=== PATIENT | female | born 1955 | race American Indian/Alaskan Native ===

== ENCOUNTER 2018-03-07 15:54 | Inpatient (IN) | payer MEDICAID ==
[2018-03-07] MEDS ORDERED: ATIVAN ONE ×4 (16:01→17:29)
[2018-03-07] MEDS ORDERED: KEPPRA 1,000 MG/NS 0.75% 100ML 1,000 MG/100 ML BAG IV ONE ×2 (16:19→19:31)
--- NOTE | 2018-03-07 16:23 | Cat Scan Report ---
FINAL REPORT PROCEDURE: CT head without contrast. TECHNIQUE: Computerized tomography of the head was performed without contrast material. HISTORY: neuro deficits <6hrs or sx present upon awakening COMPARISON: No prior studies are available for comparison. FINDINGS: The ventricles are normal in size. There is mild evidence of chronic ischemic white matter disease. T here are no mass lesions. There is no intracranial hemorrhage. The calvarium appears intact. The mast oid air cells are clear. There is mucosal thickening in the right sphenoid sinus.. An MRI scan with d iffusion-weighted imaging is the most sensitive means of detecting an early stroke. IMPRESSION: Normal study of the brain for age.
[2018-03-07 16:25] LABS: Mean Corpuscular HGB Conc 30 % (30-34); Mean Corpuscular Volume 88 fl (79-97); Platelet Count 288 K/mm3 (140-440); Red Blood Count 4.87 M/mm3 (3.65-5.03); Red Cell Distribution Width 16.5 % (13.2-15.2)
--- NOTE | 2018-03-07 16:27 | Emergency Department Report ---
HPI - General Time Seen by Provider: 03/07/18 16:19 - HPI HPI: Room 17 The patient is a 62-year-old female presented with a chief complaint of altered mental status. Per EMS family called at approximately 15:00 for altered mental status. EMS states upon their arrival the patient would not move her left side. The patient never spoke to EMS. EMS states while en route the patient had a generalized tonic-clonic seizure. In the ED the patient appears postictal. While in CT the patient had 2 more generalized tonic-clonic seizures. The patient was brought back to the room and immediately intubated using RSI Location: Mental status Duration: [See above] Quality: Altered Severity: Severe Modifying factors: [see above] Context: [see above] Mode of transportation: [not driving] ED Past Medical Hx - Past Medical History Hx Hypertension: Yes (2006) Hx Diabetes: Yes (2006) - Surgical History Additional Surgical History: cataract surgery, tubes removed, foot surgery - Family History Family history: no significant - Social History Smoking Status: Unknown if ever smoked Substance Use Type: None - Medications Home Medications: Home Medications Medication Instructions Recorded Confirmed Last Taken Type Cetirizine HCl [All Day Allergy] 1 tab PO DAILY PRN 05/09/13 05/10/13 05/08/13 20:00 History Fluticasone Propionate [Flovent 2 mcg INNOSTRIL DAILY 05/09/13 05/10/13 05/08/13 History Diskus] Glimepiride [Amaryl] 4 mg PO QAM 05/09/13 05/10/13 05/08/13 History 0800 Metformin HCl [Fortamet ER] 1,000 mg PO BID 05/09/13 05/10/13 05/08/13 08:00 History 1000 MG Sertraline [Zoloft] 100 mg PO QAM 05/09/13 05/10/13 05/08/13 08:00 History 100 MG Simvastatin [Zocor TAB] 20 mg PO DAILY 05/09/13 05/10/13 05/08/13 08:00 History 20 MG Valsartan [Diovan] 160 mg PO DAILY 05/09/13 05/10/13 05/08/13 08:00 History 160 MG amLODIPine [Norvasc] 10 mg PO DAILY 05/09/13 05/10/13 05/08/13 08:00 History 10 MG clonazePAM [KlonoPIN] 1 mg PO Q8HR 05/09/13 05/10/13 05/08/13 08:00 History 1 MG hydroCHLOROthiazide [HCTZ] 25 mg PO DAILY 05/09/13 05/10/13 05/08/13 08:00 History risperiDONE [Risperidone Odt] 0.25 mg PO QAM 05/09/13 05/10/13 05/08/13 08:00 History 0.25 MG Ciprofloxacin HCl [Cipro] 500 mg PO BID #28 tablet 05/13/13 Unknown Rx Insulin NPH/Regular [Novolin 70/30] 16 unit SQ BIDDIAB 30 Days ml 05/13/13 Unknown Rx Lactobacillus Acidophil [Lactinex] 1 each PO TID #60 tablet 05/13/13 Unknown Rx Sulfamethoxazole/Trimethoprim 1 each PO BID #28 tablet 05/13/13 Unknown Rx [Bactrim Ds] metroNIDAZOLE [Flagyl] 500 mg PO Q8HR #42 tablet 05/13/13 Unknown Rx HYDROcodone/APAP 5-325 [[place] 1 each PO Q6HR PRN #16 tablet 09/03/13 Unknown Rx 5-325 mg TAB] Sulfamethoxazole/Trimethoprim 1 each PO Q12H #20 tablet 09/03/13 Unknown Rx [Bactrim Ds] ED Review of Systems ROS: Stated complaint: STROKE Other details as noted in HPI Comment: Unobtainable due to pts medical conditions Physical Exam - Physical Exam Physical Exam: GENERAL: The patient is well-developed well-nourished female in apparent postictal hoping nonrebreather to her face with her left arm with a left gaze. [] HEENT: Normocephalic. Atraumatic. Leftward gaze NECK: Supple. Trachea midline CHEST/LUNGS: Clear to auscultation. There is no respiratory distress noted. HEART/CARDIOVASCULAR: Regular. There is tachycardia. There is no gallop rub or murmur. ABDOMEN: Abdomen is soft, nontender. Patient has normal bowel sounds. There is no abdominal distention. SKIN: There is no rash. There is no edema. There is no diaphoresis. NEURO: The patient is postictal and does not follow commands. MUSCULOSKELETAL: There is no evidence of acute injury. ED Course - Reevaluation(s) Reevaluation #1: 03/07/18 17:30 Patient with focal twitching of the right hand and right foot improving but still refractory to Ativan and Keppra. Phenobarbital load ordered - Consultations Consultation #1: 03/07/18 17:24 Tele-neurology paged 03/07/18 17:[address] Corley- agrees with plan - EJ/Peripheral Line Neck R Time Out Performed: No Indications: nurses unable to establis Skin Cleansed in Sterile Fashion: Yes Size: 20 Dressing Placed: Tegaderm Patient Tolerated Procedure: no complications - Intubation Time Out Performed: No Sedative: Etomidate Mg Given: 20 Paralytic: Succinylcholine Mg Given: 100 (initial 100 mg succinylcholine went through malfunctioning IV. Second 100 mg IV push by myself through EJ) Laryngoscope: Sher Size: 3 ET Tube Size: 7 Tube Secured Depth (cm): 21 Tube Secured Location: lips Tube Placement Confirmation: visualized tube passing t Patient Tolerated Procedure: well Intubation Complications: none ED Medical Decision Making - Lab Data Result diagrams: 03/07/18 16:11 03/07/18 16:11 Laboratory Tests 03/07/18 03/07/18 03/07/18 16:11 16:11 16:11 WBC 13.5 H RBC 4.87 Hgb 12.9 Hct 42.9 MCV 88 MCH 26 L MCHC 30 RDW 16.5 H Plt Count 288 Lymph # Desktop Manager PT 13.5 INR 0.99 APTT 28.8 Thrombin Time POC ABG pH POC ABG pCO2 POC ABG pO2 POC ABG HCO3 POC ABG Total CO2 POC ABG O2 Sat POC ABG Base Excess FiO2 Sodium 134 L Potassium 4.0 Chloride 93.2 L Carbon Dioxide 15 L Anion Gap 30 BUN 32 H Creatinine 1.7 H Estimated GFR 37 BUN/Creatinine Ratio 19 Glucose 793 H* Calcium 9.8 Magnesium Total Creatine Kinase CK-MB (CK-2) CK-MB (CK-2) Rel Index Troponin T < 0.010 03/07/18 03/07/18 03/07/18 16:11 16:11 16:11 WBC RBC Hgb Hct MCV MCH MCHC RDW Plt Count Lymph # PT INR APTT Thrombin Time 18.7 POC ABG pH POC ABG pCO2 POC ABG pO2 POC ABG HCO3 POC ABG Total CO2 POC ABG O2 Sat POC ABG Base Excess FiO2 Sodium Potassium Chloride Carbon Dioxide Anion Gap BUN Creatinine Estimated GFR BUN/Creatinine Ratio Glucose Calcium Magnesium 2.00 Total Creatine Kinase 91 CK-MB (CK-2) 2.6 CK-MB (CK-2) Rel Index 2.8 Troponin T 03/07/18 17:29 WBC RBC Hgb Hct MCV MCH MCHC RDW Plt Count Lymph # PT INR APTT Thrombin Time POC ABG pH 7.190 L POC ABG pCO2 57.6 H POC ABG pO2 250 H POC ABG HCO3 22.0 POC ABG Total CO2 24 POC ABG O2 Sat 100 POC ABG Base Excess -6 FiO2 100 Sodium Potassium Chloride Carbon Dioxide Anion Gap BUN Creatinine Estimated GFR BUN/Creatinine Ratio Glucose Calcium Magnesium Total Creatine Kinase CK-MB (CK-2) CK-MB (CK-2) Rel Index Troponin T - EKG Data -: EKG Interpreted by Me EKG shows normal: sinus rhythm Rate: tachycardia (106 bpm) - EKG Data When compared to previous EKG there are: previous EKG unavailable - Radiology Data Radiology results: report reviewed (CT head, chest x-ray), image reviewed (chest x-ray, CT head) interpreted by me: Chest x-ray-ET tube in appropriate position. No focal infiltrate, no pneumothorax [facility] [address] [place] [address] XRay Report Signed Patient: MARCOS KERR MR#: [id number] : 955 Acct:[id number] Age/Sex: 62 / F ADM Date: 03/07/18 Loc: ED Attending Dr: Ordering Physician: MAGDA CORONA MD Date of Service: 03/07/18 Procedure(s): XR chest 1V ap Accession Number(s): [id number] cc: MAGDA CORONA MD Fluoro Time In Minutes: FINAL REPORT PROCEDURE: Chest. TECHNIQUE: Chest radiograph anteroposterior view. CPT 63455 HISTORY: Intubation. COMPARISON: No prior studies are available for comparison. FINDINGS: The heart and mediastinum appear normal. The lungs are clear and well expanded. There is an endotracheal tube that terminates approximately 5.8 centimeters above the anatoly. There are no pleural effusions. The soft tissues and regional skeleton are unremarkable. IMPRESSION: Satisfactory intubation. Transcribed By: [facility] Dictated By: GRZEGORZ DOBSON MD Electronically Authenticated By: GRZEGORZ DOBSON MD Signed Date/Time: 03/07/181740 DD/ 42 TD/TT: 03/07/181742 [facility] [address] [place] [address] Cat Scan Report Signed Patient: MARCOS KERR MR#: [id number] : 1955 Acct:[id number] Age/Sex: 62 / F ADM Date: 03/07/18 Loc: ED Attending Dr: Ordering Physician: MAGDA CORONA MD Date of Service: 03/07/18 Procedure(s): CT head/brain wo con Accession Number(s): [id number] cc: MAGDA CORONA MD FINAL REPORT PROCEDURE: CT head without contrast. TECHNIQUE: Computerized tomography of the head was performed without contrast material. HISTORY: neuro deficits lt; 6hrs or sx present upon awakening COMPARISON: No prior studies are available for comparison. FINDINGS: The ventricles are normal in size. There is mild evidence of chronic ischemic white matter disease. There are no mass lesions. There is no intracranial hemorrhage. The calvarium appears intact. The mastoid air cells are clear. There is mucosal thickening in the right sphenoid sinus.. An MRI scan with diffusion-weighted imaging is the most sensitive means of detecting an early stroke. IMPRESSION: Normal study of the brain for age. Transcribed By: [facility] Dictated By: GRZEGORZ DOBSON MD Electronically Authenticated By: GRZEGORZ DOBSON MD Signed Date/Time: 03/07/181622 DD/ 24 TD/TT: 03/07/181624 - Differential Diagnosis altered mental status, ICH, hypertensive urgency Critical care attestation.: If time is entered above; I have spent that time in minutes in the direct care of this critically ill patient, excluding procedure time. ED Disposition Clinical Impression: Altered mental status, Status epilepticus, DKA (diabetic ketoacidoses) Disposition: OP ADMIT IP TO THIS HOSP Is pt being admited?: Yes Does the pt Need Aspirin: No Condition: Serious Instructions: Diabetic Ketoacidosis (ED) Time of Disposition: 17:39 (hospitalist paged (Dr Corbin))
[2018-03-07 16:35] LABS: Hematocrit 42.9 % (30.3-42.9); Hemoglobin 12.9 gm/dl (10.1-14.3); INR 0.99 (0.87-1.13); Partial Thromboplastin Time 28.8 Sec. (24.2-36.6)
[2018-03-07 16:40] LABS: BUN/Creatinine Ratio 19; Blood Urea Nitrogen 32 mg/dL (7-17); Calcium 9.8 mg/dL (8.4-10.2); Hemolysis Index 6
[2018-03-07 16:58] LABS: Creatine Kinase MB 2.6 ng/mL (0.0-4.0)
[2018-03-07] MEDS ORDERED: CARDENE 50 MG in NACL 0.9% 250ML 230 ML IV SCH (17:00)
[2018-03-07] MEDS ORDERED: NACL 0.9% 1000 ML 1,000 ML IV ONE ×3 (17:24→17:29)
[2018-03-07] MEDS ORDERED: ATIVAN IV ONE ×4 (17:25→17:37)
[2018-03-07] MEDS ORDERED: HumuLIN R IV ONE (17:31)
[2018-03-07] MEDS ORDERED: D50W (25GM) Syringe IV PRN ×4 (17:34→20:09)
--- NOTE | 2018-03-07 17:41 | XRay Report ---
FINAL REPORT PROCEDURE: Chest. TECHNIQUE: Chest radiograph anteroposterior view. CPT 49008 HISTORY: Intubation. COMPARISON: No prior studies are available for comparison. FINDINGS: The heart and mediastinum appear normal. The lungs are clear and well expanded. There is an endotrach eal tube that terminates approximately 5.8 centimeters above the anatoly. There are no pleural effusio ns. The soft tissues and regional skeleton are unremarkable. IMPRESSION: Satisfactory intubation.
[2018-03-07 18:00] LABS: Basophils % (Manual) 0 % (0.0-1.8); Eosinophils % (Manual) 0 % (0.0-4.3); Total Cells Counted 100
--- NOTE | 2018-03-07 18:01 | History and Physical Report ---
History of Present Illness Chief complaint: Unresponsive History of present illness: 62 YO Female with HTN, DM presents to ED for evaluation. Pt is unresponsive and unable to provide history. Pt family is at bedside and provides history. As per family, the patient was found to be confused and unable to move the left side of her body. EMS was called and the patient was found to be in distress. Pt transported to [facility] for further care and evaluation. As per EMs, the patient experienced a generalized tonic clonic seizure. Pt seen and evaluated in ED and found to have DKA, Acidosis, Acute Renal Failure, as well as Respiratory Failure. Pt was unable to protect her airway. The patient was intubated and placed on vent support. Neurology notified, and the patient was deemed not to be a candidate for TPA. Pt admitted to ICU and initiated on DKA protocol. Past History Past Medical History: diabetes, hypertension, other (Obesity) Past Surgical History: cataract removal, Other (Foot surgery) Social history: single. denies: smoking, alcohol abuse, prescription drug abuse Family history: diabetes, hypertension Medications and Allergies Allergies Allergy/AdvReac Type Severity Reaction Status Date / Time No Known Allergies Allergy Unverified 05/09/13 12:39 Home Medications Medication Instructions Recorded Confirmed Last Taken Type Cetirizine HCl [All Day Allergy] 1 tab PO DAILY PRN 05/09/13 05/10/13 05/08/13 20:00 History Fluticasone Propionate [Flovent 2 mcg INNOSTRIL DAILY 05/09/13 05/10/13 05/08/13 History Diskus] Glimepiride [Amaryl] 4 mg PO QAM 05/09/13 05/10/13 05/08/13 History 0800 Metformin HCl [Fortamet ER] 1,000 mg PO BID 05/09/13 05/10/13 05/08/13 08:00 History 1000 MG Sertraline [Zoloft] 100 mg PO QAM 05/09/13 05/10/13 05/08/13 08:00 History 100 MG Simvastatin [Zocor TAB] 20 mg PO DAILY 05/09/13 05/10/13 05/08/13 08:00 History 20 MG Valsartan [Diovan] 160 mg PO DAILY 05/09/13 05/10/13 05/08/13 08:00 History 160 MG amLODIPine [Norvasc] 10 mg PO DAILY 05/09/13 05/10/13 05/08/13 08:00 History 10 MG clonazePAM [KlonoPIN] 1 mg PO Q8HR 05/09/13 05/10/13 05/08/13 08:00 History 1 MG hydroCHLOROthiazide [HCTZ] 25 mg PO DAILY 05/09/13 05/10/13 05/08/13 08:00 History risperiDONE [Risperidone Odt] 0.25 mg PO QAM 05/09/13 05/10/13 05/08/13 08:00 History 0.25 MG Ciprofloxacin HCl [Cipro] 500 mg PO BID #28 tablet 05/13/13 Unknown Rx Insulin NPH/Regular [Novolin 70/30] 16 unit SQ BIDDIAB 30 Days ml 05/13/13 Unknown Rx Lactobacillus Acidophil [Lactinex] 1 each PO TID #60 tablet 05/13/13 Unknown Rx Sulfamethoxazole/Trimethoprim 1 each PO BID #28 tablet 05/13/13 Unknown Rx [Bactrim Ds] metroNIDAZOLE [Flagyl] 500 mg PO Q8HR #42 tablet 05/13/13 Unknown Rx HYDROcodone/APAP 5-325 [[place] 1 each PO Q6HR PRN #16 tablet 09/03/13 Unknown Rx 5-325 mg TAB] Sulfamethoxazole/Trimethoprim 1 each PO Q12H #20 tablet 09/03/13 Unknown Rx [Bactrim Ds] Active Meds: Active Medications Dextrose (D50w (25gm) Syringe) 0 ml IV PRN PRN PRN Reason: Hypoglycemia Nicardipine HCl 50 mg/ Sodium (Chloride) 250 mls @ 25 mls/hr IV TITR OZIEL; Protocol Sodium Chloride (Nacl 0.9% 1000 Ml) 1,000 mls @ 999 mls/hr IV ONCE ONE Stop: 03/07/18 18:24 Sodium Chloride (Nacl 0.9% 1000 Ml) 1,000 mls @ 999 mls/hr IV ONCE ONE Stop: 03/07/18 18:29 Last Admin: 03/07/18 17:46 Dose: 999 mls/hr Documented by: Sodium Chloride (Nacl 0.9% 1000 Ml) 1,000 mls @ 999 mls/hr IV ONCE ONE Stop: 03/07/18 18:29 Last Admin: 03/07/18 17:38 Dose: 999 mls/hr Documented by: Insulin Human Regular 100 (units/ Sodium Chloride) 100 mls @ 10 mls/hr IV TITR OZIEL; Protocol Phenobarbital 1,573 mg/ Sodium (Chloride) 112.1 mls @ 223.077 mls/hr IV ONCE ONE Stop: 03/07/18 19:30 Review of Systems ROS unobtainable: due to endotracheal tube Exam - Constitutional Vitals: Temp Pulse Resp BP Pulse Ox 103 H 14 116/70 99 03/07/18 17:34 03/07/18 16:21 03/07/18 17:34 03/07/18 17:34 General appearance: Present: severe distress, obese - EENT Eyes: Present: PERRL, miosis ENT: hearing intact, clear oral mucosa - Neck Neck: Present: supple, normal ROM - Respiratory Respiratory: bilateral: diminished, rhonchi - Cardiovascular Heart Sounds: Present: S1 & S2. Absent: rub, click - Extremities Extremities: pulses symmetrical, No edema Peripheral Pulses: within normal limits - Abdominal General gastrointestinal: Present: soft, non-tender, non-distended, normal bowel sounds Female genitourinary: Present: normal - Integumentary Integumentary: Present: clear, dry - Musculoskeletal Musculoskeletal: generalized weakness - Psychiatric Psychiatric: no appropriate mood/affect, no intact judgment & insight, no memory intact - Neurologic Neurologic: focal deficits, no gait normal Results - Labs CBC & Chem 7: 03/07/18 16:11 03/07/18 18:00 Labs: Abnormal lab results 03/07/18 03/07/18 03/07/18 Range/Units 16:11 16:11 17:29 WBC 13.5 H (4.5-11.0) K/mm3 MCH 26 L (28-32) pg RDW 16.5 H (13.2-15.2) % POC ABG pH 7.190 L (7.35-7.45) POC ABG pCO2 57.6 H (35-45) POC ABG pO2 250 H (80-105) Sodium 134 L (137-145) mmol/L Chloride 93.2 L (98-107) mmol/L Carbon Dioxide 15 L (22-30) mmol/L BUN 32 H (7-17) mg/dL Creatinine 1.7 H (0.7-1.2) mg/dL Glucose 793 H* (65-100) mg/dL Assessment and Plan - Patient Problems (1) Respiratory failure Current Visit: Yes Status: Acute Qualifiers: Chronicity: acute Respiratory failure complication: hypoxia Qualified Code(s): J96.01 - Acute respiratory failure with hypoxia Plan to address problem: Pt intubated, sedated, on vent support. Admit to ICU, daily SBT, Sedation holiday, chest x ray, ABG The high probability of a clinically significant, sudden or life threatening deterioration of the [pulmonary, neuro, endocrine] system(s) required my full and direct attention, intervention and personal management. The aggregate cri tical care time was [65] minutes. This time is in addition to time spent performing reported procedures but includes the following: [x] Data Review and interpretation [x] Patient assessment and monitoring of vital signs [x] Documentation [x] Medication orders and management (2) Encephalopathy Current Visit: Yes Status: Acute Plan to address problem: CT Head, neuro checks, (3) Sepsis Current Visit: Yes Status: Acute Qualifiers: Sepsis type: sepsis due to unspecified organism Qualified Code(s): A41.9 - Sepsis, unspecified organism Plan to address problem: Sepsis protocol: IV antibiotic therapy, chest x ray, urinalysis, blood cultures, IVF resuscitation, serial lactic acid level. (4) ARF (acute renal failure) with tubular necrosis Current Visit: Yes Status: Acute Plan to address problem: IVF resuscitation therapy, monitor uop q shift, repeat bmp to monitor serum creatnine (5) Acidosis Current Visit: Yes Status: Acute Plan to address problem: treat sepsis, serial lactic acid levels, IVF resuscitation (6) DKA (diabetic ketoacidoses) Current Visit: Yes Status: Acute Qualifiers: Diabetes mellitus type: type 1 Diabetes mellitus complication detail: with coma Qualified Code(s): E10.11 - Type 1 diabetes mellitus with ketoacidosis with coma Plan to address problem: DKA Protocol: IVF resuscitation therapy, Insulin drip, serial bmp, monitor serial bmp to monitor anion gap (7) CVA (cerebral vascular accident) Current Visit: Yes Status: Acute Qualifiers: Precerebral and cerebral artery: posterior cerebral artery Plan to address problem: Admit to ICU, Neurology consulted, CT Head, MRI brain, MRA Brain, Echo, Carotid doppler, Neuro checks, aspiration precautions, seizure precautions, (8) Seizure disorder Current Visit: Yes Status: Acute Plan to address problem: Kepp, phenobarbital, neurology consulted, EEG (9) DVT prophylaxis Current Visit: No Status: Acute Plan to address problem: SCD to BLE while in bed.
[2018-03-07 18:02] LABS: Hypochromasia Few; Platelet Estimate Consistent w Auto; Schistocytes Rare
[2018-03-07] MEDS ORDERED: SODIUM CHLORIDE FLUSH SYRINGE 10 ML IV PRN (18:02)
[2018-03-07 18:27] LABS: Calcium 9.1 mg/dL (8.4-10.2)
[2018-03-07] MEDS ORDERED: NACL 0.9% IV ONE (19:00)
[2018-03-07] MEDS ORDERED: PHENOBARBITAL IV ONE (19:00)
[2018-03-07] MEDS ORDERED: NACL 0.9% 1000 ML IV ONE (19:00)
[2018-03-07] MEDS ORDERED: HumuLIN R 100 UNITS in NACL 0.9% 99 ML IV SCH ×2 (19:00)
[2018-03-07] MEDS ORDERED: AMIDATE IV ONE (19:13)
[2018-03-07] MEDS ORDERED: XYLOCAINE CARDIAC IV ONE (19:13)
[2018-03-07] MEDS ORDERED: QUELICIN ONE (19:13)
[2018-03-07 19:46] LABS: Bacteria,Urine 1+ /HPF (Negative); Bilirubin,Urine NEG (Negative); Blood,Urine MOD (Negative); Color,Urine Yellow (Yellow); Mucus,Urine 2+ /HPF; Urobilinogen,Urine < 2.0 mg/dL (<2.0)
[2018-03-07] MEDS ORDERED: SODIUM CHLORIDE FLUSH SYRINGE 10 ML INJ PRN (20:05)
[2018-03-07] MEDS ORDERED: PHENERGAN PR PRN (20:05)
[2018-03-07] MEDS ORDERED: REGLAN PO PRN ×2 (20:05→20:24)
[2018-03-07] MEDS ORDERED: ZOFRAN IV PRN (20:05)
[2018-03-07] MEDS ORDERED: MILK OF MAGNESIA PO PRN (20:05)
[2018-03-07] MEDS ORDERED: DULCOLAX PR PRN (20:05)
[2018-03-07] MEDS ORDERED: [UNRECOGNIZED DRUG - REMARK] PO PRN (20:07)
[2018-03-07] MEDS ORDERED: CLARITIN PO PRN (20:32)
[2018-03-07 21:28] LABS: Calcium 8.8 mg/dL (8.4-10.2)
[2018-03-07] MEDS ORDERED: NON-FORMULARY (Clonazepam [Klonopin] 1 MG) PO SCH (22:00)
[2018-03-07 23:25] LABS: Calcium 9.1 mg/dL (8.4-10.2)
[2018-03-08] MEDS: ZITHROMAX 500 MG in NACL 0.9% 250ML 250 ML IV SCH ×2 (00:05→10:09)
[2018-03-08] MEDS: SODIUM CHLORIDE FLUSH SYRINGE 10 ML IV SCH ×3 (00:06→21:58)
[2018-03-08] MEDS: HumaLOG SUB-Q SCH ×3 (00:07→18:14)
[2018-03-08] MEDS: D5W/0.45% NACL/KCL 20 MEQ 20 MEQ/1,000 ML BAG IV SCH ×2 (00:15→08:20)
[2018-03-08] MEDS: ROCEPHIN/NS 2 GM/100 ML 2 GM/100 ML BAG IV SCH ×2 (01:15→10:10)
[2018-03-08 05:57] LABS: Calcium 8.9 mg/dL (8.4-10.2)
[2018-03-08] MEDS ORDERED: TYLENOL PR PRN (09:02)
[2018-03-08] MEDS ORDERED: ZOLOFT PO SCH (10:00)
[2018-03-08] MEDS ORDERED: RisperDAL PO SCH (10:00)
[2018-03-08] MEDS ORDERED: RISPERIDONE 0.25 MG PO SCH (10:00)
[2018-03-08] MEDS ORDERED: FLUTICASONE PROPIONATE 2 MCG InNostril SCH (10:00)
[2018-03-08] MEDS ORDERED: KEPPRA 2,000 MG in NACL 0.9% 100 ML IV ONE (11:15)
--- NOTE | 2018-03-08 11:19 | XRay Report ---
AP ABDOMEN: HISTORY: Dobbhoff tube placement. A Dobbhoff tube has been inserted which terminates in the fundus of the stomach. The abdominal gas pattern is unremarkable. No masses or organomegaly is identified and there is no gross evidence of free air or fluid. No significant soft tissue calcifications are noted. IMPRESSION: Unremarkable abdomen.
--- NOTE | 2018-03-08 12:14 | Consultation ---
History of Present Illness Consult date: 03/08/18 Requesting physician: VIVEK GREEN Reason for consult: other (DKA; Acute Encephalopathy; Status Epilepticus) History of present illness: PULMONARY/CCM CONSULT NOTE (Full dictation # [id number]) Please see dictated notes for full details Past History Past Medical History: diabetes, hypertension, other (Obesity) Past Surgical History: cataract removal, Other (Foot surgery) Social history: single. denies: smoking, alcohol abuse, prescription drug abuse Family history: diabetes, hypertension Medications and Allergies Allergies Allergy/AdvReac Type Severity Reaction Status Date / Time No Known Allergies Allergy Unverified 05/09/13 12:39 Home Medications Medication Instructions Recorded Confirmed Last Taken Type Cetirizine HCl [All Day Allergy] 1 tab PO DAILY PRN 05/09/13 05/10/13 05/08/13 20:00 History Fluticasone Propionate [Flovent 2 mcg INNOSTRIL DAILY 05/09/13 05/10/13 05/08/13 History Diskus] Glimepiride [Amaryl] 4 mg PO QAM 05/09/13 05/10/13 05/08/13 History 0800 Metformin HCl [Fortamet ER] 1,000 mg PO BID 05/09/13 05/10/13 05/08/13 08:00 History 1000 MG Sertraline [Zoloft] 100 mg PO QAM 05/09/13 05/10/13 05/08/13 08:00 History 100 MG Simvastatin [Zocor TAB] 20 mg PO DAILY 05/09/13 05/10/13 05/08/13 08:00 History 20 MG Valsartan [Diovan] 160 mg PO DAILY 05/09/13 05/10/13 05/08/13 08:00 History 160 MG amLODIPine [Norvasc] 10 mg PO DAILY 05/09/13 05/10/13 05/08/13 08:00 History 10 MG clonazePAM [KlonoPIN] 1 mg PO Q8HR 05/09/13 05/10/13 05/08/13 08:00 History 1 MG hydroCHLOROthiazide [HCTZ] 25 mg PO DAILY 05/09/13 05/10/13 05/08/13 08:00 History risperiDONE [Risperidone Odt] 0.25 mg PO QAM 05/09/13 05/10/13 05/08/13 08:00 History 0.25 MG Ciprofloxacin HCl [Cipro] 500 mg PO BID #28 tablet 05/13/13 Unknown Rx Insulin NPH/Regular [Novolin 70/30] 16 unit SQ BIDDIAB 30 Days ml 05/13/13 Unknown Rx Lactobacillus Acidophil [Lactinex] 1 each PO TID #60 tablet 05/13/13 Unknown Rx Sulfamethoxazole/Trimethoprim 1 each PO BID #28 tablet 05/13/13 Unknown Rx [Bactrim Ds] metroNIDAZOLE [Flagyl] 500 mg PO Q8HR #42 tablet 05/13/13 Unknown Rx HYDROcodone/APAP 5-325 [[place] 1 each PO Q6HR PRN #16 tablet 09/03/13 Unknown Rx 5-325 mg TAB] Sulfamethoxazole/Trimethoprim 1 each PO Q12H #20 tablet 09/03/13 Unknown Rx [Bactrim Ds] Active Meds: Active Medications Acetaminophen (Tylenol) 650 mg PO Q4H PRN PRN Reason: Pain, Mild (1-3) Acetaminophen (Tylenol) 650 mg WA Q6H PRN PRN Reason: Non Cardiac Pain or Temp>100.5 Atorvastatin Calcium (Lipitor) 40 mg PO QHS [facility] Last Admin: 03/07/18 23:41 Dose: Not Given Documented by: Bisacodyl (Dulcolax) 10 mg WA QDAY PRN PRN Reason: Constipation Clonazepam (Klonopin) 1 mg PO Q8HR [facility] Last Admin: 03/07/18 23:41 Dose: Not Given Documented by: Dextrose (D50w (25gm) Syringe) 50 ml IV PRN PRN PRN Reason: Hypoglycemia Nicardipine HCl 50 mg/ Sodium (Chloride) 250 mls @ 25 mls/hr IV TITR [facility]; Protocol Insulin Human Regular 100 (units/ Sodium Chloride) 100 mls @ 10 mls/hr IV TITR OZIEL; Protocol Last Titration: 03/08/18 10:30 Dose: 1 units/hr, 1 mls/hr Documented by: Azithromycin 500 mg/ Sodium (Chloride) 250 mls @ 250 mls/hr IV Q24HR [facility]; Protocol Last Admin: 03/08/18 10:09 Dose: 250 mls/hr Documented by: Ceftriaxone Sodium (Rocephin/Ns 2 Gm/100 Ml) 2 gm in 100 mls @ 200 mls/hr IV Q24HR [facility]; Protocol Last Admin: 03/08/18 10:10 Dose: 200 mls/hr Documented by: Potassium Chloride/Dextrose/Sod Cl (D5w/0.45% Nacl/Kcl 20 Meq) 20 meq in 1,000 mls @ 125 mls/hr IV DIRECT [facility] Last Admin: 03/08/18 08:20 Dose: 125 mls/hr Documented by: Levetiracetam 750 mg/ Sodium (Chloride) 107.5 mls @ 400 mls/hr IV Q6H [facility] Insulin Human Lispro (Humalog) 0 unit SUB-Q Q6HR [facility]; Protocol Last Admin: 03/08/18 11:41 Dose: Not Given Documented by: Loratadine (Claritin) 10 mg PO DAILY PRN PRN Reason: Allergy Symptoms Magnesium Hydroxide (Milk Of Magnesia) 30 ml PO Q4H PRN PRN Reason: Constipation Metoclopramide HCl (Reglan) 5 mg PO Q6H PRN PRN Reason: Nausea And Vomiting Miscellaneous Medication (Fluticasone Propionate [Flovent Diskus]) 2 mcg InNostril DAILY [facility] Ondansetron HCl (Zofran) 4 mg IV Q8H PRN PRN Reason: Nausea And Vomiting Promethazine HCl (Phenergan) 25 mg WA Q6H PRN PRN Reason: Nausea And Vomiting Risperidone (Risperdal) 0.25 mg PO QAM [facility] Sertraline HCl (Zoloft) 100 mg PO QAM [facility] Sodium Chloride (Sodium Chloride Flush Syringe 10 Ml) 10 ml IV BID [facility] Last Admin: 03/08/18 00:06 Dose: 10 ml Documented by: Sodium Chloride (Sodium Chloride Flush Syringe 10 Ml) 10 ml IV PRN PRN PRN Reason: LINE FLUSH Physical Examination Vital signs: Vital Signs Pulse Ox 100 03/07/18 16:10 Results - Laboratory Findings CBC and BMP: 03/07/18 16:11 03/08/18 12:35 ABG POC ABG pH 7.343 (7.35-7.45) L 03/08/18 04:10 POC ABG pCO2 39.4 (35-45) 03/08/18 04:10 POC ABG pO2 159 (80-105) H 03/08/18 04:10 POC ABG HCO3 21.4 03/08/18 04:10 POC ABG Total CO2 23 03/08/18 04:10 POC ABG O2 Sat 99 03/08/18 04:10 PT/INR, D-dimer PT 13.5 Sec. (12.2-14.9) 03/07/18 16:11 INR 0.99 (0.87-1.13) 03/07/18 16:11 Abnormal lab findings: Abnormal Labs 03/07/18 03/07/18 03/07/18 16:11 16:11 17:29 WBC 13.5 H MCH 26 L RDW 16.5 H POC ABG pH 7.190 L POC ABG pCO2 57.6 H POC ABG pO2 250 H VBG pH Sodium 134 L Potassium Chloride 93.2 L Carbon Dioxide 15 L BUN 32 H Creatinine 1.7 H Glucose 793 H* POC Glucose Lactic Acid Phosphorus Urine WBC (Auto) 03/07/18 03/07/18 03/07/18 18:00 18:00 18:00 WBC MCH RDW POC ABG pH POC ABG pCO2 POC ABG pO2 VBG pH 7.197 L* Sodium 133 L Potassium 5.8 H D Chloride 95.9 L Carbon Dioxide 20 L BUN 33 H Creatinine 1.8 H Glucose 760 H* POC Glucose Lactic Acid Phosphorus 5.70 H Urine WBC (Auto) 03/07/18 03/07/18 03/07/18 18:12 18:51 19:39 WBC MCH RDW POC ABG pH POC ABG pCO2 POC ABG pO2 VBG pH Sodium Potassium Chloride Carbon Dioxide BUN Creatinine Glucose POC Glucose Lactic Acid 4.20 H* 3.40 H* Phosphorus Urine WBC (Auto) 91.0 H 03/07/18 03/07/18 03/07/18 19:56 21:03 21:03 WBC MCH RDW POC ABG pH POC ABG pCO2 POC ABG pO2 VBG pH Sodium Potassium Chloride Carbon Dioxide 20 L BUN 31 H Creatinine 1.4 H Glucose 381 H POC Glucose 426 H Lactic Acid 2.70 H* Phosphorus Urine WBC (Auto) 03/07/18 03/07/18 03/07/18 21:20 22:01 22:38 WBC MCH RDW POC ABG pH POC ABG pCO2 POC ABG pO2 VBG pH Sodium Potassium Chloride Carbon Dioxide 17 L BUN 29 H Creatinine 1.4 H Glucose 236 H POC Glucose 323 H 252 H Lactic Acid Phosphorus Urine WBC (Auto) 03/07/18 03/07/18 03/08/18 22:38 22:54 00:25 WBC MCH RDW POC ABG pH POC ABG pCO2 POC ABG pO2 VBG pH Sodium Potassium Chloride Carbon Dioxide BUN Creatinine Glucose POC Glucose 186 H 51 L Lactic Acid 2.50 H* Phosphorus Urine WBC (Auto) 03/08/18 03/08/18 03/08/18 01:03 02:30 03:14 WBC MCH RDW POC ABG pH POC ABG pCO2 POC ABG pO2 VBG pH Sodium Potassium Chloride Carbon Dioxide BUN Creatinine Glucose 106 H POC Glucose 157 H 147 H Lactic Acid Phosphorus Urine WBC (Auto) 03/08/18 03/08/18 03/08/18 03:47 04:10 05:06 WBC MCH RDW POC ABG pH 7.343 L POC ABG pCO2 POC ABG pO2 159 H VBG pH Sodium 146 H D Potassium Chloride 108.7 H Carbon Dioxide 20 L BUN 25 H Creatinine 1.5 H Glucose POC Glucose 146 H Lactic Acid Phosphorus Urine WBC (Auto) 03/08/18 03/08/18 03/08/18 06:06 08:07 09:20 WBC MCH RDW POC ABG pH POC ABG pCO2 POC ABG pO2 VBG pH Sodium Potassium Chloride Carbon Dioxide BUN Creatinine Glucose POC Glucose 157 H 141 H 133 H Lactic Acid Phosphorus Urine WBC (Auto) 03/08/18 10:20 WBC MCH RDW POC ABG pH POC ABG pCO2 POC ABG pO2 VBG pH Sodium Potassium Chloride Carbon Dioxide BUN Creatinine Glucose POC Glucose 138 H Lactic Acid Phosphorus Urine WBC (Auto)
--- NOTE | 2018-03-08 12:32 | Progress Note ---
Assessment and Plan Assessment and plan: Patient is a 62 yo woman with a history of hypertension, type 2 DM, dyslipidemia, depression and prior left big toe diabetic osteomyelitis infection who presented to [facility] ED with AMS. EMS states upon their arrival the patient would not move her left side. The patient never spoke to EMS. EMS states while en route the patient had a generalized tonic-clonic seizure. In the ED the patient appears postictal. While in CT scan, the patient had 2 more generalized tonic-clonic seizures. The patient was brought back to the room and immediately intubated using RSI * pCXR FINDINGS: The heart and mediastinum appear normal. The lungs are clear and well expanded. There is an endotracheal tube that terminates approximately 5.8 centimeters above the anatoly. There are no pleural effusions. The soft tissues and regional skeleton are unremarkable. IMPRESSION: Satisfactory intubation. * Abd XR: unremarkable -Acute Respiratory failure due to mental status: d/w CCM, continue MV -Acute encephalopathy, ?anoxic injury due to seizures, not sedated and doesn't need restraints vs CVA: consult Neurology -Status epilepticus: consulted Neurology, mri brain pending, EEG pending, treat with IV keppra -ARF, ATN+vasomotor nephropathy: treat with ivf, daily bmp -Type 2 DM with HONK, not DKA without ketones on Insulin drip for uncontrolled hyperglycemia: d/w [facility], he will address -Acidosis, respiratory and metabolic: treat the underlying cause of above -Suspect Acute CVA causing AMS and seizures which led to respiratory failure and encephalopathy -Fevers from suspect sepsis UTI: consult ID and treat with abx full code CCT 32 minutes History Interval history: Patient was seen and examined. Follow-up on current diagnosis of AMS, still intubated. Overnight uneventful. Imaging, nursing note, chart, labs and old chart reviewed. Discussed with nursing. Hospitalist Physical - Physical exam Narrative exam: Gen: ill appearing, intubated, not sedated, no restraints needed HEENT: NCAT, EOMI, Pupils equal but sluggish, OP ETT, ngt Neck: supple, no adenopathy, no thyromegaly, no JVD, right EJ in place CVS/Heart: RRR, normal S1S2, pulses present bilaterally Chest/Lungs: diminished bs bilateral, Symmetrical chest expansion, good air entry bilaterally GI/Abdomen: soft, NTND, good bowel sounds, no guarding or rebound /Bladder: bryant in place Extermity/Skin: no c/c/e, no obvious rash MSK: FROM x 4 Neuro: doesn't follow commands Psych: comatose - Constitutional Vitals: Temp Pulse Resp BP Pulse Ox 99.4 F 89 20 135/64 99 03/08/18 12:00 03/08/18 11:30 03/08/18 11:30 03/08/18 11:30 03/08/18 11:30 General appearance: Present: severe distress, obese Results - Labs CBC & Chem 7: 03/07/18 16:11 03/08/18 03:47 Labs: Laboratory Last Values WBC 13.5 K/mm3 (4.5-11.0) H 03/07/18 16:11 RBC 4.87 M/mm3 (3.65-5.03) 03/07/18 16:11 Hgb 12.9 gm/dl (10.1-14.3) 03/07/18 16:11 Hct 42.9 % (30.3-42.9) 03/07/18 16:11 MCV 88 fl (79-97) 03/07/18 16:11 MCH 26 pg (28-32) L 03/07/18 16:11 MCHC 30 % (30-34) 03/07/18 16:11 RDW 16.5 % (13.2-15.2) H 03/07/18 16:11 Plt Count 288 K/mm3 (140-440) 03/07/18 16:11 Lymph # [place] [employer] Developer 03/07/18 16:11 Add Manual Diff Complete 03/07/18 16:11 Total Counted 100 03/07/18 16:11 Seg Neuts % (Manual) 55.0 % (40.0-70.0) 03/07/18 16:11 Band Neutrophils % 0 % 03/07/18 16:11 Lymphocytes % (Manual) 28.0 % (13.4-35.0) 03/07/18 16:11 Reactive Lymphs % (Man) 12.0 % 03/07/18 16:11 Monocytes % (Manual) 5.0 % (0.0-7.3) 03/07/18 16:11 Eosinophils % (Manual) 0 % (0.0-4.3) 03/07/18 16:11 Basophils % (Manual) 0 % (0.0-1.8) 03/07/18 16:11 Metamyelocytes % 0 % 03/07/18 16:11 Myelocytes % 0 % 03/07/18 16:11 Promyelocytes % 0 % 03/07/18 16:11 Blast Cells % 0 % 03/07/18 16:11 Nucleated RBC % Not Reportable 03/07/18 16:11 Seg Neutrophils # Man 7.4 K/mm3 (1.8-7.7) 03/07/18 16:11 Band Neutrophils # 0.0 K/mm3 03/07/18 16:11 Lymphocytes # (Manual) 3.8 K/mm3 (1.2-5.4) 03/07/18 16:11 Abs React Lymphs (Man) 1.6 K/mm3 03/07/18 16:11 Monocytes # (Manual) 0.7 K/mm3 (0.0-0.8) 03/07/18 16:11 Eosinophils # (Manual) 0.0 K/mm3 (0.0-0.4) 03/07/18 16:11 Basophils # (Manual) 0.0 K/mm3 (0.0-0.1) 03/07/18 16:11 Metamyelocytes # 0.0 K/mm3 03/07/18 16:11 Myelocytes # 0.0 K/mm3 03/07/18 16:11 Promyelocytes # 0.0 K/mm3 03/07/18 16:11 Blast Cells # 0.0 K/mm3 03/07/18 16:11 WBC Morphology Not Reportable 03/07/18 16:11 Hypersegmented Neuts Not Reportable 03/07/18 16:11 Hyposegmented Neuts Not Reportable 03/07/18 16:11 Hypogranular Neuts Not Reportable 03/07/18 16:11 Smudge Cells Not Reportable 03/07/18 16:11 Toxic Granulation Not Reportable 03/07/18 16:11 Toxic Vacuolation Not Reportable 03/07/18 16:11 Dohle Bodies Not Reportable 03/07/18 16:11 Pelger-Huet Anomaly Not Reportable 03/07/18 16:11 [place] Rods Not Reportable 03/07/18 16:11 Platelet Estimate Consistent w auto 03/07/18 16:11 Clumped Platelets Not Reportable 03/07/18 16:11 Plt Clumps, EDTA Not Reportable 03/07/18 16:11 Large Platelets Not Reportable 03/07/18 16:11 Giant Platelets Not Reportable 03/07/18 16:11 Platelet Satelliting Not Reportable 03/07/18 16:11 Plt Morphology Comment Not Reportable 03/07/18 16:11 RBC Morphology Not Reportable 03/07/18 16:11 Dimorphic RBCs Not Reportable 03/07/18 16:11 Polychromasia Not Reportable 03/07/18 16:11 Hypochromasia Few 03/07/18 16:11 Poikilocytosis Not Reportable 03/07/18 16:11 Anisocytosis Not Reportable 03/07/18 16:11 Microcytosis Not Reportable 03/07/18 16:11 Macrocytosis Not Reportable 03/07/18 16:11 Spherocytes Not Reportable 03/07/18 16:11 Pappenheimer Bodies Not Reportable 03/07/18 16:11 Sickle Cells Not Reportable 03/07/18 16:11 Target Cells Not Reportable 03/07/18 16:11 Tear Drop Cells Not Reportable 03/07/18 16:11 Ovalocytes Not Reportable 03/07/18 16:11 Helmet Cells Not Reportable 03/07/18 16:11 [place] Bodies Not Reportable 03/07/18 16:11 [place] Rings Not Reportable 03/07/18 16:11 Vaishnavi Cells Not Reportable 03/07/18 16:11 Bite Cells Not Reportable 03/07/18 16:11 Crenated Cell Not Reportable 03/07/18 16:11 Elliptocytes Not Reportable 03/07/18 16:11 Acanthocytes (Spur) Not Reportable 03/07/18 16:11 Rouleaux Not Reportable 03/07/18 16:11 Hemoglobin C Crystals Not Reportable 03/07/18 16:11 Schistocytes Rare 03/07/18 16:11 Malaria parasites Not Reportable 03/07/18 16:11 [place] Bodies Not Reportable 03/07/18 16:11 Hem Pathologist Commnt No 03/07/18 16:11 PT 13.5 Sec. (12.2-14.9) 03/07/18 16:11 INR 0.99 (0.87-1.13) 03/07/18 16:11 APTT 28.8 Sec. (24.2-36.6) 03/07/18 16:11 Thrombin Time 18.7 Sec. (15.1-19.6) 03/07/18 16:11 POC ABG pH 7.343 (7.35-7.45) L 03/08/18 04:10 POC ABG pCO2 39.4 (35-45) 03/08/18 04:10 POC ABG pO2 159 (80-105) H 03/08/18 04:10 POC ABG HCO3 21.4 03/08/18 04:10 POC ABG Total CO2 23 03/08/18 04:10 POC ABG O2 Sat 99 03/08/18 04:10 POC ABG Base Excess -4 03/08/18 04:10 VBG pH 7.197 (7.320-7.420) L* 03/07/18 18:00 FiO2 40 % 03/08/18 04:10 Sodium 146 mmol/L (137-145) H D 03/08/18 03:47 Potassium 4.0 mmol/L (3.6-5.0) 03/08/18 03:47 Chloride 108.7 mmol/L (98-107) H 03/08/18 03:47 Carbon Dioxide 20 mmol/L (22-30) L 03/08/18 03:47 Anion Gap 21 mmol/L 03/08/18 03:47 BUN 25 mg/dL (7-17) H 03/08/18 03:47 Creatinine 1.5 mg/dL (0.7-1.2) H 03/08/18 03:47 Estimated GFR 42 ml/min 03/08/18 03:47 BUN/Creatinine Ratio 17 % 03/08/18 03:47 Glucose 73 mg/dL (65-100) 03/08/18 03:47 POC Glucose 138 (70-105) H 03/08/18 10:20 Lactic Acid 1.80 mmol/L (0.7-2.0) 03/08/18 06:56 Calcium 8.9 mg/dL (8.4-10.2) 03/08/18 03:47 Phosphorus 5.70 mg/dL (2.5-4.5) H 03/07/18 18:00 Magnesium 2.00 mg/dL (1.7-2.3) 03/07/18 18:00 Total Creatine Kinase 91 units/L (30-135) 03/07/18 16:11 CK-MB (CK-2) 2.6 ng/mL (0.0-4.0) 03/07/18 16:11 CK-MB (CK-2) Rel Index 2.8 (0-4) 03/07/18 16:11 Troponin T < 0.010 ng/mL (0.00-0.029) 03/07/18 16:11 Urine Color Yellow (Yellow) 03/07/18 18:51 Urine Turbidity Slightly-cloudy (Clear) 03/07/18 18:51 Urine pH 5.0 (5.0-7.0) 03/07/18 18:51 Ur Specific [place] 1.015 (1.003-1.030) 03/07/18 18:51 Urine Protein 100 mg/dl mg/dL (Negative) 03/07/18 18:51 Urine Glucose (UA) >=500 mg/dL (Negative) 03/07/18 18:51 Urine Ketones Neg mg/dL (Negative) 03/07/18 18:51 Urine Blood Mod (Negative) 03/07/18 18:51 Urine Nitrite Neg (Negative) 03/07/18 18:51 Urine Bilirubin Neg (Negative) 03/07/18 18:51 Urine Urobilinogen < 2.0 mg/dL (<2.0) 03/07/18 18:51 Ur Leukocyte Esterase Lg (Negative) 03/07/18 18:51 Urine WBC (Auto) 91.0 /HPF (0.0-6.0) H 03/07/18 18:51 Urine RBC (Auto) 8.0 /HPF (0.0-6.0) 03/07/18 18:51 U Epithel Cells (Auto) 1.0 /HPF (0-13.0) 03/07/18 18:51 Urine Bacteria (Auto) 1+ /HPF (Negative) 03/07/18 18:51 Urine WBC Clumps 2+ /HPF 03/07/18 18:51 Urine Mucus 2+ /HPF 03/07/18 18:51 Influenza A (Rapid) Negative (Negative) 03/08/18 10:45 Influenza B (Rapid) Negative (Negative) 03/08/18 10:45 Nutrition/Malnutrition Assess - Dietary Evaluation Nutrition/Malnutrition Findings: Nutrition Notes Start: 03/08/18 09:43 Freq: Status: Active Protocol: Document 03/08/18 09:43 AMADORROSETTE (Rec: 03/08/18 09:46 CAPO [email or web address] [email or web address]) Nutrition Notes Need for Assessment generated from: idea man Initial or Follow up Assessment Current Diagnoses Diabetes Sepsis Respiratory Failure Stroke Other Pertinent Diagnosis DKA, seizure D/O Current Diet No diet ordered Labs/Tests Na 146 BUN 25 Cr 1.5 Medications Insulin gtt, Cardene gtt, D5 1 /2NS + 20mEq KCl at 125ml/hr Height 5 ft 10 in Weight 88.4 kg [place] Body Weight (lbs) 150.0 BMI 27.9 Subjective/Other Information Pt screened for skin risk ( Juvenal score: 11). Pt on vent support. Burn Absent Trauma Absent #1 Nutrition Diagnoses Inadequate oral intake [facility] As Evidenced by Signs and Symptoms pt NPO Is patient on ventilator? Yes Is Patient Ambulatory and/or Out of Bed No REE-([place]-St. Jeor-confined to bed) 4208.092 Calculation Used for Recommendations [place]-St Jeor Additional Notes Pro needs 1.2-2g/k-177g/ day Fluid needs 1ml/kcal Nutrition Intervention Change Diet Order: Advance diet when medically feasible Goal #1 Diet advancement or EN support to meet nutrient needs Anticipated Discharge Needs: Unable to identify at this time Follow-Up By: 03/09/18 Additional Comments F/U: POC (diet advancement vs EN support)
[2018-03-08 13:05] LABS: Calcium 8.2 mg/dL (8.4-10.2)
--- NOTE | 2018-03-08 13:20 | Consultation ---
History of Present Illness - Reason for Consult Consult date: 03/08/18 Fevers - UTI, ?seizures Requesting physician: VIVEK ORTIZ - History of Present Illness The patient is a 62-year-old female with HTN and diabetes who was brought to the emergency room by EMS after family noted her to be confused and unable to move the left side of her body. Patient was found to be in distress, brought to the ER where she was found to have severe hyperglycemia with associated diabetic ketoacidosis, acute renal failure and needed to be intubated for airway protection. She also had a generalized tonic-clonic seizure while in CT. She was evaluated by neurology, not considered a candidate for TPA. She was empirically started on IV ceftriaxone and azithromycin. UA showed pyuria. Had a fever of 101.2F earlier today. Otherwise has been hemodynamically stable. Infectious diseases was consulted for antibiotic recommendations. History obtained by chart review and speaking to son and daughter at bedside. Review of Systems: Unable to be obtained, patient intubated, sedated Past History Past Medical History: diabetes, hypertension, other (Obesity) Past Surgical History: cataract removal, Other (Foot surgery) Social history: single. denies: smoking, alcohol abuse, prescription drug abuse Family history: diabetes, hypertension Medications and Allergies Allergies Allergy/AdvReac Type Severity Reaction Status Date / Time No Known Allergies Allergy Unverified 05/09/13 12:39 Home Medications Medication Instructions Recorded Confirmed Last Taken Type Cetirizine HCl [All Day Allergy] 1 tab PO DAILY PRN 05/09/13 05/10/13 05/08/13 20:00 History Fluticasone Propionate [Flovent 2 mcg INNOSTRIL DAILY 05/09/13 05/10/13 05/08/13 History Diskus] Glimepiride [Amaryl] 4 mg PO QAM 05/09/13 05/10/13 05/08/13 History 0800 Metformin HCl [Fortamet ER] 1,000 mg PO BID 05/09/13 05/10/13 05/08/13 08:00 History 1000 MG Sertraline [Zoloft] 100 mg PO QAM 05/09/13 05/10/13 05/08/13 08:00 History 100 MG Simvastatin [Zocor TAB] 20 mg PO DAILY 05/09/13 05/10/13 05/08/13 08:00 History 20 MG Valsartan [Diovan] 160 mg PO DAILY 05/09/13 05/10/13 05/08/13 08:00 History 160 MG amLODIPine [Norvasc] 10 mg PO DAILY 05/09/13 05/10/13 05/08/13 08:00 History 10 MG clonazePAM [KlonoPIN] 1 mg PO Q8HR 05/09/13 05/10/13 05/08/13 08:00 History 1 MG hydroCHLOROthiazide [HCTZ] 25 mg PO DAILY 05/09/13 05/10/13 05/08/13 08:00 History risperiDONE [Risperidone Odt] 0.25 mg PO QAM 05/09/13 05/10/13 05/08/13 08:00 History 0.25 MG Ciprofloxacin HCl [Cipro] 500 mg PO BID #28 tablet 05/13/13 Unknown Rx Insulin NPH/Regular [Novolin 70/30] 16 unit SQ BIDDIAB 30 Days ml 05/13/13 Unknown Rx Lactobacillus Acidophil [Lactinex] 1 each PO TID #60 tablet 05/13/13 Unknown Rx Sulfamethoxazole/Trimethoprim 1 each PO BID #28 tablet 05/13/13 Unknown Rx [Bactrim Ds] metroNIDAZOLE [Flagyl] 500 mg PO Q8HR #42 tablet 05/13/13 Unknown Rx HYDROcodone/APAP 5-325 [[place] 1 each PO Q6HR PRN #16 tablet 09/03/13 Unknown Rx 5-325 mg TAB] Sulfamethoxazole/Trimethoprim 1 each PO Q12H #20 tablet 09/03/13 Unknown Rx [Bactrim Ds] Active Meds: Active Medications Acetaminophen (Tylenol) 650 mg PO Q4H PRN PRN Reason: Pain, Mild (1-3) Acetaminophen (Tylenol) 650 mg NC Q6H PRN PRN Reason: Non Cardiac Pain or Temp>100.5 Atorvastatin Calcium (Lipitor) 40 mg PO QHS [facility] Last Admin: 03/07/18 23:41 Dose: Not Given Documented by: Bisacodyl (Dulcolax) 10 mg NC QDAY PRN PRN Reason: Constipation Clonazepam (Klonopin) 1 mg PO Q8HR [facility] Last Admin: 03/07/18 23:41 Dose: Not Given Documented by: Dextrose (D50w (25gm) Syringe) 50 ml IV PRN PRN PRN Reason: Hypoglycemia Nicardipine HCl 50 mg/ Sodium (Chloride) 250 mls @ 25 mls/hr IV TITR [facility]; Pro tocol Insulin Human Regular 100 (units/ Sodium Chloride) 100 mls @ 10 mls/hr IV TITR [facility]; Protocol Last Titration: 03/08/18 10:30 Dose: 1 units/hr, 1 mls/hr Documented by: Azithromycin 500 mg/ Sodium (Chloride) 250 mls @ 250 mls/hr IV Q24HR [facility]; Protocol Last Admin: 03/08/18 10:09 Dose: 250 mls/hr Documented by: Ceftriaxone Sodium (Rocephin/Ns 2 Gm/100 Ml) 2 gm in 100 mls @ 200 mls/hr IV Q24HR [facility]; Protocol Last Admin: 03/08/18 10:10 Dose: 200 mls/hr Documented by: Potassium Chloride/Dextrose/Sod Cl (D5w/0.45% Nacl/Kcl 20 Meq) 20 meq in 1,000 mls @ 125 mls/hr IV DIRECT [facility] Last Admin: 03/08/18 08:20 Dose: 125 mls/hr Documented by: Levetiracetam 750 mg/ Sodium (Chloride) 107.5 mls @ 400 mls/hr IV Q6H [facility] Insulin Human Lispro (Humalog) 0 unit SUB-Q Q6HR [facility]; Protocol Last Admin: 03/08/18 11:41 Dose: Not Given Documented by: Loratadine (Claritin) 10 mg PO DAILY PRN PRN Reason: Allergy Symptoms Magnesium Hydroxide (Milk Of Magnesia) 30 ml PO Q4H PRN PRN Reason: Constipation Metoclopramide HCl (Reglan) 5 mg PO Q6H PRN PRN Reason: Nausea And Vomiting Miscellaneous Medication (Fluticasone Propionate [Flovent Diskus]) 2 mcg InNostril DAILY [facility] Ondansetron HCl (Zofran) 4 mg IV Q8H PRN PRN Reason: Nausea And Vomiting Promethazine HCl (Phenergan) 25 mg NC Q6H PRN PRN Reason: Nausea And Vomiting Risperidone (Risperdal) 0.25 mg PO QAM [facility] Sertraline HCl (Zoloft) 100 mg PO QAM [facility] Sodium Chloride (Sodium Chloride Flush Syringe 10 Ml) 10 ml IV BID [facility] Last Admin: 03/08/18 00:06 Dose: 10 ml Documented by: Sodium Chloride (Sodium Chloride Flush Syringe 10 Ml) 10 ml IV PRN PRN PRN Reason: LINE FLUSH Physical Examination - Physical Exam Narrative exam: Physical Exam: Constitutional: sedated, intubated Head, Ears, Nose: Normocephalic, atraumatic. External ears, nose normal Eyes: Conjunctivae/corneas clear. No icterus. No ptosis. Neck: Supple, no meningeal signs Oral: intubated Cardiovascular: S1, S2 normal. Respiratory: Good air entry, clear to auscultation bilaterally GI: Soft, non-tender; bowel sounds normal. No peritoneal signs Musculoskeletal: No pedal edema, no cyanosis. Skin: No rash or abscess Hem/Lymphatic: No palpable cervical or supraclavicular nodes. No lymphangitis Psych: no agitation Neurological: sedated, intubated, on vent - Constitutional Vitals: Vital Signs Temp Pulse Resp BP Pulse Ox 99.4 F 87 20 142/64 100 03/08/18 12:00 03/08/18 12:39 03/08/18 11:30 03/08/18 12:39 03/08/18 12:39 Temperature -Last 24 Hours Temperature 99.4 F Temperature 101.2 F Temperature 99.2 F Temperature 99.2 F Temperature 97.8 F Results - Labs CBC & Chem 7: 03/07/18 16:11 03/08/18 12:35 Labs: Abnormal lab results 03/07/18 03/07/18 03/07/18 Range/Units 16:11 16:11 17:29 WBC 13.5 H (4.5-11.0) K/mm3 MCH 26 L (28-32) pg RDW 16.5 H (13.2-15.2) % POC ABG pH 7.190 L (7.35-7.45) POC ABG pCO2 57.6 H (35-45) POC ABG pO2 250 H (80-105) VBG pH (7.320-7.420) Sodium 134 L (137-145) mmol/L Potassium (3.6-5.0) mmol/L Chloride 93.2 L (98-107) mmol/L Carbon Dioxide 15 L (22-30) mmol/L BUN 32 H (7-17) mg/dL Creatinine 1.7 H (0.7-1.2) mg/dL Glucose 793 H* (65-100) mg/dL POC Glucose (70-105) Lactic Acid (0.7-2.0) mmol/L Calcium (8.4-10.2) mg/dL Phosphorus (2.5-4.5) mg/dL Urine WBC (Auto) (0.0-6.0) /HPF 03/07/18 03/07/18 03/07/18 Range/Units 18:00 18:00 18:00 WBC (4.5-11.0) K/mm3 MCH (28-32) pg RDW (13.2-15.2) % POC ABG pH (7.35-7.45) POC ABG pCO2 (35-45) POC ABG pO2 (80-105) VBG pH 7.197 L* (7.320-7.420) Sodium 133 L (137-145) mmol/L Potassium 5.8 H D (3.6-5.0) mmol/L Chloride 95.9 L (98-107) mmol/L Carbon Dioxide 20 L (22-30) mmol/L BUN 33 H (7-17) mg/dL Creatinine 1.8 H (0.7-1.2) mg/dL Glucose 760 H* (65-100) mg/dL POC Glucose (70-105) Lactic Acid (0.7-2.0) mmol/L Calcium (8.4-10.2) mg/dL Phosphorus 5.70 H (2.5-4.5) mg/dL Urine WBC (Auto) (0.0-6.0) /HPF 03/07/18 03/07/18 03/07/18 Range/Units 18:12 18:51 19:39 WBC (4.5-11.0) K/mm3 MCH (28-32) pg RDW (13.2-15.2) % POC ABG pH (7.35-7.45) POC ABG pCO2 (35-45) POC ABG pO2 (80-105) VBG pH (7.320-7.420) Sodium (137-145) mmol/L Potassium (3.6-5.0) mmol/L Chloride (98-107) mmol/L Carbon Dioxide (22-30) mmol/L BUN (7-17) mg/dL Creatinine (0.7-1.2) mg/dL Glucose (65-100) mg/dL POC Glucose (70-105) Lactic Acid 4.20 H* 3.40 H* (0.7-2.0) mmol/L Calcium (8.4-10.2) mg/dL Phosphorus (2.5-4.5) mg/dL Urine WBC (Auto) 91.0 H (0.0-6.0) /HPF 03/07/18 03/07/18 03/07/18 Range/Units 19:56 21:03 21:03 WBC (4.5-11.0) K/mm3 MCH (28-32) pg RDW (13.2-15.2) % POC ABG pH (7.35-7.45) POC ABG pCO2 (35-45) POC ABG pO2 (80-105) VBG pH (7.320-7.420) Sodium (137-145) mmol/L Potassium (3.6-5.0) mmol/L Chloride (98-107) mmol/L Carbon Dioxide 20 L (22-30) mmol/L BUN 31 H (7-17) mg/dL Creatinine 1.4 H (0.7-1.2) mg/dL Glucose 381 H (65-100) mg/dL POC Glucose 426 H (70-105) Lactic Acid 2.70 H* (0.7-2.0) mmol/L Calcium (8.4-10.2) mg/dL Phosphorus (2.5-4.5) mg/dL Urine WBC (Auto) (0.0-6.0) /HPF 03/07/18 03/07/18 03/07/18 Range/Units 21:20 22:01 22:38 WBC (4.5-11.0) K/mm3 MCH (28-32) pg RDW (13.2-15.2) % POC ABG pH (7.35-7.45) POC ABG pCO2 (35-45) POC ABG pO2 (80-105) VBG pH (7.320-7.420) Sodium (137-145) mmol/L Potassium (3.6-5.0) mmol/L Chloride (98-107) mmol/L Carbon Dioxide 17 L (22-30) mmol/L BUN 29 H (7-17) mg/dL Creatinine 1.4 H (0.7-1.2) mg/dL Glucose 236 H (65-100) mg/dL POC Glucose 323 H 252 H (70-105) Lactic Acid (0.7-2.0) mmol/L Calcium (8.4-10.2) mg/dL Phosphorus (2.5-4.5) mg/dL Urine WBC (Auto) (0.0-6.0) /HPF 03/07/18 03/07/18 03/08/18 Range/Units 22:38 22:54 00:25 WBC (4.5-11.0) K/mm3 MCH (28-32) pg RDW (13.2-15.2) % POC ABG pH (7.35-7.45) POC ABG pCO2 (35-45) POC ABG pO2 (80-105) VBG pH (7.320-7.420) Sodium (137-145) mmol/L Potassium (3.6-5.0) mmol/L Chloride (98-107) mmol/L Carbon Dioxide (22-30) mmol/L BUN (7-17) mg/dL Creatinine (0.7-1.2) mg/dL Glucose (65-100) mg/dL POC Glucose 186 H 51 L (70-105) Lactic Acid 2.50 H* (0.7-2.0) mmol/L Calcium (8.4-10.2) mg/dL Phosphorus (2.5-4.5) mg/dL Urine WBC (Auto) (0.0-6.0) /HPF 03/08/18 03/08/18 03/08/18 Range/Units 01:03 02:30 03:14 WBC (4.5-11.0) K/mm3 MCH (28-32) pg RDW (13.2-15.2) % POC ABG pH (7.35-7.45) POC ABG pCO2 (35-45) POC ABG pO2 (80-105) VBG pH (7.320-7.420) Sodium (137-145) mmol/L Potassium (3.6-5.0) mmol/L Chloride (98-107) mmol/L Carbon Dioxide (22-30) mmol/L BUN (7-17) mg/dL Creatinine (0.7-1.2) mg/dL Glucose 106 H (65-100) mg/dL POC Glucose 157 H 147 H (70-105) Lactic Acid (0.7-2.0) mmol/L Calcium (8.4-10.2) mg/dL Phosphorus (2.5-4.5) mg/dL Urine WBC (Auto) (0.0-6.0) /HPF 03/08/18 03/08/18 03/08/18 Range/Units 03:47 04:10 05:06 WBC (4.5-11.0) K/mm3 MCH (28-32) pg RDW (13.2-15.2) % POC ABG pH 7.343 L (7.35-7.45) POC ABG pCO2 (35-45) POC ABG pO2 159 H (80-105) VBG pH (7.320-7.420) Sodium 146 H D (137-145) mmol/L Potassium (3.6-5.0) mmol/L Chloride 108.7 H (98-107) mmol/L Carbon Dioxide 20 L (22-30) mmol/L BUN 25 H (7-17) mg/dL Creatinine 1.5 H (0.7-1.2) mg/dL Glucose (65-100) mg/dL POC Glucose 146 H (70-105) Lactic Acid (0.7-2.0) mmol/L Calcium (8.4-10.2) mg/dL Phosphorus (2.5-4.5) mg/dL Urine WBC (Auto) (0.0-6.0) /HPF 03/08/18 03/08/18 03/08/18 Range/Units 06:06 08:07 09:20 WBC (4.5-11.0) K/mm3 MCH (28-32) pg RDW (13.2-15.2) % POC ABG pH (7.35-7.45) POC ABG pCO2 (35-45) POC ABG pO2 (80-105) VBG pH (7.320-7.420) Sodium (137-145) mmol/L Potassium (3.6-5.0) mmol/L Chloride (98-107) mmol/L Carbon Dioxide (22-30) mmol/L BUN (7-17) mg/dL Creatinine (0.7-1.2) mg/dL Glucose (65-100) mg/dL POC Glucose 157 H 141 H 133 H (70-105) Lactic Acid (0.7-2.0) mmol/L Calcium (8.4-10.2) mg/dL Phosphorus (2.5-4.5) mg/dL Urine WBC (Auto) (0.0-6.0) /HPF 03/08/18 03/08/18 03/08/18 Range/Units 10:20 12:33 12:35 WBC (4.5-11.0) K/mm3 MCH (28-32) pg RDW (13.2-15.2) % POC ABG pH (7.35-7.45) POC ABG pCO2 (35-45) POC ABG pO2 (80-105) VBG pH (7.320-7.420) Sodium (137-145) mmol/L Potassium (3.6-5.0) mmol/L Chloride 110.8 H (98-107) mmol/L Carbon Dioxide 21 L (22-30) mmol/L BUN 19 H (7-17) mg/dL Creatinine 1.3 H (0.7-1.2) mg/dL Glucose 142 H (65-100) mg/dL POC Glucose 138 H 137 H (70-105) Lactic Acid (0.7-2.0) mmol/L Calcium 8.2 L (8.4-10.2) mg/dL Phosphorus (2.5-4.5) mg/dL Urine WBC (Auto) (0.0-6.0) /HPF - Imaging and Cardiology Chest x-ray: report reviewed, image reviewed (s/p intubation, no evidence of p neumonia) Abdominal x-ray: report reviewed, image reviewed (normal gas pattern, no concerning finding seen.) CT Scan - head: report reviewed, image reviewed (no bleed, unremarkable.) Assessment and Plan Cultures: 03/07/2018 tracheal aspirate: In process. Gram stain negative for significant PMNs. 03/08/2018 blood culture: In progress A/P: 62-year-old female with HTN and diabetes who was brought to the emergency room by EMS after family noted her to be confused. Also with: 1) SIRS v/s sepsis: One episode of fever, chest x-ray are consistent with pneumonia. UA is positive for pyuria. Fevers could also be seizure related. Would discontinue azithromycin. Continue IV ceftriaxone. Follow-up blood and urine cultures. 2) Metabolic acidosis: Lactate elevated 3) Acute respiratory failure: On the ventilator 4) Acute kidney injury: Creatinine improving 5) Acute encephalopathy: Probably seizure related v/s toxic/metabolic. Neurology consulted. Recs: Discontinued azithromycin Continue IV ceftriaxone Follow-up blood cultures Urine culture ordered Plan discussed with Dr. Ortiz. Antonella Tran MD [facility] C: [phone] O: [phone] F: [phone]
[2018-03-08] MEDS ORDERED: LANTUS SUB-Q STA (14:02)
[2018-03-08] MEDS ORDERED: APRESOLINE IV PRN (14:02)
[2018-03-08] MEDS ORDERED: SIMPLE SYRUP FEEDTUBE PRN ×2 (14:26)
[2018-03-08] MEDS ORDERED: SODIUM BICARBONATE FEEDTUBE PRN (14:26)
[2018-03-08] MEDS ORDERED: PANCREAZE DR 10,500 UNIT FEEDTUBE PRN (14:26)
[2018-03-08] MEDS ORDERED: ATIVAN IV STA (14:47)
[2018-03-08] MEDS ORDERED: LEVOPHED DRIP 4 MG/NS 250 ML 0 MG/0 ML BAG IV ONE (16:00)
--- NOTE | 2018-03-08 16:17 | Electroencephalogram Report ---
Electroencephalogram EEG Date of exam: 03/08/18 Description: EEG preliminary findings: This 19 channel digital EEG is done using the 10/20 international montage. One channel represents EKG in this 21 minute recording. There is tachycardia in the EEG channel. There is no alpha activity. There is considerable noise intermittently. There is sharp and slow-wave low amplitude activity at C3 more than at F3 intermittently throughout the recording. This may be epileptiform, particularly since unilateral. Interpretation: Preliminary EEG reading: Abnormal EEG due to intermittent sharp and slow wave activity in the left frontocentral region for which correlation with imaging is advised and which is consistent with clinical seizure history. Patient had received a Keppra bolus prior to EEG beginning.
[2018-03-08] MEDS: PEPCID IV SCH (16:32)
--- NOTE | 2018-03-08 17:03 | Consultation ---
History of Present Illness Consult date: 03/08/18 Requesting physician: VIVEK GREEN Reason for Consult: altered mental status, seizures Chief complaint: altered mental status, seizures History of present illness: This 62-year-old -[place] female was admitted yesterday complaining of not being able to move her left side followed then by multiple seizures. He was listed as having been on ciprofloxacin and Flagyl at home. Glucose was nearly 800 on admission. She was given levetiracetam 1000 mg IV bolus but no maintenance dose was ordered so I ordered additional bolus of 2000 mg followed by 750 mg every 6 hours. She was given a large bolus of phenobarbital in the emergency room but that was also not continued. CT of brain shows old right sided strokes including some that are cortical and some lacunes. MRI done yesterday shows slightly positive left thalamic stroke on diffusion with slightly dark ADC in a corresponding position. FLAIR is slightly positive bilaterally in the ash and also shows old right occipital cortical infarct and small old right anterior parietal cortical infarct along with periventricular wh ite matter changes adjacent to right lateral ventricle and a discrete right lateral ventricle lacunar infarct. There is some atrophy. Brain MRA to de suggests beading in the distal ICAs bilaterally but this may be artifact. There appears to be some decreased flow in the left EXPLOSIVE ORDNANCE TECHNICIAN P1 segment and perhaps some narrowing at the M1-M2 junction of the right MCA. Past History Past Medical History: diabetes, hypertension, other (Obesity) Past Surgical History: cataract removal, Other (foot surgery, tubal removal) Social history: single. denies: smoking, alcohol abuse, prescription drug abuse, IV drug use Family history: diabetes, hypertension Medications and Allergies Allergies Allergy/AdvReac Type Severity Reaction Status Date / Time No Known Allergies Allergy Unverified 05/09/13 12:39 Home Medications Medication Instructions Recorded Confirmed Last Taken Type Cetirizine HCl [All Day Allergy] 1 tab PO DAILY PRN 05/09/13 05/10/13 05/08/13 20:00 History Fluticasone Propionate [Flovent 2 mcg INNOSTRIL DAILY 05/09/13 05/10/13 05/08/13 History Diskus] Glimepiride [Amaryl] 4 mg PO QAM 05/09/13 05/10/13 05/08/13 History 0800 Metformin HCl [Fortamet ER] 1,000 mg PO BID 05/09/13 05/10/13 05/08/13 08:00 History 1000 MG Sertraline [Zoloft] 100 mg PO QAM 05/09/13 05/10/13 05/08/13 08:00 History 100 MG Simvastatin [Zocor TAB] 20 mg PO DAILY 05/09/13 05/10/13 05/08/13 08:00 History 20 MG Valsartan [Diovan] 160 mg PO DAILY 05/09/13 05/10/13 05/08/13 08:00 History 160 MG amLODIPine [Norvasc] 10 mg PO DAILY 05/09/13 05/10/13 05/08/13 08:00 History 10 MG clonazePAM [KlonoPIN] 1 mg PO Q8HR 05/09/13 05/10/13 05/08/13 08:00 History 1 MG hydroCHLOROthiazide [HCTZ] 25 mg PO DAILY 05/09/13 05/10/13 05/08/13 08:00 History risperiDONE [Risperidone Odt] 0.25 mg PO QAM 05/09/13 05/10/13 05/08/13 08:00 History 0.25 MG Ciprofloxacin HCl [Cipro] 500 mg PO BID #28 tablet 05/13/13 Unknown Rx Insulin NPH/Regular [Novolin 70/30] 16 unit SQ BIDDIAB 30 Days ml 05/13/13 Unknown Rx Lactobacillus Acidophil [Lactinex] 1 each PO TID #60 tablet 05/13/13 Unknown Rx Sulfamethoxazole/Trimethoprim 1 each PO BID #28 tablet 05/13/13 Unknown Rx [Bactrim Ds] metroNIDAZOLE [Flagyl] 500 mg PO Q8HR #42 tablet 05/13/13 Unknown Rx HYDROcodone/APAP 5-325 [[place] 1 each PO Q6HR PRN #16 tablet 09/03/13 Unknown Rx 5-325 mg TAB] Sulfamethoxazole/Trimethoprim 1 each PO Q12H #20 tablet 09/03/13 Unknown Rx [Bactrim Ds] Active Meds: Active Medications Acetaminophen (Tylenol) 650 mg PO Q4H PRN PRN Reason: Pain, Mild (1-3) Acetaminophen (Tylenol) 650 mg HI Q6H PRN PRN Reason: Non Cardiac Pain or Temp>100.5 Albuterol/Ipratropium (Duoneb *Not For Prn Use*) 1 ampul IH TIDRT OZIEL Lipase/Protease/Amylase (Hector Lam 10,500 Unit) 1 each FEEDTUBE PRN PRN PRN Reason: For Clogged Feeding Tube Atorvastatin Calcium (Lipitor) 40 mg PO QHS [facility] Last Admin: 03/07/18 23:41 Dose: Not Given Documented by: Bisacodyl (Dulcolax) 10 mg HI QDAY PRN PRN Reason: Constipation Dextrose (D50w (25gm) Syringe) 50 ml IV PRN PRN PRN Reason: Hypoglycemia Enoxaparin Sodium (Lovenox) 40 mg SUB-Q QDAY@2200 OZIEL Famotidine (Pepcid) 20 mg IV QDAY OZIEL Last Admin: 03/08/18 16:32 Dose: 20 mg Documented by: Hydralazine HCl (Apresoline) 10 mg IV Q4HR PRN PRN Reason: Blood Pressure Stop: 03/11/18 14:01 Nicardipine HCl 50 mg/ Sodium (Chloride) 250 mls @ 25 mls/hr IV TITR OZIEL; Prot ocol Insulin Human Regular 100 (units/ Sodium Chloride) 100 mls @ 10 mls/hr IV TITR OZIEL; Protocol Last Titration: 03/08/18 10:30 Dose: 1 units/hr, 1 mls/hr Documented by: Ceftriaxone Sodium (Rocephin/Ns 2 Gm/100 Ml) 2 gm in 100 mls @ 200 mls/hr IV Q24HR OZIEL; Protocol Last Admin: 03/08/18 10:10 Dose: 200 mls/hr Documented by: Potassium Chloride/Dextrose/Sod Cl (D5w/0.45% Nacl/Kcl 20 Meq) 20 meq in 1,000 mls @ 125 mls/hr IV DIRECT OZIEL Last Admin: 03/08/18 08:20 Dose: 125 mls/hr Documented by: Levetiracetam 750 mg/ Sodium (Chloride) 107.5 mls @ 400 mls/hr IV Q6H OZIEL Insulin Human Lispro (Humalog) 0 unit SUB-Q Q6HR [facility]; Protocol Last Admin: 03/08/18 11:41 Dose: Not Given Documented by: Loratadine (Claritin) 10 mg PO DAILY PRN PRN Reason: Allergy Symptoms Magnesium Hydroxide (Milk Of Magnesia) 30 ml PO Q4H PRN PRN Reason: Constipation Metoclopramide HCl (Reglan) 5 mg PO Q6H PRN PRN Reason: Nausea And Vomiting Miscellaneous Medication (Fluticasone Propionate [Flovent Diskus]) 2 mcg InNostril DAILY [facility] Ondansetron HCl (Zofran) 4 mg IV Q8H PRN PRN Reason: Nausea And Vomiting Promethazine HCl (Phenergan) 25 mg HI Q6H PRN PRN Reason: Nausea And Vomiting Simple Syrup (Simple Syrup) 15 ml FEEDTUBE PRN PRN PRN Reason: Hypoglycemia Simple Syrup (Simple Syrup) 30 ml FEEDTUBE PRN PRN PRN Reason: Hypoglycemia Sodium Bicarbonate (Sodium Bicarbonate) 325 mg FEEDTUBE PRN PRN PRN Reason: For Clogged Feeding Tube Sodium Chloride (Sodium Chloride Flush Syringe 10 Ml) 10 ml IV BID OZIEL Last Admin: 03/08/18 00:06 Dose: 10 ml Documented by: Sodium Chloride (Sodium Chloride Flush Syringe 10 Ml) 10 ml IV PRN PRN PRN Reason: LINE FLUSH Review of Systems ROS unobtainable: due to mental status (also intubated) Physical Examination - Vital Signs Vital Signs: Vital Signs Pulse Ox 100 03/07/18 16:10 - Physical Exam Narrative exam: General appearance: well developed but overweight (per BMI) early 60s - [place] female in [facility], intubated. HEENT: atraumatic, normocephalic, Isadora not enlarged or indurated. No bruits. Oropharynx obscured by endotracheal tube. Neck: supple, no bruits. Heart: no murmur or extra sounds. Extremities: no clubbing or cyanosis, no edema. 2+ dorsalis pedis pulses bilaterally. Neurologic Exam: Mental status: No eye opening to voice or pain. Does not obey commands. No response to orientation questions. Cranial nerves: no blink to threat, no papilledema, (+) SVPs, PERRL, EOMs (+) Doll's eyes, some grimace slightly to V1 pinprick bilaterally, corneals present, slight bilateral grimace to supraorbital pressure, cannot assess Dobson, gags are positive, cough positive to tracheal suction, spontaneous shoulder shrug with tracheal suctioning is better on the left than right, cannot assess tongue protrusion. Tends to turn head to right when I tried to center her head for testing. Cerebellar: cannot assess. Sensory: No response to pinprick in upper extremities but wiggles left toes to pinprick and slightly right toes. Motor Exam Upper Extremities: Moves left hand slightly to gag testing then both arms semi-purposefully to supraorbital pressure or to tracheal suctioning. No residential treatment counselor to command and will not hold up thumb or 2 fingers to command. Motor Exam Lower Extremities: Wiggles toes slightly to pinprick as noted above. Withdraws both legs symmetrically to plantar rub. Reflexes: palmomental, snout, and jaw jerk are negative. Triceps are trace right and 2 left, biceps are 1+ right and 2 left and brachioradialis are 1+ right and 1 left. Slim's is negative bilaterally. Knee jerks and ankle jerks are 0 without clonus. Toes are mute right and downgoing left to Babinski testing. Results - Laboratory Findings CBC and BMP: 03/07/18 16:11 03/08/18 12:35 Abnormal Lab Findings: Abnormal Labs 03/07/18 03/07/18 03/07/18 16:11 16:11 17:29 WBC 13.5 H MCH 26 L RDW 16.5 H POC ABG pH 7.190 L POC ABG pCO2 57.6 H POC ABG pO2 250 H VBG pH Sodium 134 L Potassium Chloride 93.2 L Carbon Dioxide 15 L BUN 32 H Creatinine 1.7 H Glucose 793 H* POC Glucose Lactic Acid Calcium Phosphorus Urine WBC (Auto) 03/07/18 03/07/18 03/07/18 18:00 18:00 18:00 WBC MCH RDW POC ABG pH POC ABG pCO2 POC ABG pO2 VBG pH 7.197 L* Sodium 133 L Potassium 5.8 H D Chloride 95.9 L Carbon Dioxide 20 L BUN 33 H Creatinine 1.8 H Glucose 760 H* POC Glucose Lactic Acid Calcium Phosphorus 5.70 H Urine WBC (Auto) 03/07/18 03/07/18 03/07/18 18:12 18:51 19:39 WBC MCH RDW POC ABG pH POC ABG pCO2 POC ABG pO2 VBG pH Sodium Potassium Chloride Carbon Dioxide BUN Creatinine Glucose POC Glucose Lactic Acid 4.20 H* 3.40 H* Calcium Phosphorus Urine WBC (Auto) 91.0 H 03/07/18 03/07/18 03/07/18 19:56 21:03 21:03 WBC MCH RDW POC ABG pH POC ABG pCO2 POC ABG pO2 VBG pH Sodium Potassium Chloride Carbon Dioxide 20 L BUN 31 H Creatinine 1.4 H Glucose 381 H POC Glucose 426 H Lactic Acid 2.70 H* Calcium Phosphorus Urine WBC (Auto) 03/07/18 03/07/18 03/07/18 21:20 22:01 22:38 WBC MCH RDW POC ABG pH POC ABG pCO2 POC ABG pO2 VBG pH Sodium Potassium Chloride Carbon Dioxide 17 L BUN 29 H Creatinine 1.4 H Glucose 236 H POC Glucose 323 H 252 H Lactic Acid Calcium Phosphorus Urine WBC (Auto) 03/07/18 03/07/18 03/08/18 22:38 22:54 00:25 WBC MCH RDW POC ABG pH POC ABG pCO2 POC ABG pO2 VBG pH Sodium Potassium Chloride Carbon Dioxide BUN Creatinine Glucose POC Glucose 186 H 51 L Lactic Acid 2.50 H* Calcium Phosphorus Urine WBC (Auto) 03/08/18 03/08/18 03/08/18 01:03 02:30 03:14 WBC MCH RDW POC ABG pH POC ABG pCO2 POC ABG pO2 VBG pH Sodium Potassium Chloride Carbon Dioxide BUN Creatinine Glucose 106 H POC Glucose 157 H 147 H Lactic Acid Calcium Phosphorus Urine WBC (Auto) 03/08/18 03/08/18 03/08/18 03:47 04:10 05:06 WBC MCH RDW POC ABG pH 7.343 L POC ABG pCO2 POC ABG pO2 159 H VBG pH Sodium 146 H D Potassium Chloride 108.7 H Carbon Dioxide 20 L BUN 25 H Creatinine 1.5 H Glucose POC Glucose 146 H Lactic Acid Calcium Phosphorus Urine WBC (Auto) 03/08/18 03/08/18 03/08/18 06:06 08:07 09:20 WBC MCH RDW POC ABG pH POC ABG pCO2 POC ABG pO2 VBG pH Sodium Potassium Chloride Carbon Dioxide BUN Creatinine Glucose POC Glucose 157 H 141 H 133 H Lactic Acid Calcium Phosphorus Urine WBC (Auto) 03/08/18 03/08/18 03/08/18 10:20 12:33 12:35 WBC MCH RDW POC ABG pH POC ABG pCO2 POC ABG pO2 VBG pH Sodium Potassium Chloride 110.8 H Carbon Dioxide 21 L BUN 19 H Creatinine 1.3 H Glucose 142 H POC Glucose 138 H 137 H Lactic Acid Calcium 8.2 L Phosphorus Urine WBC (Auto) Assessment and Plan Impression: 1. Multiple seizures, presumably secondarily generalized 2. Embolic strokes Plan: 1. EEG, which showed some left frontocentral sharp and slow wave complexes. On Keppra now. 2. Needs echo with bubbles (added bubbles to prior order) given possibly embolic infarcts. 3. Should have 30 day event monitoring for possible PAF as outpatient. 4. Ordered phenobarbital level since she received a loading dose. If level is significant, could be contributing to obtundation. We will also check a leve tiracetam level tomorrow. 45 min critical care time spent with this patient. Thank you for an interesting consultation in my area of subspecialty on this unfortunate early 60s lady. Will sign off. Would expect her mentation to improve with better control of glucose and ketoacidosis and as phenobarbital wears off.
--- NOTE | 2018-03-08 17:47 | Magnetic Resonance Report ---
FINAL REPORT PROCEDURE: MRI brain without contrast. TECHNIQUE: Magnetic resonance imaging of the brain was performed without contrast material. HISTORY: Stroke. COMPARISON: No prior studies are available for comparison. FINDINGS: The ventricles are normal in size. There is some increased T2 and FLAIR signal within the right cereb ral hemisphere. This is in the periventricular deep white matter. There is a small amount of abnormal signal in the subcortical white matter. This is consistent with chronic microvascular ischemic roberts e. There are no mass lesions. There is no intracranial hemorrhage. There are no signs of restricted d iffusion. The mastoid air cells are clear. There is mucosal thickening and fluid in the sphenoid sinu ses. IMPRESSION: Chronic ischemic white matter disease consistent with age. No evidence of an acute stroke.
[2018-03-08] MEDS: KEPPRA 750 MG in NACL 0.9% 100 ML IV SCH ×2 (18:13→23:40)
--- NOTE | 2018-03-08 18:21 | Magnetic Resonance Report ---
FINAL REPORT PROCEDURE: Magnetic resonance angiogram of the brain without contrast. TECHNIQUE: Axial 3-D [id number] MR angiography of the [place] and brain was performed. The source images were reconstructed in various views using maximum intensity projection. HISTORY: Stroke. COMPARISON: No prior studies are available for comparison. FINDINGS: Both distal internal carotid arteries are patent. Both anterior cerebral arteries are patent. The ant erior communicating artery is not definitely visualized. Both middle cerebral arteries are patent. Mack th posterior communicating arteries are patent. Both distal vertebral arteries are patent. Both poste rior inferior cerebellar arteries are patent. The basilar artery is patent. Both anterior inferior ce rebellar arteries are patent. Both superior cerebellar and both posterior cerebral arteries are paten t. There are no signs of aneurysm disease. There is no evidence of a vasculitis. IMPRESSION: No significant abnormality.
[2018-03-08] MEDS: DUONEB *Not for PRN Use IH SCH (19:35)
[2018-03-08] MEDS ORDERED: LEVOPHED DRIP 4 MG/NS 250 ML 4 MG/250 ML BAG IV ONE (21:30)
[2018-03-08] MEDS: LOVENOX SUB-Q SCH (21:49)
[2018-03-09] MEDS: HumaLOG SUB-Q SCH ×6 (00:17→22:00)
[2018-03-09] MEDS: TYLENOL PO PRN ×2 (00:28→03:36)
[2018-03-09] MEDS: SODIUM CHLORIDE FLUSH SYRINGE 10 ML IV SCH ×2 (02:56→13:10)
[2018-03-09 04:58] LABS: Hematocrit 29.3 % (30.3-42.9); Hemoglobin 9.4 gm/dl (10.1-14.3); Mean Corpuscular HGB Conc 32 % (30-34); Mean Corpuscular Volume 82 fl (79-97); Platelet Count 195 K/mm3 (140-440); Red Blood Count 3.55 M/mm3 (3.65-5.03); Red Cell Distribution Width 15.3 % (13.2-15.2)
[2018-03-09 05:12] LABS: Calcium 8.2 mg/dL (8.4-10.2)
[2018-03-09] MEDS: KEPPRA 750 MG in NACL 0.9% 100 ML IV SCH ×4 (06:22→23:17)
[2018-03-09] MEDS: DUONEB *Not for PRN Use IH SCH ×3 (07:52→19:55)
--- NOTE | 2018-03-09 07:52 | Consultation ---
PULMONARY CRITICAL CARE CONSULT NOTE CONSULTING PHYSICIAN: Dr. Ortiz. REASON FOR CONSULTATION: 1. Acute hypoxemic respiratory failure, on mechanical ventilator support. 2. Acute encephalopathy. 3. Diabetic ketoacidosis. CHIEF COMPLAINT AND HISTORY OF PRESENT ILLNESS: The patient is a 62-year-old -[place]er female with past medical history significant amongst other things for a diagnosis of diabetes, lives in the community. According to her kids, a son and her daughter; the son called that his mom was behaving abnormally. The daughter says when she got there, she was sitting in the chair, she was nonresponsive. She was unable to move one side of her body, does not remember which side in particular. In the Emergency Room, where she was brought after the emergency medical services brought her into the hospital, she was found to have generalized tonic-clonic seizure. In the ER, she was diagnosed with DKA and acute kidney injury. She was unable to protect her airway. She was intubated. She was not in the window for TPA or not a candidate for TPA after the Neurology evaluation. When I stopped by to see her in the Intensive Care Unit, she remained on mechanical ventilator. She was now more responsive and appropriately so to a sternal rub, she was moving all 4 extremities. I do not have any history of vomiting or overt aspiration. She, however, did not follow any of my commands. Family denies any prior fevers or chills or any evidence of possible brewing infection. She is described as a heavy smoker, 20+ pack years. They deny alcohol use or abuse. They deny any trauma as far as they know. The above is as much of the history of presentation as I have. PAST MEDICAL HISTORY: Significant for diabetes, hypertension. She is obese. Tobacco use disorder. PAST SURGICAL HISTORY: She has had cataract removal and some foot surgery. MEDICATIONS: She was on at the time I stopped by to see were reviewed included Tylenol 650 mg p.o. q.4 hours p.r.n. mild pain or fevers, Lipitor 40 mg p.o. at bedtime, Rocephin 2 grams IV daily, she was on an IV insulin drip, I believe 3 units per hour; she has just had Keppra added to the mix 750 mg IV q.6 hours, she is on Claritin 10 mg p.o. daily, all p.o. meds via the feeding tube; ____ 5 mg p.o. q.6 hours p.r.n. nausea and vomiting, nonformulary medications 2 mcg to each nostril daily, nicardipine drip had been going earlier at 5 mg per hour, Zofran 4 mg IV q.8 hours p.r.n. nausea and vomiting. D5 half NS was going at 125 mL per hour. ALLERGIES: No known drug allergies. DIET: Obese lady. Family denies acute weight loss or gain in the preceding few weeks to months. FAMILY AND SOCIAL HISTORY: Lives in the community, has a 20+ pack year tobacco smoking history. They denied alcohol or illicit drug use or abuse. There is a family history positive for diabetes and hypertension per the children. REVIEW OF SYSTEMS: Unobtainable secondary to the patient's medical and mental condition. Since she has been here, no gross hematochezia or melena. She had persistent seizures. No hematemesis, no bloody tracheal secretions. Review of systems is otherwise unobtainable or as in the body of history above. PHYSICAL EXAMINATION: VITAL SIGNS: At presentation in the emergency room, she was afebrile, fresh temperature was 97.8 degrees Fahrenheit, pulse was 116, respiratory rate was 13, blood pressure was 202/99, O2 sats were 100%, and inspired oxygen concentration at that time was not recorded. GENERAL: She is elderly looking -[place] female, normocephalic, atraumatic, on the mechanical ventilator with mildly increased respiratory effort. HEAD, EYES, EARS, NOSE AND THROAT: She is anicteric. No conjunctival erythema. Oropharynx is moist. Endotracheal tube is in place, taped at the lips around 23 to 24 cm. No gross jugular venous distention, no thyromegaly. Grossly, no palpable lymph nodes in the supraclavicular or submandibular lymph node chains. LUNGS: Auscultation of both lung san[place]ria, scant bilateral rhonchi, no active wheezing. HEART: Heart sounds 1 and 2 are heard at the time of my evaluation, regular rate and rhythm without rubs or murmurs. ABDOMEN: Soft, full, bowel sounds are positive, nontender, no palpable hepatosplenomegaly. EXTREMITIES: Without overt digital clubbing or cyanosis, no pedal edema. Dorsalis pedis pulses are palpable bilaterally. NEUROLOGIC: The pupils were equal, about 2-3 mm, sluggishly reactive to light. Extraocular muscle movements could not be assessed. She had spontaneous movements to all 4 extremities and she did locate appropriately to a sternal rub, with her upper extremities. SKIN: Normal turgor without cellulitis or rash. LABORATORY DATA: From my review are as follows: Admission white cell count 13,500, hemoglobin 12.9, hematocrit 42.9, platelet count was 288, no band forms reported. INR was 0.99. Arterial blood gas showed a pH of 7.19, pCO2 was 58, pO2 was 250, and that was 100% FiO2 on the mechanical ventilator settings, I believe assist control mode, 450 tidal volumes, rate of 20, PEEP of 6. FiO2 was down to 40% when I saw her. Serum sodium was 133 at presentation, potassium 5.8, chloride 96, bicarbonate 20, BUN 33, creatinine 1.8, glucose was 760. Lactic acid level was 3.4, phosphorus was 5.7. Cardiac enzymes were within normal limits. Urinalysis, moderate blood, negative nitrites, large leukocyte esterase, 91 white cells per high power field, 1+ bacteria. Influenza rapid screen was negative. Arterial blood gas is 7.34 pH, pCO2 of 39, pO2 of 159 on 40% FiO2 and the above-mentioned vent settings. Serum sodium 144, bicarbonate is 21, BUN is 19, creatinine is 1.3 and lactic acid level is now normal. Two sets of blood cultures, tracheal aspirate, no growth to date. Chest x-ray has been reviewed. Endotracheal tube tip is in normal position, no acute process otherwise on the chest. She also had a CT of the head and neck and a CT scan of the brain and that was reported as an appropriate CT for the patient's age. No acute process. ASSESSMENT AND PLAN: 1. Acute hypoxemic hypercapnic respiratory failure, now on mechanical ventilator support. 2. Acute encephalopathy. 3. Uncontrolled diabetes requiring IV insulin therapy. 4. Sepsis syndrome. 5. Hypertensive emergency with possible encephalopathy as a result of that. 6. Leukocytosis. 7. Urinary tract infection. 8. Hyperkalemia, now corrected. 9. Lactic acidemia. 10. Obesity. 11. History of hypertension. PLAN: We will transition off the IV insulin therapy at this point. I will put her on Lantus insulin, and we will begin enteral nutrition via the OG tube. Oxygen will continue to be weaned to keep sats greater than or equal to about 90%. Ventilator-associated pneumonia bundle has been instituted. I will reduce the set rate to 12 and begin the weaning process as soon as we can. We will continue empiric antibiotic therapies for now. I will get a CRP level and use along with lactic acid for clinical decision making. We will hold her Klonopin for now and hold her Zoloft and other psychotropic medications at this point in time. Enteral nutrition will be the feeding modality of choice. We will continue empiric Rocephin therapy at this point. Blood pressure control will be with oral medications as well as p.r.n. hydralazine. Inputs and outputs will be monitored closely and electrolytes will be corrected as necessary. Nephrology evaluation will be at the behest of the attending physician. She will be placed on GI and DVT prophylaxis. Bronchodilator treatments will be ordered in the short time and then p.r.n. thereafter. Tube Winder Hand consult to be placed. She will be placed on GI and DVT prophylaxis. Flu and pneumonia vaccination will be addressed per protocol. Thank you very much for the consult. We will follow along and make further recommendations as picture progresses/becomes clearer. She is critically ill on life-sustaining interventions including mechanical ventilatory support and at high risk for further deterioration including the risk of . At this time, I spent about 35-40 minutes of critical care time without overlap and excluding any procedural time that may be necessary. JOB# [id number] ERLIN/MARLEEN MEHTA
[2018-03-09] MEDS: PEPCID IV SCH (10:11)
[2018-03-09] MEDS: ROCEPHIN/NS 2 GM/100 ML 2 GM/100 ML BAG IV SCH (10:11)
[2018-03-09] MEDS: MORPHINE IV PRN ×2 (10:23→14:45)
--- NOTE | 2018-03-09 11:27 | Progress Note ---
Assessment and Plan Acute hypoxemic hypercapnic respiratory failure on MVS Acute encephalopathy. Uncontrolled diabetes requiring IV insulin therapy. Sepsis syndrome. Hypertensive emergency with possible encephalopathy as a result of that. Leukocytosis. Urinary tract infection. Hyperkalemia, now corrected. Lactic acidemia. Obesity. History of hypertension - continue to wean FiO2 to keep sats > 90% - titrate sedation for RASS 0 to -1 - VAP bundle addressed - Daily SAT's - begin daily SBT's as tolerated via PSV - hold home psychoactive meds until neuro exam complete - begin enteral nutrition as tolerated - get CRP, lactate to aid clinical decision making - nutrition consult - begin GI & VTE prophylaxis - continue empiric Rocephin for suspected UTI - ID evaluation ongoing - PT/OT as tolerated - mobility protocol for pressure ulcer prophylaxis - continue other care per attending / other consultants The high probability of a clinically significant, sudden or life-threatening deterioration of the [cardiac, neurology] system(s) required my full and direct attention, intervention and personal management. The aggregate critical care time was [34] minutes without overlap. Time includes spent on; [x] Data Review and interpretation [x] Patient assessment and monitoring of vital signs [x] Documentation [x] Medication orders and management Subjective Date of service: 03/09/18 Principal diagnosis: Acute hypoxemic hypercapnic Resp failure; Acute encephalopathy; Sepsis Interval history: Patient is seen today for: Acute hypoxemic hypercapnic respiratory failure on MVS; Acute encephalopathy; Uncontrolled diabetes requiring IV insulin therapy; Sepsis syndrome; Hypertensive emergency with encephalopathy Seen and examined at bedside; 24hour events reviewed; nursing and respiratory care staff consulted; no adverse overnight events reported to me; remains on MVS; agitated but moving all extremities; FiO2 down to 40%; no emesis or overt aspiration and no seizure activity Objective Vital Signs - 12hr 03/08/18 03/08/18 03/09/18 23:30 23:46 00:00 Temperature Pulse Rate 89 87 85 Pulse Rate [ Bilateral Throughout] Pulse Rate [ 96 H From Monitor] Respiratory 20 20 20 Rate Respiratory Rate [Bilateral Throughout] Blood Pressure 130/59 130/59 130/59 O2 Sat by Pulse 100 100 100 Oximetry 03/09/18 03/09/18 03/09/18 00:16 00:25 00:30 Temperature Pulse Rate 91 H 87 106 H Pulse Rate [ Bilateral Throughout] Pulse Rate [ From Monitor] Respiratory 21 20 Rate Respiratory Rate [Bilateral Throughout] Blood Pressure 136/62 136/62 136/62 O2 Sat by Pulse 100 100 100 Oximetry 03/09/18 03/09/18 03/09/18 00:45 01:00 01:16 Temperature Pulse Rate 104 H 103 H 97 H Pulse Rate [ Bilateral Throughout] Pulse Rate [ From Monitor] Respiratory 22 19 21 Rate Respiratory Rate [Bilateral Throughout] Blood Pressure 136/62 139/72 139/72 O2 Sat by Pulse 100 99 100 Oximetry 03/09/18 03/09/18 03/09/18 01:30 01:46 02:00 Temperature Pulse Rate 95 H 94 H 93 H Pulse Rate [ Bilateral Throughout] Pulse Rate [ From Monitor] Respiratory 19 20 21 Rate Respiratory Rate [Bilateral Throughout] Blood Pressure 139/72 139/72 128/59 O2 Sat by Pulse 100 100 100 Oximetry 03/09/18 03/09/18 03/09/18 02:16 02:30 02:46 Temperature Pulse Rate 93 H 102 H 90 Pulse Rate [ Bilateral Throughout] Pulse Rate [ From Monitor] Respiratory 20 19 20 Rate Respiratory Rate [Bilateral Throughout] Blood Pressure 128/59 128/59 128/59 O2 Sat by Pulse 100 100 100 Oximetry 03/09/18 03/09/18 03/09/18 03:00 03:16 03:21 Temperature 100.9 F H Pulse Rate 87 88 Pulse Rate [ Bilateral Throughout] Pulse Rate [ From Monitor] Respiratory 20 20 Rate Respiratory Rate [Bilateral Throughout] Blood Pressure 128/59 133/59 O2 Sat by Pulse 100 100 Oximetry 03/09/18 03/09/18 03/09/18 03:30 03:46 04:00 Temperature Pulse Rate 87 92 H 87 Pulse Rate [ Bilateral Throughout] Pulse Rate [ 85 From Monitor] Respiratory 21 20 20 Rate Respiratory Rate [Bilateral Throughout] Blood Pressure 133/59 133/59 133/59 O2 Sat by Pulse 100 100 100 Oximetry 03/09/18 03/09/18 03/09/18 04:16 04:25 04:30 Temperature Pulse Rate 84 84 88 Pulse Rate [ Bilateral Throughout] Pulse Rate [ From Monitor] Respiratory 20 19 Rate Respiratory Rate [Bilateral Throughout] Blood Pressure 133/59 144/61 133/59 O2 Sat by Pulse 100 100 100 Oximetry 03/09/18 03/09/18 03/09/18 04:46 05:00 05:16 Temperature Pulse Rate 82 82 90 Pulse Rate [ Bilateral Throughout] Pulse Rate [ From Monitor] Respiratory 20 20 20 Rate Respiratory Rate [Bilateral Throughout] Blood Pressure 144/61 144/61 144/61 O2 Sat by Pulse 100 100 100 Oximetry 03/09/18 03/09/18 03/09/18 05:30 05:46 06:00 Temperature Pulse Rate 88 94 H 83 Pulse Rate [ Bilateral Throughout] Pulse Rate [ From Monitor] Respiratory 14 14 20 Rate Respiratory Rate [Bilateral Throughout] Blood Pressure 144/61 143/63 136/59 O2 Sat by Pulse 100 42 L Oximetry 03/09/18 03/09/18 03/09/18 06:16 06:30 06:46 Temperature Pulse Rate 81 82 82 Pulse Rate [ Bilateral Throughout] Pulse Rate [ From Monitor] Respiratory 20 20 20 Rate Respiratory Rate [Bilateral Throughout] Blood Pressure 143/63 143/63 136/59 O2 Sat by Pulse 99 99 99 Oximetry 03/09/18 03/09/18 03/09/18 07:00 07:16 07:30 Temperature Pulse Rate 84 88 86 Pulse Rate [ 86 Bilateral Throughout] Pulse Rate [ From Monitor] Respiratory 20 20 20 Rate Respiratory 20 Rate [Bilateral Throughout] Blood Pressure 122/52 136/59 136/59 O2 Sat by Pulse 99 100 100 Oximetry 03/09/18 03/09/18 03/09/18 07:37 07:42 07:46 Temperature 99.4 F Pulse Rate 120 H Pulse Rate [ 101 H Bilateral Throughout] Pulse Rate [ From Monitor] Respiratory 23 Rate Respiratory 20 Rate [Bilateral Throughout] Blood Pressure 122/52 O2 Sat by Pulse 100 Oximetry 03/09/18 03/09/18 03/09/18 07:54 08:00 08:10 Temperature 99 F Pulse Rate 119 H 111 H Pulse Rate [ Bilateral Throughout] Pulse Rate [ From Monitor] Respiratory 18 Rate Respiratory Rate [Bilateral Throughout] Blood Pressure 122/52 122/52 O2 Sat by Pulse 100 100 100 Oximetry 03/09/18 03/09/18 03/09/18 08:16 08:30 08:46 Temperature Pulse Rate 123 H 104 H 104 H Pulse Rate [ Bilateral Throughout] Pulse Rate [ From Monitor] Respiratory 25 H 20 23 Rate Respiratory Rate [Bilateral Throughout] Blood Pressure 122/52 122/52 173/78 O2 Sat by Pulse 100 100 99 Oximetry 03/09/18 03/09/18 03/09/18 09:00 09:16 09:30 Temperature Pulse Rate 100 H 97 H 95 H Pulse Rate [ Bilateral Throughout] Pulse Rate [ From Monitor] Respiratory 22 22 21 Rate Respiratory Rate [Bilateral Throughout] Blood Pressure 141/66 141/66 141/66 O2 Sat by Pulse 99 100 100 Oximetry 03/09/18 03/09/18 03/09/18 09:42 09:46 10:00 Temperature Pulse Rate 99 H 97 H 99 H Pulse Rate [ Bilateral Throughout] Pulse Rate [ From Monitor] Respiratory 18 13 Rate Respiratory Rate [Bilateral Throughout] Blood Pressure 141/66 141/66 141/66 O2 Sat by Pulse 100 100 100 Oximetry 03/09/18 03/09/18 03/09/18 10:16 10:30 10:46 Temperature Pulse Rate 99 H 97 H 101 H Pulse Rate [ Bilateral Throughout] Pulse Rate [ From Monitor] Respiratory 18 22 13 Rate Respiratory Rate [Bilateral Throughout] Blood Pressure 141/66 141/66 141/66 O2 Sat by Pulse 100 100 100 Oximetry 03/09/18 03/09/18 11:00 11:16 Temperature Pulse Rate 105 H 107 H Pulse Rate [ Bilateral Throughout] Pulse Rate [ From Monitor] Respiratory 17 21 Rate Respiratory Rate [Bilateral Throughout] Blood Pressure 149/69 149/69 O2 Sat by Pulse 100 100 Oximetry Constitutional: appears uncomfortable, other (elderly looking AAF, normocephalic and atraumatic with mildly increased respiratory effort on MVS) Eyes: non-icteric ENT: oropharynx moist, other (ETT 23 cm ULI) Neck: supple, no lymphadenopathy, no JVD, other (No thyromegaly) Effort: mildly labored Ascultation: Bilateral: rhonchi Percussion: Bilateral: not dull Cardiovascular: regular rate and rhythm Gastrointestinal: normoactive bowel sounds, soft, non-tender, non-distended Integumentary: normal Extremities: no cyanosis, no edema, pulses normal, no ischemia or petechiae Neurologic: non-focal exam (grossly), unable to assess Psychiatric: other (unable to assess re: AMS) CBC and BMP: 03/09/18 04:16 03/09/18 04:16 ABG, PT/INR, D-dimer: ABG POC ABG pH 7.357 (7.35-7.45) 03/09/18 09:58 POC ABG pCO2 38.1 (35-45) 03/09/18 09:58 POC ABG pO2 108 (80-105) H 03/09/18 09:58 POC ABG HCO3 21.4 03/09/18 09:58 POC ABG Total CO2 23 03/09/18 09:58 POC ABG O2 Sat 98 03/09/18 09:58 PT/INR, D-dimer PT 13.5 Sec. (12.2-14.9) 03/07/18 16:11 INR 0.99 (0.87-1.13) 03/07/18 16:11 Abnormal lab findings: Abnormal Labs 03/07/18 03/07/18 03/07/18 16:11 16:11 17:29 WBC 13.5 H RBC Hgb Hct MCH 26 L RDW 16.5 H POC ABG pH 7.190 L POC ABG pCO2 57.6 H POC ABG pO2 250 H VBG pH Sodium 134 L Potassium Chloride 93.2 L Carbon Dioxide 15 L BUN 32 H Creatinine 1.7 H Glucose 793 H* POC Glucose Lactic Acid Calcium Phosphorus C-Reactive Protein Urine WBC (Auto) Phenobarbital 03/07/18 03/07/18 03/07/18 18:00 18:00 18:00 WBC RBC Hgb Hct MCH RDW POC ABG pH POC ABG pCO2 POC ABG pO2 VBG pH 7.197 L* Sodium 133 L Potassium 5.8 H D Chloride 95.9 L Carbon Dioxide 20 L BUN 33 H Creatinine 1.8 H Glucose 760 H* POC Glucose Lactic Acid Calcium Phosphorus 5.70 H C-Reactive Protein Urine WBC (Auto) Phenobarbital 03/07/18 03/07/18 03/07/18 18:12 18:51 19:39 WBC RBC Hgb Hct MCH RDW POC ABG pH POC ABG pCO2 POC ABG pO2 VBG pH Sodium Potassium Chloride Carbon Dioxide BUN Creatinine Glucose POC Glucose Lactic Acid 4.20 H* 3.40 H* Calcium Phosphorus C-Reactive Protein Urine WBC (Auto) 91.0 H Phenobarbital 03/07/18 03/07/18 03/07/18 19:56 21:03 21:03 WBC RBC Hgb Hct MCH RDW POC ABG pH POC ABG pCO2 POC ABG pO2 VBG pH Sodium Potassium Chloride Carbon Dioxide 20 L BUN 31 H Creatinine 1.4 H Glucose 381 H POC Glucose 426 H Lactic Acid 2.70 H* Calcium Phosphorus C-Reactive Protein Urine WBC (Auto) Phenobarbital 03/07/18 03/07/18 03/07/18 21:20 22:01 22:38 WBC RBC Hgb Hct MCH RDW POC ABG pH POC ABG pCO2 POC ABG pO2 VBG pH Sodium Potassium Chloride Carbon Dioxide 17 L BUN 29 H Creatinine 1.4 H Glucose 236 H POC Glucose 323 H 252 H Lactic Acid Calcium Phosphorus C-Reactive Protein Urine WBC (Auto) Phenobarbital 03/07/18 03/07/18 03/08/18 22:38 22:54 00:25 WBC RBC Hgb Hct MCH RDW POC ABG pH POC ABG pCO2 POC ABG pO2 VBG pH Sodium Potassium Chloride Carbon Dioxide BUN Creatinine Glucose POC Glucose 186 H 51 L Lactic Acid 2.50 H* Calcium Phosphorus C-Reactive Protein Urine WBC (Auto) Phenobarbital 03/08/18 03/08/18 03/08/18 01:03 02:30 03:14 WBC RBC Hgb Hct MCH RDW POC ABG pH POC ABG pCO2 POC ABG pO2 VBG pH Sodium Potassium Chloride Carbon Dioxide BUN Creatinine Glucose 106 H POC Glucose 157 H 147 H Lactic Acid Calcium Phosphorus C-Reactive Protein Urine WBC (Auto) Phenobarbital 03/08/18 03/08/18 03/08/18 03:47 04:10 05:06 WBC RBC Hgb Hct MCH RDW POC ABG pH 7.343 L POC ABG pCO2 POC ABG pO2 159 H VBG pH Sodium 146 H D Potassium Chloride 108.7 H Carbon Dioxide 20 L BUN 25 H Creatinine 1.5 H Glucose POC Glucose 146 H Lactic Acid Calcium Phosphorus C-Reactive Protein Urine WBC (Auto) Phenobarbital 03/08/18 03/08/18 03/08/18 06:06 08:07 09:20 WBC RBC Hgb Hct MCH RDW POC ABG pH POC ABG pCO2 POC ABG pO2 VBG pH Sodium Potassium Chloride Carbon Dioxide BUN Creatinine Glucose POC Glucose 157 H 141 H 133 H Lactic Acid Calcium Phosphorus C-Reactive Protein Urine WBC (Auto) Phenobarbital 03/08/18 03/08/18 03/08/18 10:20 12:33 12:35 WBC RBC Hgb Hct MCH RDW POC ABG pH POC ABG pCO2 POC ABG pO2 VBG pH Sodium Potassium Chloride 110.8 H Carbon Dioxide 21 L BUN 19 H Creatinine 1.3 H Glucose 142 H POC Glucose 138 H 137 H Lactic Acid Calcium 8.2 L Phosphorus C-Reactive Protein Urine WBC (Auto) Phenobarbital 03/08/18 03/08/18 03/08/18 18:05 18:26 18:26 WBC RBC Hgb Hct MCH RDW POC ABG pH POC ABG pCO2 POC ABG pO2 VBG pH Sodium Potassium Chloride Carbon Dioxide BUN Creatinine Glucose POC Glucose 315 H Lactic Acid Calcium Phosphorus C-Reactive Protein 4.70 H Urine WBC (Auto) Phenobarbital 13.6 L 03/09/18 03/09/18 03/09/18 00:10 04:16 04:16 WBC 13.9 H RBC 3.55 L Hgb 9.4 L D Hct 29.3 L D MCH 27 L RDW 15.3 H POC ABG pH POC ABG pCO2 POC ABG pO2 VBG pH Sodium Potassium Chloride 111.6 H Carbon Dioxide BUN Creatinine 1.4 H Glucose 217 H POC Glucose 248 H Lactic Acid Calcium 8.2 L Phosphorus C-Reactive Protein Urine WBC (Auto) Phenobarbital 03/09/18 03/09/18 03/09/18 05:12 05:26 09:46 WBC RBC Hgb Hct MCH RDW POC ABG pH 7.326 L POC ABG pCO2 POC ABG pO2 156 H 50 L VBG pH Sodium Potassium Chloride Carbon Dioxide BUN Creatinine Glucose POC Glucose 301 H Lactic Acid Calcium Phosphorus C-Reactive Protein Urine WBC (Auto) Phenobarbital 03/09/18 09:58 WBC RBC Hgb Hct MCH RDW POC ABG pH POC ABG pCO2 POC ABG pO2 108 H VBG pH Sodium Potassium Chloride Carbon Dioxide BUN Creatinine Glucose POC Glucose Lactic Acid Calcium Phosphorus C-Reactive Protein Urine WBC (Auto) Phenobarbital Chest x-ray: pending Allied health notes reviewed: nursing
[2018-03-09] MEDS ORDERED: LANTUS SUB-Q ONE (11:53)
--- NOTE | 2018-03-09 11:59 | Progress Note ---
Assessment and Plan Assessment and plan: Patient is a 62 yo woman with a history of hypertension, type 2 DM, dyslipidemia, depression and prior left big toe diabetic osteomyelitis infection who presented to [facility] ED with AMS. EMS states upon their arrival the patient would not move her left side. The patient never spoke to EMS. EMS states while en route the patient had a generalized tonic-clonic seizure. In the ED the patient appears postictal. While in CT scan, the patient had 2 more generalized tonic-clonic seizures. The patient was brought back to the room and immediately intubated using RSI * pCXR FINDINGS: The heart and mediastinum appear normal. The lungs are clear and well expanded. There is an endotracheal tube that terminates approximately 5.8 centimeters above the anatoly. There are no pleural effusions. The soft tissues and regional skeleton are unremarkable. IMPRESSION: Satisfactory intubation. * Abd XR: unremarkable -Acute Respiratory failure due to mental status: d/w CCM, continue MV -Acute encephalopathy, due to seizures, she is waking up, needing restraints now -Status epilepticus: consulted Neurology, mri brain pending, EEG pending, treat with IV keppra -ARF, ATN+vasomotor nephropathy: treat with ivf, daily bmp -Type 2 DM with HONK, not DKA without ketones on Insulin drip for uncontrolled hyperglycemia: d/w [facility], he will address -Acidosis, respiratory and metabolic: treat the underlying cause of above -Suspect Acute CVA causing AMS and seizures which led to respiratory failure and encephalopathy -Fevers from suspect sepsis UTI: consult ID and treat with abx, iv rocephin, follow ctx full code Brain MRI on 03/07/18 Impression: Chronic ischemic white matter disease consistent with age, no evidence of an acute stroke however, the Neurologist, Dr. Segura, did see multiple strokes "Dr. Segura: MRI done yesterday shows slightly positive left thalamic stroke on diffusion with slightly dark ADC in a corresponding position. FLAIR is slightly positive bilaterally in the ash and also shows old right occipital cortical infarct and small old right anterior parietal cortical infarct along with periventricular white matter changes adjacent to right lateral ventricle and a discrete right lateral ventricle lacunar infarct. There is some atrophy. Brain MRA to ct suggests beading in the distal ICAs bilaterally but this may be artifact. There appears to be some decreased flow in the left [employer] P1 segment and perhaps some narrowing at the M1-M2 junction of the right MCA." CCT 34 minutes History Interval history: Patient was seen and examined. Follow-up on current diagnosis of AMS, still intubated. Overnight uneventful. Imaging, nursing note, chart, labs and old chart reviewed. Discussed with nursing. Son Flip and his are at bedside. Hospitalist Physical - Physical exam Narrative exam: Gen: ill appearing, intubated, not sedated, restraints needed now HEENT: NCAT, EOMI, Pupils reactive, OP ETT, ngt Neck: supple, no adenopathy, no thyromegaly, no JVD, right EJ in place CVS/Heart: RRR, normal S1S2, pulses present bilaterally Chest/Lungs: diminished bs bilateral, Symmetrical chest expansion, good air entry bilaterally GI/Abdomen: soft, NTND, good bowel sounds, no guarding or rebound /Bladder: bryant in place Extermity/Skin: no c/c/e, no obvious rash MSK: moving all extremities Neuro: doesn't follow commands Psych: comatose - Constitutional Vitals: Temp Pulse Resp BP Pulse Ox 99 F 107 H 21 149/69 100 03/09/18 08:00 03/09/18 11:16 03/09/18 11:16 03/09/18 11:16 03/09/18 11:16 General appearance: Present: severe distress, obese Results - Labs CBC & Chem 7: 03/09/18 04:16 03/09/18 04:16 Labs: Laboratory Last Values WBC 13.9 K/mm3 (4.5-11.0) H 03/09/18 04:16 RBC 3.55 M/mm3 (3.65-5.03) L 03/09/18 04:16 Hgb 9.4 gm/dl (10.1-14.3) L D 03/09/18 04:16 Hct 29.3 % (30.3-42.9) L D 03/09/18 04:16 MCV 82 fl (79-97) 03/09/18 04:16 MCH 27 pg (28-32) L 03/09/18 04:16 MCHC 32 % (30-34) 03/09/18 04:16 RDW 15.3 % (13.2-15.2) H 03/09/18 04:16 Plt Count 195 K/mm3 (140-440) 03/09/18 04:16 Lymph # Bench Hand Machine 03/07/18 16:11 Add Manual Diff Complete 03/07/18 16:11 Total Counted 100 03/07/18 16:11 Seg Neuts % (Manual) 55.0 % (40.0-70.0) 03/07/18 16:11 Band Neutrophils % 0 % 03/07/18 16:11 Lymphocytes % (Manual) 28.0 % (13.4-35.0) 03/07/18 16:11 Reactive Lymphs % (Man) 12.0 % 03/07/18 16:11 Monocytes % (Manual) 5.0 % (0.0-7.3) 03/07/18 16:11 Eosinophils % (Manual) 0 % (0.0-4.3) 03/07/18 16:11 Basophils % (Manual) 0 % (0.0-1.8) 03/07/18 16:11 Metamyelocytes % 0 % 03/07/18 16:11 Myelocytes % 0 % 03/07/18 16:11 Promyelocytes % 0 % 03/07/18 16:11 Blast Cells % 0 % 03/07/18 16:11 Nucleated RBC % Not Reportable 03/07/18 16:11 Seg Neutrophils # Man 7.4 K/mm3 (1.8-7.7) 03/07/18 16:11 Band Neutrophils # 0.0 K/mm3 03/07/18 16:11 Lymphocytes # (Manual) 3.8 K/mm3 (1.2-5.4) 03/07/18 16:11 Abs React Lymphs (Man) 1.6 K/mm3 03/07/18 16:11 Monocytes # (Manual) 0.7 K/mm3 (0.0-0.8) 03/07/18 16:11 Eosinophils # (Manual) 0.0 K/mm3 (0.0-0.4) 03/07/18 16:11 Basophils # (Manual) 0.0 K/mm3 (0.0-0.1) 03/07/18 16:11 Metamyelocytes # 0.0 K/mm3 03/07/18 16:11 Myelocytes # 0.0 K/mm3 03/07/18 16:11 Promyelocytes # 0.0 K/mm3 03/07/18 16:11 Blast Cells # 0.0 K/mm3 03/07/18 16:11 WBC Morphology Not Reportable 03/07/18 16:11 Hypersegmented Neuts Not Reportable 03/07/18 16:11 Hyposegmented Neuts Not Reportable 03/07/18 16:11 Hypogranular Neuts Not Reportable 03/07/18 16:11 Smudge Cells Not Reportable 03/07/18 16:11 Toxic Granulation Not Reportable 03/07/18 16:11 Toxic Vacuolation Not Reportable 03/07/18 16:11 Dohle Bodies Not Reportable 03/07/18 16:11 Pelger-Huet Anomaly Not Reportable 03/07/18 16:11 [place] Rods Not Reportable 03/07/18 16:11 Platelet Estimate Consistent w auto 03/07/18 16:11 Clumped Platelets Not Reportable 03/07/18 16:11 Plt Clumps, EDTA Not Reportable 03/07/18 16:11 Large Platelets Not Reportable 03/07/18 16:11 Giant Platelets Not Reportable 03/07/18 16:11 Platelet Satelliting Not Reportable 03/07/18 16:11 Plt Morphology Comment Not Reportable 03/07/18 16:11 RBC Morphology Not Reportable 03/07/18 16:11 Dimorphic RBCs Not Reportable 03/07/18 16:11 Polychromasia Not Reportable 03/07/18 16:11 Hypochromasia Few 03/07/18 16:11 Poikilocytosis Not Reportable 03/07/18 16:11 Anisocytosis Not Reportable 03/07/18 16:11 Microcytosis Not Reportable 03/07/18 16:11 Macrocytosis Not Reportable 03/07/18 16:11 Spherocytes Not Reportable 03/07/18 16:11 Pappenheimer Bodies Not Reportable 03/07/18 16:11 Sickle Cells Not Reportable 03/07/18 16:11 Target Cells Not Reportable 03/07/18 16:11 Tear Drop Cells Not Reportable 03/07/18 16:11 Ovalocytes Not Reportable 03/07/18 16:11 Helmet Cells Not Reportable 03/07/18 16:11 [place] Bodies Not Reportable 03/07/18 16:11 Wilson Rings Not Reportable 03/07/18 16:11 [place] Cells Not Reportable 03/07/18 16:11 Bite Cells Not Reportable 03/07/18 16:11 Crenated Cell Not Reportable 03/07/18 16:11 Elliptocytes Not Reportable 03/07/18 16:11 Acanthocytes (Spur) Not Reportable 03/07/18 16:11 Rouleaux Not Reportable 03/07/18 16:11 Hemoglobin C Crystals Not Reportable 03/07/18 16:11 Schistocytes Rare 03/07/18 16:11 Malaria parasites Not Reportable 03/07/18 16:11 [place] Bodies Not Reportable 03/07/18 16:11 Hem Pathologist Commnt No 03/07/18 16:11 PT 13.5 Sec. (12.2-14.9) 03/07/18 16:11 INR 0.99 (0.87-1.13) 03/07/18 16:11 APTT 28.8 Sec. (24.2-36.6) 03/07/18 16:11 Thrombin Time 18.7 Sec. (15.1-19.6) 03/07/18 16:11 POC ABG pH 7.357 (7.35-7.45) 03/09/18 09:58 POC ABG pCO2 38.1 (35-45) 03/09/18 09:58 POC ABG pO2 108 (80-105) H 03/09/18 09:58 POC ABG HCO3 21.4 03/09/18 09:58 POC ABG Total CO2 23 03/09/18 09:58 POC ABG O2 Sat 98 03/09/18 09:58 POC ABG Base Excess -4 03/09/18 09:58 VBG pH 7.197 (7.320-7.420) L* 03/07/18 18:00 FiO2 30 % 03/09/18 09:58 Sodium 144 mmol/L (137-145) 03/09/18 04:16 Potassium 3.9 mmol/L (3.6-5.0) 03/09/18 04:16 Chloride 111.6 mmol/L (98-107) H 03/09/18 04:16 Carbon Dioxide 22 mmol/L (22-30) 03/09/18 04:16 Anion Gap 14 mmol/L 03/09/18 04:16 BUN 13 mg/dL (7-17) 03/09/18 04:16 Creatinine 1.4 mg/dL (0.7-1.2) H 03/09/18 04:16 Estimated GFR 46 ml/min 03/09/18 04:16 BUN/Creatinine Ratio 9 % 03/09/18 04:16 Glucose 217 mg/dL (65-100) H 03/09/18 04:16 POC Glucose 301 (70-105) H 03/09/18 05:26 Lactic Acid 1.80 mmol/L (0.7-2.0) 03/08/18 06:56 Calcium 8.2 mg/dL (8.4-10.2) L 03/09/18 04:16 Phosphorus 5.70 mg/dL (2.5-4.5) H 03/07/18 18:00 Magnesium 2.00 mg/dL (1.7-2.3) 03/07/18 18:00 Total Creatine Kinase 91 units/L (30-135) 03/07/18 16:11 CK-MB (CK-2) 2.6 ng/mL (0.0-4.0) 03/07/18 16:11 CK-MB (CK-2) Rel Index 2.8 (0-4) 03/07/18 16:11 Troponin T < 0.010 ng/mL (0.00-0.029) 03/07/18 16:11 C-Reactive Protein 4.70 mg/dL (0.00-1.30) H 03/08/18 18:26 Urine Color Yellow (Yellow) 03/07/18 18:51 Urine Turbidity Slightly-cloudy (Clear) 03/07/18 18:51 Urine pH 5.0 (5.0-7.0) 03/07/18 18:51 Ur Specific [place] 1.015 (1.003-1.030) 03/07/18 18:51 Urine Protein 100 mg/dl mg/dL (Negative) 03/07/18 18:51 Urine Glucose (UA) >=500 mg/dL (Negative) 03/07/18 18:51 Urine Ketones Neg mg/dL (Negative) 03/07/18 18:51 Urine Blood Mod (Negative) 03/07/18 18:51 Urine Nitrite Neg (Negative) 03/07/18 18:51 Urine Bilirubin Neg (Negative) 03/07/18 18:51 Urine Urobilinogen < 2.0 mg/dL (<2.0) 03/07/18 18:51 Ur Leukocyte Esterase Lg (Negative) 03/07/18 18:51 Urine WBC (Auto) 91.0 /HPF (0.0-6.0) H 03/07/18 18:51 Urine RBC (Auto) 8.0 /HPF (0.0-6.0) 03/07/18 18:51 U Epithel Cells (Auto) 1.0 /HPF (0-13.0) 03/07/18 18:51 Urine Bacteria (Auto) 1+ /HPF (Negative) 03/07/18 18:51 Urine WBC Clumps 2+ /HPF 03/07/18 18:51 Urine Mucus 2+ /HPF 03/07/18 18:51 Phenobarbital 13.6 ug/mL (15.0-40.0) L 03/08/18 18:26 Influenza A (Rapid) Negative (Negative) 03/08/18 10:45 Influenza B (Rapid) Negative (Negative) 03/08/18 10:45 Nutrition/Malnutrition Assess - Dietary Evaluation Nutrition/Malnutrition Findings: Nutrition Notes Start: 03/08/18 09:43 Freq: Status: Active Protocol: Document 03/09/18 11:46 [facility] (Rec: 03/09/18 11:48 [facility] [id number]) Nutrition Notes Initial or Follow up Brief Note Current Diet TF - Vital AF 1.2 at 60ml/hr Labs/Tests Cr 1.4 BG 217 Subjective/Other Information Pt remains on vent support. Observed TF infusing at 40ml/ hr. Per RN, pt tolerating TF so far; will continue to advance to goal rate. Percent of energy/protein needs met: 63% energy 68% pro Nutrition Intervention Follow-Up By: 03/12/18 Additional Comments F/U: TF goal rate/tolerance, vent status
--- NOTE | 2018-03-09 12:17 | Progress Note ---
Assessment and Plan Cultures: 03/07/2018 tracheal aspirate: usual respiratory nash. Gram stain negative for significant PMNs. 03/08/2018 blood culture: no growth A/P: 62-year-old female with HTN and diabetes who was brought to the emergency room by EMS after family noted her to be confused. Also with: 1) SIRS v/s sepsis: One episode of fever, chest x-ray does not show pneumonia. UA is positive for pyuria. Fevers could also be seizure related. Continue IV ceftriaxone x 3 days. Follow-up blood and urine cultures. 2) Metabolic acidosis: Lactate elevated 3) Acute respiratory failure: On the ventilator 4) Acute kidney injury: Creatinine improving 5) Acute encephalopathy: Probably seizure related v/s toxic/metabolic. Neurology consulted. MRI/MRA report without new pathology, showed chronic ischemic c hanges. EEG with seizure activity. Recs: Continue IV ceftriaxone x 3 days MD [facility] C: [phone] O: [phone] F: [phone] Subjective Date of service: 03/09/18 Interval history: low grade temperatures +. Still on vent. No diarrhea. No rash. Objective - Exam Narrative Exam: Physical Exam: Constitutional: intubated, on vent. Head, Ears, Nose: Normocephalic, atraumatic. External ears, nose normal Eyes: Conjunctivae/corneas clear. No icterus. No ptosis. Neck: Supple, no meningeal signs Oral: intubated Cardiovascular: S1, S2 normal. Respiratory: Good air entry, clear to auscultation bilaterally GI: Soft, non-tender; bowel sounds normal. No peritoneal signs Musculoskeletal: No pedal edema, no cyanosis. Skin: No rash or abscess Hem/Lymphatic: No palpable cervical or supraclavicular nodes. No lymphangitis Psych: no agitation Neurological: intubated, on vent - Constitutional Vitals: Vital Signs Temp Pulse Resp BP Pulse Ox 99.6 F 106 H 19 159/70 98 03/09/18 12:00 03/09/18 12:00 03/09/18 12:00 03/09/18 12:00 03/09/18 12:00 Temperature -Last 24 Hours Temperature 99.6 F Temperature 99 F Temperature 99.4 F Temperature 100.9 F Temperature 99.9 F Temperature 100.7 F Temperature 98.9 F Temperature 98.9 F - Labs CBC & Chem 7: 03/09/18 04:16 03/09/18 04:16 Labs: Abnormal lab results 03/08/18 03/08/18 03/08/18 Range/Units 12:33 12:35 18:05 WBC (4.5-11.0) K/mm3 RBC (3.65-5.03) M/mm3 Hgb (10.1-14.3) gm/dl Hct (30.3-42.9) % MCH (28-32) pg RDW (13.2-15.2) % POC ABG pH (7.35-7.45) POC ABG pO2 (80-105) Chloride 110.8 H (98-107) mmol/L Carbon Dioxide 21 L (22-30) mmol/L BUN 19 H (7-17) mg/dL Creatinine 1.3 H (0.7-1.2) mg/dL Glucose 142 H (65-100) mg/dL POC Glucose 137 H 315 H (70-105) Calcium 8.2 L (8.4-10.2) mg/dL C-Reactive Protein (0.00-1.30) mg/dL Phenobarbital (15.0-40.0) ug/mL 03/08/18 03/08/18 03/09/18 Range/Units 18:26 18:26 00:10 WBC (4.5-11.0) K/mm3 RBC (3.65-5.03) M/mm3 Hgb (10.1-14.3) gm/dl Hct (30.3-42.9) % MCH (28-32) pg RDW (13.2-15.2) % POC ABG pH (7.35-7.45) POC ABG pO2 (80-105) Chloride (98-107) mmol/L Carbon Dioxide (22-30) mmol/L BUN (7-17) mg/dL Creatinine (0.7-1.2) mg/dL Glucose (65-100) mg/dL POC Glucose 248 H (70-105) Calcium (8.4-10.2) mg/dL C-Reactive Protein 4.70 H (0.00-1.30) mg/dL Phenobarbital 13.6 L (15.0-40.0) ug/mL 03/09/18 03/09/18 03/09/18 Range/Units 04:16 04:16 05:12 WBC 13.9 H (4.5-11.0) K/mm3 RBC 3.55 L (3.65-5.03) M/mm3 Hgb 9.4 L D (10.1-14.3) gm/dl Hct 29.3 L D (30.3-42.9) % MCH 27 L (28-32) pg RDW 15.3 H (13.2-15.2) % POC ABG pH (7.35-7.45) POC ABG pO2 156 H (80-105) Chloride 111.6 H (98-107) mmol/L Carbon Dioxide (22-30) mmol/L BUN (7-17) mg/dL Creatinine 1.4 H (0.7-1.2) mg/dL Glucose 217 H (65-100) mg/dL POC Glucose (70-105) Calcium 8.2 L (8.4-10.2) mg/dL C-Reactive Protein (0.00-1.30) mg/dL Phenobarbital (15.0-40.0) ug/mL 03/09/18 03/09/18 03/09/18 Range/Units 05:26 09:46 09:58 WBC (4.5-11.0) K/mm3 RBC (3.65-5.03) M/mm3 Hgb (10.1-14.3) gm/dl Hct (30.3-42.9) % MCH (28-32) pg RDW (13.2-15.2) % POC ABG pH 7.326 L (7.35-7.45) POC ABG pO2 50 L 108 H (80-105) Chloride (98-107) mmol/L Carbon Dioxide (22-30) mmol/L BUN (7-17) mg/dL Creatinine (0.7-1.2) mg/dL Glucose (65-100) mg/dL POC Glucose 301 H (70-105) Calcium (8.4-10.2) mg/dL C-Reactive Protein (0.00-1.30) mg/dL Phenobarbital (15.0-40.0) ug/mL
--- NOTE | 2018-03-09 12:40 | Progress Note ---
Assessment and Plan Acute hypoxemic hypercapnic respiratory failure on MVS Acute encephalopathy. Uncontrolled diabetes requiring IV insulin therapy. Sepsis syndrome. Hypertensive emergency with possible encephalopathy as a result of that. Leukocytosis. Urinary tract infection. Hyperkalemia, now corrected. Lactic acidemia. Obesity. History of hypertension - added seroquel for agitation - continue scheduled lantus insulin - continue q6h accuchesks with SSI for target BG 140-180 mg/dL - continue to wean FiO2 to keep sats > 90% - titrate sedation for RASS 0 to -1 - VAP bundle addressed - Daily SAT's - continue daily SBT's as tolerated via PSV - hold home psychoactive meds until neuro exam complete - continue enteral nutrition as tolerated - get CRP, lactate to aid clinical decision making - nutrition team consulted - continue GI & VTE prophylaxis - continue empiric antibiotics abd de-escalate per ID recs - PT/OT as tolerated - mobility protocol for pressure ulcer prophylaxis - continue other care per attending / other consultants The high probability of a clinically significant, sudden or life-threatening deterioration of the [cardiac, neurology] system(s) required my full and direct attention, intervention and personal management. The aggregate critical care time was [35] minutes without overlap. Time includes spent on; [x] Data Review and interpretation [x] Patient assessment and monitoring of vital signs [x] Documentation [x] Medication orders and management Subjective Date of service: 03/09/18 Principal diagnosis: Acute hypoxemic hypercapnic Resp failure; Acute encephalopathy; Sepsis Interval history: Patient is seen today for: Acute hypoxemic hypercapnic respiratory failure on MVS; Acute encephalopathy; Uncontrolled diabetes requiring IV insulin therapy; Sepsis syndrome; Hypertensive emergency with encephalopathy Seen and examined at bedside; 24hour events reviewed; nursing and respiratory care staff consulted; no adverse overnight events reported to me; remains on MVS; unable to tolerate extended wean due to agitation and increased work of breathing; no emesis or overt aspiration; appears confused / delirious Objective Vital Signs - 12hr 03/09/18 03/09/18 03/09/18 00:45 01:00 01:16 Temperature Pulse Rate 104 H 103 H 97 H Pulse Rate [ Bilateral Throughout] Pulse Rate [ From Monitor] Respiratory 22 19 21 Rate Respiratory Rate [Bilateral Throughout] Blood Pressure 136/62 139/72 139/72 O2 Sat by Pulse 100 99 100 Oximetry 03/09/18 03/09/18 03/09/18 01:30 01:46 02:00 Temperature Pulse Rate 95 H 94 H 93 H Pulse Rate [ Bilateral Throughout] Pulse Rate [ From Monitor] Respiratory 19 20 21 Rate Respiratory Rate [Bilateral Throughout] Blood Pressure 139/72 139/72 128/59 O2 Sat by Pulse 100 100 100 Oximetry 03/09/18 03/09/18 03/09/18 02:16 02:30 02:46 Temperature Pulse Rate 93 H 102 H 90 Pulse Rate [ Bilateral Throughout] Pulse Rate [ From Monitor] Respiratory 20 19 20 Rate Respiratory Rate [Bilateral Throughout] Blood Pressure 128/59 128/59 128/59 O2 Sat by Pulse 100 100 100 Oximetry 03/09/18 03/09/18 03/09/18 03:00 03:16 03:21 Temperature 100.9 F H Pulse Rate 87 88 Pulse Rate [ Bilateral Throughout] Pulse Rate [ From Monitor] Respiratory 20 20 Rate Respiratory Rate [Bilateral Throughout] Blood Pressure 128/59 133/59 O2 Sat by Pulse 100 100 Oximetry 03/09/18 03/09/18 03/09/18 03:30 03:46 04:00 Temperature Pulse Rate 87 92 H 87 Pulse Rate [ Bilateral Throughout] Pulse Rate [ 85 From Monitor] Respiratory 21 20 20 Rate Respiratory Rate [Bilateral Throughout] Blood Pressure 133/59 133/59 133/59 O2 Sat by Pulse 100 100 100 Oximetry 03/09/18 03/09/18 03/09/18 04:16 04:25 04:30 Temperature Pulse Rate 84 84 88 Pulse Rate [ Bilateral Throughout] Pulse Rate [ From Monitor] Respiratory 20 19 Rate Respiratory Rate [Bilateral Throughout] Blood Pressure 133/59 144/61 133/59 O2 Sat by Pulse 100 100 100 Oximetry 03/09/18 03/09/18 03/09/18 04:46 05:00 05:16 Temperature Pulse Rate 82 82 90 Pulse Rate [ Bilateral Throughout] Pulse Rate [ From Monitor] Respiratory 20 20 20 Rate Respiratory Rate [Bilateral Throughout] Blood Pressure 144/61 144/61 144/61 O2 Sat by Pulse 100 100 100 Oximetry 03/09/18 03/09/18 03/09/18 05:30 05:46 06:00 Temperature Pulse Rate 88 94 H 83 Pulse Rate [ Bilateral Throughout] Pulse Rate [ From Monitor] Respiratory 14 14 20 Rate Respiratory Rate [Bilateral Throughout] Blood Pressure 144/61 143/63 136/59 O2 Sat by Pulse 100 42 L Oximetry 03/09/18 03/09/18 03/09/18 06:16 06:30 06:46 Temperature Pulse Rate 81 82 82 Pulse Rate [ Bilateral Throughout] Pulse Rate [ From Monitor] Respiratory 20 20 20 Rate Respiratory Rate [Bilateral Throughout] Blood Pressure 143/63 143/63 136/59 O2 Sat by Pulse 99 99 99 Oximetry 03/09/18 03/09/18 03/09/18 07:00 07:16 07:30 Temperature Pulse Rate 84 88 86 Pulse Rate [ 86 Bilateral Throughout] Pulse Rate [ From Monitor] Respiratory 20 20 20 Rate Respiratory 20 Rate [Bilateral Throughout] Blood Pressure 122/52 136/59 136/59 O2 Sat by Pulse 99 100 100 Oximetry 03/09/18 03/09/18 03/09/18 07:37 07:42 07:46 Temperature 99.4 F Pulse Rate 120 H Pulse Rate [ 101 H Bilateral Throughout] Pulse Rate [ From Monitor] Respiratory 23 Rate Respiratory 20 Rate [Bilateral Throughout] Blood Pressure 122/52 O2 Sat by Pulse 100 Oximetry 03/09/18 03/09/18 03/09/18 07:54 08:00 08:10 Temperature 99 F Pulse Rate 119 H 111 H Pulse Rate [ Bilateral Throughout] Pulse Rate [ From Monitor] Respiratory 18 Rate Respiratory Rate [Bilateral Throughout] Blood Pressure 122/52 122/52 O2 Sat by Pulse 100 100 100 Oximetry 03/09/18 03/09/18 03/09/18 08:16 08:30 08:46 Temperature Pulse Rate 123 H 104 H 104 H Pulse Rate [ Bilateral Throughout] Pulse Rate [ From Monitor] Respiratory 25 H 20 23 Rate Respiratory Rate [Bilateral Throughout] Blood Pressure 122/52 122/52 173/78 O2 Sat by Pulse 100 100 99 Oximetry 03/09/18 03/09/18 03/09/18 09:00 09:16 09:30 Temperature Pulse Rate 100 H 97 H 95 H Pulse Rate [ Bilateral Throughout] Pulse Rate [ From Monitor] Respiratory 22 22 21 Rate Respiratory Rate [Bilateral Throughout] Blood Pressure 141/66 141/66 141/66 O2 Sat by Pulse 99 100 100 Oximetry 03/09/18 03/09/18 03/09/18 09:42 09:46 10:00 Temperature Pulse Rate 99 H 97 H 99 H Pulse Rate [ Bilateral Throughout] Pulse Rate [ From Monitor] Respiratory 18 13 Rate Respiratory Rate [Bilateral Throughout] Blood Pressure 141/66 141/66 141/66 O2 Sat by Pulse 100 100 100 Oximetry 03/09/18 03/09/18 03/09/18 10:16 10:30 10:46 Temperature Pulse Rate 99 H 97 H 101 H Pulse Rate [ Bilateral Throughout] Pulse Rate [ From Monitor] Respiratory 18 22 13 Rate Respiratory Rate [Bilateral Throughout] Blood Pressure 141/66 141/66 141/66 O2 Sat by Pulse 100 100 100 Oximetry 03/09/18 03/09/18 03/09/18 11:00 11:16 11:30 Temperature Pulse Rate 105 H 107 H 107 H Pulse Rate [ Bilateral Throughout] Pulse Rate [ From Monitor] Respiratory 17 21 19 Rate Respiratory Rate [Bilateral Throughout] Blood Pressure 149/69 149/69 149/69 O2 Sat by Pulse 100 100 100 Oximetry 03/09/18 03/09/18 03/09/18 11:46 12:00 12:05 Temperature 99.6 F Pulse Rate 104 H 106 H Pulse Rate [ Bilateral Throughout] Pulse Rate [ From Monitor] Respiratory 20 19 Rate Respiratory Rate [Bilateral Throughout] Blood Pressure 149/69 159/70 O2 Sat by Pulse 100 98 100 Oximetry 03/09/18 12:19 Temperature Pulse Rate 107 H Pulse Rate [ Bilateral Throughout] Pulse Rate [ From Monitor] Respiratory Rate Respiratory Rate [Bilateral Throughout] Blood Pressure 159/70 O2 Sat by Pulse 100 Oximetry Constitutional: appears uncomfortable, other (elderly looking AAF, normocephalic and atraumatic with mildly increased respiratory effort on MVS) Eyes: non-icteric ENT: oropharynx moist, other (ETT 23 cm ULI) Neck: supple, no lymphadenopathy, no JVD, other (No thyromegaly) Effort: mildly labored Ascultation: Bilateral: rhonchi Percussion: Bilateral: not dull Cardiovascular: regular rate and rhythm Gastrointestinal: normoactive bowel sounds, soft, non-tender, non-distended Integumentary: normal Extremities: no cyanosis, no edema, pulses normal, no ischemia or petechiae Neurologic: non-focal exam (grossly), unable to assess Psychiatric: other (unable to assess re: AMS) CBC and BMP: 03/11/18 05:18 03/11/18 05:18 ABG, PT/INR, D-dimer: ABG POC ABG pH 7.357 (7.35-7.45) 03/09/18 09:58 POC ABG pCO2 38.1 (35-45) 03/09/18 09:58 POC ABG pO2 108 (80-105) H 03/09/18 09:58 POC ABG HCO3 21.4 03/09/18 09:58 POC ABG Total CO2 23 03/09/18 09:58 POC ABG O2 Sat 98 03/09/18 09:58 PT/INR, D-dimer PT 13.5 Sec. (12.2-14.9) 03/07/18 16:11 INR 0.99 (0.87-1.13) 03/07/18 16:11 Abnormal lab findings: Abnormal Labs 03/07/18 03/07/18 03/07/18 16:11 16:11 17:29 WBC 13.5 H RBC Hgb Hct MCH 26 L RDW 16.5 H POC ABG pH 7.190 L POC ABG pCO2 57.6 H POC ABG pO2 250 H VBG pH Sodium 134 L Potassium Chloride 93.2 L Carbon Dioxide 15 L BUN 32 H Creatinine 1.7 H Glucose 793 H* POC Glucose Lactic Acid Calcium Phosphorus C-Reactive Protein Urine WBC (Auto) Phenobarbital 03/07/18 03/07/18 03/07/18 18:00 18:00 18:00 WBC RBC Hgb Hct MCH RDW POC ABG pH POC ABG pCO2 POC ABG pO2 VBG pH 7.197 L* Sodium 133 L Potassium 5.8 H D Chloride 95.9 L Carbon Dioxide 20 L BUN 33 H Creatinine 1.8 H Glucose 760 H* POC Glucose Lactic Acid Calcium Phosphorus 5.70 H C-Reactive Protein Urine WBC (Auto) Phenobarbital 03/07/18 03/07/18 03/07/18 18:12 18:51 19:39 WBC RBC Hgb Hct MCH RDW POC ABG pH POC ABG pCO2 POC ABG pO2 VBG pH Sodium Potassium Chloride Carbon Dioxide BUN Creatinine Glucose POC Glucose Lactic Acid 4.20 H* 3.40 H* Calcium Phosphorus C-Reactive Protein Urine WBC (Auto) 91.0 H Phenobarbital 03/07/18 03/07/18 03/07/18 19:56 21:03 21:03 WBC RBC Hgb Hct MCH RDW POC ABG pH POC ABG pCO2 POC ABG pO2 VBG pH Sodium Potassium Chloride Carbon Dioxide 20 L BUN 31 H Creatinine 1.4 H Glucose 381 H POC Glucose 426 H Lactic Acid 2.70 H* Calcium Phosphorus C-Reactive Protein Urine WBC (Auto) Phenobarbital 03/07/18 03/07/18 03/07/18 21:20 22:01 22:38 WBC RBC Hgb Hct MCH RDW POC ABG pH POC ABG pCO2 POC ABG pO2 VBG pH Sodium Potassium Chloride Carbon Dioxide 17 L BUN 29 H Creatinine 1.4 H Glucose 236 H POC Glucose 323 H 252 H Lactic Acid Calcium Phosphorus C-Reactive Protein Urine WBC (Auto) Phenobarbital 03/07/18 03/07/18 03/08/18 22:38 22:54 00:25 WBC RBC Hgb Hct MCH RDW POC ABG pH POC ABG pCO2 POC ABG pO2 VBG pH Sodium Potassium Chloride Carbon Dioxide BUN Creatinine Glucose POC Glucose 186 H 51 L Lactic Acid 2.50 H* Calcium Phosphorus C-Reactive Protein Urine WBC (Auto) Phenobarbital 03/08/18 03/08/18 03/08/18 01:03 02:30 03:14 WBC RBC Hgb Hct MCH RDW POC ABG pH POC ABG pCO2 POC ABG pO2 VBG pH Sodium Potassium Chloride Carbon Dioxide BUN Creatinine Glucose 106 H POC Glucose 157 H 147 H Lactic Acid Calcium Phosphorus C-Reactive Protein Urine WBC (Auto) Phenobarbital 03/08/18 03/08/18 03/08/18 03:47 04:10 05:06 WBC RBC Hgb Hct MCH RDW POC ABG pH 7.343 L POC ABG pCO2 POC ABG pO2 159 H VBG pH Sodium 146 H D Potassium Chloride 108.7 H Carbon Dioxide 20 L BUN 25 H Creatinine 1.5 H Glucose POC Glucose 146 H Lactic Acid Calcium Phosphorus C-Reactive Protein Urine WBC (Auto) Phenobarbital 03/08/18 03/08/18 03/08/18 06:06 08:07 09:20 WBC RBC Hgb Hct MCH RDW POC ABG pH POC ABG pCO2 POC ABG pO2 VBG pH Sodium Potassium Chloride Carbon Dioxide BUN Creatinine Glucose POC Glucose 157 H 141 H 133 H Lactic Acid Calcium Phosphorus C-Reactive Protein Urine WBC (Auto) Phenobarbital 03/08/18 03/08/18 03/08/18 10:20 12:33 12:35 WBC RBC Hgb Hct MCH RDW POC ABG pH POC ABG pCO2 POC ABG pO2 VBG pH Sodium Potassium Chloride 110.8 H Carbon Dioxide 21 L BUN 19 H Creatinine 1.3 H Glucose 142 H POC Glucose 138 H 137 H Lactic Acid Calcium 8.2 L Phosphorus C-Reactive Protein Urine WBC (Auto) Phenobarbital 03/08/18 03/08/18 03/08/18 18:05 18:26 18:26 WBC RBC Hgb Hct MCH RDW POC ABG pH POC ABG pCO2 POC ABG pO2 VBG pH Sodium Potassium Chloride Carbon Dioxide BUN Creatinine Glucose POC Glucose 315 H Lactic Acid Calcium Phosphorus C-Reactive Protein 4.70 H Urine WBC (Auto) Phenobarbital 13.6 L 03/09/18 03/09/18 03/09/18 00:10 04:16 04:16 WBC 13.9 H RBC 3.55 L Hgb 9.4 L D Hct 29.3 L D MCH 27 L RDW 15.3 H POC ABG pH POC ABG pCO2 POC ABG pO2 VBG pH Sodium Potassium Chloride 111.6 H Carbon Dioxide BUN Creatinine 1.4 H Glucose 217 H POC Glucose 248 H Lactic Acid Calcium 8.2 L Phosphorus C-Reactive Protein Urine WBC (Auto) Phenobarbital 03/09/18 03/09/18 03/09/18 05:12 05:26 09:46 WBC RBC Hgb Hct MCH RDW POC ABG pH 7.326 L POC ABG pCO2 POC ABG pO2 156 H 50 L VBG pH Sodium Potassium Chloride Carbon Dioxide BUN Creatinine Glucose POC Glucose 301 H Lactic Acid Calcium Phosphorus C-Reactive Protein Urine WBC (Auto) Phenobarbital 03/09/18 03/09/18 09:58 11:53 WBC RBC Hgb Hct MCH RDW POC ABG pH POC ABG pCO2 POC ABG pO2 108 H VBG pH Sodium Potassium Chloride Carbon Dioxide BUN Creatinine Glucose POC Glucose 291 H Lactic Acid Calcium Phosphorus C-Reactive Protein Urine WBC (Auto) Phenobarbital Chest x-ray: image reviewed Allied health notes reviewed: nursing
--- NOTE | 2018-03-09 12:53 | XRay Report ---
AP CHEST: HISTORY: Endotracheal tube position The endotracheal tube terminates 4 cm superior to the anatoly. Dobbhoff tube terminates in the mid stomach. There is minor segmental atelectasis in the left lower lobe, otherwise, the lungs are clear. Normal heart and mediastinal structures. IMPRESSION: Unremarkable AP chest. Adequate placement of lines and tubes.
[2018-03-09 16:05] LABS: Hematocrit 34.1 % (30.3-42.9); Hemoglobin 10.4 gm/dl (10.1-14.3)
--- NOTE | 2018-03-09 19:29 | Progress Note ---
Assessment and Plan Impression: 1. Complex partial epilepsy 2. UTI 3. Hypocalcemia 4. Metabolic encephalopathy 5. Memory loss Plan: 1. Will order ionized calcium and other memory labs. 2. Will order calcium chloride 1 amp and repeat ionized calcium in the morning. 3. I explained EEG showed some irritability and old cortical strokes could lead to seizures and 10% of patients. I explained she may have an new or recent stroke deep in the brain in the left thalamus but that location would not cause seizures. I explained seizures may be triggered by UTI. 4. I explained that if she needs to continue to be seen by neurology, Dr. Sandoval will be available Monday and if any emergency develops over the weekend, Dr. Butts can be called. 40 minutes critical care time spent. Subjective Date of service: 03/09/18 Principal diagnosis: Acute hypoxemic hypercapnic Resp failure; Acute encephalopathy; seizures Interval history: HPI: This 62-year-old -[place] female seen in follow-up for seizures and metabolic encephalopathy and sepsis. Her son and sister say that she has been forgetting things in terms of short-term memory for 4 or 5 years, repeating her questions at times. Her mother developed Alzheimer's in her early 60s. She is agitated at times requiring restraints and had morphine 4 hours prior to my examination. She is somewhat sedated appearing now. Objective - Exam Narrative Exam: General appearance: well developed but borderline obese (per BMI) early 60's -[place] female in NAD, intubated orally, seen with 2 sons, sister and her future [id number]. Neurologic Exam: Mental status: Eyes open initially on examination but tends to close them. Does not obey commands. Nods her head yes that she knows where she is but cannot nod appropriately for multiple-choice locations. Shakes her head no when asked if she has headache. Cannot nod or shake her head appropriately for multiple choice for Pres. Cranial nerves: Slight blink to threat, PERRL but quite small at 1 mm only due to morphine, EOMs show slightly positive Doll's eyes but does not track me, slight grimace to supraorbital pressure, cannot assess Dobson, cannot operate for shoulder shrug and cannot attempt tongue protrusion due to intubation. Cerebellar: cannot assess. Motor Exam Upper Extremities: Flexes arms semi-purposefully to tracheal suction and supraorbital pressure. Will not energy project manager to command or hold up 2 fingers or thumb to command. Motor Exam Lower Extremities: Flexes knees or moves legs side to side to tracheal suction and supraorbital pressure and at times spontaneously. Will not wiggle toes to command. - Vital Sign Vital Signs - 12hr 03/09/18 03/09/18 03/09/18 07:30 07:37 07:42 Temperature 99.4 F Pulse Rate 86 Pulse Rate [ 86 101 H Bilateral Throughout] Respiratory 20 Rate Respiratory 20 20 Rate [Bilateral Throughout] Blood Pressure 136/59 O2 Sat by Pulse 100 Oximetry 03/09/18 03/09/18 03/09/18 07:46 07:54 08:00 Temperature 99 F Pulse Rate 120 H 119 H 111 H Pulse Rate [ Bilateral Throughout] Respiratory 23 18 Rate Respiratory Rate [Bilateral Throughout] Blood Pressure 122/52 122/52 122/52 O2 Sat by Pulse 100 100 100 Oximetry 03/09/18 03/09/18 03/09/18 08:10 08:16 08:30 Temperature Pulse Rate 123 H 104 H Pulse Rate [ Bilateral Throughout] Respiratory 25 H 20 Rate Respiratory Rate [Bilateral Throughout] Blood Pressure 122/52 122/52 O2 Sat by Pulse 100 100 100 Oximetry 03/09/18 03/09/18 03/09/18 08:46 09:00 09:16 Temperature Pulse Rate 104 H 100 H 97 H Pulse Rate [ Bilateral Throughout] Respiratory 23 22 22 Rate Respiratory Rate [Bilateral Throughout] Blood Pressure 173/78 141/66 141/66 O2 Sat by Pulse 99 99 100 Oximetry 03/09/18 03/09/18 03/09/18 09:30 09:42 09:46 Temperature Pulse Rate 95 H 99 H 97 H Pulse Rate [ Bilateral Throughout] Respiratory 21 18 Rate Respiratory Rate [Bilateral Throughout] Blood Pressure 141/66 141/66 141/66 O2 Sat by Pulse 100 100 100 Oximetry 03/09/18 03/09/18 03/09/18 10:00 10:16 10:30 Temperature Pulse Rate 99 H 99 H 97 H Pulse Rate [ Bilateral Throughout] Respiratory 13 18 22 Rate Respiratory Rate [Bilateral Throughout] Blood Pressure 141/66 141/66 141/66 O2 Sat by Pulse 100 100 100 Oximetry 03/09/18 03/09/18 03/09/18 10:46 11:00 11:16 Temperature Pulse Rate 101 H 105 H 107 H Pulse Rate [ Bilateral Throughout] Respiratory 13 17 21 Rate Respiratory Rate [Bilateral Throughout] Blood Pressure 141/66 149/69 149/69 O2 Sat by Pulse 100 100 100 Oximetry 03/09/18 03/09/18 03/09/18 11:30 11:46 12:00 Temperature 99.6 F Pulse Rate 107 H 104 H 106 H Pulse Rate [ Bilateral Throughout] Respiratory 19 20 19 Rate Respiratory Rate [Bilateral Throughout] Blood Pressure 149/69 149/69 159/70 O2 Sat by Pulse 100 100 98 Oximetry 03/09/18 03/09/18 03/09/18 12:05 12:16 12:19 Temperature Pulse Rate 109 H 107 H Pulse Rate [ Bilateral Throughout] Respiratory 21 Rate Respiratory Rate [Bilateral Throughout] Blood Pressure 159/70 159/70 O2 Sat by Pulse 100 100 100 Oximetry 03/09/18 03/09/18 03/09/18 12:30 12:46 13:00 Temperature Pulse Rate 108 H 109 H 133 H Pulse Rate [ Bilateral Throughout] Respiratory 16 18 25 H Rate Respiratory Rate [Bilateral Throughout] Blood Pressure 159/70 159/70 159/70 O2 Sat by Pulse 100 100 100 Oximetry 03/09/18 03/09/18 03/09/18 13:16 13:30 13:46 Temperature Pulse Rate 129 H 111 H 113 H Pulse Rate [ Bilateral Throughout] Respiratory 30 H 22 21 Rate Respiratory Rate [Bilateral Throughout] Blood Pressure 171/74 171/74 171/74 O2 Sat by Pulse 99 100 100 Oximetry 03/09/18 03/09/18 03/09/18 14:00 14:05 14:16 Temperature Pulse Rate 112 H 106 H Pulse Rate [ 110 H Bilateral Throughout] Respiratory 22 18 Rate Respiratory 14 Rate [Bilateral Throughout] Blood Pressure 171/74 O2 Sat by Pulse 100 100 Oximetry 03/09/18 03/09/18 03/09/18 14:20 14:30 14:46 Temperature Pulse Rate 137 H 117 H Pulse Rate [ 110 H Bilateral Throughout] Respiratory 36 H 21 Rate Respiratory 15 Rate [Bilateral Throughout] Blood Pressure 138/72 138/72 O2 Sat by Pulse 100 100 Oximetry 03/09/18 03/09/18 03/09/18 15:00 15:16 15:30 Temperature Pulse Rate 111 H 113 H Pulse Rate [ Bilateral Throughout] Respiratory 18 20 Rate Respiratory Rate [Bilateral Throughout] Blood Pressure 142/67 142/67 142/67 O2 Sat by Pulse 99 100 100 Oximetry 03/09/18 03/09/18 03/09/18 15:46 16:00 16:16 Temperature 99 F Pulse Rate 108 H 106 H 103 H Pulse Rate [ Bilateral Throughout] Respiratory 20 21 20 Rate Respiratory Rate [Bilateral Throughout] Blood Pressure 142/67 128/63 128/63 O2 Sat by Pulse 100 99 100 Oximetry 03/09/18 03/09/18 03/09/18 16:30 16:46 16:51 Temperature Pulse Rate 101 H 100 H 100 H Pulse Rate [ Bilateral Throughout] Respiratory 19 20 Rate Respiratory Rate [Bilateral Throughout] Blood Pressure 142/67 142/67 128/63 O2 Sat by Pulse 100 100 100 Oximetry 03/09/18 03/09/18 03/09/18 17:00 17:16 17:30 Temperature Pulse Rate 108 H 101 H 99 H Pulse Rate [ Bilateral Throughout] Respiratory 20 20 19 Rate Respiratory Rate [Bilateral Throughout] Blood Pressure 165/75 165/75 165/75 O2 Sat by Pulse 99 100 100 Oximetry 03/09/18 03/09/18 03/09/18 17:46 18:00 18:16 Temperature Pulse Rate 98 H 97 H 97 H Pulse Rate [ Bilateral Throughout] Respiratory 18 19 18 Rate Respiratory Rate [Bilateral Throughout] Blood Pressure 165/75 139/65 165/75 O2 Sat by Pulse 100 99 100 Oximetry 03/09/18 03/09/18 03/09/18 18:30 18:46 19:00 Temperature Pulse Rate 98 H 102 H 101 H Pulse Rate [ Bilateral Throughout] Respiratory 16 15 19 Rate Respiratory Rate [Bilateral Throughout] Blood Pressure 165/75 165/75 147/75 O2 Sat by Pulse 100 100 98 Oximetry - Laboratory Findings CBC and BMP: 03/09/18 14:53 03/09/18 04:16 Abnormal Lab Findings: Abnormal Labs 03/07/18 03/07/18 03/07/18 16:11 16:11 17:29 WBC 13.5 H RBC Hgb Hct MCH 26 L RDW 16.5 H Fibrinogen POC ABG pH 7.190 L POC ABG pCO2 57.6 H POC ABG pO2 250 H VBG pH Sodium 134 L Potassium Chloride 93.2 L Carbon Dioxide 15 L BUN 32 H Creatinine 1.7 H Glucose 793 H* POC Glucose Lactic Acid Calcium Phosphorus C-Reactive Protein Urine WBC (Auto) Phenobarbital 03/07/18 03/07/18 03/07/18 18:00 18:00 18:00 WBC RBC Hgb Hct MCH RDW Fibrinogen POC ABG pH POC ABG pCO2 POC ABG pO2 VBG pH 7.197 L* Sodium 133 L Potassium 5.8 H D Chloride 95.9 L Carbon Dioxide 20 L BUN 33 H Creatinine 1.8 H Glucose 760 H* POC Glucose Lactic Acid Calcium Phosphorus 5.70 H C-Reactive Protein Urine WBC (Auto) Phenobarbital 03/07/18 03/07/18 03/07/18 18:12 18:51 19:39 WBC RBC Hgb Hct MCH RDW Fibrinogen POC ABG pH POC ABG pCO2 POC ABG pO2 VBG pH Sodium Potassium Chloride Carbon Dioxide BUN Creatinine Glucose POC Glucose Lactic Acid 4.20 H* 3.40 H* Calcium Phosphorus C-Reactive Protein Urine WBC (Auto) 91.0 H Phenobarbital 03/07/18 03/07/18 03/07/18 19:56 21:03 21:03 WBC RBC Hgb Hct MCH RDW Fibrinogen POC ABG pH POC ABG pCO2 POC ABG pO2 VBG pH Sodium Potassium Chloride Carbon Dioxide 20 L BUN 31 H Creatinine 1.4 H Glucose 381 H POC Glucose 426 H Lactic Acid 2.70 H* Calcium Phosphorus C-Reactive Protein Urine WBC (Auto) Phenobarbital 03/07/18 03/07/18 03/07/18 21:20 22:01 22:38 WBC RBC Hgb Hct MCH RDW Fibrinogen POC ABG pH POC ABG pCO2 POC ABG pO2 VBG pH Sodium Potassium Chloride Carbon Dioxide 17 L BUN 29 H Creatinine 1.4 H Glucose 236 H POC Glucose 323 H 252 H Lactic Acid Calcium Phosphorus C-Reactive Protein Urine WBC (Auto) Phenobarbital 03/07/18 03/07/18 03/08/18 22:38 22:54 00:25 WBC RBC Hgb Hct MCH RDW Fibrinogen POC ABG pH POC ABG pCO2 POC ABG pO2 VBG pH Sodium Potassium Chloride Carbon Dioxide BUN Creatinine Glucose POC Glucose 186 H 51 L Lactic Acid 2.50 H* Calcium Phosphorus C-Reactive Protein Urine WBC (Auto) Phenobarbital 03/08/18 03/08/18 03/08/18 01:03 02:30 03:14 WBC RBC Hgb Hct MCH RDW Fibrinogen POC ABG pH POC ABG pCO2 POC ABG pO2 VBG pH Sodium Potassium Chloride Carbon Dioxide BUN Creatinine Glucose 106 H POC Glucose 157 H 147 H Lactic Acid Calcium Phosphorus C-Reactive Protein Urine WBC (Auto) Phenobarbital 03/08/18 03/08/18 03/08/18 03:47 04:10 05:06 WBC RBC Hgb Hct MCH RDW Fibrinogen POC ABG pH 7.343 L POC ABG pCO2 POC ABG pO2 159 H VBG pH Sodium 146 H D Potassium Chloride 108.7 H Carbon Dioxide 20 L BUN 25 H Creatinine 1.5 H Glucose POC Glucose 146 H Lactic Acid Calcium Phosphorus C-Reactive Protein Urine WBC (Auto) Phenobarbital 03/08/18 03/08/18 03/08/18 06:06 08:07 09:20 WBC RBC Hgb Hct MCH RDW Fibrinogen POC ABG pH POC ABG pCO2 POC ABG pO2 VBG pH Sodium Potassium Chloride Carbon Dioxide BUN Creatinine Glucose POC Glucose 157 H 141 H 133 H Lactic Acid Calcium Phosphorus C-Reactive Protein Urine WBC (Auto) Phenobarbital 03/08/18 03/08/18 03/08/18 10:20 12:33 12:35 WBC RBC Hgb Hct MCH RDW Fibrinogen POC ABG pH POC ABG pCO2 POC ABG pO2 VBG pH Sodium Potassium Chloride 110.8 H Carbon Dioxide 21 L BUN 19 H Creatinine 1.3 H Glucose 142 H POC Glucose 138 H 137 H Lactic Acid Calcium 8.2 L Phosphorus C-Reactive Protein Urine WBC (Auto) Phenobarbital 03/08/18 03/08/18 03/08/18 18:05 18:26 18:26 WBC RBC Hgb Hct MCH RDW Fibrinogen POC ABG pH POC ABG pCO2 POC ABG pO2 VBG pH Sodium Potassium Chloride Carbon Dioxide BUN Creatinine Glucose POC Glucose 315 H Lactic Acid Calcium Phosphorus C-Reactive Protein 4.70 H Urine WBC (Auto) Phenobarbital 13.6 L 03/09/18 03/09/18 03/09/18 00:10 04:16 04:16 WBC 13.9 H RBC 3.55 L Hgb 9.4 L D Hct 29.3 L D MCH 27 L RDW 15.3 H Fibrinogen POC ABG pH POC ABG pCO2 POC ABG pO2 VBG pH Sodium Potassium Chloride 111.6 H Carbon Dioxide BUN Creatinine 1.4 H Glucose 217 H POC Glucose 248 H Lactic Acid Calcium 8.2 L Phosphorus C-Reactive Protein Urine WBC (Auto) Phenobarbital 03/09/18 03/09/1818 05:12 05:26 09:46 WBC RBC Hgb Hct MCH RDW Fibrinogen POC ABG pH 7.326 L POC ABG pCO2 POC ABG pO2 156 H 50 L VBG pH Sodium Potassium Chloride Carbon Dioxide BUN Creatinine Glucose POC Glucose 301 H Lactic Acid Calcium Phosphorus C-Reactive Protein Urine WBC (Auto) Phenobarbital 03/09/18 03/09/18 03/09/18 09:58 11:53 14:53 WBC RBC Hgb Hct MCH RDW Fibrinogen 689 H POC ABG pH POC ABG pCO2 POC ABG pO2 108 H VBG pH Sodium Potassium Chloride Carbon Dioxide BUN Creatinine Glucose POC Glucose 291 H Lactic Acid Calcium Phosphorus C-Reactive Protein Urine WBC (Auto) Phenobarbital 03/09/18 17:44 WBC RBC Hgb Hct MCH RDW Fibrinogen POC ABG pH POC ABG pCO2 POC ABG pO2 VBG pH Sodium Potassium Chloride Carbon Dioxide BUN Creatinine Glucose POC Glucose 296 H Lactic Acid Calcium Phosphorus C-Reactive Protein Urine WBC (Auto) Phenobarbital
[2018-03-09] MEDS ORDERED: CALCIUM CHLORIDE 1,000 MG in NACL 0.9% 100 ML IV SCH (20:00)
[2018-03-09] MEDS: LOVENOX SUB-Q SCH (22:00)
[2018-03-09] MEDS: LANTUS SUB-Q SCH (22:32)
[2018-03-10] MEDS: KEPPRA 750 MG in NACL 0.9% 100 ML IV SCH ×4 (06:05→23:38)
[2018-03-10] MEDS: HumaLOG SUB-Q SCH ×3 (06:05→17:44)
[2018-03-10 06:08] LABS: Hematocrit 30.3 % (30.3-42.9); Hemoglobin 9.8 gm/dl (10.1-14.3); Mean Corpuscular HGB Conc 32 % (30-34); Mean Corpuscular Volume 82 fl (79-97); Platelet Count 177 K/mm3 (140-440); Red Blood Count 3.71 M/mm3 (3.65-5.03); Red Cell Distribution Width 15.3 % (13.2-15.2)
[2018-03-10] MEDS: DUONEB *Not for PRN Use IH SCH ×3 (08:24→19:33)
[2018-03-10] MEDS: PEPCID IV SCH (10:11)
[2018-03-10] MEDS: FLONASE NS SCH (10:11)
[2018-03-10] MEDS: SODIUM CHLORIDE FLUSH SYRINGE 10 ML IV SCH ×2 (10:12→22:00)
[2018-03-10] MEDS: ROCEPHIN/NS 2 GM/100 ML 2 GM/100 ML BAG IV SCH (10:55)
--- NOTE | 2018-03-10 13:03 | Progress Note ---
Assessment and Plan Assessment and plan: Patient is a 62 yo woman with a history of hypertension, type 2 DM, dyslipidemia, depression and prior left big toe diabetic osteomyelitis infection who presented to [facility] ED with AMS. EMS states upon their arrival the patient would not move her left side. The patient never spoke to EMS. EMS states while en route the patient had a generalized tonic-clonic seizure. In the ED the patient appears postictal. While in CT scan, the patient had 2 more generalized tonic-clonic seizures. The patient was brought back to the room and immediately intubated using RSI * The patient was treated with antiepileptic medications. She received neurology consult. MRI of her brain only showed age-related changes * She was intubated and maintained on the ventilator, continue to wean ventilator * The patient has received IV fluids for acute kidney failure, and is improving * The patient had severe hyperglycemia with hyperosmolar states, received insulin * She did have fever, fever workup was negative, she was treated with empiric antibiotics. It is suspected that fever might have been related to seizures, she was seen by infectious disease. Diagnoses Acute respiratory failure on mechanical ventilator greater than 96 hours Acute metabolic encephalopathy/post ictal state Status epilepticus Acute kidney injury due to vasomotor nephropathy Type 2 diabetes with hyperglycemic hyperosmolar nonketotic states Metabolic acidosis CVA ruled out Fever which was likely related to seizures CCT 34 minutes History Interval history: Review of systems Constitutional: No fevers, no malaise, no joint pains CVS: No chest pain, no orthopnea, no dyspnea on exertion, no pedal edema GI: No abdominal pain, no diarrhea, no vomiting, no constipation Respiratory: No shortness of breath, no wheezing, no coughing Hospitalist Physical - Physical exam Narrative exam: General.: Appears well, no distress, nontoxic HEENT: Moist mucous membranes, extraocular muscles intact, no lymphadenopathy Neck: supple Cardiac: S1-S2 heard Lungs: clear to auscultation bilaterally Abdomen: soft , nontender, nondistended, bowel sounds positive Extremities: no edema clubbing or cyanosis Skin: no rash or lesions Neurologic: Moves all extremities, intubated Psych: Calm and cooperative - Constitutional Vitals: Temp Pulse Resp BP Pulse Ox 98.6 F 88 22 136/56 100 03/10/18 12:00 03/10/18 12:46 03/10/18 12:46 03/10/18 12:46 03/10/18 12:46 General appearance: Present: severe distress, obese Results - Labs CBC & Chem 7: 03/11/18 05:18 03/12/18 03:10 Labs: Laboratory Last Values WBC 12.0 K/mm3 (4.5-11.0) H 03/10/18 05:02 RBC 3.71 M/mm3 (3.65-5.03) 03/10/18 05:02 Hgb 9.8 gm/dl (10.1-14.3) L 03/10/18 05:02 Hct 30.3 % (30.3-42.9) 03/10/18 05:02 MCV 82 fl (79-97) 03/10/18 05:02 MCH 26 pg (28-32) L 03/10/18 05:02 MCHC 32 % (30-34) 03/10/18 05:02 RDW 15.3 % (13.2-15.2) H 03/10/18 05:02 Plt Count 177 K/mm3 (140-440) 03/10/18 05:02 Lymph # Endoscopy Support Specialist 03/07/18 16:11 Add Manual Diff Complete 03/07/18 16:11 Total Counted 100 03/07/18 16:11 Seg Neuts % (Manual) 55.0 % (40.0-70.0) 03/07/18 16:11 Band Neutrophils % 0 % 03/07/18 16:11 Lymphocytes % (Manual) 28.0 % (13.4-35.0) 03/07/18 16:11 Reactive Lymphs % (Man) 12.0 % 03/07/18 16:11 Monocytes % (Manual) 5.0 % (0.0-7.3) 03/07/18 16:11 Eosinophils % (Manual) 0 % (0.0-4.3) 03/07/18 16:11 Basophils % (Manual) 0 % (0.0-1.8) 03/07/18 16:11 Metamyelocytes % 0 % 03/07/18 16:11 Myelocytes % 0 % 03/07/18 16:11 Promyelocytes % 0 % 03/07/18 16:11 Blast Cells % 0 % 03/07/18 16:11 Nucleated RBC % Not Reportable 03/07/18 16:11 Seg Neutrophils # Man 7.4 K/mm3 (1.8-7.7) 03/07/18 16:11 Band Neutrophils # 0.0 K/mm3 03/07/18 16:11 Lymphocytes # (Manual) 3.8 K/mm3 (1.2-5.4) 03/07/18 16:11 Abs React Lymphs (Man) 1.6 K/mm3 03/07/18 16:11 Monocytes # (Manual) 0.7 K/mm3 (0.0-0.8) 03/07/18 16:11 Eosinophils # (Manual) 0.0 K/mm3 (0.0-0.4) 03/07/18 16:11 Basophils # (Manual) 0.0 K/mm3 (0.0-0.1) 03/07/18 16:11 Metamyelocytes # 0.0 K/mm3 03/07/18 16:11 Myelocytes # 0.0 K/mm3 03/07/18 16:11 Promyelocytes # 0.0 K/mm3 03/07/18 16:11 Blast Cells # 0.0 K/mm3 03/07/18 16:11 WBC Morphology Not Reportable 03/07/18 16:11 Hypersegmented Neuts Not Reportable 03/07/18 16:11 Hyposegmented Neuts Not Reportable 03/07/18 16:11 Hypogranular Neuts Not Reportable 03/07/18 16:11 Smudge Cells Not Reportable 03/07/18 16:11 Toxic Granulation Not Reportable 03/07/18 16:11 Toxic Vacuolation Not Reportable 03/07/18 16:11 Dohle Bodies Not Reportable 03/07/18 16:11 Pelger-Huet Anomaly Not Reportable 03/07/18 16:11 [place] Rods Not Reportable 03/07/18 16:11 Platelet Estimate Consistent w auto 03/07/18 16:11 Clumped Platelets Not Reportable 03/07/18 16:11 Plt Clumps, EDTA Not Reportable 03/07/18 16:11 Large Platelets Not Reportable 03/07/18 16:11 Giant Platelets Not Reportable 03/07/18 16:11 Platelet Satelliting Not Reportable 03/07/18 16:11 Plt Morphology Comment Not Reportable 03/07/18 16:11 RBC Morphology Not Reportable 03/07/18 16:11 Dimorphic RBCs Not Reportable 03/07/18 16:11 Polychromasia Not Reportable 03/07/18 16:11 Hypochromasia Few 03/07/18 16:11 Poikilocytosis Not Reportable 03/07/18 16:11 Anisocytosis Not Reportable 03/07/18 16:11 Microcytosis Not Reportable 03/07/18 16:11 Macrocytosis Not Reportable 03/07/18 16:11 Spherocytes Not Reportable 03/07/18 16:11 Pappenheimer Bodies Not Reportable 03/07/18 16:11 Sickle Cells Not Reportable 03/07/18 16:11 Target Cells Not Reportable 03/07/18 16:11 Tear Drop Cells Not Reportable 03/07/18 16:11 Ovalocytes Not Reportable 03/07/18 16:11 Helmet Cells Not Reportable 03/07/18 16:11 Holman-Levering Bodies Not Reportable 03/07/18 16:11 [place] Rings Not Reportable 03/07/18 16:11 [place] Cells Not Reportable 03/07/18 16:11 Bite Cells Not Reportable 03/07/18 16:11 Crenated Cell Not Reportable 03/07/18 16:11 Elliptocytes Not Reportable 03/07/18 16:11 Acanthocytes (Spur) Not Reportable 03/07/18 16:11 Rouleaux Not Reportable 03/07/18 16:11 Hemoglobin C Crystals Not Reportable 03/07/18 16:11 Schistocytes Rare 03/07/18 16:11 Malaria parasites Not Reportable 03/07/18 16:11 [place]do Bodies Not Reportable 03/07/18 16:11 Hem Pathologist Commnt No 03/07/18 16:11 PT 13.5 Sec. (12.2-14.9) 03/07/18 16:11 INR 0.99 (0.87-1.13) 03/07/18 16:11 APTT 28.8 Sec. (24.2-36.6) 03/07/18 16:11 Thrombin Time 18.7 Sec. (15.1-19.6) 03/07/18 16:11 Fibrinogen 689 mg/dl (211-480) H 03/09/18 14:53 POC ABG pH 7.407 (7.35-7.45) 03/10/18 09:16 POC ABG pCO2 34.1 (35-45) L 03/10/18 09:16 POC ABG pO2 93 (80-105) 03/10/18 09:16 POC ABG HCO3 21.5 03/10/18 09:16 POC ABG Total CO2 23 03/10/18 09:16 POC ABG O2 Sat 97 03/10/18 09:16 POC ABG Base Excess -3 03/10/18 09:16 VBG pH 7.197 (7.320-7.420) L* 03/07/18 18:00 FiO2 30 % 03/10/18 09:16 Sodium 144 mmol/L (137-145) 03/09/18 04:16 Potassium 3.9 mmol/L (3.6-5.0) 03/09/18 04:16 Chloride 111.6 mmol/L (98-107) H 03/09/18 04:16 Carbon Dioxide 22 mmol/L (22-30) 03/09/18 04:16 Anion Gap 14 mmol/L 03/09/18 04:16 BUN 13 mg/dL (7-17) 03/09/18 04:16 Creatinine 1.4 mg/dL (0.7-1.2) H 03/09/18 04:16 Estimated GFR 46 ml/min 03/09/18 04:16 BUN/Creatinine Ratio 9 % 03/09/18 04:16 Glucose 217 mg/dL (65-100) H 03/09/18 04:16 POC Glucose 288 (70-105) H 03/10/18 12:22 Lactic Acid 1.80 mmol/L (0.7-2.0) 03/08/18 06:56 Calcium 8.2 mg/dL (8.4-10.2) L 03/09/18 04:16 Phosphorus 5.70 mg/dL (2.5-4.5) H 03/07/18 18:00 Magnesium 2.00 mg/dL (1.7-2.3) 03/07/18 18:00 Total Creatine Kinase 91 units/L (30-135) 03/07/18 16:11 CK-MB (CK-2) 2.6 ng/mL (0.0-4.0) 03/07/18 16:11 CK-MB (CK-2) Rel Index 2.8 (0-4) 03/07/18 16:11 Troponin T < 0.010 ng/mL (0.00-0.029) 03/07/18 16:11 C-Reactive Protein 4.70 mg/dL (0.00-1.30) H 03/08/18 18:26 Vitamin B12 276.3 pg/mL (211-911) 03/09/18 20:17 Folate 9.19 ng/mL (7.3-26.0) 03/09/18 20:17 TSH 1.720 mlU/mL (0.270-4.200) 03/09/18 20:17 Free T4 0.97 ng/dL (0.76-1.46) 03/09/18 20:17 Urine Color Yellow (Yellow) 03/07/18 18:51 Urine Turbidity Slightly-cloudy (Clear) 03/07/18 18:51 Urine pH 5.0 (5.0-7.0) 03/07/18 18:51 Ur Specific [place] 1.015 (1.003-1.030) 03/07/18 18:51 Urine Protein 100 mg/dl mg/dL (Negative) 03/07/18 18:51 Urine Glucose (UA) >=500 mg/dL (Negative) 03/07/18 18:51 Urine Ketones Neg mg/dL (Negative) 03/07/18 18:51 Urine Blood Mod (Negative) 03/07/18 18:51 Urine Nitrite Neg (Negative) 03/07/18 18:51 Urine Bilirubin Neg (Negative) 03/07/18 18:51 Urine Urobilinogen < 2.0 mg/dL (<2.0) 03/07/18 18:51 Ur Leukocyte Esterase Lg (Negative) 03/07/18 18:51 Urine WBC (Auto) 91.0 /HPF (0.0-6.0) H 03/07/18 18:51 Urine RBC (Auto) 8.0 /HPF (0.0-6.0) 03/07/18 18:51 U Epithel Cells (Auto) 1.0 /HPF (0-13.0) 03/07/18 18:51 Urine Bacteria (Auto) 1+ /HPF (Negative) 03/07/18 18:51 Urine WBC Clumps 2+ /HPF 03/07/18 18:51 Urine Mucus 2+ /HPF 03/07/18 18:51 Phenobarbital 13.6 ug/mL (15.0-40.0) L 03/08/18 18:26 Influenza A (Rapid) Negative (Negative) 03/08/18 10:45 Influenza B (Rapid) Negative (Negative) 03/08/18 10:45 Nutrition/Malnutrition Assess - Dietary Evaluation Nutrition/Malnutrition Findings: Nutrition Notes Start: 03/08/18 09:43 Freq: Status: Active Protocol: Document 03/09/18 11:46 NHALL (Rec: 03/09/18 11:48 [facility] [id number]) Nutrition Notes Initial or Follow up Brief Note Current Diet TF - Vital AF 1.2 at 60ml/hr Labs/Tests Cr 1.4 BG 217 Subjective/Other Information Pt remains on vent support. Observed TF infusing at 40ml/ hr. Per RN, pt tolerating TF so far; will continue to advance to goal rate. Percent of energy/protein needs met: 63% energy 68% pro Nutrition Intervention Follow-Up By: 03/12/18 Additional Comments F/U: TF goal rate/tolerance, vent status
--- NOTE | 2018-03-10 15:07 | XRay Report ---
FINAL REPORT PROCEDURE: XR ABDOMEN 1V AP TECHNIQUE: Portable supine AP view of the upper abdomen HISTORY: feeding tube placement COMPARISON: No prior studies are available for comparison. FINDINGS: Feeding tube is coiled in the stomach. The metallic end is directed into the left side of the stomach . Tube needs to be reposition to the right. No other abnormalities. IMPRESSION: Feeding tube tip is within the stomach although the tip needs to be directed to the right side of the stomach. Suggest repositioning the patient and follow-up exam to ensure correct passage.
[2018-03-10] MEDS: MORPHINE IV PRN ×2 (17:40→23:01)
--- NOTE | 2018-03-10 17:50 | Progress Note ---
Assessment and Plan Acute hypoxemic hypercapnic respiratory failure on MVS Acute encephalopathy. Uncontrolled diabetes requiring IV insulin therapy. Sepsis syndrome. Hypertensive emergency with possible encephalopathy as a result of that. Leukocytosis. Urinary tract infection. Hyperkalemia, now corrected. Lactic acidemia. Obesity. History of hypertension (Will up-titrate seroquel; if however still not tolerating extended wean will give a trial of extubation as agitation may not be driven by respiratory distress) - continue seroquel for agitation - continue scheduled lantus insulin - continue q6h accuchesks with SSI for target BG 140-180 mg/dL - continue to wean FiO2 to keep sats > 90% - titrate sedation for RASS 0 to -1 - VAP bundle addressed - Daily SAT's - continue daily SBT's as tolerated via PSV - hold home psychoactive meds until neuro exam complete - continue enteral nutrition as tolerated - get CRP, lactate to aid clinical decision making - nutrition team consulted - continue GI & VTE prophylaxis - continue empiric antibiotics and de-escalate per ID recs - PT/OT as tolerated - mobility protocol for pressure ulcer prophylaxis - continue other care per attending / other consultants The high probability of a clinically significant, sudden or life-threatening deterioration of the [cardiac, neurology] system(s) required my full and direct attention, intervention and personal management. The aggregate critical care time was [32] minutes without overlap. Time includes spent on; [x] Data Review and interpretation [x] Patient assessment and monitoring of vital signs [x] Documentation [x] Medication orders and management Subjective Date of service: 03/10/18 Principal diagnosis: Acute hypoxemic hypercapnic Resp failure; Acute encephalopathy; seizures Interval history: Patient is seen today for: Acute hypoxemic hypercapnic respiratory failure on MVS; Acute encephalopathy; Uncontrolled diabetes requiring IV insulin therapy; Sepsis syndrome; Hypertensive emergency with encephalopathy Seen and examined at bedside; 24hour events reviewed; nursing and respiratory care staff consulted; no adverse overnight events reported to me; remains on MVS; still unable to tolerate extended wean due to agitation; no N/V/F/C; more coherent with examination Objective Vital Signs - 12hr 03/10/18 03/10/18 03/10/18 06:00 06:13 06:16 Temperature Pulse Rate 88 94 H 92 H Pulse Rate [ Bilateral Throughout] Pulse Rate [ From Monitor] Respiratory 21 21 22 Rate Respiratory Rate [Bilateral Throughout] Blood Pressure 133/54 133/54 133/54 O2 Sat by Pulse 100 100 100 Oximetry 03/10/18 03/10/18 03/10/18 06:30 06:46 07:00 Temperature Pulse Rate 91 H 90 93 H Pulse Rate [ Bilateral Throughout] Pulse Rate [ From Monitor] Respiratory 21 16 23 Rate Respiratory Rate [Bilateral Throughout] Blood Pressure 133/54 133/54 138/57 O2 Sat by Pulse 100 100 99 Oximetry 03/10/18 03/10/18 03/10/18 07:16 07:30 07:46 Temperature Pulse Rate 91 H Pulse Rate [ Bilateral Throughout] Pulse Rate [ From Monitor] Respiratory 21 Rate Respiratory Rate [Bilateral Throughout] Blood Pressure 138/57 138/57 138/57 O2 Sat by Pulse 100 99 100 Oximetry 03/10/18 03/10/18 03/10/18 08:00 08:06 08:16 Temperature 98.7 F Pulse Rate 90 Pulse Rate [ Bilateral Throughout] Pulse Rate [ From Monitor] Respiratory 25 H Rate Respiratory Rate [Bilateral Throughout] Blood Pressure 138/57 138/57 O2 Sat by Pulse 99 98 100 Oximetry 03/10/18 03/10/18 03/10/18 08:25 08:30 08:31 Temperature Pulse Rate Pulse Rate [ 98 H 100 H Bilateral Throughout] Pulse Rate [ From Monitor] Respiratory Rate Respiratory 20 20 Rate [Bilateral Throughout] Blood Pressure 138/57 O2 Sat by Pulse 100 Oximetry 03/10/18 03/10/18 03/10/18 08:46 09:00 09:16 Temperature Pulse Rate Pulse Rate [ Bilateral Throughout] Pulse Rate [ From Monitor] Respiratory Rate Respiratory Rate [Bilateral Throughout] Blood Pressure 138/57 138/57 138/57 O2 Sat by Pulse 100 100 100 Oximetry 03/10/18 03/10/18 03/10/18 09:30 09:46 10:00 Temperature Pulse Rate 91 H 106 H Pulse Rate [ Bilateral Throughout] Pulse Rate [ From Monitor] Respiratory 22 21 Rate Respiratory Rate [Bilateral Throughout] Blood Pressure 138/57 138/57 138/57 O2 Sat by Pulse 100 100 100 Oximetry 03/10/18 03/10/18 03/10/18 10:16 10:30 10:46 Temperature Pulse Rate 99 H 98 H 94 H Pulse Rate [ Bilateral Throughout] Pulse Rate [ From Monitor] Respiratory 19 18 16 Rate Respiratory Rate [Bilateral Throughout] Blood Pressure 138/57 138/57 138/57 O2 Sat by Pulse 100 100 100 Oximetry 03/10/18 03/10/18 03/10/18 11:00 11:05 11:16 Temperature Pulse Rate 93 H 93 H Pulse Rate [ Bilateral Throughout] Pulse Rate [ From Monitor] Respiratory 22 26 H 22 Rate Respiratory Rate [Bilateral Throughout] Blood Pressure 125/58 125/58 O2 Sat by Pulse 100 96 100 Oximetry 03/10/18 03/10/18 03/10/18 11:30 11:46 12:00 Temperature 98.6 F Pulse Rate 94 H 94 H 92 H Pulse Rate [ Bilateral Throughout] Pulse Rate [ 86 From Monitor] Respiratory 20 20 21 Rate Respiratory Rate [Bilateral Throughout] Blood Pressure 125/58 125/58 136/56 O2 Sat by Pulse 100 100 100 Oximetry 03/10/18 03/10/18 03/10/18 12:16 12:30 12:46 Temperature Pulse Rate 90 88 88 Pulse Rate [ Bilateral Throughout] Pulse Rate [ From Monitor] Respiratory 21 22 22 Rate Respiratory Rate [Bilateral Throughout] Blood Pressure 136/56 136/56 136/56 O2 Sat by Pulse 100 100 100 Oximetry 03/10/18 03/10/18 03/10/18 13:00 13:54 14:07 Temperature Pulse Rate 87 Pulse Rate [ 88 89 Bilateral Throughout] Pulse Rate [ From Monitor] Respiratory 18 Rate Respiratory 22 20 Rate [Bilateral Throughout] Blood Pressure 140/61 O2 Sat by Pulse 100 Oximetry 03/10/18 16:15 Temperature Pulse Rate 88 Pulse Rate [ Bilateral Throughout] Pulse Rate [ From Monitor] Respiratory Rate Respiratory Rate [Bilateral Throughout] Blood Pressure O2 Sat by Pulse 95 Oximetry Constitutional: appears uncomfortable, other (elderly looking AAF, normocephalic and atraumatic with mildly increased respiratory effort on MVS) Eyes: non-icteric ENT: oropharynx moist, other (ETT 23 cm ULI) Neck: supple, no lymphadenopathy, no JVD, other (No thyromegaly) Effort: mildly labored Ascultation: Bilateral: rhonchi Percussion: Bilateral: not dull Cardiovascular: regular rate and rhythm Gastrointestinal: normoactive bowel sounds, soft, non-tender, non-distended Integumentary: normal Extremities: no cyanosis, no edema, pulses normal, no ischemia or petechiae Neurologic: non-focal exam (grossly), unable to assess Psychiatric: other (unable to assess re: AMS) CBC and BMP: 03/11/18 05:18 03/11/18 05:18 ABG, PT/INR, D-dimer: ABG POC ABG pH 7.407 (7.35-7.45) 03/10/18 09:16 POC ABG pCO2 34.1 (35-45) L 03/10/18 09:16 POC ABG pO2 93 (80-105) 03/10/18 09:16 POC ABG HCO3 21.5 03/10/18 09:16 POC ABG Total CO2 23 03/10/18 09:16 POC ABG O2 Sat 97 03/10/18 09:16 PT/INR, D-dimer PT 13.5 Sec. (12.2-14.9) 03/07/18 16:11 INR 0.99 (0.87-1.13) 03/07/18 16:11 Abnormal lab findings: Abnormal Labs 03/07/18 03/07/18 03/07/18 16:11 16:11 17:29 WBC 13.5 H RBC Hgb Hct MCH 26 L RDW 16.5 H Fibrinogen POC ABG pH 7.190 L POC ABG pCO2 57.6 H POC ABG pO2 250 H VBG pH Sodium 134 L Potassium Chloride 93.2 L Carbon Dioxide 15 L BUN 32 H Creatinine 1.7 H Glucose 793 H* POC Glucose Lactic Acid Calcium Phosphorus C-Reactive Protein Urine WBC (Auto) Phenobarbital 03/07/18 03/07/18 03/07/18 18:00 18:00 18:00 WBC RBC Hgb Hct MCH RDW Fibrinogen POC ABG pH POC ABG pCO2 POC ABG pO2 VBG pH 7.197 L* Sodium 133 L Potassium 5.8 H D Chloride 95.9 L Carbon Dioxide 20 L BUN 33 H Creatinine 1.8 H Glucose 760 H* POC Glucose Lactic Acid Calcium Phosphorus 5.70 H C-Reactive Protein Urine WBC (Auto) Phenobarbital 03/07/18 03/07/18 03/07/18 18:12 18:51 19:39 WBC RBC Hgb Hct MCH RDW Fibrinogen POC ABG pH POC ABG pCO2 POC ABG pO2 VBG pH Sodium Potassium Chloride Carbon Dioxide BUN Creatinine Glucose POC Glucose Lactic Acid 4.20 H* 3.40 H* Calcium Phosphorus C-Reactive Protein Urine WBC (Auto) 91.0 H Phenobarbital 03/07/18 03/07/18 03/07/18 19:56 21:03 21:03 WBC RBC Hgb Hct MCH RDW Fibrinogen POC ABG pH POC ABG pCO2 POC ABG pO2 VBG pH Sodium Potassium Chloride Carbon Dioxide 20 L BUN 31 H Creatinine 1.4 H Glucose 381 H POC Glucose 426 H Lactic Acid 2.70 H* Calcium Phosphorus C-Reactive Protein Urine WBC (Auto) Phenobarbital 03/07/18 03/07/18 03/07/18 21:20 22:01 22:38 WBC RBC Hgb Hct MCH RDW Fibrinogen POC ABG pH POC ABG pCO2 POC ABG pO2 VBG pH Sodium Potassium Chloride Carbon Dioxide 17 L BUN 29 H Creatinine 1.4 H Glucose 236 H POC Glucose 323 H 252 H Lactic Acid Calcium Phosphorus C-Reactive Protein Urine WBC (Auto) Phenobarbital 03/07/18 03/07/18 03/08/18 22:38 22:54 00:25 WBC RBC Hgb Hct MCH RDW Fibrinogen POC ABG pH POC ABG pCO2 POC ABG pO2 VBG pH Sodium Potassium Chloride Carbon Dioxide BUN Creatinine Glucose POC Glucose 186 H 51 L Lactic Acid 2.50 H* Calcium Phosphorus C-Reactive Protein Urine WBC (Auto) Phenobarbital 03/08/18 03/08/18 03/08/18 01:03 02:30 03:14 WBC RBC Hgb Hct MCH RDW Fibrinogen POC ABG pH POC ABG pCO2 POC ABG pO2 VBG pH Sodium Potassium Chloride Carbon Dioxide BUN Creatinine Glucose 106 H POC Glucose 157 H 147 H Lactic Acid Calcium Phosphorus C-Reactive Protein Urine WBC (Auto) Phenobarbital 03/08/18 03/08/18 03/08/18 03:47 04:10 05:06 WBC RBC Hgb Hct MCH RDW Fibrinogen POC ABG pH 7.343 L POC ABG pCO2 POC ABG pO2 159 H VBG pH Sodium 146 H D Potassium Chloride 108.7 H Carbon Dioxide 20 L BUN 25 H Creatinine 1.5 H Glucose POC Glucose 146 H Lactic Acid Calcium Phosphorus C-Reactive Protein Urine WBC (Auto) Phenobarbital 03/08/18 03/08/18 03/08/18 06:06 08:07 09:20 WBC RBC Hgb Hct MCH RDW Fibrinogen POC ABG pH POC ABG pCO2 POC ABG pO2 VBG pH Sodium Potassium Chloride Carbon Dioxide BUN Creatinine Glucose POC Glucose 157 H 141 H 133 H Lactic Acid Calcium Phosphorus C-Reactive Protein Urine WBC (Auto) Phenobarbital 03/08/18 03/08/18 03/08/18 10:20 12:33 12:35 WBC RBC Hgb Hct MCH RDW Fibrinogen POC ABG pH POC ABG pCO2 POC ABG pO2 VBG pH Sodium Potassium Chloride 110.8 H Carbon Dioxide 21 L BUN 19 H Creatinine 1.3 H Glucose 142 H POC Glucose 138 H 137 H Lactic Acid Calcium 8.2 L Phosphorus C-Reactive Protein Urine WBC (Auto) Phenobarbital 03/08/18 03/08/18 03/08/18 18:05 18:26 18:26 WBC RBC Hgb Hct MCH RDW Fibrinogen POC ABG pH POC ABG pCO2 POC ABG pO2 VBG pH Sodium Potassium Chloride Carbon Dioxide BUN Creatinine Glucose POC Glucose 315 H Lactic Acid Calcium Phosphorus C-Reactive Protein 4.70 H Urine WBC (Auto) Phenobarbital 13.6 L 03/09/18 03/09/18 03/09/18 00:10 04:16 04:16 WBC 13.9 H RBC 3.55 L Hgb 9.4 L D Hct 29.3 L D MCH 27 L RDW 15.3 H Fibrinogen POC ABG pH POC ABG pCO2 POC ABG pO2 VBG pH Sodium Potassium Chloride 111.6 H Carbon Dioxide BUN Creatinine 1.4 H Glucose 217 H POC Glucose 248 H Lactic Acid Calcium 8.2 L Phosphorus C-Reactive Protein Urine WBC (Auto) Phenobarbital 03/09/18 03/09/18 03/09/18 05:12 05:26 09:46 WBC RBC Hgb Hct MCH RDW Fibrinogen POC ABG pH 7.326 L POC ABG pCO2 POC ABG pO2 156 H 50 L VBG pH Sodium Potassium Chloride Carbon Dioxide BUN Creatinine Glucose POC Glucose 301 H Lactic Acid Calcium Phosphorus C-Reactive Protein Urine WBC (Auto) Phenobarbital 03/09/18 03/09/18 03/09/18 09:58 11:53 14:53 WBC RBC Hgb Hct MCH RDW Fibrinogen 689 H POC ABG pH POC ABG pCO2 POC ABG pO2 108 H VBG pH Sodium Potassium Chloride Carbon Dioxide BUN Creatinine Glucose POC Glucose 291 H Lactic Acid Calcium Phosphorus C-Reactive Protein Urine WBC (Auto) Phenobarbital 12/28/18 12/28/18 12/29/18 17:44 23:26 05:02 WBC 12.0 H RBC Hgb 9.8 L Hct MCH 26 L RDW 15.3 H Fibrinogen POC ABG pH POC ABG pCO2 POC ABG pO2 VBG pH Sodium Potassium Chloride Carbon Dioxide BUN Creatinine Glucose POC Glucose 296 H 250 H Lactic Acid Calcium Phosphorus C-Reactive Protein Urine WBC (Auto) Phenobarbital 03/10/18 03/10/18 03/10/18 05:22 09:16 12:22 WBC RBC Hgb Hct MCH RDW Fibrinogen POC ABG pH POC ABG pCO2 34.1 L POC ABG pO2 VBG pH Sodium Potassium Chloride Carbon Dioxide BUN Creatinine Glucose POC Glucose 261 H 288 H Lactic Acid Calcium Phosphorus C-Reactive Protein Urine WBC (Auto) Phenobarbital Allied health notes reviewed: nursing
[2018-03-10] MEDS: LANTUS SUB-Q SCH (21:56)
[2018-03-10] MEDS: LOVENOX SUB-Q SCH (21:58)
[2018-03-11 05:44] LABS: Hematocrit 33.5 % (30.3-42.9); Hemoglobin 10.5 gm/dl (10.1-14.3); Mean Corpuscular HGB Conc 31 % (30-34); Mean Corpuscular Volume 84 fl (79-97); Platelet Count 210 K/mm3 (140-440); Red Cell Distribution Width 15.3 % (13.2-15.2)
[2018-03-11] MEDS: KEPPRA 750 MG in NACL 0.9% 100 ML IV SCH ×2 (06:00→17:18)
[2018-03-11] MEDS: HumaLOG SUB-Q SCH ×4 (06:22→17:53)
[2018-03-11 07:27] LABS: Calcium 9.3 mg/dL (8.4-10.2)
[2018-03-11] MEDS: DUONEB *Not for PRN Use IH SCH ×3 (08:29→19:45)
[2018-03-11] MEDS: FLONASE NS SCH ×2 (08:47→09:31)
[2018-03-11] MEDS: MORPHINE IV PRN ×2 (08:49→17:18)
[2018-03-11] MEDS ORDERED: HALDOL ONE (09:04)
[2018-03-11] MEDS: PEPCID IV SCH (09:31)
[2018-03-11] MEDS: SODIUM CHLORIDE FLUSH SYRINGE 10 ML IV SCH ×2 (09:32→22:01)
[2018-03-11] MEDS: ANTIBIOTIC OINT TP SCH ×2 (09:34→21:57)
[2018-03-11] MEDS: ROCEPHIN/NS 2 GM/100 ML 2 GM/100 ML BAG IV SCH (09:35)
--- NOTE | 2018-03-11 14:07 | Progress Note ---
Assessment and Plan Assessment and plan: Patient is a 62 yo woman with a history of hypertension, type 2 DM, dyslipidemia, depression and prior left big toe diabetic osteomyelitis infection who presented to [facility] ED with AMS. EMS states upon their arrival the patient would not move her left side. The patient never spoke to EMS. EMS states while en route the patient had a generalized tonic-clonic seizure. In the ED the patient appears postictal. While in CT scan, the patient had 2 more generalized tonic-clonic seizures. The patient was brought back to the room and immediately intubated using RSI * The patient was treated with antiepileptic medications. She received neurology consult. MRI of her brain only showed age-related changes * She was intubated and maintained on the ventilator, continue to wean ventilator * The patient has received IV fluids for acute kidney failure, and is improving * The patient had severe hyperglycemia with hyperosmolar states, received insulin * She did have fever, fever workup was negative, she was treated with empiric antibiotics. It is suspected that fever might have been related to seizures, she was seen by infectious disease. * She received hypotonic fluid for hyponatremia Diagnoses Acute respiratory failure on mechanical ventilator greater than 96 hours Acute metabolic encephalopathy/post ictal state Status epilepticus Acute kidney injury due to vasomotor nephropathy Type 2 diabetes with hyperglycemic hyperosmolar nonketotic states Metabolic acidosis CVA ruled out Fever which was likely related to seizures Hypernatremia CCT 34 minutes History Interval history: Review of systems Constitutional: No fevers, no malaise, no joint pains CVS: No chest pain, no orthopnea, no dyspnea on exertion, no pedal edema GI: No abdominal pain, no diarrhea, no vomiting, no constipation Respiratory: No shortness of breath, no wheezing, no coughing Hospitalist Physical - Physical exam Narrative exam: General.: Appears well, no distress, nontoxic HEENT: Moist mucous membranes, extraocular muscles intact, no lymphadenopathy Neck: supple Cardiac: S1-S2 heard Lungs: clear to auscultation bilaterally Abdomen: soft , nontender, nondistended, bowel sounds positive Extremities: no edema clubbing or cyanosis Skin: no rash or lesions Neurologic: Moves all extremities, intubated Psych: Calm and cooperative - Constitutional Vitals: Temp Pulse Resp BP Pulse Ox 96.7 F L 89 20 128/71 100 03/11/18 12:00 03/11/18 13:59 03/11/18 13:59 03/11/18 11:21 03/11/18 11:21 General appearance: Present: severe distress, obese Results - Labs CBC & Chem 7: 03/11/18 05:18 03/12/18 03:10 Labs: Laboratory Last Values WBC 11.4 K/mm3 (4.5-11.0) H 03/11/18 05:18 RBC 4.00 M/mm3 (3.65-5.03) 03/11/18 05:18 Hgb 10.5 gm/dl (10.1-14.3) 03/11/18 05:18 Hct 33.5 % (30.3-42.9) 03/11/18 05:18 MCV 84 fl (79-97) 03/11/18 05:18 MCH 26 pg (28-32) L 03/11/18 05:18 MCHC 31 % (30-34) 03/11/18 05:18 RDW 15.3 % (13.2-15.2) H 03/11/18 05:18 Plt Count 210 K/mm3 (140-440) 03/11/18 05:18 Lymph # Machine Cloth Measurer 03/07/18 16:11 Add Manual Diff Complete 03/07/18 16:11 Total Counted 100 03/07/18 16:11 Seg Neuts % (Manual) 55.0 % (40.0-70.0) 03/07/18 16:11 Band Neutrophils % 0 % 03/07/18 16:11 Lymphocytes % (Manual) 28.0 % (13.4-35.0) 03/07/18 16:11 Reactive Lymphs % (Man) 12.0 % 03/07/18 16:11 Monocytes % (Manual) 5.0 % (0.0-7.3) 03/07/18 16:11 Eosinophils % (Manual) 0 % (0.0-4.3) 03/07/18 16:11 Basophils % (Manual) 0 % (0.0-1.8) 03/07/18 16:11 Metamyelocytes % 0 % 03/07/18 16:11 Myelocytes % 0 % 03/07/18 16:11 Promyelocytes % 0 % 03/07/18 16:11 Blast Cells % 0 % 03/07/18 16:11 Nucleated RBC % Not Reportable 03/07/18 16:11 Seg Neutrophils # Man 7.4 K/mm3 (1.8-7.7) 03/07/18 16:11 Band Neutrophils # 0.0 K/mm3 03/07/18 16:11 Lymphocytes # (Manual) 3.8 K/mm3 (1.2-5.4) 03/07/18 16:11 Abs React Lymphs (Man) 1.6 K/mm3 03/07/18 16:11 Monocytes # (Manual) 0.7 K/mm3 (0.0-0.8) 03/07/18 16:11 Eosinophils # (Manual) 0.0 K/mm3 (0.0-0.4) 03/07/18 16:11 Basophils # (Manual) 0.0 K/mm3 (0.0-0.1) 03/07/18 16:11 Metamyelocytes # 0.0 K/mm3 03/07/18 16:11 Myelocytes # 0.0 K/mm3 03/07/18 16:11 Promyelocytes # 0.0 K/mm3 03/07/18 16:11 Blast Cells # 0.0 K/mm3 03/07/18 16:11 WBC Morphology Not Reportable 03/07/18 16:11 Hypersegmented Neuts Not Reportable 03/07/18 16:11 Hyposegmented Neuts Not Reportable 03/07/18 16:11 Hypogranular Neuts Not Reportable 03/07/18 16:11 Smudge Cells Not Reportable 03/07/18 16:11 Toxic Granulation Not Reportable 03/07/18 16:11 Toxic Vacuolation Not Reportable 03/07/18 16:11 Dohle Bodies Not Reportable 03/07/18 16:11 Pelger-Huet Anomaly Not Reportable 03/07/18 16:11 [place] Rods Not Reportable 03/07/18 16:11 Platelet Estimate Consistent w auto 03/07/18 16:11 Clumped Platelets Not Reportable 03/07/18 16:11 Plt Clumps, EDTA Not Reportable 03/07/18 16:11 Large Platelets Not Reportable 03/07/18 16:11 Giant Platelets Not Reportable 03/07/18 16:11 Platelet Satelliting Not Reportable 03/07/18 16:11 Plt Morphology Comment Not Reportable 03/07/18 16:11 RBC Morphology Not Reportable 03/07/18 16:11 Dimorphic RBCs Not Reportable 03/07/18 16:11 Polychromasia Not Reportable 03/07/18 16:11 Hypochromasia Few 03/07/18 16:11 Poikilocytosis Not Reportable 03/07/18 16:11 Anisocytosis Not Reportable 03/07/18 16:11 Microcytosis Not Reportable 03/07/18 16:11 Macrocytosis Not Reportable 03/07/18 16:11 Spherocytes Not Reportable 03/07/18 16:11 Pappenheimer Bodies Not Reportable 03/07/18 16:11 Sickle Cells Not Reportable 03/07/18 16:11 Target Cells Not Reportable 03/07/18 16:11 Tear Drop Cells Not Reportable 03/07/18 16:11 Ovalocytes Not Reportable 03/07/18 16:11 Helmet Cells Not Reportable 03/07/18 16:11 Holman-Lomira Bodies Not Reportable 03/07/18 16:11 [place] Rings Not Reportable 03/07/18 16:11 Vaishnavi Cells Not Reportable 03/07/18 16:11 Bite Cells Not Reportable 03/07/18 16:11 Crenated Cell Not Reportable 03/07/18 16:11 Elliptocytes Not Reportable 03/07/18 16:11 Acanthocytes (Spur) Not Reportable 03/07/18 16:11 Rouleaux Not Reportable 03/07/18 16:11 Hemoglobin C Crystals Not Reportable 03/07/18 16:11 Schistocytes Rare 03/07/18 16:11 Malaria parasites Not Reportable 03/07/18 16:11 Zurdo Bodies Not Reportable 03/07/18 16:11 Hem Pathologist Commnt No 03/07/18 16:11 PT 13.5 Sec. (12.2-14.9) 03/07/18 16:11 INR 0.99 (0.87-1.13) 03/07/18 16:11 APTT 28.8 Sec. (24.2-36.6) 03/07/18 16:11 Thrombin Time 18.7 Sec. (15.1-19.6) 03/07/18 16:11 Fibrinogen 689 mg/dl (211-480) H 03/09/18 14:53 POC ABG pH 7.407 (7.35-7.45) 03/10/18 09:16 POC ABG pCO2 34.1 (35-45) L 03/10/18 09:16 POC ABG pO2 93 (80-105) 03/10/18 09:16 POC ABG HCO3 21.5 03/10/18 09:16 POC ABG Total CO2 23 03/10/18 09:16 POC ABG O2 Sat 97 03/10/18 09:16 POC ABG Base Excess -3 03/10/18 09:16 VBG pH 7.197 (7.320-7.420) L* 03/07/18 18:00 FiO2 30 % 03/10/18 09:16 Sodium 147 mmol/L (137-145) H 03/11/18 05:18 Potassium 3.7 mmol/L (3.6-5.0) 03/11/18 05:18 Chloride 110.4 mmol/L (98-107) H 03/11/18 05:18 Carbon Dioxide 22 mmol/L (22-30) 03/11/18 05:18 Anion Gap 18 mmol/L 03/11/18 05:18 BUN 16 mg/dL (7-17) 03/11/18 05:18 Creatinine 1.4 mg/dL (0.7-1.2) H 03/11/18 05:18 Estimated GFR 46 ml/min 03/11/18 05:18 BUN/Creatinine Ratio 11 % 03/11/18 05:18 Glucose 251 mg/dL (65-100) H 03/11/18 05:18 POC Glucose 245 (70-105) H 03/11/18 12:04 Lactic Acid 1.80 mmol/L (0.7-2.0) 03/08/18 06:56 Calcium 9.3 mg/dL (8.4-10.2) 03/11/18 05:18 Phosphorus 5.70 mg/dL (2.5-4.5) H 03/07/18 18:00 Magnesium 2.00 mg/dL (1.7-2.3) 03/07/18 18:00 Total Creatine Kinase 91 units/L (30-135) 03/07/18 16:11 CK-MB (CK-2) 2.6 ng/mL (0.0-4.0) 03/07/18 16:11 CK-MB (CK-2) Rel Index 2.8 (0-4) 03/07/18 16:11 Troponin T < 0.010 ng/mL (0.00-0.029) 03/07/18 16:11 C-Reactive Protein 4.70 mg/dL (0.00-1.30) H 03/08/18 18:26 Vitamin B12 276.3 pg/mL (211-911) 03/09/18 20:17 Folate 9.19 ng/mL (7.3-26.0) 03/09/18 20:17 TSH 1.720 mlU/mL (0.270-4.200) 03/09/18 20:17 Free T4 0.97 ng/dL (0.76-1.46) 03/09/18 20:17 Urine Color Yellow (Yellow) 03/07/18 18:51 Urine Turbidity Slightly-cloudy (Clear) 03/07/18 18:51 Urine pH 5.0 (5.0-7.0) 03/07/18 18:51 Ur Specific Plush 1.015 (1.003-1.030) 03/07/18 18:51 Urine Protein 100 mg/dl mg/dL (Negative) 03/07/18 18:51 Urine Glucose (UA) >=500 mg/dL (Negative) 03/07/18 18:51 Urine Ketones Neg mg/dL (Negative) 03/07/18 18:51 Urine Blood Mod (Negative) 03/07/18 18:51 Urine Nitrite Neg (Negative) 03/07/18 18:51 Urine Bilirubin Neg (Negative) 03/07/18 18:51 Urine Urobilinogen < 2.0 mg/dL (<2.0) 03/07/18 18:51 Ur Leukocyte Esterase Lg (Negative) 03/07/18 18:51 Urine WBC (Auto) 91.0 /HPF (0.0-6.0) H 03/07/18 18:51 Urine RBC (Auto) 8.0 /HPF (0.0-6.0) 03/07/18 18:51 U Epithel Cells (Auto) 1.0 /HPF (0-13.0) 03/07/18 18:51 Urine Bacteria (Auto) 1+ /HPF (Negative) 03/07/18 18:51 Urine WBC Clumps 2+ /HPF 03/07/18 18:51 Urine Mucus 2+ /HPF 03/07/18 18:51 Phenobarbital 13.6 ug/mL (15.0-40.0) L 03/08/18 18:26 Influenza A (Rapid) Negative (Negative) 03/08/18 10:45 Influenza B (Rapid) Negative (Negative) 03/08/18 10:45 Nutrition/Malnutrition Assess - Dietary Evaluation Nutrition/Malnutrition Findings: Nutrition Notes Start: 03/08/18 09:43 Freq: Status: Active Protocol: Document 03/09/18 11:46 CAPO (Rec: 03/09/18 11:48 [facility] SRW- [id number]) Nutrition Notes Initial or Follow up Brief Note Current Diet TF - Vital AF 1.2 at 60ml/hr Labs/Tests Cr 1.4 BG 217 Subjective/Other Information Pt remains on vent support. Observed TF infusing at 40ml/ hr. Per RN, pt tolerating TF so far; will continue to advance to goal rate. Percent of energy/protein needs met: 63% energy 68% pro Nutrition Intervention Follow-Up By: 03/12/18 Additional Comments F/U: TF goal rate/tolerance, vent status
--- NOTE | 2018-03-11 15:12 | Progress Note ---
Assessment and Plan Acute hypoxemic hypercapnic respiratory failure on MVS Acute encephalopathy. Uncontrolled diabetes requiring IV insulin therapy. Sepsis syndrome. Hypertensive emergency with possible encephalopathy Leukocytosis. Urinary tract infection. Hyperkalemia, now corrected. Lactic acidemia. Obesity. History of hypertension - continue supplemental O2 to keep sats > 90% - aspiration precautions -bronchodilators per protocol -enteral nutrition as tolerated -PECAN GROWER to evaluate swallow function post extubation - PT/OT as tolerated - mobility protocol for pressure ulcer prophylaxis - agitation management -continue all current therapies -complete antibiotic therapy Subjective Date of service: 03/11/18 Principal diagnosis: Acute hypoxemic hypercapnic Resp failure; Acute encephalop athy; seizures Interval history: Patient is seen today for: Acute hypoxemic hypercapnic respiratory failure on MVS; Acute encephalopathy; Uncontrolled diabetes requiring IV insulin therapy; Sepsis syndrome; Hypertensive emergency with encephalopathy Seen and examined at bedside; 24hour events reviewed; nursing and respiratory care staff consulted; no adverse overnight events reported to me; extubated, not jyotsna nay distress at this time Denies any chest pain, no shortness of breath, no fevers, no nausea or vomiting Objective Vital Signs - 12hr 03/11/18 03/11/18 03/11/18 03:16 03:30 03:46 Temperature Pulse Rate 82 86 82 Pulse Rate [ Bilateral Throughout] Pulse Rate [ From Monitor] Respiratory 20 20 20 Rate Respiratory Rate [Bilateral Throughout] Blood Pressure 141/65 141/65 141/65 O2 Sat by Pulse 100 100 100 Oximetry 03/11/18 03/11/18 03/11/18 03:50 04:00 04:16 Temperature 99.1 F Pulse Rate 83 83 106 H Pulse Rate [ Bilateral Throughout] Pulse Rate [ 79 From Monitor] Respiratory 20 14 Rate Respiratory Rate [Bilateral Throughout] Blood Pressure 141/65 141/64 141/64 O2 Sat by Pulse 100 100 Oximetry 03/11/18 03/11/18 03/11/18 04:30 04:46 05:00 Temperature Pulse Rate 84 83 121 H Pulse Rate [ Bilateral Throughout] Pulse Rate [ From Monitor] Respiratory 20 20 27 H Rate Respiratory Rate [Bilateral Throughout] Blood Pressure 141/64 141/64 141/64 O2 Sat by Pulse Oximetry 03/11/18 03/11/18 03/11/18 05:16 05:30 05:46 Temperature Pulse Rate 117 H 98 H 120 H Pulse Rate [ Bilateral Throughout] Pulse Rate [ From Monitor] Respiratory 20 21 Rate Respiratory Rate [Bilateral Throughout] Blood Pressure 156/67 215/180 215/180 O2 Sat by Pulse Oximetry 03/11/18 03/11/18 03/11/18 06:00 06:16 06:30 Temperature Pulse Rate 103 H 108 H 104 H Pulse Rate [ Bilateral Throughout] Pulse Rate [ From Monitor] Respiratory 22 19 20 Rate Respiratory Rate [Bilateral Throughout] Blood Pressure 148/73 148/73 O2 Sat by Pulse 100 100 100 Oximetry 03/11/18 03/11/18 03/11/18 06:46 07:00 07:16 Temperature Pulse Rate 101 H 97 H 117 H Pulse Rate [ Bilateral Throughout] Pulse Rate [ From Monitor] Respiratory 18 20 19 Rate Respiratory Rate [Bilateral Throughout] Blood Pressure 148/73 144/74 144/74 O2 Sat by Pulse 100 100 Oximetry 03/11/18 03/11/18 03/11/18 07:30 07:46 08:00 Temperature 99.5 F Pulse Rate 99 H 101 H 96 H Pulse Rate [ Bilateral Throughout] Pulse Rate [ 103 H From Monitor] Respiratory 20 16 14 Rate Respiratory Rate [Bilateral Throughout] Blood Pressure 144/74 144/74 140/74 O2 Sat by Pulse 100 Oximetry 03/11/18 03/11/18 03/11/18 08:16 08:19 08:30 Temperature Pulse Rate 124 H 102 H 137 H Pulse Rate [ Bilateral Throughout] Pulse Rate [ From Monitor] Respiratory 22 22 Rate Respiratory Rate [Bilateral Throughout] Blood Pressure 140/74 140/74 140/74 O2 Sat by Pulse 100 100 100 Oximetry 03/11/18 03/11/18 03/11/18 08:46 09:00 09:16 Temperature Pulse Rate 123 H 116 H 106 H Pulse Rate [ Bilateral Throughout] Pulse Rate [ From Monitor] Respiratory 27 H 26 H 23 Rate Respiratory Rate [Bilateral Throughout] Blood Pressure 140/74 156/70 140/74 O2 Sat by Pulse Oximetry 03/11/18 03/11/18 03/11/18 09:30 09:46 10:00 Temperature Pulse Rate 102 H 100 H 96 H Pulse Rate [ Bilateral Throughout] Pulse Rate [ From Monitor] Respiratory 20 22 20 Rate Respiratory Rate [Bilateral Throughout] Blood Pressure 140/74 156/70 131/69 O2 Sat by Pulse Oximetry 03/11/18 03/11/18 03/11/18 10:16 10:30 10:46 Temperature Pulse Rate 92 H 104 H 94 H Pulse Rate [ Bilateral Throughout] Pulse Rate [ From Monitor] Respiratory 21 18 19 Rate Respiratory Rate [Bilateral Throughout] Blood Pressure 131/69 131/69 131/69 O2 Sat by Pulse Oximetry 03/11/18 03/11/18 03/11/18 11:00 11:16 11:21 Temperature Pulse Rate 97 H 90 99 H Pulse Rate [ Bilateral Throughout] Pulse Rate [ From Monitor] Respiratory 17 20 Rate Respiratory Rate [Bilateral Throughout] Blood Pressure 128/71 128/71 128/71 O2 Sat by Pulse 99 100 100 Oximetry 03/11/18 03/11/18 03/11/18 11:30 11:46 12:00 Temperature 96.7 F L Pulse Rate 108 H 95 H 98 H Pulse Rate [ Bilateral Throughout] Pulse Rate [ 103 H From Monitor] Respiratory 20 19 20 Rate Respiratory Rate [Bilateral Throughout] Blood Pressure 128/71 131/69 131/69 O2 Sat by Pulse 100 100 100 Oximetry 03/11/18 03/11/18 03/11/18 12:16 12:30 12:46 Temperature Pulse Rate 88 104 H 100 H Pulse Rate [ Bilateral Throughout] Pulse Rate [ From Monitor] Respiratory 20 18 21 Rate Respiratory Rate [Bilateral Throughout] Blood Pressure 136/68 136/68 136/68 O2 Sat by Pulse 100 99 Oximetry 03/11/18 03/11/18 03/11/18 13:00 13:16 13:30 Temperature Pulse Rate 94 H 104 H 101 H Pulse Rate [ Bilateral Throughout] Pulse Rate [ From Monitor] Respiratory 20 19 19 Rate Respiratory Rate [Bilateral Throughout] Blood Pressure 146/65 146/65 146/65 O2 Sat by Pulse 100 100 100 Oximetry 03/11/18 03/11/18 03/11/18 13:46 13:50 13:59 Temperature Pulse Rate 89 Pulse Rate [ 92 H 89 Bilateral Throughout] Pulse Rate [ From Monitor] Respiratory 20 Rate Respiratory 20 20 Rate [Bilateral Throughout] Blood Pressure 136/68 O2 Sat by Pulse 100 Oximetry 03/11/18 03/11/18 14:00 14:37 Temperature Pulse Rate 93 H Pulse Rate [ Bilateral Throughout] Pulse Rate [ From Monitor] Respiratory 20 Rate Respiratory Rate [Bilateral Throughout] Blood Pressure 138/66 O2 Sat by Pulse 100 100 Oximetry Constitutional: appears uncomfortable, other (elderly looking AAF, normocephalic and atraumatic) Eyes: non-icteric ENT: oropharynx moist, other Neck: supple, no lymphadenopathy, no JVD, other (No thyromegaly) Effort: mildly labored Ascultation: Bilateral: rhonchi Percussion: Bilateral: not dull Cardiovascular: regular rate and rhythm Gastrointestinal: normoactive bowel sounds, soft, non-tender, non-distended Integumentary: normal Extremities: no cyanosis, no edema, pulses normal, no ischemia or petechiae Neurologic: non-focal exam (moves all extemities), motor strength normal and Psychiatric: mood appropriate, affect normal CBC and BMP: 03/11/18 05:18 03/12/18 03:10 ABG, PT/INR, D-dimer: ABG POC ABG pH 7.407 (7.35-7.45) 03/10/18 09:16 POC ABG pCO2 34.1 (35-45) L 03/10/18 09:16 POC ABG pO2 93 (80-105) 03/10/18 09:16 POC ABG HCO3 21.5 03/10/18 09:16 POC ABG Total CO2 23 03/10/18 09:16 POC ABG O2 Sat 97 03/10/18 09:16 PT/INR, D-dimer PT 13.5 Sec. (12.2-14.9) 03/07/18 16:11 INR 0.99 (0.87-1.13) 03/07/18 16:11 Abnormal lab findings: Abnormal Labs 03/07/18 03/07/18 03/07/18 16:11 16:11 17:29 WBC 13.5 H RBC Hgb Hct MCH 26 L RDW 16.5 H Fibrinogen POC ABG pH 7.190 L POC ABG pCO2 57.6 H POC ABG pO2 250 H VBG pH Sodium 134 L Potassium Chloride 93.2 L Carbon Dioxide 15 L BUN 32 H Creatinine 1.7 H Glucose 793 H* POC Glucose Lactic Acid Calcium Phosphorus C-Reactive Protein Urine WBC (Auto) Phenobarbital 03/07/18 03/07/18 03/07/18 18:00 18:00 18:00 WBC RBC Hgb Hct MCH RDW Fibrinogen POC ABG pH POC ABG pCO2 POC ABG pO2 VBG pH 7.197 L* Sodium 133 L Potassium 5.8 H D Chloride 95.9 L Carbon Dioxide 20 L BUN 33 H Creatinine 1.8 H Glucose 760 H* POC Glucose Lactic Acid Calcium Phosphorus 5.70 H C-Reactive Protein Urine WBC (Auto) Phenobarbital 03/07/18 03/07/18 03/07/18 18:12 18:51 19:39 WBC RBC Hgb Hct MCH RDW Fibrinogen POC ABG pH POC ABG pCO2 POC ABG pO2 VBG pH Sodium Potassium Chloride Carbon Dioxide BUN Creatinine Glucose POC Glucose Lactic Acid 4.20 H* 3.40 H* Calcium Phosphorus C-Reactive Protein Urine WBC (Auto) 91.0 H Phenobarbital 03/07/18 03/07/18 03/07/18 19:56 21:03 21:03 WBC RBC Hgb Hct MCH RDW Fibrinogen POC ABG pH POC ABG pCO2 POC ABG pO2 VBG pH Sodium Potassium Chloride Carbon Dioxide 20 L BUN 31 H Creatinine 1.4 H Glucose 381 H POC Glucose 426 H Lactic Acid 2.70 H* Calcium Phosphorus C-Reactive Protein Urine WBC (Auto) Phenobarbital 03/07/18 03/07/18 03/07/18 21:20 22:01 22:38 WBC RBC Hgb Hct MCH RDW Fibrinogen POC ABG pH POC ABG pCO2 POC ABG pO2 VBG pH Sodium Potassium Chloride Carbon Dioxide 17 L BUN 29 H Creatinine 1.4 H Glucose 236 H POC Glucose 323 H 252 H Lactic Acid Calcium Phosphorus C-Reactive Protein Urine WBC (Auto) Phenobarbital 03/07/18 03/07/18 03/08/18 22:38 22:54 00:25 WBC RBC Hgb Hct MCH RDW Fibrinogen POC ABG pH POC ABG pCO2 POC ABG pO2 VBG pH Sodium Potassium Chloride Carbon Dioxide BUN Creatinine Glucose POC Glucose 186 H 51 L Lactic Acid 2.50 H* Calcium Phosphorus C-Reactive Protein Urine WBC (Auto) Phenobarbital 03/08/18 03/08/18 03/08/18 01:03 02:30 03:14 WBC RBC Hgb Hct MCH RDW Fibrinogen POC ABG pH POC ABG pCO2 POC ABG pO2 VBG pH Sodium Potassium Chloride Carbon Dioxide BUN Creatinine Glucose 106 H POC Glucose 157 H 147 H Lactic Acid Calcium Phosphorus C-Reactive Protein Urine WBC (Auto) Phenobarbital 03/08/18 03/08/18 03/08/18 03:47 04:10 05:06 WBC RBC Hgb Hct MCH RDW Fibrinogen POC ABG pH 7.343 L POC ABG pCO2 POC ABG pO2 159 H VBG pH Sodium 146 H D Potassium Chloride 108.7 H Carbon Dioxide 20 L BUN 25 H Creatinine 1.5 H Glucose POC Glucose 146 H Lactic Acid Calcium Phosphorus C-Reactive Protein Urine WBC (Auto) Phenobarbital 03/08/18 03/08/18 03/08/18 06:06 08:07 09:20 WBC RBC Hgb Hct MCH RDW Fibrinogen POC ABG pH POC ABG pCO2 POC ABG pO2 VBG pH Sodium Potassium Chloride Carbon Dioxide BUN Creatinine Glucose POC Glucose 157 H 141 H 133 H Lactic Acid Calcium Phosphorus C-Reactive Protein Urine WBC (Auto) Phenobarbital 03/08/18 03/08/18 03/08/18 10:20 12:33 12:35 WBC RBC Hgb Hct MCH RDW Fibrinogen POC ABG pH POC ABG pCO2 POC ABG pO2 VBG pH Sodium Potassium Chloride 110.8 H Carbon Dioxide 21 L BUN 19 H Creatinine 1.3 H Glucose 142 H POC Glucose 138 H 137 H Lactic Acid Calcium 8.2 L Phosphorus C-Reactive Protein Urine WBC (Auto) Phenobarbital 03/08/18 03/08/18 03/08/18 18:05 18:26 18:26 WBC RBC Hgb Hct MCH RDW Fibrinogen POC ABG pH POC ABG pCO2 POC ABG pO2 VBG pH Sodium Potassium Chloride Carbon Dioxide BUN Creatinine Glucose POC Glucose 315 H Lactic Acid Calcium Phosphorus C-Reactive Protein 4.70 H Urine WBC (Auto) Phenobarbital 13.6 L 03/09/18 03/09/18 03/09/18 00:10 04:16 04:16 WBC 13.9 H RBC 3.55 L Hgb 9.4 L D Hct 29.3 L D MCH 27 L RDW 15.3 H Fibrinogen POC ABG pH POC ABG pCO2 POC ABG pO2 VBG pH Sodium Potassium Chloride 111.6 H Carbon Dioxide BUN Creatinine 1.4 H Glucose 217 H POC Glucose 248 H Lactic Acid Calcium 8.2 L Phosphorus C-Reactive Protein Urine WBC (Auto) Phenobarbital 03/09/18 03/09/18 03/09/18 05:12 05:26 09:46 WBC RBC Hgb Hct MCH RDW Fibrinogen POC ABG pH 7.326 L POC ABG pCO2 POC ABG pO2 156 H 50 L VBG pH Sodium Potassium Chloride Carbon Dioxide BUN Creatinine Glucose POC Glucose 301 H Lactic Acid Calcium Phosphorus C-Reactive Protein Urine WBC (Auto) Phenobarbital 03/09/18 03/09/18 03/09/18 09:58 11:53 14:53 WBC RBC Hgb Hct MCH RDW Fibrinogen 689 H POC ABG pH POC ABG pCO2 POC ABG pO2 108 H VBG pH Sodium Potassium Chloride Carbon Dioxide BUN Creatinine Glucose POC Glucose 291 H Lactic Acid Calcium Phosphorus C-Reactive Protein Urine WBC (Auto) Phenobarbital 03/09/18 03/09/18 03/10/18 17:44 23:26 05:02 WBC 12.0 H RBC Hgb 9.8 L Hct MCH 26 L RDW 15.3 H Fibrinogen POC ABG pH POC ABG pCO2 POC ABG pO2 VBG pH Sodium Potassium Chloride Carbon Dioxide BUN Creatinine Glucose POC Glucose 296 H 250 H Lactic Acid Calcium Phosphorus C-Reactive Protein Urine WBC (Auto) Phenobarbital 03/10/18 03/10/18 03/10/18 05:22 09:16 12:22 WBC RBC Hgb Hct MCH RDW Fibrinogen POC ABG pH POC ABG pCO2 34.1 L POC ABG pO2 VBG pH Sodium Potassium Chloride Carbon Dioxide BUN Creatinine Glucose POC Glucose 261 H 288 H Lactic Acid Calcium Phosphorus C-Reactive Protein Urine WBC (Auto) Phenobarbital 03/10/18 03/11/18 03/11/18 23:24 05:18 05:18 WBC 11.4 H RBC Hgb Hct MCH 26 L RDW 15.3 H Fibrinogen POC ABG pH POC ABG pCO2 POC ABG pO2 VBG pH Sodium 147 H Potassium Chloride 110.4 H Carbon Dioxide BUN Creatinine 1.4 H Glucose 251 H POC Glucose 161 H Lactic Acid Calcium Phosphorus C-Reactive Protein Urine WBC (Auto) Phenobarbital 03/11/18 03/11/18 06:07 12:04 WBC RBC Hgb Hct MCH RDW Fibrinogen POC ABG pH POC ABG pCO2 POC ABG pO2 VBG pH Sodium Potassium Chloride Carbon Dioxide BUN Creatinine Glucose POC Glucose 297 H 245 H Lactic Acid Calcium Phosphorus C-Reactive Protein Urine WBC (Auto) Phenobarbital Chest x-ray: image reviewed (no acute pulmoanry inflitrate, ETT in position 03/09 CXR) Allied health notes reviewed: nursing
[2018-03-11] MEDS: KEPPRA PO SCH ×2 (17:16→21:39)
[2018-03-11] MEDS: KEFLEX PO SCH ×2 (17:47→22:01)
[2018-03-11] MEDS: LOVENOX SUB-Q SCH (21:56)
[2018-03-11] MEDS: LANTUS SUB-Q SCH (23:57)
[2018-03-12] MEDS: HumaLOG SUB-Q SCH ×5 (00:02→22:40)
[2018-03-12] MEDS: KEPPRA PO SCH ×4 (03:13→22:58)
[2018-03-12 04:27] LABS: Calcium 9.4 mg/dL (8.4-10.2)
[2018-03-12] MEDS: DUONEB *Not for PRN Use IH SCH ×3 (07:22→19:31)
[2018-03-12] MEDS: PEPCID IV SCH (09:51)
[2018-03-12] MEDS: KEFLEX PO SCH ×2 (09:52→22:38)
[2018-03-12] MEDS: SODIUM CHLORIDE FLUSH SYRINGE 10 ML IV SCH ×2 (09:53→22:44)
[2018-03-12] MEDS: ANTIBIOTIC OINT TP SCH (11:19)
[2018-03-12] MEDS: FLONASE NS SCH (11:19)
--- NOTE | 2018-03-12 12:05 | Progress Note ---
Assessment and Plan Acute hypoxemic hypercapnic respiratory failure on MVS Acute encephalopathy. Uncontrolled diabetes requiring IV insulin therapy. Sepsis syndrome. Hypertensive emergency with possible encephalopathy as a result of that. Leukocytosis. Urinary tract infection. Hyperkalemia, now corrected. Lactic acidemia. Obesity. History of hypertension (Will up-titrate seroquel; if however still not tolerating extended wean will give a trial of extubation as agitation may not be driven by respiratory distress) - continue seroquel for agitation - continue scheduled lantus insulin - continue q6h accuchesks with SSI for target BG 140-180 mg/dL - continue to wean FiO2 to keep sats > 90% - titrate sedation for RASS 0 to -1 - VAP bundle addressed - Daily SAT's - continue daily SBT's as tolerated via PSV - hold home psychoactive meds until neuro exam complete - continue enteral nutrition as tolerated - get CRP, lactate to aid clinical decision making - nutrition team consulted - continue GI & VTE prophylaxis - continue empiric antibiotics and de-escalate per ID recs - PT/OT as tolerated - mobility protocol for pressure ulcer prophylaxis - continue other care per attending / other consultants The high probability of a clinically significant, sudden or life-threatening deterioration of the [cardiac, neurology] system(s) required my full and direct attention, intervention and personal management. The aggregate critical care time was [32] minutes without overlap. Time includes spent on; [x] Data Review and interpretation [x] Patient assessment and monitoring of vital signs [x] Documentation [x] Medication orders and management Subjective Date of service: 03/12/18 Principal diagnosis: Acute hypoxemic hypercapnic Resp failure; Acute encephalopathy; seizures Interval history: Patient is seen today for: Acute hypoxemic hypercapnic respiratory failure on MVS; Acute encephalopathy; Uncontrolled diabetes requiring IV insulin therapy; Sepsis syndrome; Hypertensive emergency with encephalopathy Seen and examined at bedside; 24hour events reviewed; nursing and respiratory care staff consulted; no adverse overnight events reported to me; Objective Vital Signs - 12hr 03/12/18 03/12/18 03/12/18 00:16 00:30 00:46 Temperature Pulse Rate 111 H 115 H 98 H Pulse Rate [ Bilateral Throughout] Pulse Rate [ From Monitor] Pulse Rate [ Right Dorsalis Pedis] Pulse Rate [ Throughout] Respiratory 15 13 17 Rate Respiratory Rate [Bilateral Throughout] Respiratory Rate [ Throughout] Blood Pressure 155/66 155/66 155/66 O2 Sat by Pulse 98 98 100 Oximetry 03/12/18 03/12/18 03/12/18 01:00 01:09 01:16 Temperature Pulse Rate 102 H 99 H 101 H Pulse Rate [ Bilateral Throughout] Pulse Rate [ From Monitor] Pulse Rate [ Right Dorsalis Pedis] Pulse Rate [ Throughout] Respiratory 12 19 18 Rate Respiratory Rate [Bilateral Throughout] Respiratory Rate [ Throughout] Blood Pressure 157/70 157/70 157/70 O2 Sat by Pulse 100 100 100 Oximetry 03/12/18 03/12/18 03/12/18 01:30 01:46 02:00 Temperature Pulse Rate 94 H 89 87 Pulse Rate [ Bilateral Throughout] Pulse Rate [ From Monitor] Pulse Rate [ Right Dorsalis Pedis] Pulse Rate [ Throughout] Respiratory 20 18 19 Rate Respiratory Rate [Bilateral Throughout] Respiratory Rate [ Throughout] Blood Pressure 157/70 157/70 157/70 O2 Sat by Pulse 100 100 100 Oximetry 03/12/18 03/12/18 03/12/18 02:16 02:30 02:46 Temperature Pulse Rate 85 83 83 Pulse Rate [ Bilateral Throughout] Pulse Rate [ From Monitor] Pulse Rate [ Right Dorsalis Pedis] Pulse Rate [ Throughout] Respiratory 19 19 18 Rate Respiratory Rate [Bilateral Throughout] Respiratory Rate [ Throughout] Blood Pressure 121/59 121/59 121/59 O2 Sat by Pulse 100 100 100 Oximetry 03/12/18 03/12/18 03/12/18 03:00 03:16 03:30 Temperature Pulse Rate 83 84 92 H Pulse Rate [ Bilateral Throughout] Pulse Rate [ From Monitor] Pulse Rate [ Right Dorsalis Pedis] Pulse Rate [ Throughout] Respiratory 28 H 12 13 Rate Respiratory Rate [Bilateral Throughout] Respiratory Rate [ Throughout] Blood Pressure 138/66 138/66 138/66 O2 Sat by Pulse 100 100 100 Oximetry 03/12/18 03/12/18 03/12/18 03:46 04:00 04:16 Temperature 99.5 F Pulse Rate 84 79 78 Pulse Rate [ Bilateral Throughout] Pulse Rate [ 78 From Monitor] Pulse Rate [ Right Dorsalis Pedis] Pulse Rate [ Throughout] Respiratory 16 18 18 Rate Respiratory Rate [Bilateral Throughout] Respiratory Rate [ Throughout] Blood Pressure 138/66 124/61 124/61 O2 Sat by Pulse 100 100 100 Oximetry 03/12/18 03/12/18 03/12/18 04:30 04:46 05:00 Temperature Pulse Rate 76 79 79 Pulse Rate [ Bilateral Throughout] Pulse Rate [ From Monitor] Pulse Rate [ Right Dorsalis Pedis] Pulse Rate [ Throughout] Respiratory 18 18 29 H Rate Respiratory Rate [Bilateral Throughout] Respiratory Rate [ Throughout] Blood Pressure 124/61 124/61 120/62 O2 Sat by Pulse 100 100 100 Oximetry 03/12/18 03/12/18 03/12/18 05:16 05:30 05:46 Temperature Pulse Rate 78 74 72 Pulse Rate [ Bilateral Throughout] Pulse Rate [ From Monitor] Pulse Rate [ Right Dorsalis Pedis] Pulse Rate [ Throughout] Respiratory 17 17 17 Rate Respiratory Rate [Bilateral Throughout] Respiratory Rate [ Throughout] Blood Pressure 120/62 120/62 120/62 O2 Sat by Pulse 100 100 100 Oximetry 03/12/18 03/12/18 03/12/18 06:00 06:16 06:30 Temperature Pulse Rate 86 88 98 H Pulse Rate [ Bilateral Throughout] Pulse Rate [ From Monitor] Pulse Rate [ Right Dorsalis Pedis] Pulse Rate [ Throughout] Respiratory 16 11 L 16 Rate Respiratory Rate [Bilateral Throughout] Respiratory Rate [ Throughout] Blood Pressure 129/66 129/66 129/66 O2 Sat by Pulse 100 100 100 Oximetry 03/12/18 03/12/18 03/12/18 06:46 07:00 07:16 Temperature Pulse Rate 93 H 83 85 Pulse Rate [ Bilateral Throughout] Pulse Rate [ From Monitor] Pulse Rate [ Right Dorsalis Pedis] Pulse Rate [ Throughout] Respiratory 17 15 13 Rate Respiratory Rate [Bilateral Throughout] Respiratory Rate [ Throughout] Blood Pressure 129/66 142/70 129/66 O2 Sat by Pulse 99 99 96 Oximetry 03/12/18 03/12/18 03/12/18 07:24 07:30 07:46 Temperature Pulse Rate 85 94 H Pulse Rate [ 82 Bilateral Throughout] Pulse Rate [ From Monitor] Pulse Rate [ Right Dorsalis Pedis] Pulse Rate [ 84 Throughout] Respiratory 19 20 Rate Respiratory 16 Rate [Bilateral Throughout] Respiratory 16 Rate [ Throughout] Blood Pressure 129/66 142/70 O2 Sat by Pulse 94 92 Oximetry 03/12/18 03/12/18 03/12/18 08:00 08:16 08:30 Temperature 99.5 F Pulse Rate 96 H 100 H 95 H Pulse Rate [ Bilateral Throughout] Pulse Rate [ 90 From Monitor] Pulse Rate [ 92 H Right Dorsalis Pedis] Pulse Rate [ Throughout] Respiratory 11 L 10 L 15 Rate Respiratory Rate [Bilateral Throughout] Respiratory Rate [ Throughout] Blood Pressure 142/70 151/71 151/71 O2 Sat by Pulse 93 100 98 Oximetry 03/12/18 03/12/18 03/12/18 08:46 09:00 09:16 Temperature Pulse Rate 98 H 89 90 Pulse Rate [ Bilateral Throughout] Pulse Rate [ From Monitor] Pulse Rate [ Right Dorsalis Pedis] Pulse Rate [ Throughout] Respiratory 14 19 19 Rate Respiratory Rate [Bilateral Throughout] Respiratory Rate [ Throughout] Blood Pressure 151/71 157/69 157/69 O2 Sat by Pulse 100 100 Oximetry 03/12/18 03/12/18 03/12/18 09:30 09:46 10:00 Temperature Pulse Rate 92 H 92 H 89 Pulse Rate [ Bilateral Throughout] Pulse Rate [ From Monitor] Pulse Rate [ Right Dorsalis Pedis] Pulse Rate [ Throughout] Respiratory 14 11 L 21 Rate Respiratory Rate [Bilateral Throughout] Respiratory Rate [ Throughout] Blood Pressure 157/69 157/69 157/69 O2 Sat by Pulse 100 100 99 Oximetry 03/12/18 10:16 Temperature Pulse Rate 88 Pulse Rate [ Bilateral Throughout] Pulse Rate [ From Monitor] Pulse Rate [ Right Dorsalis Pedis] Pulse Rate [ Throughout] Respiratory 15 Rate Respiratory Rate [Bilateral Throughout] Respiratory Rate [ Throughout] Blood Pressure 166/85 O2 Sat by Pulse 100 Oximetry Constitutional: appears uncomfortable, other (elderly looking AAF, normocephalic and atraumatic with mildly increased respiratory effort on MVS) Eyes: non-icteric ENT: oropharynx moist, other (ETT 23 cm ULI) Neck: supple, no lymphadenopathy, no JVD, other (No thyromegaly) Effort: mildly labored Ascultation: Bilateral: rhonchi Percussion: Bilateral: not dull Cardiovascular: regular rate and rhythm Gastrointestinal: normoactive bowel sounds, soft, non-tender, non-distended Integumentary: normal Extremities: no cyanosis, no edema, pulses normal, no ischemia or petechiae Neurologic: non-focal exam (grossly), unable to assess Psychiatric: other (unable to assess re: AMS) CBC and BMP: 03/11/18 05:18 03/12/18 03:10 ABG, PT/INR, D-dimer: ABG POC ABG pH 7.417 (7.35-7.45) 03/12/18 08:12 POC ABG pCO2 35.6 (35-45) 03/12/18 08:12 POC ABG pO2 54 (80-105) L 03/12/18 08:12 POC ABG HCO3 22.9 03/12/18 08:12 POC ABG Total CO2 24 03/12/18 08:12 POC ABG O2 Sat 88 03/12/18 08:12 PT/INR, D-dimer PT 13.5 Sec. (12.2-14.9) 03/07/18 16:11 INR 0.99 (0.87-1.13) 03/07/18 16:11 Abnormal lab findings: Abnormal Labs 03/07/18 03/07/18 03/07/18 16:11 16:11 17:29 WBC 13.5 H RBC Hgb Hct MCH 26 L RDW 16.5 H Fibrinogen POC ABG pH 7.190 L POC ABG pCO2 57.6 H POC ABG pO2 250 H VBG pH Sodium 134 L Potassium Chloride 93.2 L Carbon Dioxide 15 L BUN 32 H Creatinine 1.7 H Glucose 793 H* POC Glucose Lactic Acid Calcium Phosphorus C-Reactive Protein Urine WBC (Auto) Phenobarbital 03/07/18 03/07/18 03/07/18 18:00 18:00 18:00 WBC RBC Hgb Hct MCH RDW Fibrinogen POC ABG pH POC ABG pCO2 POC ABG pO2 VBG pH 7.197 L* Sodium 133 L Potassium 5.8 H D Chloride 95.9 L Carbon Dioxide 20 L BUN 33 H Creatinine 1.8 H Glucose 760 H* POC Glucose Lactic Acid Calcium Phosphorus 5.70 H C-Reactive Protein Urine WBC (Auto) Phenobarbital 03/07/18 03/07/18 03/07/18 18:12 18:51 19:39 WBC RBC Hgb Hct MCH RDW Fibrinogen POC ABG pH POC ABG pCO2 POC ABG pO2 VBG pH Sodium Potassium Chloride Carbon Dioxide BUN Creatinine Glucose POC Glucose Lactic Acid 4.20 H* 3.40 H* Calcium Phosphorus C-Reactive Protein Urine WBC (Auto) 91.0 H Phenobarbital 03/07/18 03/07/18 03/07/18 19:56 21:03 21:03 WBC RBC Hgb Hct MCH RDW Fibrinogen POC ABG pH POC ABG pCO2 POC ABG pO2 VBG pH Sodium Potassium Chloride Carbon Dioxide 20 L BUN 31 H Creatinine 1.4 H Glucose 381 H POC Glucose 426 H Lactic Acid 2.70 H* Calcium Phosphorus C-Reactive Protein Urine WBC (Auto) Phenobarbital 03/07/18 03/07/18 03/07/18 21:20 22:01 22:38 WBC RBC Hgb Hct MCH RDW Fibrinogen POC ABG pH POC ABG pCO2 POC ABG pO2 VBG pH Sodium Potassium Chloride Carbon Dioxide 17 L BUN 29 H Creatinine 1.4 H Glucose 236 H POC Glucose 323 H 252 H Lactic Acid Calcium Phosphorus C-Reactive Protein Urine WBC (Auto) Phenobarbital 03/07/18 03/07/18 03/08/18 22:38 22:54 00:25 WBC RBC Hgb Hct MCH RDW Fibrinogen POC ABG pH POC ABG pCO2 POC ABG pO2 VBG pH Sodium Potassium Chloride Carbon Dioxide BUN Creatinine Glucose POC Glucose 186 H 51 L Lactic Acid 2.50 H* Calcium Phosphorus C-Reactive Protein Urine WBC (Auto) Phenobarbital 03/08/18 03/08/18 03/08/18 01:03 02:30 03:14 WBC RBC Hgb Hct MCH RDW Fibrinogen POC ABG pH POC ABG pCO2 POC ABG pO2 VBG pH Sodium Potassium Chloride Carbon Dioxide BUN Creatinine Glucose 106 H POC Glucose 157 H 147 H Lactic Acid Calcium Phosphorus C-Reactive Protein Urine WBC (Auto) Phenobarbital 03/08/18 03/08/18 03/08/18 03:47 04:10 05:06 WBC RBC Hgb Hct MCH RDW Fibrinogen POC ABG pH 7.343 L POC ABG pCO2 POC ABG pO2 159 H VBG pH Sodium 146 H D Potassium Chloride 108.7 H Carbon Dioxide 20 L BUN 25 H Creatinine 1.5 H Glucose POC Glucose 146 H Lactic Acid Calcium Phosphorus C-Reactive Protein Urine WBC (Auto) Phenobarbital 03/08/18 03/08/18 03/08/18 06:06 08:07 09:20 WBC RBC Hgb Hct MCH RDW Fibrinogen POC ABG pH POC ABG pCO2 POC ABG pO2 VBG pH Sodium Potassium Chloride Carbon Dioxide BUN Creatinine Glucose POC Glucose 157 H 141 H 133 H Lactic Acid Calcium Phosphorus C-Reactive Protein Urine WBC (Auto) Phenobarbital 03/08/18 03/08/18 03/08/18 10:20 12:33 12:35 WBC RBC Hgb Hct MCH RDW Fibrinogen POC ABG pH POC ABG pCO2 POC ABG pO2 VBG pH Sodium Potassium Chloride 110.8 H Carbon Dioxide 21 L BUN 19 H Creatinine 1.3 H Glucose 142 H POC Glucose 138 H 137 H Lactic Acid Calcium 8.2 L Phosphorus C-Reactive Protein Urine WBC (Auto) Phenobarbital 03/08/18 03/08/18 03/08/18 18:05 18:26 18:26 WBC RBC Hgb Hct MCH RDW Fibrinogen POC ABG pH POC ABG pCO2 POC ABG pO2 VBG pH Sodium Potassium Chloride Carbon Dioxide BUN Creatinine Glucose POC Glucose 315 H Lactic Acid Calcium Phosphorus C-Reactive Protein 4.70 H Urine WBC (Auto) Phenobarbital 13.6 L 03/09/18 03/09/18 03/09/18 00:10 04:16 04:16 WBC 13.9 H RBC 3.55 L Hgb 9.4 L D Hct 29.3 L D MCH 27 L RDW 15.3 H Fibrinogen POC ABG pH POC ABG pCO2 POC ABG pO2 VBG pH Sodium Potassium Chloride 111.6 H Carbon Dioxide BUN Creatinine 1.4 H Glucose 217 H POC Glucose 248 H Lactic Acid Calcium 8.2 L Phosphorus C-Reactive Protein Urine WBC (Auto) Phenobarbital 03/09/18 03/09/18 03/09/18 05:12 05:26 09:46 WBC RBC Hgb Hct MCH RDW Fibrinogen POC ABG pH 7.326 L POC ABG pCO2 POC ABG pO2 156 H 50 L VBG pH Sodium Potassium Chloride Carbon Dioxide BUN Creatinine Glucose POC Glucose 301 H Lactic Acid Calcium Phosphorus C-Reactive Protein Urine WBC (Auto) Phenobarbital 03/09/18 03/09/18 03/09/18 09:58 11:53 14:53 WBC RBC Hgb Hct MCH RDW Fibrinogen 689 H POC ABG pH POC ABG pCO2 POC ABG pO2 108 H VBG pH Sodium Potassium Chloride Carbon Dioxide BUN Creatinine Glucose POC Glucose 291 H Lactic Acid Calcium Phosphorus C-Reactive Protein Urine WBC (Auto) Phenobarbital 03/09/18 03/09/18 03/10/18 17:44 23:26 05:02 WBC 12.0 H RBC Hgb 9.8 L Hct MCH 26 L RDW 15.3 H Fibrinogen POC ABG pH POC ABG pCO2 POC ABG pO2 VBG pH Sodium Potassium Chloride Carbon Dioxide BUN Creatinine Glucose POC Glucose 296 H 250 H Lactic Acid Calcium Phosphorus C-Reactive Protein Urine WBC (Auto) Phenobarbital 03/10/18 03/10/18 03/10/18 05:22 09:16 12:22 WBC RBC Hgb Hct MCH RDW Fibrinogen POC ABG pH POC ABG pCO2 34.1 L POC ABG pO2 VBG pH Sodium Potassium Chloride Carbon Dioxide BUN Creatinine Glucose POC Glucose 261 H 288 H Lactic Acid Calcium Phosphorus C-Reactive Protein Urine WBC (Auto) Phenobarbital 03/10/18 03/11/18 03/11/18 23:24 05:18 05:18 WBC 11.4 H RBC Hgb Hct MCH 26 L RDW 15.3 H Fibrinogen POC ABG pH POC ABG pCO2 POC ABG pO2 VBG pH Sodium 147 H Potassium Chloride 110.4 H Carbon Dioxide BUN Creatinine 1.4 H Glucose 251 H POC Glucose 161 H Lactic Acid Calcium Phosphorus C-Reactive Protein Urine WBC (Auto) Phenobarbital 03/11/18 03/11/18 03/11/18 06:07 12:04 23:33 WBC RBC Hgb Hct MCH RDW Fibrinogen POC ABG pH POC ABG pCO2 POC ABG pO2 VBG pH Sodium Potassium Chloride Carbon Dioxide BUN Creatinine Glucose POC Glucose 297 H 245 H 212 H Lactic Acid Calcium Phosphorus C-Reactive Protein Urine WBC (Auto) Phenobarbital 03/12/18 03/12/18 03/12/18 03:10 05:12 08:12 WBC RBC Hgb Hct MCH RDW Fibrinogen POC ABG pH POC ABG pCO2 POC ABG pO2 54 L VBG pH Sodium 148 H Potassium Chloride 110.0 H Carbon Dioxide BUN Creatinine Glucose 123 H POC Glucose 123 H Lactic Acid Calcium Phosphorus C-Reactive Protein Urine WBC (Auto) Phenobarbital 03/12/18 03/12/18 09:45 11:20 WBC RBC Hgb Hct MCH RDW Fibrinogen POC ABG pH POC ABG pCO2 POC ABG pO2 VBG pH Sodium Potassium Chloride Carbon Dioxide BUN Creatinine Glucose POC Glucose 201 H 249 H Lactic Acid Calcium Phosphorus C-Reactive Protein Urine WBC (Auto) Phenobarbital Allied health notes reviewed: nursing
--- NOTE | 2018-03-12 12:07 | Progress Note ---
Assessment and Plan 62 yr old female with hx of diabetes, hypertension and memory issues, presented on 03/07/18 with uncontrolled diabetes and seizures, UTI/sepsis. She was intubated for airway protection, has been extubated on 03/10/18. Mental status is better than last report from Dr. Segura. There has been no further seizure activity, diabetes has been corrected. CT with small vessel disease. B-12 level is low. Plan - Continue Keppra, can change schedule to 1500 mg BID. Aspirin and atorvastatin B-12 supplementation ordered. Subjective Date of service: 03/12/18 Principal diagnosis: Acute hypoxemic hypercapnic Resp failure; Acute encephalopathy; seizures Interval history: 62 year old female with history of hypertension, diabetes, and memory issues, presented on 03/07/18 with altered mental status, generalized seizures and glucose of 798. CT brain reveals small vessel disease. She was also found to have UTI and metabolic encephalopathy. She was protectively intubated in ED because of continued seizure acrivity. She has since been extubated, 03/10/18. She has had no further seizures on Keppra 750 mg Q 6 hours. Objective - Exam Narrative Exam: Neuro exam - speech fluent. Not oriented - believes she is at a friend's house in [facility]. Follows simple commands sliding joint maker - EOMs intact, face symmetric, tongue midline hearing intact. Motor - grossly symmetric Reflexes - trace throughout Sensory - appreciates touch in all 4 limbs, DSS intact. - Vital Sign Vital Signs - 12hr 03/12/18 03/12/18 03/12/18 00:16 00:30 00:46 Temperature Pulse Rate 111 H 115 H 98 H Pulse Rate [ Bilateral Throughout] Pulse Rate [ From Monitor] Pulse Rate [ Right Dorsalis Pedis] Pulse Rate [ Throughout] Respiratory 15 13 17 Rate Respiratory Rate [Bilateral Throughout] Respiratory Rate [ Throughout] Blood Pressure 155/66 155/66 155/66 O2 Sat by Pulse 98 98 100 Oximetry 03/12/18 03/12/18 03/12/18 01:00 01:09 01:16 Temperature Pulse Rate 102 H 99 H 101 H Pulse Rate [ Bilateral Throughout] Pulse Rate [ From Monitor] Pulse Rate [ Right Dorsalis Pedis] Pulse Rate [ Throughout] Respiratory 12 19 18 Rate Respiratory Rate [Bilateral Throughout] Respiratory Rate [ Throughout] Blood Pressure 157/70 157/70 157/70 O2 Sat by Pulse 100 100 100 Oximetry 03/12/18 03/12/18 03/12/18 01:30 01:46 02:00 Temperature Pulse Rate 94 H 89 87 Pulse Rate [ Bilateral Throughout] Pulse Rate [ From Monitor] Pulse Rate [ Right Dorsalis Pedis] Pulse Rate [ Throughout] Respiratory 20 18 19 Rate Respiratory Rate [Bilateral Throughout] Respiratory Rate [ Throughout] Blood Pressure 157/70 157/70 157/70 O2 Sat by Pulse 100 100 100 Oximetry 03/12/18 03/12/18 03/12/18 02:16 02:30 02:46 Temperature Pulse Rate 85 83 83 Pulse Rate [ Bilateral Throughout] Pulse Rate [ From Monitor] Pulse Rate [ Right Dorsalis Pedis] Pulse Rate [ Throughout] Respiratory 19 19 18 Rate Respiratory Rate [Bilateral Throughout] Respiratory Rate [ Throughout] Blood Pressure 121/59 121/59 121/59 O2 Sat by Pulse 100 100 100 Oximetry 03/12/18 03/12/18 03/12/18 03:00 03:16 03:30 Temperature Pulse Rate 83 84 92 H Pulse Rate [ Bilateral Throughout] Pulse Rate [ From Monitor] Pulse Rate [ Right Dorsalis Pedis] Pulse Rate [ Throughout] Respiratory 28 H 12 13 Rate Respiratory Rate [Bilateral Throughout] Respiratory Rate [ Throughout] Blood Pressure 138/66 138/66 138/66 O2 Sat by Pulse 100 100 100 Oximetry 03/12/18 03/12/18 03/12/18 03:46 04:00 04:16 Temperature 99.5 F Pulse Rate 84 79 78 Pulse Rate [ Bilateral Throughout] Pulse Rate [ 78 From Monitor] Pulse Rate [ Right Dorsalis Pedis] Pulse Rate [ Throughout] Respiratory 16 18 18 Rate Respiratory Rate [Bilateral Throughout] Respiratory Rate [ Throughout] Blood Pressure 138/66 124/61 124/61 O2 Sat by Pulse 100 100 100 Oximetry 03/12/18 03/12/18 03/12/18 04:30 04:46 05:00 Temperature Pulse Rate 76 79 79 Pulse Rate [ Bilateral Throughout] Pulse Rate [ From Monitor] Pulse Rate [ Right Dorsalis Pedis] Pulse Rate [ Throughout] Respiratory 18 18 29 H Rate Respiratory Rate [Bilateral Throughout] Respiratory Rate [ Throughout] Blood Pressure 124/61 124/61 120/62 O2 Sat by Pulse 100 100 100 Oximetry 03/12/18 03/12/18 03/12/18 05:16 05:30 05:46 Temperature Pulse Rate 78 74 72 Pulse Rate [ Bilateral Throughout] Pulse Rate [ From Monitor] Pulse Rate [ Right Dorsalis Pedis] Pulse Rate [ Throughout] Respiratory 17 17 17 Rate Respiratory Rate [Bilateral Throughout] Respiratory Rate [ Throughout] Blood Pressure 120/62 120/62 120/62 O2 Sat by Pulse 100 100 100 Oximetry 03/12/18 03/12/18 03/12/18 06:00 06:16 06:30 Temperature Pulse Rate 86 88 98 H Pulse Rate [ Bilateral Throughout] Pulse Rate [ From Monitor] Pulse Rate [ Right Dorsalis Pedis] Pulse Rate [ Throughout] Respiratory 16 11 L 16 Rate Respiratory Rate [Bilateral Throughout] Respiratory Rate [ Throughout] Blood Pressure 129/66 129/66 129/66 O2 Sat by Pulse 100 100 100 Oximetry 03/12/18 03/12/18 03/12/18 06:46 07:00 07:16 Temperature Pulse Rate 93 H 83 85 Pulse Rate [ Bilateral Throughout] Pulse Rate [ From Monitor] Pulse Rate [ Right Dorsalis Pedis] Pulse Rate [ Throughout] Respiratory 17 15 13 Rate Respiratory Rate [Bilateral Throughout] Respiratory Rate [ Throughout] Blood Pressure 129/66 142/70 129/66 O2 Sat by Pulse 99 99 96 Oximetry 03/12/18 03/12/18 03/12/18 07:24 07:30 07:46 Temperature Pulse Rate 85 94 H Pulse Rate [ 82 Bilateral Throughout] Pulse Rate [ From Monitor] Pulse Rate [ Right Dorsalis Pedis] Pulse Rate [ 84 Throughout] Respiratory 19 20 Rate Respiratory 16 Rate [Bilateral Throughout] Respiratory 16 Rate [ Throughout] Blood Pressure 129/66 142/70 O2 Sat by Pulse 94 92 Oximetry 03/12/18 03/12/18 03/12/18 08:00 08:16 08:30 Temperature 99.5 F Pulse Rate 96 H 100 H 95 H Pulse Rate [ Bilateral Throughout] Pulse Rate [ 90 From Monitor] Pulse Rate [ 92 H Right Dorsalis Pedis] Pulse Rate [ Throughout] Respiratory 11 L 10 L 15 Rate Respiratory Rate [Bilateral Throughout] Respiratory Rate [ Throughout] Blood Pressure 142/70 151/71 151/71 O2 Sat by Pulse 93 100 98 Oximetry 03/12/18 03/12/18 03/12/18 08:46 09:00 09:16 Temperature Pulse Rate 98 H 89 90 Pulse Rate [ Bilateral Throughout] Pulse Rate [ From Monitor] Pulse Rate [ Right Dorsalis Pedis] Pulse Rate [ Throughout] Respiratory 14 19 19 Rate Respiratory Rate [Bilateral Throughout] Respiratory Rate [ Throughout] Blood Pressure 151/71 157/69 157/69 O2 Sat by Pulse 100 100 Oximetry 03/12/18 03/12/18 03/12/18 09:30 09:46 10:00 Temperature Pulse Rate 92 H 92 H 89 Pulse Rate [ Bilateral Throughout] Pulse Rate [ From Monitor] Pulse Rate [ Right Dorsalis Pedis] Pulse Rate [ Throughout] Respiratory 14 11 L 21 Rate Respiratory Rate [Bilateral Throughout] Respiratory Rate [ Throughout] Blood Pressure 157/69 157/69 157/69 O2 Sat by Pulse 100 100 99 Oximetry 03/12/18 10:16 Temperature Pulse Rate 88 Pulse Rate [ Bilateral Throughout] Pulse Rate [ From Monitor] Pulse Rate [ Right Dorsalis Pedis] Pulse Rate [ Throughout] Respiratory 15 Rate Respiratory Rate [Bilateral Throughout] Respiratory Rate [ Throughout] Blood Pressure 166/85 O2 Sat by Pulse 100 Oximetry - Laboratory Findings CBC and BMP: 03/11/18 05:18 03/12/18 03:10 Abnormal Lab Findings: Abnormal Labs 03/07/18 03/07/18 03/07/18 16:11 16:11 17:29 WBC 13.5 H RBC Hgb Hct MCH 26 L RDW 16.5 H Fibrinogen POC ABG pH 7.190 L POC ABG pCO2 57.6 H POC ABG pO2 250 H VBG pH Sodium 134 L Potassium Chloride 93.2 L Carbon Dioxide 15 L BUN 32 H Creatinine 1.7 H Glucose 793 H* POC Glucose Lactic Acid Calcium Phosphorus C-Reactive Protein Urine WBC (Auto) Phenobarbital 03/07/18 03/07/18 03/07/18 18:00 18:00 18:00 WBC RBC Hgb Hct MCH RDW Fibrinogen POC ABG pH POC ABG pCO2 POC ABG pO2 VBG pH 7.197 L* Sodium 133 L Potassium 5.8 H D Chloride 95.9 L Carbon Dioxide 20 L BUN 33 H Creatinine 1.8 H Glucose 760 H* POC Glucose Lactic Acid Calcium Phosphorus 5.70 H C-Reactive Protein Urine WBC (Auto) Phenobarbital 03/07/18 03/07/18 03/07/18 18:12 18:51 19:39 WBC RBC Hgb Hct MCH RDW Fibrinogen POC ABG pH POC ABG pCO2 POC ABG pO2 VBG pH Sodium Potassium Chloride Carbon Dioxide BUN Creatinine Glucose POC Glucose Lactic Acid 4.20 H* 3.40 H* Calcium Phosphorus C-Reactive Protein Urine WBC (Auto) 91.0 H Phenobarbital 03/07/18 03/07/18 03/07/18 19:56 21:03 21:03 WBC RBC Hgb Hct MCH RDW Fibrinogen POC ABG pH POC ABG pCO2 POC ABG pO2 VBG pH Sodium Potassium Chloride Carbon Dioxide 20 L BUN 31 H Creatinine 1.4 H Glucose 381 H POC Glucose 426 H Lactic Acid 2.70 H* Calcium Phosphorus C-Reactive Protein Urine WBC (Auto) Phenobarbital 03/07/18 03/07/18 03/07/18 21:20 22:01 22:38 WBC RBC Hgb Hct MCH RDW Fibrinogen POC ABG pH POC ABG pCO2 POC ABG pO2 VBG pH Sodium Potassium Chloride Carbon Dioxide 17 L BUN 29 H Creatinine 1.4 H Glucose 236 H POC Glucose 323 H 252 H Lactic Acid Calcium Phosphorus C-Reactive Protein Urine WBC (Auto) Phenobarbital 03/07/18 03/07/18 03/08/18 22:38 22:54 00:25 WBC RBC Hgb Hct MCH RDW Fibrinogen POC ABG pH POC ABG pCO2 POC ABG pO2 VBG pH Sodium Potassium Chloride Carbon Dioxide BUN Creatinine Glucose POC Glucose 186 H 51 L Lactic Acid 2.50 H* Calcium Phosphorus C-Reactive Protein Urine WBC (Auto) Phenobarbital 03/08/18 03/08/18 03/08/18 01:03 02:30 03:14 WBC RBC Hgb Hct MCH RDW Fibrinogen POC ABG pH POC ABG pCO2 POC ABG pO2 VBG pH Sodium Potassium Chloride Carbon Dioxide BUN Creatinine Glucose 106 H POC Glucose 157 H 147 H Lactic Acid Calcium Phosphorus C-Reactive Protein Urine WBC (Auto) Phenobarbital 03/08/18 03/08/18 03/08/18 03:47 04:10 05:06 WBC RBC Hgb Hct MCH RDW Fibrinogen POC ABG pH 7.343 L POC ABG pCO2 POC ABG pO2 159 H VBG pH Sodium 146 H D Potassium Chloride 108.7 H Carbon Dioxide 20 L BUN 25 H Creatinine 1.5 H Glucose POC Glucose 146 H Lactic Acid Calcium Phosphorus C-Reactive Protein Urine WBC (Auto) Phenobarbital 03/08/18 03/08/18 03/08/18 06:06 08:07 09:20 WBC RBC Hgb Hct MCH RDW Fibrinogen POC ABG pH POC ABG pCO2 POC ABG pO2 VBG pH Sodium Potassium Chloride Carbon Dioxide BUN Creatinine Glucose POC Glucose 157 H 141 H 133 H Lactic Acid Calcium Phosphorus C-Reactive Protein Urine WBC (Auto) Phenobarbital 03/08/18 03/08/18 03/08/18 10:20 12:33 12:35 WBC RBC Hgb Hct MCH RDW Fibrinogen POC ABG pH POC ABG pCO2 POC ABG pO2 VBG pH Sodium Potassium Chloride 110.8 H Carbon Dioxide 21 L BUN 19 H Creatinine 1.3 H Glucose 142 H POC Glucose 138 H 137 H Lactic Acid Calcium 8.2 L Phosphorus C-Reactive Protein Urine WBC (Auto) Phenobarbital 03/08/18 03/08/18 03/08/18 18:05 18:26 18:26 WBC RBC Hgb Hct MCH RDW Fibrinogen POC ABG pH POC ABG pCO2 POC ABG pO2 VBG pH Sodium Potassium Chloride Carbon Dioxide BUN Creatinine Glucose POC Glucose 315 H Lactic Acid Calcium Phosphorus C-Reactive Protein 4.70 H Urine WBC (Auto) Phenobarbital 13.6 L 03/09/18 03/09/18 03/09/18 00:10 04:16 04:16 WBC 13.9 H RBC 3.55 L Hgb 9.4 L D Hct 29.3 L D MCH 27 L RDW 15.3 H Fibrinogen POC ABG pH POC ABG pCO2 POC ABG pO2 VBG pH Sodium Potassium Chloride 111.6 H Carbon Dioxide BUN Creatinine 1.4 H Glucose 217 H POC Glucose 248 H Lactic Acid Calcium 8.2 L Phosphorus C-Reactive Protein Urine WBC (Auto) Phenobarbital 03/09/18 03/09/18 03/09/18 05:12 05:26 09:46 WBC RBC Hgb Hct MCH RDW Fibrinogen POC ABG pH 7.326 L POC ABG pCO2 POC ABG pO2 156 H 50 L VBG pH Sodium Potassium Chloride Carbon Dioxide BUN Creatinine Glucose POC Glucose 301 H Lactic Acid Calcium Phosphorus C-Reactive Protein Urine WBC (Auto) Phenobarbital 03/09/18 03/09/18 03/09/18 09:58 11:53 14:53 WBC RBC Hgb Hct MCH RDW Fibrinogen 689 H POC ABG pH POC ABG pCO2 POC ABG pO2 108 H VBG pH Sodium Potassium Chloride Carbon Dioxide BUN Creatinine Glucose POC Glucose 291 H Lactic Acid Calcium Phosphorus C-Reactive Protein Urine WBC (Auto) Phenobarbital 03/09/18 03/09/18 03/10/18 17:44 23:26 05:02 WBC 12.0 H RBC Hgb 9.8 L Hct MCH 26 L RDW 15.3 H Fibrinogen POC ABG pH POC ABG pCO2 POC ABG pO2 VBG pH Sodium Potassium Chloride Carbon Dioxide BUN Creatinine Glucose POC Glucose 296 H 250 H Lactic Acid Calcium Phosphorus C-Reactive Protein Urine WBC (Auto) Phenobarbital 03/10/18 03/10/18 03/10/18 05:22 09:16 12:22 WBC RBC Hgb Hct MCH RDW Fibrinogen POC ABG pH POC ABG pCO2 34.1 L POC ABG pO2 VBG pH Sodium Potassium Chloride Carbon Dioxide BUN Creatinine Glucose POC Glucose 261 H 288 H Lactic Acid Calcium Phosphorus C-Reactive Protein Urine WBC (Auto) Phenobarbital 03/10/18 03/11/18 03/11/18 23:24 05:18 05:18 WBC 11.4 H RBC Hgb Hct MCH 26 L RDW 15.3 H Fibrinogen POC ABG pH POC ABG pCO2 POC ABG pO2 VBG pH Sodium 147 H Potassium Chloride 110.4 H Carbon Dioxide BUN Creatinine 1.4 H Glucose 251 H POC Glucose 161 H Lactic Acid Calcium Phosphorus C-Reactive Protein Urine WBC (Auto) Phenobarbital 03/11/18 03/11/18 03/11/18 06:07 12:04 23:33 WBC RBC Hgb Hct MCH RDW Fibrinogen POC ABG pH POC ABG pCO2 POC ABG pO2 VBG pH Sodium Potassium Chloride Carbon Dioxide BUN Creatinine Glucose POC Glucose 297 H 245 H 212 H Lactic Acid Calcium Phosphorus C-Reactive Protein Urine WBC (Auto) Phenobarbital 03/12/18 03/12/18 03/12/18 03:10 05:12 08:12 WBC RBC Hgb Hct MCH RDW Fibrinogen POC ABG pH POC ABG pCO2 POC ABG pO2 54 L VBG pH Sodium 148 H Potassium Chloride 110.0 H Carbon Dioxide BUN Creatinine Glucose 123 H POC Glucose 123 H Lactic Acid Calcium Phosphorus C-Reactive Protein Urine WBC (Auto) Phenobarbital 03/12/18 03/12/18 09:45 11:20 WBC RBC Hgb Hct MCH RDW Fibrinogen POC ABG pH POC ABG pCO2 POC ABG pO2 VBG pH Sodium Potassium Chloride Carbon Dioxide BUN Creatinine Glucose POC Glucose 201 H 249 H Lactic Acid Calcium Phosphorus C-Reactive Protein Urine WBC (Auto) Phenobarbital
--- NOTE | 2018-03-12 16:22 | Progress Note ---
Assessment and Plan Cultures: 03/07/2018 tracheal aspirate: usual respiratory nash. Gram stain negative for significant PMNs. 03/08/2018 blood culture: no growth Urine culture: no growth A/P: 62-year-old female with HTN and diabetes who was brought to the emergency room by EMS after family noted her to be confused. Also with: 1) SIRS v/s sepsis: One episode of fever, chest x-ray does not show pneumonia. UA is positive for pyuria but urine culture negative. Fevers could also be seizure related. completed IV ceftriaxone x 3 days, now on PO Keflex, stop Keflex tomorrow. 2) Metabolic acidosis: improved 3) Acute respiratory failure: extubated, now on nasal cannula. 4) Acute kidney injury: Creatinine improved. 5) Acute encephalopathy: Probably seizure related v/s toxic/metabolic. Neurology consulted. MRI/MRA report without new pathology, showed chronic ischemic changes. EEG with seizure activity. Recs: Plan to stop Keflex tomorrow Antonella Tran MD [facility] C: [phone] O: [phone] F: [phone] Subjective Date of service: 03/12/18 Principal diagnosis: Acute hypoxemic hypercapnic Resp failure; Acute encephalopathy; seizures Interval history: No fevers, no more seizures. Was moved to [facility]. Doing well overall. Has no new complaints. Objective - Exam Narrative Exam: Physical Exam: Constitutional: awake, alert, no distress Head, Ears, Nose: Normocephalic, atraumatic. External ears, nose normal Eyes: Conjunctivae/corneas clear. No icterus. No ptosis. Neck: Supple, no meningeal signs Oral: mucosa moist, no thrush. Cardiovascular: S1, S2 normal. Respiratory: Good air entry, clear to auscultation bilaterally GI: Soft, non-tender; bowel sounds normal. No peritoneal signs Musculoskeletal: No pedal edema, no cyanosis. Skin: No rash or abscess Hem/Lymphatic: No palpable cervical or supraclavicular nodes. No lymphangitis Psych: mood OK, affect normal. Neurological: awake, alert, no focal deficits - Constitutional Vitals: Vital Signs Temp Pulse Resp BP Pulse Ox 98.8 F 92 H 16 152/67 100 03/12/18 12:00 03/12/18 14:16 03/12/18 14:16 03/12/18 14:00 03/12/18 14:00 Temperature -Last 24 Hours Temperature 98.8 F Temperature 99.5 F Temperature 99.5 F Temperature 98.9 F Temperature 98.8 F Temperature 99.8 F - Labs CBC & Chem 7: 03/11/18 05:18 03/12/18 03:10 Labs: Abnormal lab results 03/11/18 03/12/18 03/12/18 Range/Units 23:33 03:10 05:12 POC ABG pO2 (80-105) Sodium 148 H (137-145) mmol/L Chloride 110.0 H (98-107) mmol/L Glucose 123 H (65-100) mg/dL POC Glucose 212 H 123 H (70-105) 03/12/18 03/12/18 03/12/18 Range/Units 08:12 09:45 11:20 POC ABG pO2 54 L (80-105) Sodium (137-145) mmol/L Chloride (98-107) mmol/L Glucose (65-100) mg/dL POC Glucose 201 H 249 H (70-105)
--- NOTE | 2018-03-12 16:29 | Progress Note ---
Assessment and Plan Assessment and plan: Patient is a 62 yo woman with a history of hypertension, type 2 DM, dyslipidemia, depression and prior left big toe diabetic osteomyelitis infection who presented to [facility] ED with AMS. EMS states upon their arrival the patient would not move her left side. The patient never spoke to EMS. EMS states while en route the patient had a generalized tonic-clonic seizure. In the ED the patient appears postictal. While in CT scan, the patient had 2 more generalized tonic-clonic seizures. The patient was brought back to the room and immediately intubated using RSI * The patient was treated with antiepileptic medications. She received neurology consult. MRI of her brain only showed age-related changes * She was intubated and maintained on the ventilator, she was extubated on 03/11/18 * The patient has received IV fluids for acute kidney failure, and is improving * The patient had severe hyperglycemia with hyperosmolar states, received insulin * She did have fever, fever workup was negative, she was treated with empiric antibiotics. It is suspected that fever might have been related to seizures, she was seen by infectious disease. She is currently on Keflex which should be discontinued tomorrow per Dr. Tran * She received hypotonic fluid for hyponatremia * Placed mental health consult for episodes of crying and confusion. However I suspect that it is self-limited as patient was just extubated and has no recollection of what happened. Diagnoses Acute respiratory failure on mechanical ventilator greater than 96 hours Acute metabolic encephalopathy/post ictal state Status epilepticus Acute kidney injury due to vasomotor nephropathy Type 2 diabetes with hyperglycemic hyperosmolar nonketotic states Metabolic acidosis CVA ruled out Fever which was likely related to seizures Hypernatremia History Interval history: She was extubated yesterday Her nurse she has been very sad and was crying all morning. She was confused for a period of time and was refusing all medications -The patient relates that she was just confused because she was seen; she didn't nail as she didn't understand what was going on. No further fevers, no further seizures No vomiting, has been tolerating oral diet Hospitalist Physical - Physical exam Narrative exam: General.: Appears well, no distress, nontoxic HEENT: Moist mucous membranes, extraocular muscles intact, no lymphadenopathy Neck: supple Cardiac: S1-S2 heard Lungs: clear to auscultation bilaterally Abdomen: soft , nontender, nondistended, bowel sounds positive Extremities: no edema clubbing or cyanosis Skin: no rash or lesions Neurologic: no gross focal deficits Psych: appropriate behavior, appropriate mood, corporative, judgment intact - Constitutional Vitals: Temp Pulse Resp BP Pulse Ox 98.8 F 92 H 16 152/67 100 03/12/18 12:00 03/12/18 14:16 03/12/18 14:16 03/12/18 14:00 03/12/18 14:00 General appearance: Present: severe distress, obese Results - Labs CBC & Chem 7: 03/11/18 05:18 03/12/18 03:10 Labs: Laboratory Last Values WBC 11.4 K/mm3 (4.5-11.0) H 03/11/18 05:18 RBC 4.00 M/mm3 (3.65-5.03) 03/11/18 05:18 Hgb 10.5 gm/dl (10.1-14.3) 03/11/18 05:18 Hct 33.5 % (30.3-42.9) 03/11/18 05:18 MCV 84 fl (79-97) 03/11/18 05:18 MCH 26 pg (28-32) L 03/11/18 05:18 MCHC 31 % (30-34) 03/11/18 05:18 RDW 15.3 % (13.2-15.2) H 03/11/18 05:18 Plt Count 210 K/mm3 (140-440) 03/11/18 05:18 Lymph # Conduit Helper 03/07/18 16:11 Add Manual Diff Complete 03/07/18 16:11 Total Counted 100 03/07/18 16:11 Seg Neuts % (Manual) 55.0 % (40.0-70.0) 03/07/18 16:11 Band Neutrophils % 0 % 03/07/18 16:11 Lymphocytes % (Manual) 28.0 % (13.4-35.0) 03/07/18 16:11 Reactive Lymphs % (Man) 12.0 % 03/07/18 16:11 Monocytes % (Manual) 5.0 % (0.0-7.3) 03/07/18 16:11 Eosinophils % (Manual) 0 % (0.0-4.3) 03/07/18 16:11 Basophils % (Manual) 0 % (0.0-1.8) 03/07/18 16:11 Metamyelocytes % 0 % 03/07/18 16:11 Myelocytes % 0 % 03/07/18 16:11 Promyelocytes % 0 % 03/07/18 16:11 Blast Cells % 0 % 03/07/18 16:11 Nucleated RBC % Not Reportable 03/07/18 16:11 Seg Neutrophils # Man 7.4 K/mm3 (1.8-7.7) 03/07/18 16:11 Band Neutrophils # 0.0 K/mm3 03/07/18 16:11 Lymphocytes # (Manual) 3.8 K/mm3 (1.2-5.4) 03/07/18 16:11 Abs React Lymphs (Man) 1.6 K/mm3 03/07/18 16:11 Monocytes # (Manual) 0.7 K/mm3 (0.0-0.8) 03/07/18 16:11 Eosinophils # (Manual) 0.0 K/mm3 (0.0-0.4) 03/07/18 16:11 Basophils # (Manual) 0.0 K/mm3 (0.0-0.1) 03/07/18 16:11 Metamyelocytes # 0.0 K/mm3 03/07/18 16:11 Myelocytes # 0.0 K/mm3 03/07/18 16:11 Promyelocytes # 0.0 K/mm3 03/07/18 16:11 Blast Cells # 0.0 K/mm3 03/07/18 16:11 WBC Morphology Not Reportable 03/07/18 16:11 Hypersegmented Neuts Not Reportable 03/07/18 16:11 Hyposegmented Neuts Not Reportable 03/07/18 16:11 Hypogranular Neuts Not Reportable 03/07/18 16:11 Smudge Cells Not Reportable 03/07/18 16:11 Toxic Granulation Not Reportable 03/07/18 16:11 Toxic Vacuolation Not Reportable 03/07/18 16:11 Dohle Bodies Not Reportable 03/07/18 16:11 Pelger-Huet Anomaly Not Reportable 03/07/18 16:11 [place] Rods Not Reportable 03/07/18 16:11 Platelet Estimate Consistent w auto 03/07/18 16:11 Clumped Platelets Not Reportable 03/07/18 16:11 Plt Clumps, EDTA Not Reportable 03/07/18 16:11 Large Platelets Not Reportable 03/07/18 16:11 Giant Platelets Not Reportable 03/07/18 16:11 Platelet Satelliting Not Reportable 03/07/18 16:11 Plt Morphology Comment Not Reportable 03/07/18 16:11 RBC Morphology Not Reportable 03/07/18 16:11 Dimorphic RBCs Not Reportable 03/07/18 16:11 Polychromasia Not Reportable 03/07/18 16:11 Hypochromasia Few 03/07/18 16:11 Poikilocytosis Not Reportable 03/07/18 16:11 Anisocytosis Not Reportable 03/07/18 16:11 Microcytosis Not Reportable 03/07/18 16:11 Macrocytosis Not Reportable 03/07/18 16:11 Spherocytes Not Reportable 03/07/18 16:11 Pappenheimer Bodies Not Reportable 03/07/18 16:11 Sickle Cells Not Reportable 03/07/18 16:11 Target Cells Not Reportable 03/07/18 16:11 Tear Drop Cells Not Reportable 03/07/18 16:11 Ovalocytes Not Reportable 03/07/18 16:11 Helmet Cells Not Reportable 03/07/18 16:11 [place] Bodies Not Reportable 03/07/18 16:11 [place] Rings Not Reportable 03/07/18 16:11 [place] Cells Not Reportable 03/07/18 16:11 Bite Cells Not Reportable 03/07/18 16:11 Crenated Cell Not Reportable 03/07/18 16:11 Elliptocytes Not Reportable 03/07/18 16:11 Acanthocytes (Spur) Not Reportable 03/07/18 16:11 Rouleaux Not Reportable 03/07/18 16:11 Hemoglobin C Crystals Not Reportable 03/07/18 16:11 Schistocytes Rare 03/07/18 16:11 Malaria parasites Not Reportable 03/07/18 16:11 [place] Bodies Not Reportable 03/07/18 16:11 Hem Pathologist Commnt No 03/07/18 16:11 PT 13.5 Sec. (12.2-14.9) 03/07/18 16:11 INR 0.99 (0.87-1.13) 03/07/18 16:11 APTT 28.8 Sec. (24.2-36.6) 03/07/18 16:11 Thrombin Time 18.7 Sec. (15.1-19.6) 03/07/18 16:11 Fibrinogen 689 mg/dl (211-480) H 03/09/18 14:53 POC ABG pH 7.417 (7.35-7.45) 03/12/18 08:12 POC ABG pCO2 35.6 (35-45) 03/12/18 08:12 POC ABG pO2 54 (80-105) L 03/12/18 08:12 POC ABG HCO3 22.9 03/12/18 08:12 POC ABG Total CO2 24 03/12/18 08:12 POC ABG O2 Sat 88 03/12/18 08:12 POC ABG Base Excess -2 03/12/18 08:12 VBG pH 7.197 (7.320-7.420) L* 03/07/18 18:00 FiO2 21 % 03/12/18 08:12 Sodium 148 mmol/L (137-145) H 03/12/18 03:10 Potassium 3.7 mmol/L (3.6-5.0) 03/12/18 03:10 Chloride 110.0 mmol/L (98-107) H 03/12/18 03:10 Carbon Dioxide 23 mmol/L (22-30) 03/12/18 03:10 Anion Gap 19 mmol/L 03/12/18 03:10 BUN 17 mg/dL (7-17) 03/12/18 03:10 Creatinine 1.2 mg/dL (0.7-1.2) 03/12/18 03:10 Estimated GFR 55 ml/min 03/12/18 03:10 BUN/Creatinine Ratio 14 % 03/12/18 03:10 Glucose 123 mg/dL (65-100) H 03/12/18 03:10 POC Glucose 249 (70-105) H 03/12/18 11:20 Lactic Acid 1.80 mmol/L (0.7-2.0) 03/08/18 06:56 Calcium 9.4 mg/dL (8.4-10.2) 03/12/18 03:10 Phosphorus 5.70 mg/dL (2.5-4.5) H 03/07/18 18:00 Magnesium 2.00 mg/dL (1.7-2.3) 03/07/18 18:00 Total Creatine Kinase 91 units/L (30-135) 03/07/18 16:11 CK-MB (CK-2) 2.6 ng/mL (0.0-4.0) 03/07/18 16:11 CK-MB (CK-2) Rel Index 2.8 (0-4) 03/07/18 16:11 Troponin T < 0.010 ng/mL (0.00-0.029) 03/07/18 16:11 C-Reactive Protein 4.70 mg/dL (0.00-1.30) H 03/08/18 18:26 Vitamin B12 276.3 pg/mL (211-911) 03/09/18 20:17 Folate 9.19 ng/mL (7.3-26.0) 03/09/18 20:17 TSH 1.720 mlU/mL (0.270-4.200) 03/09/18 20:17 Free T4 0.97 ng/dL (0.76-1.46) 03/09/18 20:17 Urine Color Yellow (Yellow) 03/07/18 18:51 Urine Turbidity Slightly-cloudy (Clear) 03/07/18 18:51 Urine pH 5.0 (5.0-7.0) 03/07/18 18:51 Ur Specific [place] 1.015 (1.003-1.030) 03/07/18 18:51 Urine Protein 100 mg/dl mg/dL (Negative) 03/07/18 18:51 Urine Glucose (UA) >=500 mg/dL (Negative) 03/07/18 18:51 Urine Ketones Neg mg/dL (Negative) 03/07/18 18:51 Urine Blood Mod (Negative) 03/07/18 18:51 Urine Nitrite Neg (Negative) 03/07/18 18:51 Urine Bilirubin Neg (Negative) 03/07/18 18:51 Urine Urobilinogen < 2.0 mg/dL (<2.0) 03/07/18 18:51 Ur Leukocyte Esterase Lg (Negative) 03/07/18 18:51 Urine WBC (Auto) 91.0 /HPF (0.0-6.0) H 03/07/18 18:51 Urine RBC (Auto) 8.0 /HPF (0.0-6.0) 03/07/18 18:51 U Epithel Cells (Auto) 1.0 /HPF (0-13.0) 03/07/18 18:51 Urine Bacteria (Auto) 1+ /HPF (Negative) 03/07/18 18:51 Urine WBC Clumps 2+ /HPF 03/07/18 18:51 Urine Mucus 2+ /HPF 03/07/18 18:51 Levetiracetam 45.5 mcg/mL 03/09/18 10:14 Phenobarbital 13.6 ug/mL (15.0-40.0) L 03/08/18 18:26 Influenza A (Rapid) Negative (Negative) 03/08/18 10:45 Influenza B (Rapid) Negative (Negative) 03/08/18 10:45 Nutrition/Malnutrition Assess - Dietary Evaluation Nutrition/Malnutrition Findings: Nutrition Notes Start: 03/08/18 09:43 Freq: Status: Active Protocol: Document 03/12/18 16:03 OL (Rec: 03/12/18 16:09 OL [id number]) Nutrition Notes Initial or Follow up Reassessment Current Diet Consistent CHO Labs/Tests Na 148 Medications Reviewed Height 5 ft 10 in Weight 97.7 kg [place] Body Weight (lbs) 150.0 BMI 30.9 Weight change and time frame Wt. change noted. Subjective/Other Information Pt. sleeping at time of visit. Pt. extubated. TF no longer infusing, diet advanced. 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 Care discussed with RN. Burn Absent Trauma Absent #1 Nutrition Diagnoses Inadequate oral intake As Evidenced by Signs and Symptoms diet advancement Diagnosis Progress(for reassessment Improved documentation) Is patient on ventilator? No Is Patient Ambulatory and/or Out of Bed No REE-([facility]-confined to bed) [phone] Additional Notes adj. wt. 83kg protein (1-1.2g/kg adj. wt.): 83-100g fluid: 1mL/kcal or per MD Nutrition Intervention Change Diet Order: Add mechanical soft modification Nutrition Support: d/c Goal #1 Diet to meet 75-100% of nutrient needs Anticipated Discharge Needs: Unable to determine at this time. Follow-Up By: 03/14/18 Additional Comments f/u: intakes, need for ONS
[2018-03-12] MEDS ORDERED: NACL 0.45% 1000 ML 1,000 ML IV SCH (19:00)
[2018-03-12] MEDS: LOVENOX SUB-Q SCH (22:39)
[2018-03-12] MEDS: LANTUS SUB-Q SCH (22:41)
[2018-03-13] MEDS: KEPPRA PO SCH ×5 (03:11→22:22)
[2018-03-13] MEDS: ANTIBIOTIC OINT TP SCH ×3 (03:13→23:00)
[2018-03-13] MEDS: DUONEB *Not for PRN Use IH SCH ×3 (09:12→19:48)
[2018-03-13] MEDS: VITAMIN B-12 PO SCH (09:46)
[2018-03-13] MEDS: PEPCID IV SCH (09:46)
[2018-03-13] MEDS: KEFLEX PO SCH ×2 (09:46→22:24)
[2018-03-13] MEDS: HumaLOG SUB-Q SCH ×3 (09:49→22:26)
--- NOTE | 2018-03-13 11:45 | Progress Note ---
Assessment and Plan Assessment and plan: Patient is a 62 yo woman with a history of hypertension, type 2 DM, dyslipidemia, depression and prior left big toe diabetic osteomyelitis infection who presented to [facility] ED with AMS. EMS states upon their arrival the patient would not move her left side. The patient never spoke to EMS. EMS states while en route the patient had a generalized tonic-clonic seizure. In the ED the patient appears postictal. While in CT scan, the patient had 2 more generalized tonic-clonic seizures. The patient was brought back to the room and immediately intubated using RSI * The patient was treated with antiepileptic medications. She received neurology consult. MRI of her brain only showed age-related changes * She was intubated and maintained on the ventilator, she was extubated on 03/11/18 * The patient has received IV fluids for acute kidney failure, and is improving * The patient had severe hyperglycemia with hyperosmolar states, received insulin * She did have fever, fever workup was negative, she was treated with empiric antibiotics. It is suspected that fever might have been related to seizures, she was seen by infectious disease. She is currently on Keflex which should be discontinued tomorrow per Dr. Tran * She received hypotonic fluid for hyponatremia * Placed mental health consult for episodes of crying and confusion. However I suspect that it is self-limited as patient was just extubated and has no recollection of what happened. Diagnoses Acute respiratory failure on mechanical ventilator greater than 96 hours Acute metabolic encephalopathy/post ictal state Status epilepticus/COMPLEX PARTIAL SEIZURES Acute kidney injury due to vasomotor nephropathy Type 2 diabetes with hyperglycemic hyperosmolar nonketotic states Metabolic acidosis CVA ruled out Fever which was likely related to seizures Hypernatremia PLAN Continue supportive care Continue ASA, STATIN AND KEPPRA will discuss with neurology concerning the confabulation. may need re imaging if not improvement following control of BP COMPLETES ABX TODAY CONTINUE BLOOD SUGAR MONITOR AND ADJUST INSULIN NEEDED ID AND NEUROLOGY INPUT NOTED ANTICIPATE DISCHARGE IN AM TO REHAB DISCUSSED WITH PATIENT AND NURSING STAFF History Interval history: She was extubated 2 days ago Patient seen and examined this am, remains with intermittent confusion. AND ON [employer]. She continues to confabulate. Unable to answer questions appropriately. When asked where she is and what does the room look like, she tells me that she is 62 and tries to exercise No further fevers, no further seizures No vomiting, has been tolerating oral diet Hospitalist Physical - Physical exam Narrative exam: General.: Appears well, no distress, nontoxic HEENT: Moist mucous membranes, extraocular muscles intact, no lymphadenopathy Neck: supple Cardiac: S1-S2 heard Lungs: clear to auscultation bilaterally Abdomen: soft , nontender, nondistended, bowel sounds positive Extremities: no edema clubbing or cyanosis Skin: no rash or lesions Neurologic:but awake. oriented to person only altered no gross focal deficits Psych: appropriate behavior, appropriate mood, corporative, judgment intact - Constitutional Vitals: Temp Pulse Resp BP Pulse Ox 98.5 F 81 17 174/85 98 03/13/18 04:00 03/13/18 08:00 03/13/18 08:00 03/13/18 06:30 03/13/18 04:00 General appearance: Present: severe distress, obese Results - Labs CBC & Chem 7: 03/11/18 05:18 03/14/18 04:53 Labs: Laboratory Last Values WBC 11.4 K/mm3 (4.5-11.0) H 03/11/18 05:18 RBC 4.00 M/mm3 (3.65-5.03) 03/11/18 05:18 Hgb 10.5 gm/dl (10.1-14.3) 03/11/18 05:18 Hct 33.5 % (30.3-42.9) 03/11/18 05:18 MCV 84 fl (79-97) 03/11/18 05:18 MCH 26 pg (28-32) L 03/11/18 05:18 MCHC 31 % (30-34) 03/11/18 05:18 RDW 15.3 % (13.2-15.2) H 03/11/18 05:18 Plt Count 210 K/mm3 (140-440) 03/11/18 05:18 Lymph # Ap Processor 03/07/18 16:11 Add Manual Diff Complete 03/07/18 16:11 Total Counted 100 03/07/18 16:11 Seg Neuts % (Manual) 55.0 % (40.0-70.0) 03/07/18 16:11 Band Neutrophils % 0 % 03/07/18 16:11 Lymphocytes % (Manual) 28.0 % (13.4-35.0) 03/07/18 16:11 Reactive Lymphs % (Man) 12.0 % 03/07/18 16:11 Monocytes % (Manual) 5.0 % (0.0-7.3) 03/07/18 16:11 Eosinophils % (Manual) 0 % (0.0-4.3) 03/07/18 16:11 Basophils % (Manual) 0 % (0.0-1.8) 03/07/18 16:11 Metamyelocytes % 0 % 03/07/18 16:11 Myelocytes % 0 % 03/07/18 16:11 Promyelocytes % 0 % 03/07/18 16:11 Blast Cells % 0 % 03/07/18 16:11 Nucleated RBC % Not Reportable 03/07/18 16:11 Seg Neutrophils # Man 7.4 K/mm3 (1.8-7.7) 03/07/18 16:11 Band Neutrophils # 0.0 K/mm3 03/07/18 16:11 Lymphocytes # (Manual) 3.8 K/mm3 (1.2-5.4) 03/07/18 16:11 Abs React Lymphs (Man) 1.6 K/mm3 03/07/18 16:11 Monocytes # (Manual) 0.7 K/mm3 (0.0-0.8) 03/07/18 16:11 Eosinophils # (Manual) 0.0 K/mm3 (0.0-0.4) 03/07/18 16:11 Basophils # (Manual) 0.0 K/mm3 (0.0-0.1) 03/07/18 16:11 Metamyelocytes # 0.0 K/mm3 03/07/18 16:11 Myelocytes # 0.0 K/mm3 03/07/18 16:11 Promyelocytes # 0.0 K/mm3 03/07/18 16:11 Blast Cells # 0.0 K/mm3 03/07/18 16:11 WBC Morphology Not Reportable 03/07/18 16:11 Hypersegmented Neuts Not Reportable 03/07/18 16:11 Hyposegmented Neuts Not Reportable 03/07/18 16:11 Hypogranular Neuts Not Reportable 03/07/18 16:11 Smudge Cells Not Reportable 03/07/18 16:11 Toxic Granulation Not Reportable 03/07/18 16:11 Toxic Vacuolation Not Reportable 03/07/18 16:11 Dohle Bodies Not Reportable 03/07/18 16:11 Pelger-Huet Anomaly Not Reportable 03/07/18 16:11 [place] Rods Not Reportable 03/07/18 16:11 Platelet Estimate Consistent w auto 03/07/18 16:11 Clumped Platelets Not Reportable 03/07/18 16:11 Plt Clumps, EDTA Not Reportable 03/07/18 16:11 Large Platelets Not Reportable 03/07/18 16:11 Giant Platelets Not Reportable 03/07/18 16:11 Platelet Satelliting Not Reportable 03/07/18 16:11 Plt Morphology Comment Not Reportable 03/07/18 16:11 RBC Morphology Not Reportable 03/07/18 16:11 Dimorphic RBCs Not Reportable 03/07/18 16:11 Polychromasia Not Reportable 03/07/18 16:11 Hypochromasia Few 03/07/18 16:11 Poikilocytosis Not Reportable 03/07/18 16:11 Anisocytosis Not Reportable 03/07/18 16:11 Microcytosis Not Reportable 03/07/18 16:11 Macrocytosis Not Reportable 03/07/18 16:11 Spherocytes Not Reportable 03/07/18 16:11 Pappenheimer Bodies Not Reportable 03/07/18 16:11 Sickle Cells Not Reportable 03/07/18 16:11 Target Cells Not Reportable 03/07/18 16:11 Tear Drop Cells Not Reportable 03/07/18 16:11 Ovalocytes Not Reportable 03/07/18 16:11 Helmet Cells Not Reportable 03/07/18 16:11 Holman-[place] Bodies Not Reportable 03/07/18 16:11 [place] Rings Not Reportable 03/07/18 16:11 [place] Cells Not Reportable 03/07/18 16:11 Bite Cells Not Reportable 03/07/18 16:11 Crenated Cell Not Reportable 03/07/18 16:11 Elliptocytes Not Reportable 03/07/18 16:11 Acanthocytes (Spur) Not Reportable 03/07/18 16:11 Rouleaux Not Reportable 03/07/18 16:11 Hemoglobin C Crystals Not Reportable 03/07/18 16:11 Schistocytes Rare 03/07/18 16:11 Malaria parasites Not Reportable 03/07/18 16:11 [place] Bodies Not Reportable 03/07/18 16:11 Hem Pathologist Commnt No 03/07/18 16:11 PT 13.5 Sec. (12.2-14.9) 03/07/18 16:11 INR 0.99 (0.87-1.13) 03/07/18 16:11 APTT 28.8 Sec. (24.2-36.6) 03/07/18 16:11 Thrombin Time 18.7 Sec. (15.1-19.6) 03/07/18 16:11 Fibrinogen 689 mg/dl (211-480) H 03/09/18 14:53 POC ABG pH 7.417 (7.35-7.45) 03/12/18 08:12 POC ABG pCO2 35.6 (35-45) 03/12/18 08:12 POC ABG pO2 54 (80-105) L 03/12/18 08:12 POC ABG HCO3 22.9 03/12/18 08:12 POC ABG Total CO2 24 03/12/18 08:12 POC ABG O2 Sat 88 03/12/18 08:12 POC ABG Base Excess -2 03/12/18 08:12 VBG pH 7.197 (7.320-7.420) L* 03/07/18 18:00 FiO2 21 % 03/12/18 08:12 Sodium 148 mmol/L (137-145) H 03/12/18 03:10 Potassium 3.7 mmol/L (3.6-5.0) 03/12/18 03:10 Chloride 110.0 mmol/L (98-107) H 03/12/18 03:10 Carbon Dioxide 23 mmol/L (22-30) 03/12/18 03:10 Anion Gap 19 mmol/L 03/12/18 03:10 BUN 17 mg/dL (7-17) 03/12/18 03:10 Creatinine 1.2 mg/dL (0.7-1.2) 03/12/18 03:10 Estimated GFR 55 ml/min 03/12/18 03:10 BUN/Creatinine Ratio 14 % 03/12/18 03:10 Glucose 123 mg/dL (65-100) H 03/12/18 03:10 POC Glucose 164 (70-105) H 03/13/18 08:23 Lactic Acid 1.80 mmol/L (0.7-2.0) 03/08/18 06:56 Calcium 9.4 mg/dL (8.4-10.2) 03/12/18 03:10 Phosphorus 5.70 mg/dL (2.5-4.5) H 03/07/18 18:00 Magnesium 2.00 mg/dL (1.7-2.3) 03/07/18 18:00 Total Creatine Kinase 91 units/L (30-135) 03/07/18 16:11 CK-MB (CK-2) 2.6 ng/mL (0.0-4.0) 03/07/18 16:11 CK-MB (CK-2) Rel Index 2.8 (0-4) 03/07/18 16:11 Troponin T < 0.010 ng/mL (0.00-0.029) 03/07/18 16:11 C-Reactive Protein 4.70 mg/dL (0.00-1.30) H 03/08/18 18:26 Vitamin B12 276.3 pg/mL (211-911) 03/09/18 20:17 Folate 9.19 ng/mL (7.3-26.0) 03/09/18 20:17 TSH 1.720 mlU/mL (0.270-4.200) 03/09/18 20:17 Free T4 0.97 ng/dL (0.76-1.46) 03/09/18 20:17 T3 (MARK) 64 ng/dL (76-181) L 03/09/18 20:17 Urine Color Yellow (Yellow) 03/07/18 18:51 Urine Turbidity Slightly-cloudy (Clear) 03/07/18 18:51 Urine pH 5.0 (5.0-7.0) 03/07/18 18:51 Ur Specific [place] 1.015 (1.003-1.030) 03/07/18 18:51 Urine Protein 100 mg/dl mg/dL (Negative) 03/07/18 18:51 Urine Glucose (UA) >=500 mg/dL (Negative) 03/07/18 18:51 Urine Ketones Neg mg/dL (Negative) 03/07/18 18:51 Urine Blood Mod (Negative) 03/07/18 18:51 Urine Nitrite Neg (Negative) 03/07/18 18:51 Urine Bilirubin Neg (Negative) 03/07/18 18:51 Urine Urobilinogen < 2.0 mg/dL (<2.0) 03/07/18 18:51 Ur Leukocyte Esterase Lg (Negative) 03/07/18 18:51 Urine WBC (Auto) 91.0 /HPF (0.0-6.0) H 03/07/18 18:51 Urine RBC (Auto) 8.0 /HPF (0.0-6.0) 03/07/18 18:51 U Epithel Cells (Auto) 1.0 /HPF (0-13.0) 03/07/18 18:51 Urine Bacteria (Auto) 1+ /HPF (Negative) 03/07/18 18:51 Urine WBC Clumps 2+ /HPF 03/07/18 18:51 Urine Mucus 2+ /HPF 03/07/18 18:51 Levetiracetam 45.5 mcg/mL 03/09/18 10:14 Phenobarbital 13.6 ug/mL (15.0-40.0) L 03/08/18 18:26 Influenza A (Rapid) Negative (Negative) 03/08/18 10:45 Influenza B (Rapid) Negative (Negative) 03/08/18 10:45 Nutrition/Malnutrition Assess - Dietary Evaluation Nutrition/Malnutrition Findings: Nutrition Notes Start: 03/08/18 09:43 Freq: Status: Active Protocol: Document 03/12/18 16:03 OL (Rec: 03/12/18 16:09 OL [id number]) Nutrition Notes Initial or Follow up Reassessment Current Diet Consistent CHO Labs/Tests Na 148 Medications Reviewed Height 5 ft 10 in Weight 97.7 kg [place] Body Weight (lbs) 150.0 BMI 30.9 Weight change and time frame Wt. change noted. Subjective/Other Information Pt. sleeping at time of visit. Pt. extubated. TF no longer infusing, diet advanced. 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 Burn Absent Trauma Absent #1 Nutrition Diagnoses Inadequate oral intake As Evidenced by Signs and Symptoms diet advancement Diagnosis Progress(for reassessment Improved documentation) Is patient on ventilator? No Is Patient Ambulatory and/or Out of Bed No REE-([facility]-confined to bed) 7219.572 Additional Notes adj. wt. 83kg protein (1-1.2g/kg adj. wt.): 83-100g fluid: 1mL/kcal or per MD Nutrition Intervention Change Diet Order: Add mechanical soft modification Nutrition Support: d/c Goal #1 Diet to meet 75-100% of nutrient needs Anticipated Discharge Needs: Unable to determine at this time. Follow-Up By: 03/14/18 Additional Comments f/u: intakes, need for ONS
[2018-03-13] MEDS: SODIUM CHLORIDE FLUSH SYRINGE 10 ML IV SCH ×2 (12:29→22:29)
[2018-03-13] MEDS: BABY ASPIRIN PO SCH (12:30)
[2018-03-13] MEDS: FLONASE NS SCH (14:12)
[2018-03-13] MEDS: NORVASC PO SCH (16:08)
[2018-03-13] MEDS: HCTZ PO SCH (16:08)
--- NOTE | 2018-03-13 18:57 | Progress Note ---
Assessment and Plan Acute hypoxemic hypercapnic respiratory failure on MVS Acute encephalopathy. Uncontrolled diabetes requiring IV insulin therapy. Sepsis syndrome. Hypertensive emergency with possible encephalopathy as a result of that. Leukocytosis. Urinary tract infection. Hyperkalemia, now corrected. Lactic acidemia. Obesity. History of hypertension (Will up-titrate seroquel; if however still not tolerating extended wean will give a trial of extubation as agitation may not be driven by respiratory distress) - continue seroquel for agitation - continue scheduled lantus insulin - continue q6h accuchesks with SSI for target BG 140-180 mg/dL - continue to wean FiO2 to keep sats > 90% - titrate sedation for RASS 0 to -1 - VAP bundle addressed - Daily SAT's - continue daily SBT's as tolerated via PSV - hold home psychoactive meds until neuro exam complete - continue enteral nutrition as tolerated - get CRP, lactate to aid clinical decision making - nutrition team consulted - continue GI & VTE prophylaxis - continue empiric antibiotics and de-escalate per ID recs - PT/OT as tolerated - mobility protocol for pressure ulcer prophylaxis - continue other care per attending / other consultants The high probability of a clinically significant, sudden or life-threatening deterioration of the [cardiac, neurology] system(s) required my full and direct attention, intervention and personal management. The aggregate critical care time was [32] minutes without overlap. Time includes spent on; [x] Data Review and interpretation [x] Patient assessment and monitoring of vital signs [x] Documentation [x] Medication orders and management Subjective Date of service: 03/13/18 Principal diagnosis: Acute hypoxemic hypercapnic Resp failure; Acute encephalopathy; seizures Interval history: Patient is seen today for: Acute hypoxemic hypercapnic respiratory failure on MVS; Acute encephalopathy; Uncontrolled diabetes requiring IV insulin therapy; Sepsis syndrome; Hypertensive emergency with encephalopathy Seen and examined at bedside; 24hour events reviewed; nursing and respiratory care staff consulted; no adverse overnight events reported to me; Objective Vital Signs - 12hr 03/13/18 03/13/18 03/13/18 07:00 07:16 07:30 Temperature Pulse Rate 79 81 88 Pulse Rate [ Bilateral Throughout] Pulse Rate [ From Monitor] Pulse Rate [ Throughout] Respiratory 10 L 16 16 Rate Respiratory Rate [Bilateral Throughout] Respiratory Rate [ Throughout] Blood Pressure 171/71 171/71 171/71 O2 Sat by Pulse Oximetry 03/13/18 03/13/18 03/13/18 07:46 08:00 08:16 Temperature Pulse Rate 76 82 81 Pulse Rate [ 81 Bilateral Throughout] Pulse Rate [ 83 From Monitor] Pulse Rate [ 83 Throughout] Respiratory 14 18 15 Rate Respiratory 17 Rate [Bilateral Throughout] Respiratory 18 Rate [ Throughout] Blood Pressure 171/71 154/81 154/81 O2 Sat by Pulse 98 Oximetry 03/13/18 03/13/18 03/13/18 08:30 08:46 09:00 Temperature Pulse Rate 85 84 84 Pulse Rate [ Bilateral Throughout] Pulse Rate [ From Monitor] Pulse Rate [ Throughout] Respiratory 15 20 11 L Rate Respiratory Rate [Bilateral Throughout] Respiratory Rate [ Throughout] Blood Pressure 154/81 154/81 154/81 O2 Sat by Pulse Oximetry 03/13/18 03/13/18 03/13/18 09:22 09:30 09:46 Temperature Pulse Rate 85 82 83 Pulse Rate [ Bilateral Throughout] Pulse Rate [ From Monitor] Pulse Rate [ Throughout] Respiratory 18 11 L 20 Rate Respiratory Rate [Bilateral Throughout] Respiratory Rate [ Throughout] Blood Pressure 148/99 148/99 148/99 O2 Sat by Pulse Oximetry 03/13/18 03/13/18 03/13/18 10:00 10:16 10:30 Temperature Pulse Rate 85 93 H 88 Pulse Rate [ Bilateral Throughout] Pulse Rate [ From Monitor] Pulse Rate [ Throughout] Respiratory 20 17 10 L Rate Respiratory Rate [Bilateral Throughout] Respiratory Rate [ Throughout] Blood Pressure 159/74 148/99 148/99 O2 Sat by Pulse 99 Oximetry 03/13/18 03/13/18 03/13/18 10:46 11:00 11:42 Temperature Pulse Rate 90 127 H Pulse Rate [ Bilateral Throughout] Pulse Rate [ From Monitor] Pulse Rate [ Throughout] Respiratory 12 Rate Respiratory Rate [Bilateral Throughout] Respiratory Rate [ Throughout] Blood Pressure 159/74 157/89 157/89 O2 Sat by Pulse Oximetry 03/13/18 03/13/18 03/13/18 11:46 12:00 12:16 Temperature 98.4 F Pulse Rate 89 86 76 Pulse Rate [ Bilateral Throughout] Pulse Rate [ 78 From Monitor] Pulse Rate [ Throughout] Respiratory 18 15 21 Rate Respiratory Rate [Bilateral Throughout] Respiratory Rate [ Throughout] Blood Pressure 157/89 178/85 157/89 O2 Sat by Pulse 98 98 94 Oximetry 03/13/18 03/13/18 03/13/18 12:30 12:46 13:00 Temperature Pulse Rate 84 85 Pulse Rate [ Bilateral Throughout] Pulse Rate [ From Monitor] Pulse Rate [ Throughout] Respiratory 13 24 Rate Respiratory Rate [Bilateral Throughout] Respiratory Rate [ Throughout] Blood Pressure 157/89 178/85 161/72 O2 Sat by Pulse 95 94 95 Oximetry 03/13/18 03/13/18 03/13/18 13:26 13:30 13:46 Temperature Pulse Rate 82 83 Pulse Rate [ Bilateral Throughout] Pulse Rate [ From Monitor] Pulse Rate [ Throughout] Respiratory 10 L 17 Rate Respiratory Rate [Bilateral Throughout] Respiratory Rate [ Throughout] Blood Pressure 161/72 161/72 161/72 O2 Sat by Pulse 100 99 Oximetry 03/13/18 03/13/18 03/13/18 14:00 14:16 14:30 Temperature Pulse Rate 93 H 90 84 Pulse Rate [ 80 Bilateral Throughout] Pulse Rate [ From Monitor] Pulse Rate [ 78 Throughout] Respiratory 26 H 15 14 Rate Respiratory 16 Rate [Bilateral Throughout] Respiratory 13 Rate [ Throughout] Blood Pressure 161/72 181/84 181/84 O2 Sat by Pulse 100 Oximetry 03/13/18 03/13/18 03/13/18 14:46 15:00 15:16 Temperature Pulse Rate 84 112 H 76 Pulse Rate [ Bilateral Throughout] Pulse Rate [ From Monitor] Pulse Rate [ Throughout] Respiratory 13 30 H 12 Rate Respiratory Rate [Bilateral Throughout] Respiratory Rate [ Throughout] Blood Pressure 181/84 181/84 193/82 O2 Sat by Pulse Oximetry 03/13/18 03/13/18 03/13/18 15:30 15:46 16:00 Temperature 98.4 F Pulse Rate 81 85 86 Pulse Rate [ Bilateral Throughout] Pulse Rate [ 82 From Monitor] Pulse Rate [ Throughout] Respiratory 17 13 10 L Rate Respiratory Rate [Bilateral Throughout] Respiratory Rate [ Throughout] Blood Pressure 193/82 193/82 193/82 O2 Sat by Pulse 98 Oximetry 03/13/18 03/13/18 03/13/18 16:16 16:30 16:46 Temperature Pulse Rate 90 85 85 Pulse Rate [ Bilateral Throughout] Pulse Rate [ From Monitor] Pulse Rate [ Throughout] Respiratory 16 11 L 25 H Rate Respiratory Rate [Bilateral Throughout] Respiratory Rate [ Throughout] Blood Pressure 144/49 144/49 144/49 O2 Sat by Pulse Oximetry 03/13/18 17:00 Temperature Pulse Rate 84 Pulse Rate [ Bilateral Throughout] Pulse Rate [ From Monitor] Pulse Rate [ Throughout] Respiratory 14 Rate Respiratory Rate [Bilateral Throughout] Respiratory Rate [ Throughout] Blood Pressure 153/60 O2 Sat by Pulse Oximetry Constitutional: appears uncomfortable, other (elderly looking AAF, normocephalic and atraumatic) Eyes: non-icteric ENT: oropharynx moist, other Neck: supple, no lymphadenopathy, no JVD, other (No thyromegaly) Effort: mildly labored Ascultation: Bilateral: rhonchi Percussion: Bilateral: not dull Cardiovascular: regular rate and rhythm Gastrointestinal: normoactive bowel sounds, soft, non-tender, non-distended Integumentary: normal Extremities: no cyanosis, no edema, pulses normal, no ischemia or petechiae Neurologic: non-focal exam (moves all extemities), motor strength normal and Psychiatric: mood appropriate, affect normal CBC and BMP: 03/11/18 05:18 03/12/18 03:10 ABG, PT/INR, D-dimer: ABG POC ABG pH 7.417 (7.35-7.45) 03/12/18 08:12 POC ABG pCO2 35.6 (35-45) 03/12/18 08:12 POC ABG pO2 54 (80-105) L 03/12/18 08:12 POC ABG HCO3 22.9 03/12/18 08:12 POC ABG Total CO2 24 03/12/18 08:12 POC ABG O2 Sat 88 03/12/18 08:12 PT/INR, D-dimer PT 13.5 Sec. (12.2-14.9) 03/07/18 16:11 INR 0.99 (0.87-1.13) 03/07/18 16:11 Abnormal lab findings: Abnormal Labs 03/07/18 03/07/18 03/07/18 16:11 16:11 17:29 WBC 13.5 H RBC Hgb Hct MCH 26 L RDW 16.5 H Fibrinogen POC ABG pH 7.190 L POC ABG pCO2 57.6 H POC ABG pO2 250 H VBG pH Sodium 134 L Potassium Chloride 93.2 L Carbon Dioxide 15 L BUN 32 H Creatinine 1.7 H Glucose 793 H* POC Glucose Lactic Acid Calcium Phosphorus C-Reactive Protein T3 (MARK) Urine WBC (Auto) Phenobarbital 03/07/18 03/07/18 03/07/18 18:00 18:00 18:00 WBC RBC Hgb Hct MCH RDW Fibrinogen POC ABG pH POC ABG pCO2 POC ABG pO2 VBG pH 7.197 L* Sodium 133 L Potassium 5.8 H D Chloride 95.9 L Carbon Dioxide 20 L BUN 33 H Creatinine 1.8 H Glucose 760 H* POC Glucose Lactic Acid Calcium Phosphorus 5.70 H C-Reactive Protein T3 (MARK) Urine WBC (Auto) Phenobarbital 03/07/18 03/07/18 03/07/18 18:12 18:51 19:39 WBC RBC Hgb Hct MCH RDW Fibrinogen POC ABG pH POC ABG pCO2 POC ABG pO2 VBG pH Sodium Potassium Chloride Carbon Dioxide BUN Creatinine Glucose POC Glucose Lactic Acid 4.20 H* 3.40 H* Calcium Phosphorus C-Reactive Protein T3 (MARK) Urine WBC (Auto) 91.0 H Phenobarbital 03/07/18 03/07/18 03/07/18 19:56 21:03 21:03 WBC RBC Hgb Hct MCH RDW Fibrinogen POC ABG pH POC ABG pCO2 POC ABG pO2 VBG pH Sodium Potassium Chloride Carbon Dioxide 20 L BUN 31 H Creatinine 1.4 H Glucose 381 H POC Glucose 426 H Lactic Acid 2.70 H* Calcium Phosphorus C-Reactive Protein T3 (MARK) Urine WBC (Auto) Phenobarbital 03/07/18 03/07/18 03/07/18 21:20 22:01 22:38 WBC RBC Hgb Hct MCH RDW Fibrinogen POC ABG pH POC ABG pCO2 POC ABG pO2 VBG pH Sodium Potassium Chloride Carbon Dioxide 17 L BUN 29 H Creatinine 1.4 H Glucose 236 H POC Glucose 323 H 252 H Lactic Acid Calcium Phosphorus C-Reactive Protein T3 (MARK) Urine WBC (Auto) Phenobarbital 03/07/18 03/07/18 03/08/18 22:38 22:54 00:25 WBC RBC Hgb Hct MCH RDW Fibrinogen POC ABG pH POC ABG pCO2 POC ABG pO2 VBG pH Sodium Potassium Chloride Carbon Dioxide BUN Creatinine Glucose POC Glucose 186 H 51 L Lactic Acid 2.50 H* Calcium Phosphorus C-Reactive Protein T3 (MARK) Urine WBC (Auto) Phenobarbital 03/08/18 03/08/18 03/08/18 01:03 02:30 03:14 WBC RBC Hgb Hct MCH RDW Fibrinogen POC ABG pH POC ABG pCO2 POC ABG pO2 VBG pH Sodium Potassium Chloride Carbon Dioxide BUN Creatinine Glucose 106 H POC Glucose 157 H 147 H Lactic Acid Calcium Phosphorus C-Reactive Protein T3 (MARK) Urine WBC (Auto) Phenobarbital 03/08/18 03/08/18 03/08/18 03:47 04:10 05:06 WBC RBC Hgb Hct MCH RDW Fibrinogen POC ABG pH 7.343 L POC ABG pCO2 POC ABG pO2 159 H VBG pH Sodium 146 H D Potassium Chloride 108.7 H Carbon Dioxide 20 L BUN 25 H Creatinine 1.5 H Glucose POC Glucose 146 H Lactic Acid Calcium Phosphorus C-Reactive Protein T3 (MARK) Urine WBC (Auto) Phenobarbital 03/08/18 03/08/18 03/08/18 06:06 08:07 09:20 WBC RBC Hgb Hct MCH RDW Fibrinogen POC ABG pH POC ABG pCO2 POC ABG pO2 VBG pH Sodium Potassium Chloride Carbon Dioxide BUN Creatinine Glucose POC Glucose 157 H 141 H 133 H Lactic Acid Calcium Phosphorus C-Reactive Protein T3 (MARK) Urine WBC (Auto) Phenobarbital 03/08/18 03/08/18 03/08/18 10:20 12:33 12:35 WBC RBC Hgb Hct MCH RDW Fibrinogen POC ABG pH POC ABG pCO2 POC ABG pO2 VBG pH Sodium Potassium Chloride 110.8 H Carbon Dioxide 21 L BUN 19 H Creatinine 1.3 H Glucose 142 H POC Glucose 138 H 137 H Lactic Acid Calcium 8.2 L Phosphorus C-Reactive Protein T3 (MARK) Urine WBC (Auto) Phenobarbital 03/08/18 03/08/18 03/08/18 18:05 18:26 18:26 WBC RBC Hgb Hct MCH RDW Fibrinogen POC ABG pH POC ABG pCO2 POC ABG pO2 VBG pH Sodium Potassium Chloride Carbon Dioxide BUN Creatinine Glucose POC Glucose 315 H Lactic Acid Calcium Phosphorus C-Reactive Protein 4.70 H T3 (MARK) Urine WBC (Auto) Phenobarbital 13.6 L 03/09/18 03/09/18 03/09/18 00:10 04:16 04:16 WBC 13.9 H RBC 3.55 L Hgb 9.4 L D Hct 29.3 L D MCH 27 L RDW 15.3 H Fibrinogen POC ABG pH POC ABG pCO2 POC ABG pO2 VBG pH Sodium Potassium Chloride 111.6 H Carbon Dioxide BUN Creatinine 1.4 H Glucose 217 H POC Glucose 248 H Lactic Acid Calcium 8.2 L Phosphorus C-Reactive Protein T3 (MARK) Urine WBC (Auto) Phenobarbital 03/09/18 03/09/18 03/09/18 05:12 05:26 09:46 WBC RBC Hgb Hct MCH RDW Fibrinogen POC ABG pH 7.326 L POC ABG pCO2 POC ABG pO2 156 H 50 L VBG pH Sodium Potassium Chloride Carbon Dioxide BUN Creatinine Glucose POC Glucose 301 H Lactic Acid Calcium Phosphorus C-Reactive Protein T3 (MARK) Urine WBC (Auto) Phenobarbital 03/09/18 03/09/18 03/09/18 09:58 11:53 14:53 WBC RBC Hgb Hct MCH RDW Fibrinogen 689 H POC ABG pH POC ABG pCO2 POC ABG pO2 108 H VBG pH Sodium Potassium Chloride Carbon Dioxide BUN Creatinine Glucose POC Glucose 291 H Lactic Acid Calcium Phosphorus C-Reactive Protein T3 (MARK) Urine WBC (Auto) Phenobarbital 03/09/18 03/09/18 03/09/18 17:44 20:17 23:26 WBC RBC Hgb Hct MCH RDW Fibrinogen POC ABG pH POC ABG pCO2 POC ABG pO2 VBG pH Sodium Potassium Chloride Carbon Dioxide BUN Creatinine Glucose POC Glucose 296 H 250 H Lactic Acid Calcium Phosphorus C-Reactive Protein T3 (MARK) 64 L Urine WBC (Auto) Phenobarbital 03/10/18 03/10/18 03/10/18 05:02 05:22 09:16 WBC 12.0 H RBC Hgb 9.8 L Hct MCH 26 L RDW 15.3 H Fibrinogen POC ABG pH POC ABG pCO2 34.1 L POC ABG pO2 VBG pH Sodium Potassium Chloride Carbon Dioxide BUN Creatinine Glucose POC Glucose 261 H Lactic Acid Calcium Phosphorus C-Reactive Protein T3 (MARK) Urine WBC (Auto) Phenobarbital 03/10/18 03/10/18 03/11/18 12:22 23:24 05:18 WBC 11.4 H RBC Hgb Hct MCH 26 L RDW 15.3 H Fibrinogen POC ABG pH POC ABG pCO2 POC ABG pO2 VBG pH Sodium Potassium Chloride Carbon Dioxide BUN Creatinine Glucose POC Glucose 288 H 161 H Lactic Acid Calcium Phosphorus C-Reactive Protein T3 (MARK) Urine WBC (Auto) Phenobarbital 03/11/18 03/11/18 03/11/18 05:18 06:07 12:04 WBC RBC Hgb Hct MCH RDW Fibrinogen POC ABG pH POC ABG pCO2 POC ABG pO2 VBG pH Sodium 147 H Potassium Chloride 110.4 H Carbon Dioxide BUN Creatinine 1.4 H Glucose 251 H POC Glucose 297 H 245 H Lactic Acid Calcium Phosphorus C-Reactive Protein T3 (MARK) Urine WBC (Auto) Phenobarbital 03/11/18 03/12/18 03/12/18 23:33 03:10 05:12 WBC RBC Hgb Hct MCH RDW Fibrinogen POC ABG pH POC ABG pCO2 POC ABG pO2 VBG pH Sodium 148 H Potassium Chloride 110.0 H Carbon Dioxide BUN Creatinine Glucose 123 H POC Glucose 212 H 123 H Lactic Acid Calcium Phosphorus C-Reactive Protein T3 (MARK) Urine WBC (Auto) Phenobarbital 03/12/18 03/12/18 03/12/18 08:12 09:45 11:20 WBC RBC Hgb Hct MCH RDW Fibrinogen POC ABG pH POC ABG pCO2 POC ABG pO2 54 L VBG pH Sodium Potassium Chloride Carbon Dioxide BUN Creatinine Glucose POC Glucose 201 H 249 H Lactic Acid Calcium Phosphorus C-Reactive Protein T3 (MARK) Urine WBC (Auto) Phenobarbital 03/12/18 03/13/18 03/13/18 22:27 08:23 11:34 WBC RBC Hgb Hct MCH RDW Fibrinogen POC ABG pH POC ABG pCO2 POC ABG pO2 VBG pH Sodium Potassium Chloride Carbon Dioxide BUN Creatinine Glucose POC Glucose 225 H 164 H 265 H Lactic Acid Calcium Phosphorus C-Reactive Protein T3 (MARK) Urine WBC (Auto) Phenobarbital 03/13/18 16:03 WBC RBC Hgb Hct MCH RDW Fibrinogen POC ABG pH POC ABG pCO2 POC ABG pO2 VBG pH Sodium Potassium Chloride Carbon Dioxide BUN Creatinine Glucose POC Glucose 184 H Lactic Acid Calcium Phosphorus C-Reactive Protein T3 (MARK) Urine WBC (Auto) Phenobarbital Allied health notes reviewed: nursing
[2018-03-13] MEDS: LOVENOX SUB-Q SCH (22:23)
[2018-03-13] MEDS: LANTUS SUB-Q SCH (22:27)
[2018-03-14 05:16] LABS: Calcium 8.8 mg/dL (8.4-10.2)
[2018-03-14] MEDS: KEPPRA PO SCH ×3 (06:18→21:36)
[2018-03-14] MEDS: DUONEB *Not for PRN Use IH SCH ×3 (07:56→20:21)
[2018-03-14] MEDS: HumaLOG SUB-Q SCH ×5 (08:23→21:43)
[2018-03-14] MEDS: VITAMIN B-12 PO SCH (09:06)
[2018-03-14] MEDS: PEPCID IV SCH (09:06)
[2018-03-14] MEDS: NORVASC PO SCH (09:06)
[2018-03-14] MEDS: ANTIBIOTIC OINT TP SCH ×2 (09:07→23:41)
[2018-03-14] MEDS: KEFLEX PO SCH (09:07)
[2018-03-14] MEDS: BABY ASPIRIN PO SCH (09:07)
[2018-03-14] MEDS: HCTZ PO SCH (09:07)
[2018-03-14] MEDS: SODIUM CHLORIDE FLUSH SYRINGE 10 ML IV SCH ×2 (09:08→21:50)
[2018-03-14] MEDS: DIOVAN PO SCH (09:22)
--- NOTE | 2018-03-14 12:11 | Progress Note ---
Assessment and Plan Assessment and plan: Patient is a 62 yo woman with a history of hypertension, type 2 DM, dyslipidemia, depression and prior left big toe diabetic osteomyelitis infection who presented to [facility] ED with AMS. EMS states upon their arrival the patient would not move her left side. The patient never spoke to EMS. EMS states while en route the patient had a generalized tonic-clonic seizure. In the ED the patient appears postictal. While in CT scan, the patient had 2 more generalized tonic-clonic seizures. The patient was brought back to the room and immediately intubated using RSI * The patient was treated with antiepileptic medications. She received neurology consult. MRI of her brain only showed age-related changes * She was intubated and maintained on the ventilator, she was extubated on 03/11/18 * The patient has received IV fluids for acute kidney failure, and is improving * The patient had severe hyperglycemia with hyperosmolar states, received insulin * She did have fever, fever workup was negative, she was treated with empiric antibiotics. It is suspected that fever might have been related to seizures, she was seen by infectious disease. She is currently on Keflex which should be discontinued tomorrow per Dr. Tran * She received hypotonic fluid for hyponatremia * Placed mental health consult for episodes of crying and confusion. However I suspect that it is self-limited as patient was just extubated and has no recollection of what happened. Diagnoses Acute respiratory failure on mechanical ventilator greater than 96 hours Acute metabolic encephalopathy/post ictal state Status epilepticus/COMPLEX PARTIAL SEIZURES Acute kidney injury due to vasomotor nephropathy Type 2 diabetes with hyperglycemic hyperosmolar nonketotic states Metabolic acidosis CVA ruled out Fever which was likely related to seizures Hypernatremia PLAN Continue supportive care Continue ASA, STATIN AND KEPPRA COMPLETES ABX TODAY CONTINUE BLOOD SUGAR MONITOR AND ADJUST INSULIN NEEDED ID AND NEUROLOGY INPUT NOTED ANTICIPATE DISCHARGE IN AM TO REHAB DISCUSSED WITH PATIENT AND NURSING STAFF History Interval history: She was extubated 2 days ago Patient seen and examined this am, remains with intermittent confusion. much improved this am, clinically She continues to confabulate No further fevers, no further seizures No vomiting, has been tolerating oral diet Hospitalist Physical - Physical exam Narrative exam: General.: Appears well, no distress, nontoxic HEENT: Moist mucous membranes, extraocular muscles intact, no lymphadenopathy Neck: supple Cardiac: S1-S2 heard Lungs: clear to auscultation bilaterally Abdomen: soft , nontender, nondistended, bowel sounds positive Extremities: no edema clubbing or cyanosis Skin: no rash or lesions Neurologic:but awake. oriented to person, place and time altered no gross focal deficits Psych: appropriate behavior, appropriate mood, corporative, judgment intact - Constitutional Vitals: Temp Pulse Resp BP Pulse Ox 98.9 F 81 18 141/67 100 03/14/18 04:00 03/14/18 09:22 03/14/18 08:10 03/14/18 09:22 03/14/18 10:00 General appearance: Present: severe distress, obese Results - Labs CBC & Chem 7: 03/11/18 05:18 03/15/18 06:50 Labs: Laboratory Last Values WBC 11.4 K/mm3 (4.5-11.0) H 03/11/18 05:18 RBC 4.00 M/mm3 (3.65-5.03) 03/11/18 05:18 Hgb 10.5 gm/dl (10.1-14.3) 03/11/18 05:18 Hct 33.5 % (30.3-42.9) 03/11/18 05:18 MCV 84 fl (79-97) 03/11/18 05:18 MCH 26 pg (28-32) L 03/11/18 05:18 MCHC 31 % (30-34) 03/11/18 05:18 RDW 15.3 % (13.2-15.2) H 03/11/18 05:18 Plt Count 210 K/mm3 (140-440) 03/11/18 05:18 Lymph # Forming Operator 03/07/18 16:11 Add Manual Diff Complete 03/07/18 16:11 Total Counted 100 03/07/18 16:11 Seg Neuts % (Manual) 55.0 % (40.0-70.0) 03/07/18 16:11 Band Neutrophils % 0 % 03/07/18 16:11 Lymphocytes % (Manual) 28.0 % (13.4-35.0) 03/07/18 16:11 Reactive Lymphs % (Man) 12.0 % 03/07/18 16:11 Monocytes % (Manual) 5.0 % (0.0-7.3) 03/07/18 16:11 Eosinophils % (Manual) 0 % (0.0-4.3) 03/07/18 16:11 Basophils % (Manual) 0 % (0.0-1.8) 03/07/18 16:11 Metamyelocytes % 0 % 03/07/18 16:11 Myelocytes % 0 % 03/07/18 16:11 Promyelocytes % 0 % 03/07/18 16:11 Blast Cells % 0 % 03/07/18 16:11 Nucleated RBC % Not Reportable 03/07/18 16:11 Seg Neutrophils # Man 7.4 K/mm3 (1.8-7.7) 03/07/18 16:11 Band Neutrophils # 0.0 K/mm3 03/07/18 16:11 Lymphocytes # (Manual) 3.8 K/mm3 (1.2-5.4) 03/07/18 16:11 Abs React Lymphs (Man) 1.6 K/mm3 03/07/18 16:11 Monocytes # (Manual) 0.7 K/mm3 (0.0-0.8) 03/07/18 16:11 Eosinophils # (Manual) 0.0 K/mm3 (0.0-0.4) 03/07/18 16:11 Basophils # (Manual) 0.0 K/mm3 (0.0-0.1) 03/07/18 16:11 Metamyelocytes # 0.0 K/mm3 03/07/18 16:11 Myelocytes # 0.0 K/mm3 03/07/18 16:11 Promyelocytes # 0.0 K/mm3 03/07/18 16:11 Blast Cells # 0.0 K/mm3 03/07/18 16:11 WBC Morphology Not Reportable 03/07/18 16:11 Hypersegmented Neuts Not Reportable 03/07/18 16:11 Hyposegmented Neuts Not Reportable 03/07/18 16:11 Hypogranular Neuts Not Reportable 03/07/18 16:11 Smudge Cells Not Reportable 03/07/18 16:11 Toxic Granulation Not Reportable 03/07/18 16:11 Toxic Vacuolation Not Reportable 03/07/18 16:11 Dohle Bodies Not Reportable 03/07/18 16:11 Pelger-Huet Anomaly Not Reportable 03/07/18 16:11 [place] Rods Not Reportable 03/07/18 16:11 Platelet Estimate Consistent w auto 03/07/18 16:11 Clumped Platelets Not Reportable 03/07/18 16:11 Plt Clumps, EDTA Not Reportable 03/07/18 16:11 Large Platelets Not Reportable 03/07/18 16:11 Giant Platelets Not Reportable 03/07/18 16:11 Platelet Satelliting Not Reportable 03/07/18 16:11 Plt Morphology Comment Not Reportable 03/07/18 16:11 RBC Morphology Not Reportable 03/07/18 16:11 Dimorphic RBCs Not Reportable 03/07/18 16:11 Polychromasia Not Reportable 03/07/18 16:11 Hypochromasia Few 03/07/18 16:11 Poikilocytosis Not Reportable 03/07/18 16:11 Anisocytosis Not Reportable 03/07/18 16:11 Microcytosis Not Reportable 03/07/18 16:11 Macrocytosis Not Reportable 03/07/18 16:11 Spherocytes Not Reportable 03/07/18 16:11 Pappenheimer Bodies Not Reportable 03/07/18 16:11 Sickle Cells Not Reportable 03/07/18 16:11 Target Cells Not Reportable 03/07/18 16:11 Tear Drop Cells Not Reportable 03/07/18 16:11 Ovalocytes Not Reportable 03/07/18 16:11 Helmet Cells Not Reportable 03/07/18 16:11 [place] Bodies Not Reportable 03/07/18 16:11 [place] Rings Not Reportable 03/07/18 16:11 Va[place]navi Cells Not Reportable 03/07/18 16:11 Bite Cells Not Reportable 03/07/18 16:11 Crenated Cell Not Reportable 03/07/18 16:11 Elliptocytes Not Reportable 03/07/18 16:11 Acanthocytes (Spur) Not Reportable 03/07/18 16:11 Rouleaux Not Reportable 03/07/18 16:11 Hemoglobin C Crystals Not Reportable 03/07/18 16:11 Schistocytes Rare 03/07/18 16:11 Malaria parasites Not Reportable 03/07/18 16:11 [place] Bodies Not Reportable 03/07/18 16:11 Hem Pathologist Commnt No 03/07/18 16:11 PT 13.5 Sec. (12.2-14.9) 03/07/18 16:11 INR 0.99 (0.87-1.13) 03/07/18 16:11 APTT 28.8 Sec. (24.2-36.6) 03/07/18 16:11 Thrombin Time 18.7 Sec. (15.1-19.6) 03/07/18 16:11 Fibrinogen 689 mg/dl (211-480) H 03/09/18 14:53 POC ABG pH 7.417 (7.35-7.45) 03/12/18 08:12 POC ABG pCO2 35.6 (35-45) 03/12/18 08:12 POC ABG pO2 54 (80-105) L 03/12/18 08:12 POC ABG HCO3 22.9 03/12/18 08:12 POC ABG Total CO2 24 03/12/18 08:12 POC ABG O2 Sat 88 03/12/18 08:12 POC ABG Base Excess -2 03/12/18 08:12 VBG pH 7.197 (7.320-7.420) L* 03/07/18 18:00 FiO2 21 % 03/12/18 08:12 Sodium 145 mmol/L (137-145) 03/14/18 04:53 Potassium 3.7 mmol/L (3.6-5.0) 03/14/18 04:53 Chloride 108.8 mmol/L (98-107) H 03/14/18 04:53 Carbon Dioxide 22 mmol/L (22-30) 03/14/18 04:53 Anion Gap 18 mmol/L 03/14/18 04:53 BUN 15 mg/dL (7-17) 03/14/18 04:53 Creatinine 1.2 mg/dL (0.7-1.2) 03/14/18 04:53 Estimated GFR 55 ml/min 03/14/18 04:53 BUN/Creatinine Ratio 13 % 03/14/18 04:53 Glucose 184 mg/dL (65-100) H 03/14/18 04:53 POC Glucose 180 (70-105) H 03/14/18 11:24 Lactic Acid 1.80 mmol/L (0.7-2.0) 03/08/18 06:56 Calcium 8.8 mg/dL (8.4-10.2) 03/14/18 04:53 Phosphorus 5.70 mg/dL (2.5-4.5) H 03/07/18 18:00 Magnesium 2.00 mg/dL (1.7-2.3) 03/07/18 18:00 Total Creatine Kinase 91 units/L (30-135) 03/07/18 16:11 CK-MB (CK-2) 2.6 ng/mL (0.0-4.0) 03/07/18 16:11 CK-MB (CK-2) Rel Index 2.8 (0-4) 03/07/18 16:11 Troponin T < 0.010 ng/mL (0.00-0.029) 03/07/18 16:11 C-Reactive Protein 4.70 mg/dL (0.00-1.30) H 03/08/18 18:26 Vitamin B12 276.3 pg/mL (211-911) 03/09/18 20:17 Folate 9.19 ng/mL (7.3-26.0) 03/09/18 20:17 TSH 1.720 mlU/mL (0.270-4.200) 03/09/18 20:17 Free T4 0.97 ng/dL (0.76-1.46) 03/09/18 20:17 T3 (MARK) 64 ng/dL (76-181) L 03/09/18 20:17 Urine Color Yellow (Yellow) 03/07/18 18:51 Urine Turbidity Slightly-cloudy (Clear) 03/07/18 18:51 Urine pH 5.0 (5.0-7.0) 03/07/18 18:51 Ur Specific [place] 1.015 (1.003-1.030) 03/07/18 18:51 Urine Protein 100 mg/dl mg/dL (Negative) 03/07/18 18:51 Urine Glucose (UA) >=500 mg/dL (Negative) 03/07/18 18:51 Urine Ketones Neg mg/dL (Negative) 03/07/18 18:51 Urine Blood Mod (Negative) 03/07/18 18:51 Urine Nitrite Neg (Negative) 03/07/18 18:51 Urine Bilirubin Neg (Negative) 03/07/18 18:51 Urine Urobilinogen < 2.0 mg/dL (<2.0) 03/07/18 18:51 Ur Leukocyte Esterase Lg (Negative) 03/07/18 18:51 Urine WBC (Auto) 91.0 /HPF (0.0-6.0) H 03/07/18 18:51 Urine RBC (Auto) 8.0 /HPF (0.0-6.0) 03/07/18 18:51 U Epithel Cells (Auto) 1.0 /HPF (0-13.0) 03/07/18 18:51 Urine Bacteria (Auto) 1+ /HPF (Negative) 03/07/18 18:51 Urine WBC Clumps 2+ /HPF 03/07/18 18:51 Urine Mucus 2+ /HPF 03/07/18 18:51 Levetiracetam 45.5 mcg/mL 03/09/18 10:14 Phenobarbital 13.6 ug/mL (15.0-40.0) L 03/08/18 18:26 Influenza A (Rapid) Negative (Negative) 03/08/18 10:45 Influenza B (Rapid) Negative (Negative) 03/08/18 10:45 Nutrition/Malnutrition Assess - Dietary Evaluation Nutrition/Malnutrition Findings: Nutrition Notes Start: 03/08/18 09:43 Freq: Status: Active Protocol: Document 03/12/18 16:03 OL (Rec: 03/12/18 16:09 OL [id number]) Nutrition Notes Initial or Follow up Reassessment Current Diet Consistent CHO Labs/Tests Na 148 Medications Reviewed Height 5 ft 10 in Weight 97.7 kg [place] Body Weight (lbs) 150.0 BMI 30.9 Weight change and time frame Wt. change noted. Subjective/Other Information Pt. sleeping at time of visit. Pt. extubated. TF no longer infusing, diet advanced. MARINE RIGGER recommending [facility] soft diet. Care discussed with RN. Burn Absent Trauma Absent #1 Nutrition Diagnoses Inadequate oral intake As Evidenced by Signs and Symptoms diet advancement Diagnosis Progress(for reassessment Improved documentation) Is patient on ventilator? No Is Patient Ambulatory and/or Out of Bed No REE-([facility]-confined to bed) [phone] Additional Notes adj. wt. 83kg protein (1-1.2g/kg adj. wt.): 83-100g fluid: 1mL/kcal or per MD Nutrition Intervention Change Diet Order: Add mechanical soft modification Nutrition Support: d/c Goal #1 Diet to meet 75-100% of nutrient needs Anticipated Discharge Needs: Unable to determine at this time. Follow-Up By: 03/14/18 Additional Comments f/u: intakes, need for ONS
--- NOTE | 2018-03-14 13:32 | Progress Note ---
Assessment and Plan Patient alert, awake. Resting on 1 litre o2. O2 saturation 100%.No complaint of chest pain, shortness of breath or cough. - Patient Problems (1) Respiratory failure Current Visit: Yes Status: Acute Qualifiers: Chronicity: acute Respiratory failure complication: hypoxia Qualified Code(s): J96.01 - Acute respiratory failure with hypoxia Plan to address problem: O2 saturation 100% on 1 litre O2. Albuterol/atrovent aerosol treatments q 6 hours. (2) Seizure disorder Current Visit: Yes Status: Acute Plan to address problem: Management as per primary care and neurology. (3) ARF (acute renal failure) with tubular necrosis Current Visit: Yes Status: Acute Plan to address problem: Management as per nephrology. (4) Altered mental status Current Visit: Yes Status: Acute Plan to address problem: Improved.Patient alert, awake and oriented. (5) CVA (cerebral vascular accident) Current Visit: Yes Status: Acute Qualifiers: Precerebral and cerebral artery: posterior cerebral artery Plan to address problem: Management as per neurology. (6) DKA (diabetic ketoacidoses) Current Visit: Yes Status: Acute Qualifiers: Diabetes mellitus type: type 1 Diabetes mellitus complication detail: with coma Qualified Code(s): E10.11 - Type 1 diabetes mellitus with ketoacidosis with coma Plan to address problem: Management as per primary care. Subjective Date of service: 03/14/18 Principal diagnosis: Acute hypoxemic hypercapnic Resp failure; Acute encephalopathy; seizures Interval history: Patient alert, awake. Resting on 1 litre o2. O2 saturation 100%.No complaint of chest pain, shortness of breath or cough. Objective Vital Signs - 12hr 03/14/18 03/14/18 03/14/18 01:31 01:45 02:00 Temperature Pulse Rate 86 83 79 Pulse Rate [ From Monitor] Pulse Rate [ Throughout] Respiratory 17 18 15 Rate Respiratory Rate [ Throughout] Blood Pressure 147/60 147/60 147/60 O2 Sat by Pulse Oximetry 03/14/18 03/14/18 03/14/18 02:15 02:31 02:55 Temperature Pulse Rate 79 93 H Pulse Rate [ From Monitor] Pulse Rate [ Throughout] Respiratory 14 20 Rate Respiratory Rate [ Throughout] Blood Pressure 136/72 136/72 152/73 O2 Sat by Pulse Oximetry 03/14/18 03/14/18 03/14/18 03:01 03:15 03:31 Temperature Pulse Rate 91 H 80 80 Pulse Rate [ From Monitor] Pulse Rate [ Throughout] Respiratory 13 16 21 Rate Respiratory Rate [ Throughout] Blood Pressure 139/64 139/64 139/64 O2 Sat by Pulse 100 100 Oximetry 03/14/18 03/14/18 03/14/18 03:45 04:00 04:15 Temperature 98.9 F Pulse Rate 80 74 79 Pulse Rate [ 74 From Monitor] Pulse Rate [ Throughout] Respiratory 19 18 27 H Rate Respiratory Rate [ Throughout] Blood Pressure 139/64 137/62 137/62 O2 Sat by Pulse 99 98 100 Oximetry 03/14/18 03/14/18 03/14/18 04:31 04:45 05:00 Temperature Pulse Rate 74 73 68 Pulse Rate [ From Monitor] Pulse Rate [ Throughout] Respiratory 17 25 H 17 Rate Respiratory Rate [ Throughout] Blood Pressure 137/62 137/62 131/61 O2 Sat by Pulse 100 100 100 Oximetry 03/14/18 03/14/18 03/14/18 05:15 05:31 05:45 Temperature Pulse Rate 66 66 72 Pulse Rate [ From Monitor] Pulse Rate [ Throughout] Respiratory 17 18 17 Rate Respiratory Rate [ Throughout] Blood Pressure 131/61 131/61 131/61 O2 Sat by Pulse 100 100 100 Oximetry 03/14/18 03/14/18 03/14/18 06:00 06:15 06:31 Temperature Pulse Rate 73 73 67 Pulse Rate [ From Monitor] Pulse Rate [ Throughout] Respiratory 18 17 16 Rate Respiratory Rate [ Throughout] Blood Pressure 151/71 151/71 151/71 O2 Sat by Pulse 100 100 100 Oximetry 03/14/18 03/14/18 03/14/18 06:45 07:00 07:15 Temperature Pulse Rate 70 71 73 Pulse Rate [ From Monitor] Pulse Rate [ Throughout] Respiratory 17 22 20 Rate Respiratory Rate [ Throughout] Blood Pressure 151/71 132/63 132/63 O2 Sat by Pulse 100 100 100 Oximetry 03/14/18 03/14/18 03/14/18 07:31 08:00 08:10 Temperature Pulse Rate 68 Pulse Rate [ From Monitor] Pulse Rate [ 81 82 Throughout] Respiratory 16 Rate Respiratory 18 18 Rate [ Throughout] Blood Pressure 132/63 O2 Sat by Pulse 100 Oximetry 01/02/19 01/02/19 01/02/19 09:06 09:22 10:00 Temperature Pulse Rate 83 81 Pulse Rate [ From Monitor] Pulse Rate [ Throughout] Respiratory Rate Respiratory Rate [ Throughout] Blood Pressure 141/67 141/67 O2 Sat by Pulse 100 Oximetry Constitutional: no acute distress, alert, other (elderly looking AAF, normocephalic and atraumatic) Eyes: non-icteric ENT: oropharynx moist, other Neck: supple, no lymphadenopathy, no JVD, other (No thyromegaly) Effort: mildly labored Ascultation: Bilateral: rhonchi Percussion: Bilateral: not dull Cardiovascular: regular rate and rhythm Gastrointestinal: normoactive bowel sounds, soft, non-tender, non-distended Integumentary: normal Extremities: no cyanosis, no edema, pulses normal, no ischemia or petechiae Neurologic: non-focal exam (moves all extemities), motor strength normal and Psychiatric: mood appropriate, affect normal CBC and BMP: 03/11/18 05:18 03/14/18 04:53 ABG, PT/INR, D-dimer: ABG POC ABG pH 7.417 (7.35-7.45) 03/12/18 08:12 POC ABG pCO2 35.6 (35-45) 03/12/18 08:12 POC ABG pO2 54 (80-105) L 03/12/18 08:12 POC ABG HCO3 22.9 03/12/18 08:12 POC ABG Total CO2 24 03/12/18 08:12 POC ABG O2 Sat 88 03/12/18 08:12 PT/INR, D-dimer PT 13.5 Sec. (12.2-14.9) 03/07/18 16:11 INR 0.99 (0.87-1.13) 03/07/18 16:11 Abnormal lab findings: Abnormal Labs 03/07/18 03/07/18 03/07/18 16:11 16:11 17:29 WBC 13.5 H RBC Hgb Hct MCH 26 L RDW 16.5 H Fibrinogen POC ABG pH 7.190 L POC ABG pCO2 57.6 H POC ABG pO2 250 H VBG pH Sodium 134 L Potassium Chloride 93.2 L Carbon Dioxide 15 L BUN 32 H Creatinine 1.7 H Glucose 793 H* POC Glucose Lactic Acid Calcium Phosphorus C-Reactive Protein T3 (MARK) Urine WBC (Auto) Phenobarbital 03/07/18 03/07/18 03/07/18 18:00 18:00 18:00 WBC RBC Hgb Hct MCH RDW Fibrinogen POC ABG pH POC ABG pCO2 POC ABG pO2 VBG pH 7.197 L* Sodium 133 L Potassium 5.8 H D Chloride 95.9 L Carbon Dioxide 20 L BUN 33 H Creatinine 1.8 H Glucose 760 H* POC Glucose Lactic Acid Calcium Phosphorus 5.70 H C-Reactive Protein T3 (MARK) Urine WBC (Auto) Phenobarbital 03/07/18 03/07/18 03/07/18 18:12 18:51 19:39 WBC RBC Hgb Hct MCH RDW Fibrinogen POC ABG pH POC ABG pCO2 POC ABG pO2 VBG pH Sodium Potassium Chloride Carbon Dioxide BUN Creatinine Glucose POC Glucose Lactic Acid 4.20 H* 3.40 H* Calcium Phosphorus C-Reactive Protein T3 (MARK) Urine WBC (Auto) 91.0 H Phenobarbital 03/07/18 03/07/18 03/07/18 19:56 21:03 21:03 WBC RBC Hgb Hct MCH RDW Fibrinogen POC ABG pH POC ABG pCO2 POC ABG pO2 VBG pH Sodium Potassium Chloride Carbon Dioxide 20 L BUN 31 H Creatinine 1.4 H Glucose 381 H POC Glucose 426 H Lactic Acid 2.70 H* Calcium Phosphorus C-Reactive Protein T3 (MARK) Urine WBC (Auto) Phenobarbital 03/07/18 03/07/18 03/07/18 21:20 22:01 22:38 WBC RBC Hgb Hct MCH RDW Fibrinogen POC ABG pH POC ABG pCO2 POC ABG pO2 VBG pH Sodium Potassium Chloride Carbon Dioxide 17 L BUN 29 H Creatinine 1.4 H Glucose 236 H POC Glucose 323 H 252 H Lactic Acid Calcium Phosphorus C-Reactive Protein T3 (MARK) Urine WBC (Auto) Phenobarbital 03/07/18 03/07/18 03/08/18 22:38 22:54 00:25 WBC RBC Hgb Hct MCH RDW Fibrinogen POC ABG pH POC ABG pCO2 POC ABG pO2 VBG pH Sodium Potassium Chloride Carbon Dioxide BUN Creatinine Glucose POC Glucose 186 H 51 L Lactic Acid 2.50 H* Calcium Phosphorus C-Reactive Protein T3 (MARK) Urine WBC (Auto) Phenobarbital 03/08/18 03/08/18 03/08/18 01:03 02:30 03:14 WBC RBC Hgb Hct MCH RDW Fibrinogen POC ABG pH POC ABG pCO2 POC ABG pO2 VBG pH Sodium Potassium Chloride Carbon Dioxide BUN Creatinine Glucose 106 H POC Glucose 157 H 147 H Lactic Acid Calcium Phosphorus C-Reactive Protein T3 (MARK) Urine WBC (Auto) Phenobarbital 03/08/18 03/08/18 03/08/18 03:47 04:10 05:06 WBC RBC Hgb Hct MCH RDW Fibrinogen POC ABG pH 7.343 L POC ABG pCO2 POC ABG pO2 159 H VBG pH Sodium 146 H D Potassium Chloride 108.7 H Carbon Dioxide 20 L BUN 25 H Creatinine 1.5 H Glucose POC Glucose 146 H Lactic Acid Calcium Phosphorus C-Reactive Protein T3 (MARK) Urine WBC (Auto) Phenobarbital 03/08/18 03/08/18 03/08/18 06:06 08:07 09:20 WBC RBC Hgb Hct MCH RDW Fibrinogen POC ABG pH POC ABG pCO2 POC ABG pO2 VBG pH Sodium Potassium Chloride Carbon Dioxide BUN Creatinine Glucose POC Glucose 157 H 141 H 133 H Lactic Acid Calcium Phosphorus C-Reactive Protein T3 (MARK) Urine WBC (Auto) Phenobarbital 03/08/18 03/08/18 03/08/18 10:20 12:33 12:35 WBC RBC Hgb Hct MCH RDW Fibrinogen POC ABG pH POC ABG pCO2 POC ABG pO2 VBG pH Sodium Potassium Chloride 110.8 H Carbon Dioxide 21 L BUN 19 H Creatinine 1.3 H Glucose 142 H POC Glucose 138 H 137 H Lactic Acid Calcium 8.2 L Phosphorus C-Reactive Protein T3 (MARK) Urine WBC (Auto) Phenobarbital 03/08/18 03/08/18 03/08/18 18:05 18:26 18:26 WBC RBC Hgb Hct MCH RDW Fibrinogen POC ABG pH POC ABG pCO2 POC ABG pO2 VBG pH Sodium Potassium Chloride Carbon Dioxide BUN Creatinine Glucose POC Glucose 315 H Lactic Acid Calcium Phosphorus C-Reactive Protein 4.70 H T3 (MARK) Urine WBC (Auto) Phenobarbital 13.6 L 03/09/18 03/09/18 03/09/18 00:10 04:16 04:16 WBC 13.9 H RBC 3.55 L Hgb 9.4 L D Hct 29.3 L D MCH 27 L RDW 15.3 H Fibrinogen POC ABG pH POC ABG pCO2 POC ABG pO2 VBG pH Sodium Potassium Chloride 111.6 H Carbon Dioxide BUN Creatinine 1.4 H Glucose 217 H POC Glucose 248 H Lactic Acid Calcium 8.2 L Phosphorus C-Reactive Protein T3 (MARK) Urine WBC (Auto) Phenobarbital 03/09/18 03/09/18 03/09/18 05:12 05:26 09:46 WBC RBC Hgb Hct MCH RDW Fibrinogen POC ABG pH 7.326 L POC ABG pCO2 POC ABG pO2 156 H 50 L VBG pH Sodium Potassium Chloride Carbon Dioxide BUN Creatinine Glucose POC Glucose 301 H Lactic Acid Calcium Phosphorus C-Reactive Protein T3 (MARK) Urine WBC (Auto) Phenobarbital 03/09/18 03/09/18 03/09/18 09:58 11:53 14:53 WBC RBC Hgb Hct MCH RDW Fibrinogen 689 H POC ABG pH POC ABG pCO2 POC ABG pO2 108 H VBG pH Sodium Potassium Chloride Carbon Dioxide BUN Creatinine Glucose POC Glucose 291 H Lactic Acid Calcium Phosphorus C-Reactive Protein T3 (MARK) Urine WBC (Auto) Phenobarbital 03/09/18 03/09/18 03/09/18 17:44 20:17 23:26 WBC RBC Hgb Hct MCH RDW Fibrinogen POC ABG pH POC ABG pCO2 POC ABG pO2 VBG pH Sodium Potassium Chloride Carbon Dioxide BUN Creatinine Glucose POC Glucose 296 H 250 H Lactic Acid Calcium Phosphorus C-Reactive Protein T3 (MARK) 64 L Urine WBC (Auto) Phenobarbital 03/10/18 03/10/18 03/10/18 05:02 05:22 09:16 WBC 12.0 H RBC Hgb 9.8 L Hct MCH 26 L RDW 15.3 H Fibrinogen POC ABG pH POC ABG pCO2 34.1 L POC ABG pO2 VBG pH Sodium Potassium Chloride Carbon Dioxide BUN Creatinine Glucose POC Glucose 261 H Lactic Acid Calcium Phosphorus C-Reactive Protein T3 (MARK) Urine WBC (Auto) Phenobarbital 03/10/18 03/10/18 03/11/18 12:22 23:24 05:18 WBC 11.4 H RBC Hgb Hct MCH 26 L RDW 15.3 H Fibrinogen POC ABG pH POC ABG pCO2 POC ABG pO2 VBG pH Sodium Potassium Chloride Carbon Dioxide BUN Creatinine Glucose POC Glucose 288 H 161 H Lactic Acid Calcium Phosphorus C-Reactive Protein T3 (MARK) Urine WBC (Auto) Phenobarbital 03/11/18 03/11/18 03/11/18 05:18 06:07 12:04 WBC RBC Hgb Hct MCH RDW Fibrinogen POC ABG pH POC ABG pCO2 POC ABG pO2 VBG pH Sodium 147 H Potassium Chloride 110.4 H Carbon Dioxide BUN Creatinine 1.4 H Glucose 251 H POC Glucose 297 H 245 H Lactic Acid Calcium Phosphorus C-Reactive Protein T3 (MARK) Urine WBC (Auto) Phenobarbital 03/11/18 03/12/18 03/12/18 23:33 03:10 05:12 WBC RBC Hgb Hct MCH RDW Fibrinogen POC ABG pH POC ABG pCO2 POC ABG pO2 VBG pH Sodium 148 H Potassium Chloride 110.0 H Carbon Dioxide BUN Creatinine Glucose 123 H POC Glucose 212 H 123 H Lactic Acid Calcium Phosphorus C-Reactive Protein T3 (MARK) Urine WBC (Auto) Phenobarbital 03/12/18 03/12/18 03/12/18 08:12 09:45 11:20 WBC RBC Hgb Hct MCH RDW Fibrinogen POC ABG pH POC ABG pCO2 POC ABG pO2 54 L VBG pH Sodium Potassium Chloride Carbon Dioxide BUN Creatinine Glucose POC Glucose 201 H 249 H Lactic Acid Calcium Phosphorus C-Reactive Protein T3 (MARK) Urine WBC (Auto) Phenobarbital 03/12/18 03/13/18 03/13/18 22:27 08:23 11:34 WBC RBC Hgb Hct MCH RDW Fibrinogen POC ABG pH POC ABG pCO2 POC ABG pO2 VBG pH Sodium Potassium Chloride Carbon Dioxide BUN Creatinine Glucose POC Glucose 225 H 164 H 265 H Lactic Acid Calcium Phosphorus C-Reactive Protein T3 (MARK) Urine WBC (Auto) Phenobarbital 03/13/18 03/13/18 03/14/18 16:03 21:12 03:04 WBC RBC Hgb Hct MCH RDW Fibrinogen POC ABG pH POC ABG pCO2 POC ABG pO2 VBG pH Sodium Potassium Chloride Carbon Dioxide BUN Creatinine Glucose POC Glucose 184 H 197 H 176 H Lactic Acid Calcium Phosphorus C-Reactive Protein T3 (MARK) Urine WBC (Auto) Phenobarbital 03/14/18 03/14/18 03/14/18 04:53 08:12 11:24 WBC RBC Hgb Hct MCH RDW Fibrinogen POC ABG pH POC ABG pCO2 POC ABG pO2 VBG pH Sodium Potassium Chloride 108.8 H Carbon Dioxide BUN Creatinine Glucose 184 H POC Glucose 168 H 180 H Lactic Acid Calcium Phosphorus C-Reactive Protein T3 (MARK) Urine WBC (Auto) Phenobarbital Chest x-ray: report reviewed (Unremarkable AP chest.), image reviewed Allied health notes reviewed: nursing
[2018-03-14 13:52] LABS: Alanine Aminotransferase 20 units/L (7-56); Albumin 3.1 g/dL (3.9-5)
[2018-03-14 13:53] LABS: Bilirubin,Direct < 0.2 mg/dL (0-0.2)
--- NOTE | 2018-03-14 19:03 | Progress Note ---
Assessment and Plan Cultures: 03/07/2018 tracheal aspirate: usual respiratory nash. Group B Strep. 03/08/2018 blood culture: no growth Urine culture: no growth A/P: 62-year-old female with HTN and diabetes who was brought to the emergency room by EMS after family noted her to be confused. Also with: 1) SIRS v/s sepsis: One episode of fever, chest x-ray does not show pneumonia. UA is positive for pyuria but urine culture negative. Fevers could also be seizure related. completed IV ceftriaxone x 3 days, was switched to Keflex, last dose today. 2) Metabolic acidosis: improved 3) Acute respiratory failure: doing well 4) Acute kidney injury: Creatinine improved. 5) Acute encephalopathy: Probably seizure related v/s toxic/metabolic. Neurology followign. MRI/MRA report without new pathology, showed chronic ischemic changes. EEG with seizure activity. Recs: stopped Keflex Will sign off. Please call with questions. Antonella Tran MD [facility] C: [phone] O: [phone] F: [phone] Subjective Date of service: 03/14/18 Principal diagnosis: Acute hypoxemic hypercapnic Resp failure; Acute encephalopathy; seizures Interval history: No fever. Denies any complaints. Sitting in bed, family at bedside. Objective - Exam Narrative Exam: Physical Exam: Constitutional: awake, alert, sitting in bed Head, Ears, Nose: Normocephalic, atraumatic. External ears, nose normal Eyes: Conjunctivae/corneas clear. No icterus. No ptosis. Neck: Supple, no meningeal signs Oral: no thrush Cardiovascular: S1, S2 normal. Respiratory: Good air entry, clear to auscultation bilaterally GI: Soft, non-tender; bowel sounds normal. No peritoneal signs Musculoskeletal: No pedal edema, no cyanosis. Skin: No rash or abscess Hem/Lymphatic: No palpable cervical or supraclavicular nodes. No lymphangitis Psych:no agitation Neurological: awake, alert. answering questions. - Constitutional Vitals: Vital Signs Temp Pulse Resp BP Pulse Ox 98.2 F 70 18 131/56 98 03/14/18 16:00 03/14/18 17:15 03/14/18 17:15 03/14/18 17:15 03/14/18 17:15 Temperature -Last 24 Hours Temperature 98.2 F Temperature 97.4 F Temperature 98.9 F Temperature 98.8 F Temperature 98.3 F - Labs CBC & Chem 7: 03/11/18 05:18 03/14/18 04:53 Labs: Abnormal lab results 03/13/18 03/14/18 03/14/18 Range/Units 21:12 03:04 04:53 Chloride 108.8 H (98-107) mmol/L Glucose 184 H (65-100) mg/dL POC Glucose 197 H 176 H (70-105) Albumin (3.9-5) g/dL 03/14/18 03/14/18 03/14/18 Range/Units 08:12 11:24 13:06 Chloride (98-107) mmol/L Glucose (65-100) mg/dL POC Glucose 168 H 180 H (70-105) Albumin 3.1 L (3.9-5) g/dL 03/14/18 Range/Units 16:25 Chloride (98-107) mmol/L Glucose (65-100) mg/dL POC Glucose 155 H (70-105) Albumin (3.9-5) g/dL
[2018-03-14] MEDS: FLONASE NS SCH (19:20)
[2018-03-14] MEDS: HABITROL TD SCH (21:36)
[2018-03-14] MEDS: LOVENOX SUB-Q SCH (21:36)
[2018-03-14] MEDS: LANTUS SUB-Q SCH (21:43)
[2018-03-15 07:39] LABS: Calcium 8.9 mg/dL (8.4-10.2)
[2018-03-15] MEDS: DUONEB *Not for PRN Use IH SCH (07:40)
[2018-03-15] MEDS: HumaLOG SUB-Q SCH (08:27)
--- NOTE | 2018-03-15 09:11 | Discharge Summary ---
Providers - Providers Date of Admission: 03/07/18 18:02 Attending physician: ZIA CROWE MD 03/07/18 20:05 Occupational Therapy Evaluate and Treat [CONS] Routine Comment: Reason For Exam: Neuro deficits Physical Therapy Evaluation and Treat [CONS] Routine Comment: Reason For Exam: Neuro deficits 03/07/18 20:06 Speech Therapy Evaluation and Treat [CONS] Routine Reason For Exam: swallow eval 03/07/18 20:07 Consult to Physician [CONS] Routine Comment: Consulting Provider: SLAVA HAMPTON Physician Instructions: Reason For Exam: cva 03/08/18 08:26 Consult to Physician [CONS] Routine Comment: Consulting Provider: ERMIAS DURAN Physician Instructions: Reason For Exam: critical care 03/08/18 09:01 Consult to Physician [CONS] Routine Comment: Consulting Provider: ERMIAS DURAN Physician Instructions: Reason For Exam: ccm, respiratory failure 03/08/18 12:47 Consult to Physician [CONS] Routine Comment: Consulting Provider: ELDON JAFFE Physician Instructions: i notified Reason For Exam: new onset fever, ?related to the seizure, AMS 03/08/18 14:02 Consult to Dietitian/Nutrition [CONS] Stat Physician Instructions: Reason For Exam: Reason for Consult: Write/Manage Tube Feeding 03/11/18 08:11 Consult to Wound/ET Nurse [CONS] Urgent Reason For Exam: wound eval 03/11/18 08:51 Consult to Wound/ET Nurse [CONS] Urgent Reason For Exam: wound eval 03/11/18 12:55 Midline [Consult to PICC Line RN] [CONS] Stat Reason For Exam: midline for antibiotics and keppra Type Line:: Midline 03/11/18 15:42 Speech Therapy Evaluation and Treat [CONS] Routine Reason For Exam: swallow function 03/11/18 15:44 Physical Therapy Evaluation and Treat [CONS] Routine Comment: Reason For Exam: debility 03/12/18 11:12 Consult to Mental Health [CONS] Routine Reason For Exam: behavioral disturbance, very blue Place consult to:: [facility] Primary care physician: TONGER Hospitalization Reason for admission: AMS Condition: Stable Hospital course: Patient is a 62 yo woman with a history of hypertension, type 2 DM, dyslipidemia, depression and prior left big toe diabetic osteomyelitis infection who presented to [facility] ED with AMS. EMS states upon their arrival the patient would not move her left side. The patient never spoke to EMS. EMS states while en route the patient had a generalized tonic-clonic seizure. In the ED the patient appears postictal. While in CT scan, the patient had 2 more generalized tonic-clonic seizures. The patient was brought back to the room and immediately intubated using RSI * The patient was treated with antiepileptic medications. She received neurology consult. MRI of her brain only showed age-related changes * She was intubated and maintained on the ventilator, she was extubated on 03/11/18 * The patient has received IV fluids for acute kidney failure, and is improving * The patient had severe hyperglycemia with hyperosmolar states, received insulin * She did have fever, fever workup was negative, she was treated with empiric antibiotics. It is suspected that fever might have been related to seizures, she was seen by infectious disease. She is currently on Keflex which should be discontinued tomorrow per Dr. Jaffe * She received hypotonic fluid for hyponatremia * Placed mental health consult for episodes of crying and confusion. However I suspect that it is self-limited as patient was just extubated and has no recollection of what happened. Diagnosis Acute respiratory failure on mechanical ventilator greater than 96 hours Acute metabolic encephalopathy/post ictal state Status epilepticus/COMPLEX PARTIAL SEIZURES Acute kidney injury due to vasomotor nephropathy Type 2 diabetes with hyperglycemic hyperosmolar nonketotic states Metabolic acidosis CVA ruled out Fever which was likely related to seizures Hypernatremia Disposition: DC/[place] Time spent for discharge: 35 MINS Core Measure Documentation - Palliative Care Palliative Care/ Comfort Measures: Not Applicable - Core Measures Any of the following diagnoses?: none Exam - Physical Exam Narrative exam: General.: Appears well, no distress, nontoxic HEENT: Moist mucous membranes, extraocular muscles intact, no lymphadenopathy Neck: supple Cardiac: S1-S2 heard Lungs: clear to auscultation bilaterally Abdomen: soft , nontender, nondistended, bowel sounds positive Extremities: no edema clubbing or cyanosis Skin: no rash or lesions Neurologic:but awake. oriented to person, place and time altered no gross focal deficits Psych: appropriate behavior, appropriate mood, corporative, judgment intact - Constitutional Vitals: Temp Pulse Resp BP Pulse Ox 98.2 F 67 17 137/68 99 03/15/18 04:00 03/15/18 07:01 03/15/18 07:01 03/15/18 07:01 03/15/18 07:01 Plan Activity: advance as tolerated, fall precautions Diet: diabetic Special Instructions: record daily weights, record daily BP diary, record blood sugar diary Follow up with: PRIMARY CAREMD [Primary Care Provider] - 3-5 Days SUZAN PORTILLO MD [Staff Physician] - 7 Days ALESSIA WARE MD [Staff Physician] - 7 Days Prescriptions: RX: AtorvaSTATin [Lipitor] 40 mg PO QHS #30 tablet RX: Aspirin [Aspirin BABY CHEW TAB] 81 mg PO QDAY #30 tab.chew RX: Cyanocobalamin [Vitamin B-12] 2,000 mcg PO QDAY #30 tablet RX: Fluticasone [Flonase] 50 mcg NS QDAY #1 bottle levETIRAcetam [Keppra TAB] 1,500 mg PO BID #60 tablet Nicotine [Nicotine Patch] 1 each TD QDAY #30 patch.td24
--- NOTE | 2018-03-15 09:36 | Progress Note ---
Assessment and Plan Acute hypoxemic hypercapnic respiratory failure s/p MVS Acute encephalopathy. Uncontrolled diabetes Sepsis syndrome. Hypertensive emergency with possible encephalopathy Leukocytosis. Urinary tract infection. Hyperkalemia, now corrected. Lactic acidemia. Obesity. History of hypertension - continue supplemental O2 to keep sats > 90% - aspiration precautions -bronchodilators per protocol - PT/OT as tolerated - mobility protocol for pressure ulcer prophylaxis - agitation management -continue all current therapies -complete antibiotic therapy -discharge planning Subjective Date of service: 03/15/18 Principal diagnosis: Acute hypoxemic hypercapnic Resp failure; Acute e ncephalopathy; seizures Interval history: Patient is seen today for: Acute hypoxemic hypercapnic respiratory failure s/p MVS; Acute encephalopathy; Uncontrolled diabetes requiring IV insulin therapy; Sepsis syndrome; Hypertensive emergency with encephalopathy Seen and examined at bedside; 24hour events reviewed; nursing and respiratory care staff consulted; no adverse overnight events reported to me;not in any distress Denies any chest pain, no shortness of breath, no fevers, no nausea or vomiting Objective Vital Signs - 12hr 03/14/18 03/14/18 03/15/18 22:00 23:00 00:00 Temperature 98 F Pulse Rate 81 94 H 84 Respiratory 15 14 Rate Blood Pressure 127/55 142/74 O2 Sat by Pulse 99 99 Oximetry 03/15/18 03/15/18 03/15/18 00:01 00:57 01:01 Temperature Pulse Rate 75 81 83 Respiratory 16 22 10 L Rate Blood Pressure 113/37 O2 Sat by Pulse 100 100 100 Oximetry 03/15/18 03/15/18 03/15/18 02:00 03:01 04:00 Temperature 98.2 F Pulse Rate 72 77 70 Respiratory 21 23 17 Rate Blood Pressure 111/50 135/61 129/61 O2 Sat by Pulse 97 97 98 Oximetry 03/15/18 03/15/18 03/15/18 05:00 06:00 07:01 Temperature Pulse Rate 65 68 67 Respiratory 17 16 17 Rate Blood Pressure 126/61 122/65 137/68 O2 Sat by Pulse 96 97 99 Oximetry Constitutional: no acute distress, alert, other (elderly looking AAF, normocephalic and atraumatic) Eyes: non-icteric ENT: oropharynx moist, other Neck: supple, no lymphadenopathy, no JVD, other (No thyromegaly) Effort: mildly labored Ascultation: Bilateral: rhonchi Percussion: Bilateral: not dull Cardiovascular: regular rate and rhythm Gastrointestinal: normoactive bowel sounds, soft, non-tender, non-distended Integumentary: normal Extremities: no cyanosis, no edema, pulses normal, no ischemia or petechiae Neurologic: non-focal exam (moves all extemities), motor strength normal and Psychiatric: mood appropriate, affect normal CBC and BMP: 03/11/18 05:18 03/15/18 06:50 ABG, PT/INR, D-dimer: ABG POC ABG pH 7.417 (7.35-7.45) 03/12/18 08:12 POC ABG pCO2 35.6 (35-45) 03/12/18 08:12 POC ABG pO2 54 (80-105) L 03/12/18 08:12 POC ABG HCO3 22.9 03/12/18 08:12 POC ABG Total CO2 24 03/12/18 08:12 POC ABG O2 Sat 88 03/12/18 08:12 PT/INR, D-dimer PT 13.5 Sec. (12.2-14.9) 03/07/18 16:11 INR 0.99 (0.87-1.13) 03/07/18 16:11 Abnormal lab findings: Abnormal Labs 03/07/18 03/07/18 03/07/18 16:11 16:11 17:29 WBC 13.5 H RBC Hgb Hct MCH 26 L RDW 16.5 H Fibrinogen POC ABG pH 7.190 L POC ABG pCO2 57.6 H POC ABG pO2 250 H VBG pH Sodium 134 L Potassium Chloride 93.2 L Carbon Dioxide 15 L BUN 32 H Creatinine 1.7 H Glucose 793 H* POC Glucose Lactic Acid Calcium Ionized Calcium Phosphorus C-Reactive Protein Albumin 25-OH Vitamin D Total T3 (MARK) Urine WBC (Auto) Phenobarbital 03/07/18 03/07/18 03/07/18 18:00 18:00 18:00 WBC RBC Hgb Hct MCH RDW Fibrinogen POC ABG pH POC ABG pCO2 POC ABG pO2 VBG pH 7.197 L* Sodium 133 L Potassium 5.8 H D Chloride 95.9 L Carbon Dioxide 20 L BUN 33 H Creatinine 1.8 H Glucose 760 H* POC Glucose Lactic Acid Calcium Ionized Calcium Phosphorus 5.70 H C-Reactive Protein Albumin 25-OH Vitamin D Total T3 (MARK) Urine WBC (Auto) Phenobarbital 03/07/18 03/07/18 03/07/18 18:12 18:51 19:39 WBC RBC Hgb Hct MCH RDW Fibrinogen POC ABG pH POC ABG pCO2 POC ABG pO2 VBG pH Sodium Potassium Chloride Carbon Dioxide BUN Creatinine Glucose POC Glucose Lactic Acid 4.20 H* 3.40 H* Calcium Ionized Calcium Phosphorus C-Reactive Protein Albumin 25-OH Vitamin D Total T3 (MARK) Urine WBC (Auto) 91.0 H Phenobarbital 03/07/18 03/07/18 03/07/18 19:56 21:03 21:03 WBC RBC Hgb Hct MCH RDW Fibrinogen POC ABG pH POC ABG pCO2 POC ABG pO2 VBG pH Sodium Potassium Chloride Carbon Dioxide 20 L BUN 31 H Creatinine 1.4 H Glucose 381 H POC Glucose 426 H Lactic Acid 2.70 H* Calcium Ionized Calcium Phosphorus C-Reactive Protein Albumin 25-OH Vitamin D Total T3 (MARK) Urine WBC (Auto) Phenobarbital 03/07/18 03/07/18 03/07/18 21:20 22:01 22:38 WBC RBC Hgb Hct MCH RDW Fibrinogen POC ABG pH POC ABG pCO2 POC ABG pO2 VBG pH Sodium Potassium Chloride Carbon Dioxide 17 L BUN 29 H Creatinine 1.4 H Glucose 236 H POC Glucose 323 H 252 H Lactic Acid Calcium Ionized Calcium Phosphorus C-Reactive Protein Albumin 25-OH Vitamin D Total T3 (MARK) Urine WBC (Auto) Phenobarbital 03/07/18 03/07/18 03/08/18 22:38 22:54 00:25 WBC RBC Hgb Hct MCH RDW Fibrinogen POC ABG pH POC ABG pCO2 POC ABG pO2 VBG pH Sodium Potassium Chloride Carbon Dioxide BUN Creatinine Glucose POC Glucose 186 H 51 L Lactic Acid 2.50 H* Calcium Ionized Calcium Phosphorus C-Reactive Protein Albumin 25-OH Vitamin D Total T3 (MARK) Urine WBC (Auto) Phenobarbital 03/08/18 03/08/18 03/08/18 01:03 02:30 03:14 WBC RBC Hgb Hct MCH RDW Fibrinogen POC ABG pH POC ABG pCO2 POC ABG pO2 VBG pH Sodium Potassium Chloride Carbon Dioxide BUN Creatinine Glucose 106 H POC Glucose 157 H 147 H Lactic Acid Calcium Ionized Calcium Phosphorus C-Reactive Protein Albumin 25-OH Vitamin D Total T3 (MARK) Urine WBC (Auto) Phenobarbital 03/08/18 03/08/18 03/08/18 03:47 04:10 05:06 WBC RBC Hgb Hct MCH RDW Fibrinogen POC ABG pH 7.343 L POC ABG pCO2 POC ABG pO2 159 H VBG pH Sodium 146 H D Potassium Chloride 108.7 H Carbon Dioxide 20 L BUN 25 H Creatinine 1.5 H Glucose POC Glucose 146 H Lactic Acid Calcium Ionized Calcium Phosphorus C-Reactive Protein Albumin 25-OH Vitamin D Total T3 (MARK) Urine WBC (Auto) Phenobarbital 03/08/18 03/08/18 03/08/18 06:06 08:07 09:20 WBC RBC Hgb Hct MCH RDW Fibrinogen POC ABG pH POC ABG pCO2 POC ABG pO2 VBG pH Sodium Potassium Chloride Carbon Dioxide BUN Creatinine Glucose POC Glucose 157 H 141 H 133 H Lactic Acid Calcium Ionized Calcium Phosphorus C-Reactive Protein Albumin 25-OH Vitamin D Total T3 (MARK) Urine WBC (Auto) Phenobarbital 03/08/18 03/08/18 03/08/18 10:20 12:33 12:35 WBC RBC Hgb Hct MCH RDW Fibrinogen POC ABG pH POC ABG pCO2 POC ABG pO2 VBG pH Sodium Potassium Chloride 110.8 H Carbon Dioxide 21 L BUN 19 H Creatinine 1.3 H Glucose 142 H POC Glucose 138 H 137 H Lactic Acid Calcium 8.2 L Ionized Calcium Phosphorus C-Reactive Protein Albumin 25-OH Vitamin D Total T3 (MARK) Urine WBC (Auto) Phenobarbital 03/08/18 03/08/18 03/08/18 18:05 18:26 18:26 WBC RBC Hgb Hct MCH RDW Fibrinogen POC ABG pH POC ABG pCO2 POC ABG pO2 VBG pH Sodium Potassium Chloride Carbon Dioxide BUN Creatinine Glucose POC Glucose 315 H Lactic Acid Calcium Ionized Calcium Phosphorus C-Reactive Protein 4.70 H Albumin 25-OH Vitamin D Total T3 (MARK) Urine WBC (Auto) Phenobarbital 13.6 L 03/09/18 03/09/18 03/09/18 00:10 04:16 04:16 WBC 13.9 H RBC 3.55 L Hgb 9.4 L D Hct 29.3 L D MCH 27 L RDW 15.3 H Fibrinogen POC ABG pH POC ABG pCO2 POC ABG pO2 VBG pH Sodium Potassium Chloride 111.6 H Carbon Dioxide BUN Creatinine 1.4 H Glucose 217 H POC Glucose 248 H Lactic Acid Calcium 8.2 L Ionized Calcium Phosphorus C-Reactive Protein Albumin 25-OH Vitamin D Total T3 (MARK) Urine WBC (Auto) Phenobarbital 03/09/18 03/09/18 03/09/18 05:12 05:26 09:46 WBC RBC Hgb Hct MCH RDW Fibrinogen POC ABG pH 7.326 L POC ABG pCO2 POC ABG pO2 156 H 50 L VBG pH Sodium Potassium Chloride Carbon Dioxide BUN Creatinine Glucose POC Glucose 301 H Lactic Acid Calcium Ionized Calcium Phosphorus C-Reactive Protein Albumin 25-OH Vitamin D Total T3 (MARK) Urine WBC (Auto) Phenobarbital 03/09/18 03/09/18 03/09/18 09:58 11:53 14:53 WBC RBC Hgb Hct MCH RDW Fibrinogen 689 H POC ABG pH POC ABG pCO2 POC ABG pO2 108 H VBG pH Sodium Potassium Chloride Carbon Dioxide BUN Creatinine Glucose POC Glucose 291 H Lactic Acid Calcium Ionized Calcium Phosphorus C-Reactive Protein Albumin 25-OH Vitamin D Total T3 (MARK) Urine WBC (Auto) Phenobarbital 03/09/18 03/09/18 03/09/18 17:44 20:17 20:17 WBC RBC Hgb Hct MCH RDW Fibrinogen POC ABG pH POC ABG pCO2 POC ABG pO2 VBG pH Sodium Potassium Chloride Carbon Dioxide BUN Creatinine Glucose POC Glucose 296 H Lactic Acid Calcium Ionized Calcium Phosphorus C-Reactive Protein Albumin 25-OH Vitamin D Total 5 L T3 (MARK) 64 L Urine WBC (Auto) Phenobarbital 03/09/18 03/10/18 03/10/18 23:26 05:02 05:22 WBC 12.0 H RBC Hgb 9.8 L Hct MCH 26 L RDW 15.3 H Fibrinogen POC ABG pH POC ABG pCO2 POC ABG pO2 VBG pH Sodium Potassium Chloride Carbon Dioxide BUN Creatinine Glucose POC Glucose 250 H 261 H Lactic Acid Calcium Ionized Calcium Phosphorus C-Reactive Protein Albumin 25-OH Vitamin D Total T3 (MARK) Urine WBC (Auto) Phenobarbital 03/10/18 03/10/18 03/10/18 08:49 09:16 12:22 WBC RBC Hgb Hct MCH RDW Fibrinogen POC ABG pH POC ABG pCO2 34.1 L POC ABG pO2 VBG pH Sodium Potassium Chloride Carbon Dioxide BUN Creatinine Glucose POC Glucose 288 H Lactic Acid Calcium Ionized Calcium 5.9 H Phosphorus C-Reactive Protein Albumin 25-OH Vitamin D Total T3 (MARK) Urine WBC (Auto) Phenobarbital 03/10/18 03/11/18 03/11/18 23:24 05:18 05:18 WBC 11.4 H RBC Hgb Hct MCH 26 L RDW 15.3 H Fibrinogen POC ABG pH POC ABG pCO2 POC ABG pO2 VBG pH Sodium 147 H Potassium Chloride 110.4 H Carbon Dioxide BUN Creatinine 1.4 H Glucose 251 H POC Glucose 161 H Lactic Acid Calcium Ionized Calcium Phosphorus C-Reactive Protein Albumin 25-OH Vitamin D Total T3 (MARK) Urine WBC (Auto) Phenobarbital 03/11/18 03/11/18 03/11/18 06:07 12:04 23:33 WBC RBC Hgb Hct MCH RDW Fibrinogen POC ABG pH POC ABG pCO2 POC ABG pO2 VBG pH Sodium Potassium Chloride Carbon Dioxide BUN Creatinine Glucose POC Glucose 297 H 245 H 212 H Lactic Acid Calcium Ionized Calcium Phosphorus C-Reactive Protein Albumin 25-OH Vitamin D Total T3 (MARK) Urine WBC (Auto) Phenobarbital 03/12/18 03/12/18 03/12/18 03:10 05:12 08:12 WBC RBC Hgb Hct MCH RDW Fibrinogen POC ABG pH POC ABG pCO2 POC ABG pO2 54 L VBG pH Sodium 148 H Potassium Chloride 110.0 H Carbon Dioxide BUN Creatinine Glucose 123 H POC Glucose 123 H Lactic Acid Calcium Ionized Calcium Phosphorus C-Reactive Protein Albumin 25-OH Vitamin D Total T3 (MARK) Urine WBC (Auto) Phenobarbital 03/12/18 03/12/18 03/12/18 09:45 11:20 22:27 WBC RBC Hgb Hct MCH RDW Fibrinogen POC ABG pH POC ABG pCO2 POC ABG pO2 VBG pH Sodium Potassium Chloride Carbon Dioxide BUN Creatinine Glucose POC Glucose 201 H 249 H 225 H Lactic Acid Calcium Ionized Calcium Phosphorus C-Reactive Protein Albumin 25-OH Vitamin D Total T3 (MARK) Urine WBC (Auto) Phenobarbital 03/13/18 03/13/18 03/13/18 08:23 11:34 16:03 WBC RBC Hgb Hct MCH RDW Fibrinogen POC ABG pH POC ABG pCO2 POC ABG pO2 VBG pH Sodium Potassium Chloride Carbon Dioxide BUN Creatinine Glucose POC Glucose 164 H 265 H 184 H Lactic Acid Calcium Ionized Calcium Phosphorus C-Reactive Protein Albumin 25-OH Vitamin D Total T3 (MARK) Urine WBC (Auto) Phenobarbital 03/13/18 03/14/18 03/14/18 21:12 03:04 04:53 WBC RBC Hgb Hct MCH RDW Fibrinogen POC ABG pH POC ABG pCO2 POC ABG pO2 VBG pH Sodium Potassium Chloride 108.8 H Carbon Dioxide BUN Creatinine Glucose 184 H POC Glucose 197 H 176 H Lactic Acid Calcium Ionized Calcium Phosphorus C-Reactive Protein Albumin 25-OH Vitamin D Total T3 (MARK) Urine WBC (Auto) Phenobarbital 03/14/18 03/14/18 03/14/18 08:12 11:24 13:06 WBC RBC Hgb Hct MCH RDW Fibrinogen POC ABG pH POC ABG pCO2 POC ABG pO2 VBG pH Sodium Potassium Chloride Carbon Dioxide BUN Creatinine Glucose POC Glucose 168 H 180 H Lactic Acid Calcium Ionized Calcium Phosphorus C-Reactive Protein Albumin 3.1 L 25-OH Vitamin D Total T3 (MARK) Urine WBC (Auto) Phenobarbital 03/14/18 03/14/18 03/15/18 16:25 21:17 06:50 WBC RBC Hgb Hct MCH RDW Fibrinogen POC ABG pH POC ABG pCO2 POC ABG pO2 VBG pH Sodium Potassium 3.2 L Chloride Carbon Dioxide BUN Creatinine Glucose 140 H POC Glucose 155 H 263 H Lactic Acid Calcium Ionized Calcium Phosphorus C-Reactive Protein Albumin 25-OH Vitamin D Total T3 (MARK) Urine WBC (Auto) Phenobarbital 03/15/18 08:04 WBC RBC Hgb Hct MCH RDW Fibrinogen POC ABG pH POC ABG pCO2 POC ABG pO2 VBG pH Sodium Potassium Chloride Carbon Dioxide BUN Creatinine Glucose POC Glucose 175 H Lactic Acid Calcium Ionized Calcium Phosphorus C-Reactive Protein Albumin 25-OH Vitamin D Total T3 (MARK) Urine WBC (Auto) Phenobarbital Allied health notes reviewed: nursing
[2018-03-15] MEDS ORDERED: PEPCID PO SCH (10:00)
[2018-03-15] MEDS: HABITROL TD SCH (10:58)
[2018-03-15] MEDS: VITAMIN B-12 PO SCH (10:59)
[2018-03-15] MEDS: HCTZ PO SCH (10:59)
[2018-03-15] MEDS: NORVASC PO SCH (10:59)
[2018-03-15] MEDS: DIOVAN PO SCH (10:59)
[2018-03-15] MEDS: BABY ASPIRIN PO SCH (11:00)
[2018-03-15] MEDS: PEPCID IV SCH (11:01)
[2018-03-15] MEDS: FLONASE NS SCH (11:01)
[2018-03-15] MEDS: KEPPRA PO SCH (11:01)
[2018-03-15] MEDS: SODIUM CHLORIDE FLUSH SYRINGE 10 ML IV SCH (11:02)
[2018-03-15] MEDS: ANTIBIOTIC OINT TP SCH (11:03)
[2018-03-15 14:52] VITALS: BP 110/52
--- NOTE | 2018-03-21 12:31 | Query- General ---
Sully Puente___Jacki Date:___03/21/2018 [employer]ator [employer]/CDS:___Rosalie/Jaydon Phone#:___[phone] Exercise your independent professional judgment when responding to this query. Questions asked do not imply a particular answer is desired or expected. We greatly appreciate your clarification on this issue. Clinical Documentation States: Patient is a 62 yo woman with a history of hypertension, type 2 DM, dyslipidemia, depression and prior left big toe diabetic osteomyelitis infection who [facility] with [facility]. EMS states upon their arrival the patient would not move her left side. The patient never spoke to EMS. EMS states while en route the patient had a generalized tonic-clonic seizure. In the ED the patient appears postictal. While in CT scan, the patient had 2 more generalized tonic-clonic seizures. The patient was brought back to the room and immediately intubated using RSI. Discharge summary stated "Diagnosis Acute respiratory failure on mechanical ventilator greater than 96 hours." Clinical Findings Show (include reference to source document): Intubated: 03/07/2018 @ 18:17 Extubated: 03/11/2018 @ 16:00 Given the above clinical scenario can you please provide an appropriate diagnosis based on your knowledge of the patient: PHYSICIAN RESPONSE: [ X ] MV greater than 96 hours [ ] MV less than 96 hours [ ] Other (Please specify): Present on Admission: [ X] Yes (Y) [ ] Clinically undeterminable (W) [ ]No(N) Please also document response in your Progress Notes and/or Discharge Summary and indicate if the condition was present on admission. MTDD
--- NOTE | 2018-04-03 23:22 | Vascular Lab Report ---
CAROTID DUPLEX STUDY: RIGHT PSVEDV CCA PROX: CCA DIST: ICA PROX:6021 ICA MID:6116 ICA DIST:7925 ECA: VERT: LEFT PSVEDV CCA PROX:[id number] CCA DIST:8923 ICA PROX:8930 ICA MID:[id number] ICA DIST:[id number] ECA: 135 VERT: 61 18 REASON FOR EXAM: Carotid artery stenosis.stroke COMMENTS ON THE RIGHT: Doppler frequency analysis is consistent with 16 to 49 percent diameter reduction of the internal carotid artery. Typically difficult study and not able to visualize proximal common and internal carotid artery do to positioning and internal jugular line placement. In the visualized portion of ICA there is no hemodynamically significant stenosis noted. COMMENTS ON THE LEFT: Doppler frequency analysis is consistent with 16 to 49 percent diameter reduction of the internal carotid artery. Minimal amount of plaque is seen. The common carotid artery is this is. The external carotid artery is patent. The vertebral artery has antegrade flow. IMPRESSION: Less than 50% diameter reduction in the internal carotid arteries bilaterally. Technical difficult study due to dressing over right internal jugular line. In the visualized portion of right internal carotid artery there was no hemodynamic significant stenosis. Less than 50% diameter reduction in the visualized artery. Consider repeat carotid artery duplex in 12 months.
== END 2018-03-15 15:04 | disposition home health service (06) | DRG 870 ==
LOC: ED 15:54 → CC1 18:02 → IMCU 03-12 15:33
PROVIDERS: ADMIT Internal Medicine; ATTEND Internal Medicine
PROC: 5A1955Z Respiratory Ventilation, Greater than 96 Consecutive Hours (ICD-10-PCS; principal; 2018-03-07)
PROC: 0BH17EZ Insertion of Endotracheal Airway into Trachea, Via Natural or Artificial Opening (ICD-10-PCS; 2018-03-07)
PROC: 4A033R1 Measurement of Arterial Saturation, Peripheral, Percutaneous Approach (ICD-10-PCS; 2018-03-07)
PROC: 5A09357 Assistance with Respiratory Ventilation, Less than 24 Consecutive Hours, Continuous Positive Airway Pressure (ICD-10-PCS; 2018-03-12)
PROC: 5A09457 Assistance with Respiratory Ventilation, 24-96 Consecutive Hours, Continuous Positive Airway Pressure (ICD-10-PCS; 2018-03-14)
DX: A41.9 Sepsis, unspecified organism (principal); N17.0 Acute kidney failure with tubular necrosis; J96.01 Acute respiratory failure with hypoxia; J96.02 Acute respiratory failure with hypercapnia; G93.41 Metabolic encephalopathy; E11.00 Type 2 diabetes mellitus with hyperosmolarity without nonketotic hyperglycemic-hyperosmolar coma (NKHHC); E11.11 Type 2 diabetes mellitus with ketoacidosis with coma; I16.1 Hypertensive emergency; N39.0 Urinary tract infection, site not specified; E87.5 Hyperkalemia; E66.9 Obesity, unspecified; I10 Essential (primary) hypertension; F32.9 Major depressive disorder, single episode, unspecified; E87.1 Hypo-osmolality and hyponatremia; G40.401 Other generalized epilepsy and epileptic syndromes, not intractable, with status epilepticus; Z98.49 Cataract extraction status, unspecified eye; Z68.30 Body mass index [BMI] 30.0-30.9, adult; Z83.3 Family history of diabetes mellitus; Z82.49 Family history of ischemic heart disease and other diseases of the circulatory system; Z79.899 Other long term (current) drug therapy
CPT/HCPCS: 36415; 36600; 70450; 70544; 70551; 71045; 74018; 80048; 80076; 80177; 80184; 81001; 82140; 82306; 82330; 82550; 82553; 82607; 82747; 82803; 82805; 82947; 82962; 83735; 84100; 84425; 84439; 84443; 84480; 84484; 85007; 85014; 85018; 85025; 85027; 85384; 85610; 85670; 85730; 86140; 87040; 87070; 87086; 87205; 87400; 93005; 93010; 93306; 93880; 94002; 94003; 94640; 94660; 94760; 95819; 96374; 99406; G0378; A9270-GY; J0330; J0360; J0456; J0696; J1630; J1650; J1815; J1953; J2001; J2060; J2270; J2560; J7030; J7050

== ENCOUNTER 2018-12-21 13:05 | Emergency (ER) | payer MEDICAID ==
--- NOTE | 2018-12-21 13:35 | Cat Scan Report ---
CT head/brain wo con INDICATION / CLINICAL INFORMATION: 63 years Female; Stroke symptoms. TECHNIQUE: Routine CT head without contrast. All CT scans at this location are performed using CT dos e reduction for ALARA by means of automated exposure control. COMPARISON: The previous exams are currently available for direct comparison on this code stroke study. FINDINGS: BRAIN / INTRACRANIAL CONTENTS: There is moderate to cerebral white matter disease including the gangl ia capsular regions, greater on the left. There is also decreased attenuation involving right centrum semiovale most consistent with chronic ischemic changes. There is no clear CT evidence of acute intr acranial hemorrhage or significant mass effect. There is milder cerebral atrophy. The ventricular system is correspondingly appropriate in size and c onfiguration. The findings are most consistent with incidental arachnoid cyst along the dorsal left p osterior fossa measuring approximately 8 mm in greatest AP dimension. ORBITS: No significant abnormality of visualized orbits. SINUSES / MASTOIDS: There is focal opacification along the posterior sphenoid sinuses. CRANIOCERVICAL JUNCTION: No significant abnormality. ADDITIONAL FINDINGS: None. IMPRESSION: 1. There is moderate microvascular angiopathy as detailed above without CT ends of acute intracranial hemorrhage. The study was specified as code stroke and called emergently to Dr. Miranda in the ER at 12:29 PM Cent[facility] standard time Signer Name: Cal Posada MD Signed: 12/21/2018 1:31 PM Workstation Name: [id number]
--- NOTE | 2018-12-21 13:41 | Emergency Department Report ---
ED Neuro Deficit HPI - General Chief Complaint: Neuro Symptoms/Deficit Stated Complaint: POSSIBLE STROKE Source: patient, family, EMS Mode of arrival: Stretcher Limitations: Altered Mental Status - History of Present Illness Initial Comments: [facility] Date of Service: 12/21/2018 13:11:58 Impression: RO Acute Ischemic Stroke pt with episode of speech issue anxiety-? panic related vs tia Comments: 63 year old woman with transient confusion/speech disturbance feeling shaky. not aphasic on exam per say. Cant say month or year correct seems more confused then aphasic so no tpa nothing else focal. Exam atypical for true expressive aphasia pt gives somewhat limited effort with trying to name things but very fluently reads sentences and describes the cookie theft picture without any difficulty at all. Certainly cannot completely exclude cva. Recommend toxic metabolic w/u. Inpatient neurology consultation. Has asa allergy will start plavix for now. Mechanism of Stroke: Not Clear Metrics: Last Known Well: 12/21/2018 13:27:56 [facility] Notification Time: 12/21/2018 13:10:45 Arrival Time: 12/21/2018 13:05:00 Stamp Time: 12/21/2018 13:11:58 Time First Login Attempt: 12/21/2018 13:16:00 Video Start Time: 12/21/2018 13:16:00 Symptoms: speech disturbance shakiness NIHSS Start Assessment Time: 12/21/2018 13:22:00 Patient is not a candidate for tPA. Patient was not deemed candidate for tPA thrombolytics because of minor non diabling symptoms symptoms more c/w ams then cva. Video End Time: 12/21/2018 13:35:00 CT head showed no acute hemorrhage or acute core infarct. Advanced imaging was not obtained as the presentation was not suggestive of Large Vessel Occlusive Disease. ER physician notified of the decision on thrombolytics management. Our recommendations are outlined below. Recommendations: Initiate Plavix for now since asa allergy DVT prophylaxis: Choice of Primary Team Disposition: F/u local neurology in hospital cva/ams per primary team Sign Out: Discussed with Emergency Department Provider History of Present Illness: Patient is a 63 years old Female. Patient was brought by EMS for symptoms of speech disturbance shakiness 63 female with a vague hx of prior cva/sz not on any antiplatlets has asa allergy. Jarret has panic attacks. Her son said she was having some slow effortful speech and seemed anxious. Patient cannot say when it started gives very vague answers but feels better now. CT head showed no acute hemorrhage or acute core infarct. Examination: 1A: Level of Consciousness - Alert; keenly responsive + 0 1B: Ask Month and Age - 1 Question Right + 1 1C: Blink Eyes & Squeeze Hands - Performs Both Tasks + 0 2: Test Horizontal Extraocular Movements - Normal + 0 3: Test Visual Machado - No Visual Loss + 0 4: Test Facial Palsy (Use Grimace if Obtunded) - Normal symmetry + 0 5A: Test Left Arm Motor Drift - No Drift for 10 Seconds + 0 5B: Test Right Arm Motor Drift - No Drift for 10 Seconds + 0 6A: Test Left Leg Motor Drift - No Drift for 5 Seconds + 0 6B: Test Right Leg Motor Drift - No Drift for 5 Seconds + 0 7: Test Limb Ataxia (FNF/Heel-Briggs) - No Ataxia + 0 8: Test Sensation - Normal; No sensory loss + 0 9: Test Language/Aphasia - Mild-Moderate Aphasia: Some Obvious Changes, Without Significant Limitation + 1 10: Test Dysarthria - Normal + 0 11: Test Extinction/Inattention - No abnormality + 0 NIHSS Score: 2 Patient was informed the Neurology Consult would happen via TeleHealth consult by way of interactive audio and video telecommunications and consented to receiving care in this manner. Due to the immediate potential for life-threatening deterioration due to underlying acute neurologic illness, I spent 35 minutes providing critical care. This time includes time for face to face visit via telemedicine, review of medical records, imaging studies and discussion of findings with providers, the patient and/or family. Dr Fany Pritchett [facility] - Related Data Home Medications: Home Medications Medication Instructions Recorded Confirmed Last Taken Cetirizine HCl [All Day Allergy] 1 tab PO DAILY PRN 05/09/13 05/10/13 05/08/13 20:00 Fluticasone Propionate [Flovent 2 mcg INNOSTRIL DAILY 05/09/13 05/10/13 05/08/13 Diskus] Metformin HCl [Fortamet ER] 500 mg PO BID 05/09/13 03/09/18 05/08/13 08:00 1000 MG Sertraline [Zoloft] 100 mg PO QAM 05/09/13 03/09/18 05/08/13 08:00 100 MG Valsartan [Diovan] 160 mg PO DAILY 05/09/13 03/09/18 05/08/13 08:00 160 MG amLODIPine [Norvasc] 10 mg PO DAILY 05/09/13 03/09/18 05/08/13 08:00 10 MG clonazePAM [KlonoPIN] 1 mg PO Q8HR 05/09/13 05/10/13 05/08/13 08:00 1 MG hydroCHLOROthiazide [HCTZ] 25 mg PO DAILY 05/09/13 05/10/13 05/08/13 08:00 Hydroxyzine HCl [hydrOXYzine] 25 mg PO QHS 03/09/18 03/09/18 Unknown Insulin Glargine,Hum.rec.anlog 20 units SQ DAILY 03/09/18 03/09/18 Unknown [Lantus] Ranitidine HCl 150 mg PO BID PRN 03/09/18 03/09/18 Unknown Previous Rx's Medication Instructions Recorded Last Taken Type Lactobacillus Acidophil [Lactinex] 1 each PO TID #60 tablet 05/13/13 Unknown Rx HYDROcodone/APAP 5-325 [[place] 1 each PO Q6HR PRN #16 tablet 09/03/13 Unknown Rx 5-325 mg TAB] Aspirin [Aspirin BABY CHEW TAB] 81 mg PO QDAY #30 tab.chew 03/15/18 Unknown Rx AtorvaSTATin [Lipitor] 40 mg PO QHS #30 tablet 03/15/18 Unknown Rx Cyanocobalamin [Vitamin B-12] 2,000 mcg PO QDAY #30 tablet 03/15/18 Unknown Rx Fluticasone [Flonase] 50 mcg NS QDAY #1 bottle 03/15/18 Unknown Rx Nicotine [Nicotine Patch] 1 each TD QDAY #30 patch.td24 03/15/18 Unknown Rx levETIRAcetam [Keppra TAB] 1,500 mg PO BID #60 tablet 03/15/18 Unknown Rx Allergies/Adverse Reactions: Allergies Allergy/AdvReac Type Severity Reaction Status Date / Time No Known Allergies Allergy Unverified 05/09/13 12:39 ED Review of Systems ROS: Stated complaint: POSSIBLE STROKE Other details as noted in HPI ED Past Medical Hx - Past Medical History Previous Medical History?: Yes Hx Hypertension: Yes Hx CVA: Yes Hx Congestive Heart Failure: No Hx Diabetes: Yes Hx Asthma: No Hx COPD: No Hx HIV: No - Surgical History Past Surgical History?: Yes Additional Surgical History: cataract surgery, tubes removed, foot surgery - Social History Smoking Status: Current Every Day Smoker Substance Use Type: None - Medications Home Medications: Home Medications Medication Instructions Recorded Confirmed Last Taken Type Cetirizine HCl [All Day Allergy] 1 tab PO DAILY PRN 05/09/13 05/10/13 05/08/13 20:00 History Fluticasone Propionate [Flovent 2 mcg INNOSTRIL DAILY 05/09/13 05/10/13 05/08/13 History Diskus] Metformin HCl [Fortamet ER] 500 mg PO BID 05/09/13 03/09/18 05/08/13 08:00 History 1000 MG Sertraline [Zoloft] 100 mg PO QAM 05/09/13 03/09/18 05/08/13 08:00 History 100 MG Valsartan [Diovan] 160 mg PO DAILY 05/09/13 03/09/18 05/08/13 08:00 History 160 MG amLODIPine [Norvasc] 10 mg PO DAILY 05/09/13 03/09/18 05/08/13 08:00 History 10 MG clonazePAM [KlonoPIN] 1 mg PO Q8HR 05/09/13 05/10/13 05/08/13 08:00 History 1 MG hydroCHLOROthiazide [HCTZ] 25 mg PO DAILY 05/09/13 05/10/13 05/08/13 08:00 History Lactobacillus Acidophil [Lactinex] 1 each PO TID #60 tablet 05/13/13 Unknown Rx HYDROcodone/APAP 5-325 [[place] 1 each PO Q6HR PRN #16 tablet 09/03/13 Unknown Rx 5-325 mg TAB] Hydroxyzine HCl [hydrOXYzine] 25 mg PO QHS 03/09/18 03/09/18 Unknown History Insulin Glargine,Hum.rec.anlog 20 units SQ DAILY 03/09/18 03/09/18 Unknown History [Lantus] Ranitidine HCl 150 mg PO BID PRN 03/09/18 03/09/18 Unknown History Aspirin [Aspirin BABY CHEW TAB] 81 mg PO QDAY #30 tab.chew 03/15/18 Unknown Rx AtorvaSTATin [Lipitor] 40 mg PO QHS #30 tablet 03/15/18 Unknown Rx Cyanocobalamin [Vitamin B-12] 2,000 mcg PO QDAY #30 tablet 03/15/18 Unknown Rx Fluticasone [Flonase] 50 mcg NS QDAY #1 bottle 03/15/18 Unknown Rx Nicotine [Nicotine Patch] 1 each TD QDAY #30 patch.td24 03/15/18 Unknown Rx levETIRAcetam [Keppra TAB] 1,500 mg PO BID #60 tablet 03/15/18 Unknown Rx ED Neuro Physical Exam - General Limitations: Altered Mental Status Suspected Stroke: Yes - NIHSS Assessment Interval: Baseline 1a. Level of Consciousness: alert/keenly responsive 1b. LOC Questions: answers 1 question correctly 1c. LOC Commands: performs tasks correctly 2. Best Gaze: normal 3. Visual: no visual loss 4. Facial Palsy: normal symmetrical movement 5b. Motor Arm Right: no drift 5a. Motor Arm Left: no drift 6a. Motor Leg Left: no drift 6b. Motor Leg Right: no drift 7. Limb Ataxia: absent 8. Sensory: normal 9. Best Language: mild/moderate aphasia 10. Dysarthria: normal 11. Extinction/Inattention: no abnormality Total Score: 2 Stroke Severity: Minor Stroke ED Course Vital Signs 12/21/18 13:31 Pulse Rate 79 Respiratory 25 H Rate Blood Pressure 136/68 [Right] O2 Sat by Pulse 100 Oximetry - Lab Data Lab Results 12/21/18 Range/Units 13:16 POC Glucose 62 L (70-105) Critical care attestation.: If time is entered above; I have spent that time in minutes in the direct care of this critically ill patient, excluding procedure time. ED Disposition Clinical Impression: Altered mental status, unspecified Qualifiers: Altered mental status type: disorientation Qualified Code(s): R41.0 - Disorientation, unspecified Disposition: DC-09 OP ADMIT IP TO THIS HOSP Is pt being admited?: Yes Condition: Stable
[2018-12-21] MEDS ORDERED: D50W (25GM) Syringe IV ONE ×2 (13:53→20:00)
[2018-12-21] MEDS ORDERED: D50W (25GM) Vial IV ONE (13:55)
[2018-12-21 13:58] LABS: Basophils # (Auto) 0.1 K/mm3 (0.0-0.1); Basophils % (Auto) 0.9 % (0.0-1.8); Eosinophils # (Auto) 0.1 K/mm3 (0.0-0.4); Eosinophils % (Auto) 0.9 % (0.0-4.3); Hematocrit 34.6 % (30.3-42.9); Hemoglobin 11.2 gm/dl (10.1-14.3); Lymphocytes # (Auto) 2.1 K/mm3 (1.2-5.4); Lymphocytes % (Auto) 24.3 % (13.4-35.0); Mean Corpuscular HGB Conc 32 % (30-34); Mean Corpuscular Volume 82 fl (79-97); Monocytes # (Auto) 0.5 K/mm3 (0.0-0.8); Platelet Count 286 K/mm3 (140-440); Red Blood Count 4.24 M/mm3 (3.65-5.03); Red Cell Distribution Width 17.4 % (13.2-15.2)
[2018-12-21 14:21] LABS: INR 1.04 (0.87-1.13)
[2018-12-21 14:22] LABS: Partial Thromboplastin Time 30.9 Sec. (24.2-36.6); Thrombin Time 17.2 Sec. (15.1-19.6)
[2018-12-21 14:43] LABS: Bacteria,Urine 1+ /HPF (Negative); Bilirubin,Urine NEG (Negative); Blood,Urine SM (Negative); Color,Urine Yellow (Yellow); Mucus,Urine FEW /HPF; Protein,Urine <15 mg/dL mg/dL (Negative); Urobilinogen,Urine < 2.0 mg/dL (<2.0)
[2018-12-21 14:49] LABS: Amphetamine Screen,Urine PRESUMPTIVE NEGATIVE; Benzodiazepines Screen,Urine PRESUMPTIVE NEGATIVE; Cannabinoid Screen,Urine PRESUMPTIVE NEGATIVE; Cocaine Screen,Urine PRESUMPTIVE NEGATIVE; Methadone Screen,Urine PRESUMPTIVE NEGATIVE; Opiate Screen,Urine PRESUMPTIVE NEGATIVE
[2018-12-21 14:54] LABS: Creatine Kinase MB 4.1 ng/mL (0.0-4.0)
[2018-12-21] MEDS ORDERED: BABY ASPIRIN PO ONE (15:01)
[2018-12-21] MEDS ORDERED: MACROBID PO ONE (15:01)
--- NOTE | 2018-12-21 15:11 | Emergency Department Report ---
HPI - General Chief Complaint: Neuro Symptoms/Deficit Time Seen by Provider: 12/21/18 14:02 - HPI HPI: 63-year-old -[place] female presents to the emergency department via EMS from home with complaint of a possible stroke versus TIA. The patient is improved upon presentation but earlier today she had some significant aphasia, confusion and some weakness. She has a past mental history of previous CVA without known residual deficits, diabetes, hypertension and seizure disorder. However the patient does not appear to be on any antiplatelet medication or and antiseizure medication. She did not take anything for her symptoms prior to arrival today. ED Past Medical Hx - Past Medical History Previous Medical History?: Yes Hx Hypertension: Yes Hx CVA: Yes Hx Congestive Heart Failure: No Hx Diabetes: Yes Hx Asthma: No Hx COPD: No Hx HIV: No - Surgical History Past Surgical History?: Yes Additional Surgical History: cataract surgery, tubes removed, foot surgery - Social History Smoking Status: Current Every Day Smoker Substance Use Type: None - Medications Home Medications: Home Medications Medication Instructions Recorded Confirmed Last Taken Type amLODIPine [Norvasc] 10 mg PO DAILY 05/09/13 12/21/18 05/08/13 08:00 History 10 MG Insulin Glargine,Hum.rec.anlog 20 units SUB-Q QPM 03/09/18 12/21/18 12/20/18 History [Lantus] Cefuroxime Axetil [Ceftin] 500 mg PO Q12H #16 tab 12/21/18 Unknown Rx Lisinopril/Hydrochlorothiazide 1 tab PO QDAY 12/21/18 12/21/18 Unknown History [Zestoretic 20-12.5 mg] Loratadine [Claritin] 10 mg PO DAILY PRN 12/21/18 12/21/18 Unknown History Pravastatin [Pravachol] 20 mg PO QHS 12/21/18 12/21/18 Unknown History glipiZIDE XL [Glucotrol Xl] 10 mg PO BID 12/21/18 12/21/18 Unknown History hydrOXYzine HCL [Atarax] 1 - 2 tab PO HS 12/21/18 12/21/18 Unknown History metFORMIN [Glucophage] 500 mg PO BID 12/21/18 12/21/18 Unknown History ED Review of Systems ROS: Stated complaint: POSSIBLE STROKE Other details as noted in HPI Comment: All other systems reviewed and negative Constitutional: weakness. denies: chills, fever Eyes: denies: eye pain, vision change ENT: denies: ear pain, throat pain Respiratory: denies: cough, shortness of breath Cardiovascular: denies: chest pain, palpitations Gastrointestinal: denies: abdominal pain, vomiting Neurological: weakness, other (aphasia). denies: headache Physical Exam - Physical Exam Vital Signs: Vital Signs 12/21/18 12/21/18 12/21/18 13:31 14:11 14:15 Pulse Rate 79 94 H 79 Respiratory 25 H 16 10 L Rate Blood Pressure 134/59 Blood Pressure 136/68 [Right] O2 Sat by Pulse 100 99 100 Oximetry ED Course Vital Signs 12/21/18 12/21/18 12/21/18 13:31 14:11 14:15 Pulse Rate 79 94 H 79 Respiratory 25 H 16 10 L Rate Blood Pressure 134/59 Blood Pressure 136/68 [Right] O2 Sat by Pulse 100 99 100 Oximetry - Consultations Consultation #1: 12/21/18 15:13 The patient was seen by the telemedicine neurologist, Dr. Pritchett. The neurologist evaluated the patient, gave her an NIH stroke scale of 2. She did not recommend TPA to be given and does not feel the patient requires CT angiography studies, but does recommend admission to the hospital for further evaluation to rule out ischemic stroke. ED Medical Decision Making - Lab Data Result diagrams: 12/21/18 13:41 - EKG Data -: EKG Interpreted by Nv EKG shows normal: sinus rhythm, axis, intervals, QRS complexes, ST-T waves Rate: normal - EKG Data When compared to previous EKG there are: previous EKG unavailable Interpretation: normal EKG - Radiology Data Radiology results: report reviewed CT head/brain wo con INDICATION / CLINICAL INFORMATION: 63 years Female; Stroke symptoms. TECHNIQUE: Routine CT head without contrast. All CT scans at this location are performed using CT dose reduction for ALARA by means of automated exposure control. COMPARISON: The previous exams are currently available for direct comparison on this code stroke study. FINDINGS: BRAIN / INTRACRANIAL CONTENTS: There is moderate to cerebral white matter disease including the ganglia capsular regions, greater on the left. There is also decreased attenuation involving right centrum semiovale most consistent with chronic i schemic changes. There is no clear CT evidence of acute intracranial hemorrhage or significant mass effect. There is milder cerebral atrophy. The ventricular system is correspondingly appropriate in size and configuration. The findings are most consistent with incidental arachnoid cyst along the dorsal left posterior fossa measuring approximately 8 mm in greatest AP dimension. ORBITS: No significant abnormality of visualized orbits. SINUSES / MASTOIDS: There is focal opacification along the posterior sphenoid sinuses. CRANIOCERVICAL JUNCTION: No significant abnormality. ADDITIONAL FINDINGS: None. IMPRESSION: 1. There is moderate microvascular angiopathy as detailed above without CT ends of acute intracranial hemorrhage. - Medical Decision Making This patient presents to the emergency department and was made a code stroke, although presentation sounded more consistent with a TIA. CT of the head did not show any bleed, shift, mass, ischemia, or any other acute process. She was seen by the telemedicine neurologist, Dr. Pritchett, who gave her an NIH stroke scale of 2. She did not feel that TPA was indicated or that the patient required CT angiography studies but did recommend admission for further evaluation. Her differential also includes some type of anxiety or panic reaction. Patient's labs are mostly unremarkable except for a urinary tract infection. Patient was presented to the admitting hospitalist, Dr. Riley, for admission. In reviewing the rest of the chart, I can see that Dr Riley ended up doing a consult and discharging the patient to home. - Differential Diagnosis CVA, TIA, Panic Attack, Hypoglycemia Critical Care Time: No Critical care attestation.: If time is entered above; I have spent that time in minutes in the direct care of this critically ill patient, excluding procedure time. ED Disposition Clinical Impression: Hypoglycemia, Encephalopathy, Stroke-like symptoms Altered mental status, unspecified Qualifiers: Altered mental status type: disorientation Qualified Code(s): R41.0 - Disorientation, unspecified UTI (urinary tract infection) Qualifiers: Urinary tract infection type: acute cystitis Hematuria presence: without hematuria Qualified Code(s): N30.00 - Acute cystitis without hematuria Disposition: OP ADMIT IP TO THIS HOSP Is pt being admited?: Yes Condition: Fair Prescriptions: Cefuroxime Axetil [Ceftin] 500 mg PO Q12H #16 tab Referrals: PRIMARY CARE, [Primary Care Provider] - 3-5 Days Time of Disposition: 15:15
[2018-12-21] MEDS ORDERED: BABY ASPIRIN ONE (16:21)
[2018-12-21] MEDS ORDERED: MACROBID ONE (16:21)
--- NOTE | 2018-12-21 16:33 | Event Note ---
Date: 12/21/18 AMS sec to Hypoglycemia AMS resolved No focal deficits Dis Diagnosis AMS sec to Hypoglycemia
[2018-12-21 17:17] VITALS: BP 102/64
== END 2018-12-21 18:06 | disposition admitted as inpatient to this hospital (09) ==
LOC: ED 13:05 → 4A 15:16 → UNDOADMOB 15:16 → 4A 16:17 → ED 18:06
DX: E11.649 Type 2 diabetes mellitus with hypoglycemia without coma (principal); N39.0 Urinary tract infection, site not specified; G93.40 Encephalopathy, unspecified; R29.90 Unspecified symptoms and signs involving the nervous system; R41.0 Disorientation, unspecified; G40.909 Epilepsy, unspecified, not intractable, without status epilepticus; I10 Essential (primary) hypertension; F17.200 Nicotine dependence, unspecified, uncomplicated; Z86.73 Personal history of transient ischemic attack (TIA), and cerebral infarction without residual deficits; Z98.890 Other specified postprocedural states; Z79.4 Long term (current) use of insulin; Z79.899 Other long term (current) drug therapy
CPT/HCPCS: 36415; 70450; 80307; 81001; 82550; 82553; 82962; 84484; 85025; 85610; 85670; 85730; 86850; 86900; 86901; 87076; 87086; 87186; 93005; 93010; 96374

== ENCOUNTER 2020-10-27 18:18 | Inpatient (IN) | payer MEDICARE ==
[2020-10-27] MEDS ORDERED: SODIUM CHLORIDE 0.9% 500 ML 500 ML IV ONE (18:28)
--- NOTE | 2020-10-27 18:30 | Emergency Department Report ---
ED N/V/D HPI - General Stated complaint: NAUSEA/VOMITING/HYPOTENSION/DEMENTIA Time Seen by Provider: 10/27/20 18:25 Source: EMS Mode of arrival: Stretcher Limitations: Altered Mental Status (baseline dementia) - History of Present Illness Initial comments: 65-year-old female with a past medical history of dementia, CVA with right-sided weakness and aphasia, diabetes, seizures (on Keppra), and hypertension presents to the hospital with vomiting and hypotension. Patient has been vomiting throughout the day and developed diminished mental status. EMS reports BP 84/52 at the scene which improved to a systolic of 120 here after receiving 500 mL normal saline in route. Mental status also improved as per EMS and patient is more alert and at baseline. Patient also received Zofran 4 mg IVP glucose reported in the 300s. Patient is unable to provide history of present illness. She lives at home with her son Patient lives with son Giovani Pierson phone number [phone] Other son and power of admitted attorneys Donnell Pierson [phone] - Related Data Home Medications Medication Instructions Recorded Confirmed Last Taken AtorvaSTATin [Lipitor] 40 mg PO QHS 10/28/20 10/28/20 Unknown Cholecalciferol Vit D3 [Vitamin D3 1,000 unit PO QDAY 10/28/20 10/28/20 Unknown 1,000 UNIT TAB] Ferrous Sulfate [Iron 325 MG] 325 mg PO DAILY 10/28/20 10/28/20 Unknown Losartan [Cozaar] 100 mg PO QDAY 10/28/20 10/28/20 Unknown Memantine 5 mg PO QDAY 10/28/20 10/28/20 Unknown Sertraline [Zoloft] 100 mg PO QDAY 10/28/20 10/28/20 Unknown amLODIPine 5 mg PO DAILY 10/28/20 10/28/20 Unknown donepeziL [Aricept] 5 mg PO QDAY 10/28/20 10/28/20 Unknown levETIRAcetam [Keppra TAB] 1,000 mg PO DAILY 10/28/20 10/28/20 Unknown metFORMIN [Glucophage] 500 mg PO QDAY 10/28/20 10/28/20 Unknown Previous Rx's Medication Instructions Recorded Last Taken Type Pantoprazole [Protonix] 40 mg PO BID #60 tablet 10/29/20 Unknown Rx cefUROXime [Ceftin] 250 mg PO Q12H #20 tablet 10/29/20 Unknown Rx Allergies Allergy/AdvReac Type Severity Reaction Status Date / Time No Known Allergies Allergy Unverified 05/09/13 12:39 ED Review of Systems ROS: Stated complaint: NAUSEA/VOMITING/HYPOTENSION/DEMENTIA Other details as noted in HPI Comment: All other systems reviewed and negative ED Past Medical Hx - Past Medical History Hx Hypertension: Yes Hx CVA: Yes Hx Congestive Heart Failure: No Hx Diabetes: Yes Hx Seizures: Yes Hx Asthma: No Hx COPD: No Hx HIV: No - Surgical History Additional Surgical History: cataract surgery, tubes removed, foot surgery - Social History Smoking Status: Never Smoker Substance Use Type: None - Medications Home Medications: Home Medications Medication Instructions Recorded Confirmed Last Taken Type AtorvaSTATin [Lipitor] 40 mg PO QHS 10/28/20 10/28/20 Unknown History Cholecalciferol Vit D3 [Vitamin D3 1,000 unit PO QDAY 10/28/20 10/28/20 Unknown History 1,000 UNIT TAB] Ferrous Sulfate [Iron 325 MG] 325 mg PO DAILY 10/28/20 10/28/20 Unknown History Losartan [Cozaar] 100 mg PO QDAY 10/28/20 10/28/20 Unknown History Memantine 5 mg PO QDAY 10/28/20 10/28/20 Unknown History Sertraline [Zoloft] 100 mg PO QDAY 10/28/20 10/28/20 Unknown History amLODIPine 5 mg PO DAILY 10/28/20 10/28/20 Unknown History donepeziL [Aricept] 5 mg PO QDAY 10/28/20 10/28/20 Unknown History levETIRAcetam [Keppra TAB] 1,000 mg PO DAILY 10/28/20 10/28/20 Unknown History metFORMIN [Glucophage] 500 mg PO QDAY 10/28/20 10/28/20 Unknown History Pantoprazole [Protonix] 40 mg PO BID #60 tablet 10/29/20 Unknown Rx cefUROXime [Ceftin] 250 mg PO Q12H #20 tablet 10/29/20 Unknown Rx ED Physical Exam - Other Other exam information: General: No acute distress Head: Atraumatic Eyes: normal appearance ENT: Moist mucous membranes Neck: Normal appearance, no midline tenderness Chest: Clear to auscultation bilaterally CV: Regular rate and rhythm Abdomen: Soft, normal bowel sounds, nontender, nondistended, no rebound or guarding Back: Normal inspection Extremity: Normal inspection, full range of motion. 2+ DP pulses bilaterally Neuro: Alert nonverbal, right-sided paralysis Skin: No rash ED Course Vital Signs 10/27/20 10/27/20 10/27/20 18:40 20:00 21:33 Temperature 97.9 F Pulse Rate 70 Respiratory 18 20 Rate Blood Pressure 120/52 Blood Pressure [Left] O2 Sat by Pulse 97 98 97 Oximetry 10/27/20 10/27/20 10/27/20 21:46 22:01 22:15 Temperature Pulse Rate 96 H Respiratory 22 Rate Blood Pressure 119/59 Blood Pressure [Left] O2 Sat by Pulse 99 99 98 Oximetry 10/27/20 10/27/20 10/27/20 22:31 22:57 23:01 Temperature Pulse Rate 94 H Respiratory 17 Rate Blood Pressure 119/59 119/59 119/59 Blood Pressure [Left] O2 Sat by Pulse 99 95 99 Oximetry 10/27/20 10/27/20 10/27/20 23:15 23:31 23:45 Temperature Pulse Rate Respiratory Rate Blood Pressure 119/59 119/59 119/59 Blood Pressure [Left] O2 Sat by Pulse 99 99 98 Oximetry 10/28/20 10/28/20 10/28/20 00:01 00:05 00:15 Temperature Pulse Rate Respiratory Rate Blood Pressure 175/80 175/80 175/80 Blood Pressure [Left] O2 Sat by Pulse 98 98 97 Oximetry 10/28/20 10/28/20 10/28/20 00:31 00:45 01:01 Temperature Pulse Rate Respiratory Rate Blood Pressure 175/80 175/80 166/74 Blood Pressure [Left] O2 Sat by Pulse 98 97 98 Oximetry 10/28/20 10/28/20 10/28/20 01:15 01:31 01:45 Temperature Pulse Rate 99 H Respiratory 21 Rate Blood Pressure 175/80 165/73 165/73 Blood Pressure [Left] O2 Sat by Pulse 97 98 98 Oximetry 10/28/20 10/28/20 10/28/20 02:01 02:15 02:31 Temperature Pulse Rate 99 H 101 H 96 H Respiratory 19 19 19 Rate Blood Pressure 137/46 137/46 137/46 Blood Pressure [Left] O2 Sat by Pulse 98 98 98 Oximetry 10/28/20 10/28/20 10/28/20 02:45 03:01 03:15 Temperature Pulse Rate 94 H 93 H 96 H Respiratory 19 19 20 Rate Blood Pressure 137/46 141/64 141/64 Blood Pressure [Left] O2 Sat by Pulse 97 97 97 Oximetry 10/28/20 10/28/20 10/28/20 03:31 03:45 04:01 Temperature Pulse Rate 97 H 97 H 98 H Respiratory 21 22 21 Rate Blood Pressure 141/64 141/64 146/63 Blood Pressure [Left] O2 Sat by Pulse 98 97 98 Oximetry 10/28/20 10/28/20 10/28/20 04:15 04:31 04:45 Temperature Pulse Rate 96 H 97 H 96 H Respiratory 20 21 21 Rate Blood Pressure 146/63 146/63 146/63 Blood Pressure [Left] O2 Sat by Pulse 98 98 99 Oximetry 10/28/20 10/28/20 10/28/20 05:00 05:01 05:15 Temperature Pulse Rate 90 100 H 98 H Respiratory 21 20 Rate Blood Pressure 136/60 136/60 136/60 Blood Pressure [Left] O2 Sat by Pulse 98 99 Oximetry 10/28/20 10/28/20 10/28/20 05:31 05:45 06:01 Temperature Pulse Rate 97 H 102 H 105 H Respiratory 22 26 H 16 Rate Blood Pressure 136/60 136/60 131/61 Blood Pressure [Left] O2 Sat by Pulse 98 98 100 Oximetry 10/28/20 10/28/20 10/28/20 06:15 06:31 06:45 Temperature Pulse Rate 95 H 98 H 98 H Respiratory 20 18 18 Rate Blood Pressure 131/61 136/60 136/60 Blood Pressure [Left] O2 Sat by Pulse 99 100 100 Oximetry 10/28/20 10/28/20 10/28/20 07:01 07:15 12:36 Temperature Pulse Rate 91 H 96 H 88 Respiratory 20 21 16 Rate Blood Pressure 131/58 131/58 Blood Pressure 124/53 [Left] O2 Sat by Pulse 97 99 100 Oximetry 10/28/20 10/28/20 10/28/20 14:10 14:11 14:21 Temperature Pulse Rate 82 79 87 Respiratory 16 18 22 Rate Blood Pressure 120/51 120/51 Blood Pressure 120/51 [Left] O2 Sat by Pulse 95 95 98 Oximetry 10/28/20 10/28/20 10/28/20 14:31 14:41 14:51 Temperature Pulse Rate 78 78 75 Respiratory 17 15 16 Rate Blood Pressure 120/51 120/51 120/51 Blood Pressure [Left] O2 Sat by Pulse 99 99 99 Oximetry 10/28/20 10/28/20 10/28/20 15:01 15:11 15:21 Temperature Pulse Rate 77 84 77 Respiratory 18 18 18 Rate Blood Pressure 125/51 125/51 125/51 Blood Pressure [Left] O2 Sat by Pulse 99 99 100 Oximetry 10/28/20 10/28/20 10/28/20 15:31 15:41 15:51 Temperature Pulse Rate 84 78 75 Respiratory 16 18 17 Rate Blood Pressure 125/51 125/51 125/51 Blood Pressure [Left] O2 Sat by Pulse 100 100 99 Oximetry 10/28/20 10/28/20 10/28/20 16:01 16:11 16:21 Temperature Pulse Rate 91 H 82 80 Respiratory 18 17 17 Rate Blood Pressure 130/54 125/51 125/51 Blood Pressure [Left] O2 Sat by Pulse 99 100 100 Oximetry 10/28/20 10/28/20 10/28/20 16:31 16:41 16:51 Temperature Pulse Rate 78 82 82 Respiratory 18 18 12 Rate Blood Pressure 125/51 130/54 130/54 Blood Pressure [Left] O2 Sat by Pulse 100 100 100 Oximetry 10/28/20 10/28/20 10/28/20 17:01 17:11 17:21 Temperature Pulse Rate 78 76 82 Respiratory 13 11 L 13 Rate Blood Pressure 130/54 147/51 147/51 Blood Pressure 147/51 [Left] O2 Sat by Pulse 100 99 100 Oximetry 10/28/20 10/28/20 10/28/20 17:31 17:40 17:51 Temperature Pulse Rate 81 78 81 Respiratory 15 14 20 Rate Blood Pressure 147/51 147/51 105/63 Blood Pressure [Left] O2 Sat by Pulse 100 96 94 Oximetry 10/28/20 10/28/20 10/28/20 18:00 18:19 18:21 Temperature Pulse Rate 76 Respiratory 20 Rate Blood Pressure 105/63 105/63 115/53 Blood Pressure [Left] O2 Sat by Pulse 97 Oximetry 10/28/20 10/28/20 10/28/20 18:31 18:41 18:51 Temperature Pulse Rate Respiratory Rate Blood Pressure 115/53 105/63 105/63 Blood Pressure [Left] O2 Sat by Pulse 100 87 97 Oximetry 10/28/20 10/28/20 10/28/20 19:01 19:11 19:21 Temperature Pulse Rate Respiratory Rate Blood Pressure 125/56 125/56 115/53 Blood Pressure [Left] O2 Sat by Pulse 100 98 86 Oximetry 10/28/20 10/28/20 10/28/20 19:31 19:41 19:51 Temperature Pulse Rate Respiratory Rate Blood Pressure 115/53 115/53 125/56 Blood Pressure [Left] O2 Sat by Pulse 96 100 98 Oximetry 10/28/20 10/28/20 10/28/20 20:01 20:11 20:21 Temperature Pulse Rate Respiratory Rate Blood Pressure 110/56 110/56 110/56 Blood Pressure [Left] O2 Sat by Pulse 99 96 96 Oximetry 10/28/20 10/28/20 10/28/20 20:31 20:41 20:51 Temperature Pulse Rate Respiratory Rate Blood Pressure 110/56 110/56 110/56 Blood Pressure [Left] O2 Sat by Pulse 100 100 99 Oximetry 10/28/20 10/28/20 10/28/20 21:01 21:11 21:21 Temperature Pulse Rate Respiratory Rate Blood Pressure 118/57 118/57 118/57 Blood Pressure [Left] O2 Sat by Pulse 93 100 98 Oximetry 10/28/20 10/28/20 10/28/20 21:31 21:41 21:51 Temperature Pulse Rate Respiratory Rate Blood Pressure 118/57 118/57 118/57 Blood Pressure [Left] O2 Sat by Pulse 100 99 100 Oximetry 10/28/20 10/28/20 22:01 22:11 Temperature Pulse Rate Respiratory Rate Blood Pressure 145/58 145/58 Blood Pressure [Left] O2 Sat by Pulse 100 99 Oximetry - Reevaluation(s) Reevaluation #1: 10/27/20 18:46 Patient vomited after ED arrival. 10/27/20 20:50 Patient is vomitus has been examined and appears to be coffee-ground emesis without bright red blood vomitus. Guaiac exam reveals brown stool faintly positive without melena or gross blood 10/27/20 22:14 Case discussed with patient's son Giovani Pierson. Patient lives with Giovani Pierson. I explained patient's current status and need for admission and further work-up for possible GI bleed, with pleural effusion, UTI, and nausea vomiting. He provided verbal permission to provide IV contrast for CAT scan. No known history of iodine or contrast allergy. 10/28/20 01:13 I called patient's son Donnell Pierson to discuss patient's diagnosis and treatment plan. It was explained that patient will be admitted for IV antibiotics and possible transfusion if needed. I explained that patient likely has ovarian cancer however, we do not have the capability here to treat the patient for ovarian cancer due to lack of SUPERCALENDER OPERATOR oncology. Also informed him that we are unable to transfer the patient and after treatment of her emergent issues, she will need outpatient follow-up for further management. He voices understanding and did not have any questions at this time 10/28/20 01:21 lactic acid improving - Consultations Consultation #1: 10/27/20 23:50 case d/w Veronique log turner chief hydroelectric station operator, [facility] log turner onc since not available. Informed that most hospitals are on diversion. Requests attempt to transfer 10/28/20 00:00 [facility] called for transfer. No beds available 10/28/20 00:11 Case d/w Dr Juarez general surgeon who states that pneumatosis is likely secondary to low flow states this patient lacks peritoneal signs. Suggest sepsis treatment and fluid resuscitation. Patient does not need emergent s urgery at this time 10/28/20 00:17 [facility] transfer called no beds at any facility 10/28/20 00:20 [facility] called no beds at any facility 10/28/20 00:[address] facilities called include [facility], [facility], [facility], [facility], [facility], [facility], [facility] (checks availability of [facility] [place] and [place]), and in [place] in [place] and they are all on diversion and not accepting patients 10/28/20 00:45 10/28/20 00:56 Case d/w Dr Redman recommends admission here. Recommends informing family that we do not have SUPERCALENDER OPERATOR oncology available here nor is there availability in the hospitals at this time and patient's other issues will be treated/stabilized and outpatient follow-up with SUPERCALENDER OPERATOR oncology work-up will likely be advised 10/28/20 01:[address] Aguilar with GI regarding coffee-ground emesis. Will consult 10/31/20 12:50 ED Medical Decision Making - Lab Data Result diagrams: 10/29/20 04:40 10/29/20 04:40 Lab Results 10/27/20 10/27/20 10/27/20 Range/Units 18:26 18:26 19:08 WBC 20.2 H (4.5-11.0) K/mm3 RBC 3.21 L (3.65-5.03) M/mm3 Hgb 7.8 L (10.1-14.3) gm/dl Hct 25.7 L (30.3-42.9) % MCV 80 (79-97) fl MCH 24 L (28-32) pg MCHC 31 (30-34) % RDW 22.5 H (13.2-15.2) % Plt Count 534 H (140-440) K/mm3 Lymph # (Auto) Meat Trimmer Add Manual Diff Complete Total Counted 100 Seg Neuts % (Manual) 68.0 (40.0-70.0) % Lymphocytes % (Manual) 23.0 (13.4-35.0) % Monocytes % (Manual) 7.0 (0.0-7.3) % Eosinophils % (Manual) 1.0 (0.0-4.3) % Basophils % (Manual) 1.0 (0.0-1.8) % Nucleated RBC % Not Reportable Seg Neutrophils # Man 13.7 H (1.8-7.7) K/mm3 Band Neutrophils # 0.0 K/mm3 Lymphocytes # (Manual) 4.6 (1.2-5.4) K/mm3 Abs React Lymphs (Man) 0.0 K/mm3 Monocytes # (Manual) 1.4 H (0.0-0.8) K/mm3 Eosinophils # (Manual) 0.2 (0.0-0.4) K/mm3 Basophils # (Manual) 0.2 H (0.0-0.1) K/mm3 Metamyelocytes # 0.0 K/mm3 Myelocytes # 0.0 K/mm3 Promyelocytes # 0.0 K/mm3 Blast Cells # 0.0 K/mm3 WBC Morphology Not Reportable Hypersegmented Neuts Not Reportable Hyposegmented Neuts Not Reportable Hypogranular Neuts Not Reportable Smudge Cells Not Reportable Toxic Granulation Not Reportable Toxic Vacuolation Not Reportable Dohle Bodies Not Reportable Pelger-Huet Anomaly Not Reportable [place]yenne Rods Not Reportable Platelet Estimate Not Reportable Clumped Platelets Not Reportable Plt Clumps, EDTA Not Reportable Large Platelets Not Reportable Giant Platelets Not Reportable Platelet Satelliting Not Reportable Plt Morphology Comment Not Reportable RBC Morphology Not Reportable Dimorphic RBCs Not Reportable Polychromasia Not Reportable Hypochromasia 1+ Poikilocytosis Not Reportable Anisocytosis 1+ Microcytosis Few Macrocytosis Not Reportable Spherocytes Not Reportable Pappenheimer Bodies Not Reportable Sickle Cells Not Reportable Target Cells Not Reportable Tear Drop Cells Not Reportable Ovalocytes Not Reportable Helmet Cells Not Reportable Holman-Gearhart Bodies Not Reportable [place]bury Rings Not Reportable Vaishnavi Cells Not Reportable Bite Cells Not Reportable Crenated Cell Not Reportable Elliptocytes Not Reportable Acanthocytes (Spur) Not Reportable Rouleaux Not Reportable Hemoglobin C Crystals Not Reportable Schistocytes Not Reportable Malaria parasites Not Reportable Zurdo Bodies Not Reportable Hem Pathologist Commnt No PT (12.2-14.9) Sec. INR (0.87-1.13) APTT (24.2-36.6) Sec. VBG pH 7.243 L (7.320-7.420) Sodium 139 (137-145) mmol/L Potassium 4.1 (3.6-5.0) mmol/L Chloride 103.1 (98-107) mmol/L Carbon Dioxide 22 (22-30) mmol/L Anion Gap 18 mmol/L BUN 19 H (7-17) mg/dL Creatinine 1.1 (0.6-1.2) mg/dL Estimated GFR > 60 ml/min BUN/Creatinine Ratio 17 % Glucose 238 H (65-100) mg/dL Lactic Acid (0.7-2.0) mmol/L Calcium 8.8 (8.4-10.2) mg/dL Total Bilirubin < 0.20 (0.1-1.2) mg/dL AST 14 (5-40) units/L ALT 10 (7-56) units/L Alkaline Phosphatase 98 (35-129) units/L Ammonia (25-60) umol/L Troponin T 0.011 (0.00-0.029) ng/mL Total Protein 7.3 (6.3-8.2) g/dL Albumin 2.8 L (3.9-5) g/dL Albumin/Globulin Ratio 0.6 % Lipase 17 (13-60) units/L Urine Color (Yellow) Urine Turbidity (Clear) Urine pH (5.0-7.0) Ur Specific [place] (1.003-1.030) Urine Protein (Negative) mg/dL Urine Glucose (UA) (Negative) mg/dL Urine Ketones (Negative) mg/dL Urine Blood (Negative) Urine Nitrite (Negative) Urine Bilirubin (Negative) Urine Urobilinogen (<2.0) mg/dL Ur Leukocyte Esterase (Negative) Urine WBC (Auto) (0.0-6.0) /HPF Urine RBC (Auto) (0.0-6.0) /HPF U Epithel Cells (Auto) (0-13.0) /HPF Urine Bacteria (Auto) (Negative) /HPF Hyaline Casts /LPF Urine Mucus /HPF Blood Type Antibody Screen 10/27/20 10/27/20 10/27/20 Range/Units 19:08 21:29 21:48 WBC (4.5-11.0) K/mm3 RBC (3.65-5.03) M/mm3 Hgb (10.1-14.3) gm/dl Hct (30.3-42.9) % MCV (79-97) fl MCH (28-32) pg MCHC (30-34) % RDW (13.2-15.2) % Plt Count (140-440) K/mm3 Lymph # (Auto) Add Manual Diff Total Counted Seg Neuts % (Manual) (40.0-70.0) % Lymphocytes % (Manual) (13.4-35.0) % Monocytes % (Manual) (0.0-7.3) % Eosinophils % (Manual) (0.0-4.3) % Basophils % (Manual) (0.0-1.8) % Nucleated RBC % Seg Neutrophils # Man (1.8-7.7) K/mm3 Band Neutrophils # K/mm3 Lymphocytes # (Manual) (1.2-5.4) K/mm3 Abs React Lymphs (Man) K/mm3 Monocytes # (Manual) (0.0-0.8) K/mm3 Eosinophils # (Manual) (0.0-0.4) K/mm3 Basophils # (Manual) (0.0-0.1) K/mm3 Metamyelocytes # K/mm3 Myelocytes # K/mm3 Promyelocytes # K/mm3 Blast Cells # K/mm3 WBC Morphology Hypersegmented Neuts Hyposegmented Neuts Hypogranular Neuts Smudge Cells Toxic Granulation Toxic Vacuolation Dohle Bodies Pelger-Huet Anomaly [place] Rods Platelet Estimate Clumped Platelets Plt Clumps, EDTA Large Platelets Giant Platelets Platelet Satelliting Plt Morphology Comment RBC Morphology Dimorphic RBCs Polychromasia Hypochromasia Poikilocytosis Anisocytosis Microcytosis Macrocytosis Spherocytes Pappenheimer Bodies Sickle Cells Target Cells Tear Drop Cells Ovalocytes Helmet Cells Holman-Gearhart Bodies [place] Rings Vaishnavi Cells Bite Cells Crenated Cell Elliptocytes Acanthocytes (Spur) Rouleaux Hemoglobin C Crystals Schistocytes Malaria parasites Zurdo Bodies Hem Pathologist Commnt PT (12.2-14.9) Sec. INR (0.87-1.13) APTT (24.2-36.6) Sec. VBG pH (7.320-7.420) Sodium (137-145) mmol/L Potassium (3.6-5.0) mmol/L Chloride (98-107) mmol/L Carbon Dioxide (22-30) mmol/L Anion Gap mmol/L BUN (7-17) mg/dL Creatinine (0.6-1.2) mg/dL Estimated GFR ml/min BUN/Creatinine Ratio % Glucose (65-100) mg/dL Lactic Acid (0.7-2.0) mmol/L Calcium (8.4-10.2) mg/dL Total Bilirubin (0.1-1.2) mg/dL AST (5-40) units/L ALT (7-56) units/L Alkaline Phosphatase (35-129) units/L Ammonia 18.0 L (25-60) umol/L Troponin T 0.014 (0.00-0.029) ng/mL Total Protein (6.3-8.2) g/dL Albumin (3.9-5) g/dL Albumin/Globulin Ratio % Lipase (13-60) units/L Urine Color Yellow (Yellow) Urine Turbidity Slightly-cloudy (Clear) Urine pH 5.0 (5.0-7.0) Ur Specific [place] 1.010 (1.003-1.030) Urine Protein <15 mg/dl (Negative) mg/dL Urine Glucose (UA) Neg (Negative) mg/dL Urine Ketones Neg (Negative) mg/dL Urine Blood Sm (Negative) Urine Nitrite Neg (Negative) Urine Bilirubin Neg (Negative) Urine Urobilinogen < 2.0 (<2.0) mg/dL Ur Leukocyte Esterase Mod (Negative) Urine WBC (Auto) 64.0 H (0.0-6.0) /HPF Urine RBC (Auto) 5.0 (0.0-6.0) /HPF U Epithel Cells (Auto) 2.0 (0-13.0) /HPF Urine Bacteria (Auto) 2+ (Negative) /HPF Hyaline Casts 1 /LPF Urine Mucus Few /HPF Blood Type Antibody Screen 10/27/20 10/27/20 10/27/20 Range/Units 21:48 21:48 21:48 WBC (4.5-11.0) K/mm3 RBC (3.65-5.03) M/mm3 Hgb (10.1-14.3) gm/dl Hct (30.3-42.9) % MCV (79-97) fl MCH (28-32) pg MCHC (30-34) % RDW (13.2-15.2) % Plt Count (140-440) K/mm3 Lymph # (Auto) Add Manual Diff Total Counted Seg Neuts % (Manual) (40.0-70.0) % Lymphocytes % (Manual) (13.4-35.0) % Monocytes % (Manual) (0.0-7.3) % Eosinophils % (Manual) (0.0-4.3) % Basophils % (Manual) (0.0-1.8) % Nucleated RBC % Seg Neutrophils # Man (1.8-7.7) K/mm3 Band Neutrophils # K/mm3 Lymphocytes # (Manual) (1.2-5.4) K/mm3 Abs React Lymphs (Man) K/mm3 Monocytes # (Manual) (0.0-0.8) K/mm3 Eosinophils # (Manual) (0.0-0.4) K/mm3 Basophils # (Manual) (0.0-0.1) K/mm3 Metamyelocytes # K/mm3 Myelocytes # K/mm3 Promyelocytes # K/mm3 Blast Cells # K/mm3 WBC Morphology Hypersegmented Neuts Hyposegmented Neuts Hypogranular Neuts Smudge Cells Toxic Granulation Toxic Vacuolation Dohle Bodies Pelger-Huet Anomaly [place] Rods Platelet Estimate Clumped Platelets Plt Clumps, EDTA Large Platelets Giant Platelets Platelet Satelliting Plt Morphology Comment RBC Morphology Dimorphic RBCs Polychromasia Hypochromasia Poikilocytosis Anisocytosis Microcytosis Macrocytosis Spherocytes Pappenheimer Bodies Sickle Cells Target Cells Tear Drop Cells Ovalocytes Helmet Cells Holman-Gearhart Bodies [place] Rings [place] Cells Bite Cells Crenated Cell Elliptocytes Acanthocytes (Spur) Rouleaux Hemoglobin C Crystals Schistocytes Malaria parasites Zurdo Bodies Hem Pathologist Commnt PT 14.1 (12.2-14.9) Sec. INR 1.03 (0.87-1.13) APTT 33.8 (24.2-36.6) Sec. VBG pH (7.320-7.420) Sodium (137-145) mmol/L Potassium (3.6-5.0) mmol/L Chloride (98-107) mmol/L Carbon Dioxide (22-30) mmol/L Anion Gap mmol/L BUN (7-17) mg/dL Creatinine (0.6-1.2) mg/dL Estimated GFR ml/min BUN/Creatinine Ratio % Glucose (65-100) mg/dL Lactic Acid 5.20 H* (0.7-2.0) mmol/L Calcium (8.4-10.2) mg/dL Total Bilirubin (0.1-1.2) mg/dL AST (5-40) units/L ALT (7-56) units/L Alkaline Phosphatase (35-129) units/L Ammonia (25-60) umol/L Troponin T (0.00-0.029) ng/mL Total Protein (6.3-8.2) g/dL Albumin (3.9-5) g/dL Albumin/Globulin Ratio % Lipase (13-60) units/L Urine Color (Yellow) Urine Turbidity (Clear) Urine pH (5.0-7.0) Ur Specific [place] (1.003-1.030) Urine Protein (Negative) mg/dL Urine Glucose (UA) (Negative) mg/dL Urine Ketones (Negative) mg/dL Urine Blood (Negative) Urine Nitrite (Negative) Urine Bilirubin (Negative) Urine Urobilinogen (<2.0) mg/dL Ur Leukocyte Esterase (Negative) Urine WBC (Auto) (0.0-6.0) /HPF Urine RBC (Auto) (0.0-6.0) /HPF U Epithel Cells (Auto) (0-13.0) /HPF Urine Bacteria (Auto) (Negative) /HPF Hyaline Casts /LPF Urine Mucus /HPF Blood Type O POSITIVE Antibody Screen Negative 10/28/20 Range/Units 00:21 WBC (4.5-11.0) K/mm3 RBC (3.65-5.03) M/mm3 Hgb (10.1-14.3) gm/dl Hct (30.3-42.9) % MCV (79-97) fl MCH (28-32) pg MCHC (30-34) % RDW (13.2-15.2) % Plt Count (140-440) K/mm3 Lymph # (Auto) Add Manual Diff Total Counted Seg Neuts % (Manual) (40.0-70.0) % Lymphocytes % (Manual) (13.4-35.0) % Monocytes % (Manual) (0.0-7.3) % Eosinophils % (Manual) (0.0-4.3) % Basophils % (Manual) (0.0-1.8) % Nucleated RBC % Seg Neutrophils # Man (1.8-7.7) K/mm3 Band Neutrophils # K/mm3 Lymphocytes # (Manual) (1.2-5.4) K/mm3 Abs React Lymphs (Man) K/mm3 Monocytes # (Manual) (0.0-0.8) K/mm3 Eosinophils # (Manual) (0.0-0.4) K/mm3 Basophils # (Manual) (0.0-0.1) K/mm3 Metamyelocytes # K/mm3 Myelocytes # K/mm3 Promyelocytes # K/mm3 Blast Cells # K/mm3 WBC Morphology Hypersegmented Neuts Hyposegmented Neuts Hypogranular Neuts Smudge Cells Toxic Granulation Toxic Vacuolation Dohle Bodies Pelger-Huet Anomaly [place] Rods Platelet Estimate Clumped Platelets Plt Clumps, EDTA Large Platelets Giant Platelets Platelet Satelliting Plt Morphology Comment RBC Morphology Dimorphic RBCs Polychromasia Hypochromasia Poikilocytosis Anisocytosis Microcytosis Macrocytosis Spherocytes Pappenheimer Bodies Sickle Cells Target Cells Tear Drop Cells Ovalocytes Helmet Cells Holman-Gearhart Bodies [place] Rings Vaishnavi Cells Bite Cells Crenated Cell Elliptocytes Acanthocytes (Spur) Rouleaux Hemoglobin C Crystals Schistocytes Malaria parasites Zurdo Bodies Hem Pathologist Commnt PT (12.2-14.9) Sec. INR (0.87-1.13) APTT (24.2-36.6) Sec. VBG pH (7.320-7.420) Sodium (137-145) mmol/L Potassium (3.6-5.0) mmol/L Chloride (98-107) mmol/L Carbon Dioxide (22-30) mmol/L Anion Gap mmol/L BUN (7-17) mg/dL Creatinine (0.6-1.2) mg/dL Estimated GFR ml/min BUN/Creatinine Ratio % Glucose (65-100) mg/dL Lactic Acid (0.7-2.0) mmol/L Calcium (8.4-10.2) mg/dL Total Bilirubin (0.1-1.2) mg/dL AST (5-40) units/L ALT (7-56) units/L Alkaline Phosphatase (35-129) units/L Ammonia (25-60) umol/L Troponin T < 0.010 (0.00-0.029) ng/mL Total Protein (6.3-8.2) g/dL Albumin (3.9-5) g/dL Albumin/Globulin Ratio % Lipase (13-60) units/L Urine Color (Yellow) Urine Turbidity (Clear) Urine pH (5.0-7.0) Ur Specific [place] (1.003-1.030) Urine Protein (Negative) mg/dL Urine Glucose (UA) (Negative) mg/dL Urine Ketones (Negative) mg/dL Urine Blood (Negative) Urine Nitrite (Negative) Urine Bilirubin (Negative) Urine Urobilinogen (<2.0) mg/dL Ur Leukocyte Esterase (Negative) Urine WBC (Auto) (0.0-6.0) /HPF Urine RBC (Auto) (0.0-6.0) /HPF U Epithel Cells (Auto) (0-13.0) /HPF Urine Bacteria (Auto) (Negative) /HPF Hyaline Casts /LPF Urine Mucus /HPF Blood Type Antibody Screen - EKG Data -: EKG Interpreted by Me EKG shows normal: sinus rhythm, intervals (504), ST-T waves (no stemi) Rate: normal (99) - Radiology Data Radiology results: report reviewed CHEST 1 VIEW INDICATION: vomiting...Patient brought from home for low blood pressure...AMS. COMPARISON: 06/12/2019 FINDINGS: SUPPORT DEVICES: None. HEART: Within normal limits. LUNGS/PLEURA: Small left-sided pleural effusion and minimal streaky airspace disease likely at least in part representing atelectasis. Clear right lung. ADDITIONAL FINDINGS: None. IMPRESSION: 1. Pulmonary findings as above. CT CHEST, ABDOMEN, AND PELVIS WITH IV CONTRAST INDICATION / CLINICAL INFORMATION: nausea and vomiting. Chest and abdominal pain, pleural effusion TECHNIQUE: Axial CT images were obtained through the chest, abdomen, and pelvis after IV contrast. All CT scans at this location are performed using CT dose reduction for EPV SOLAR by means of automated exposure control. COMPARISON: None FINDINGS: HEART: No significant abnormality. THORACIC AORTA: No significant abnormality. MEDIASTINUM and KENDRA: No significant abnormality. LUNGS: Mild compressive atelectasis left lower lobe. No acute air space or interstitial disease. PLEURA: Moderate left pleural effusion. No pneumothorax. ADDITIONAL CHEST FINDINGS: None. LIVER: No significant abnormality. GALLBLADDER: Calcified gallstone. BILE DUCTS: No significant abnormality. PANCREAS: No significant abnormality. SPLEEN: No significant abnormality. ADRENALS: No significant abnormality. RIGHT KIDNEY and URETER: No significant abnormality. LEFT KIDNEY and URETER: Several nonobstructing left intrarenal stones, largest of which measures 8 mm. STOMACH and SMALL BOWEL: Small bowel feces distal ileum. No bowel obstruction COLON: Large amount of solid stool within the rectal vault characteristic for fecal impaction. Small amount of pneumatosis within the cecum APPENDIX: No significant abnormality. PERITONEUM: No free fluid. No free air. No fluid collection. LYMPH NODES: No significant adenopathy. AORTA and ARTERIES: Moderate vascular calcifications nonaneurysmal aorta and both iliac arteries. IVC and VEINS: Moderate calcification right femoral and iliac veins characteristic for chronic thrombophlebitis. No acute DVT visualized URINARY BLADDER: No significant abnormality. REPRODUCTIVE ORGANS: Complex cystic mass left ovary measuring 8.5 cm worrisome for ovarian carcinoma. ADDITIONAL FINDINGS: None. SKELETAL SYSTEM: No significant abnormality. IMPRESSION: 1. Complex multi septated left lower quadrant pelvic mass likely represents ovarian neoplasm. Pelvic abscess considered less likely but another differential possibility. Pelvic ultrasound recommended. 2. Cholelithiasis 3. Moderate left pleural effusion. 4. Right femoral and iliac calcifications characteristic for chronic thrombophlebitis. 5. Left nephrolithiasis. 6. Constipation and fecal impaction 7. Mild pneumatosis involving cecum. No free air to suggest perforation - Medical Decision Making 65-year-old female presents to the hospital with hypotension in the field, nausea, vomiting, and elevated white blood cell count. Rocephin empirically provided given history UTI sensitive to cephalosporins in the past and resistant to Levaquin.. X-ray findings of left pleural effusion noted. Patient did receive 30 mL/kg bolus of normal saline as per sepsis protocol and lactic acidosis. MAP remain above 65 yet initial 500 mL normal saline bolus provided by EMS. CT chest abdomen pelvis reviewed. Suspicious for ovarian cancer with associated pleural effusion. Less likely pelvic mass. IV clindamycin ordered. Patient had multiple episodes of coffee-ground emesis. Also having multiple bowel movements were brown stool without melena or gross blood. Anemia likely secondary to chronic disease/cancer. No bright red blood or signs of active bleeding. IV Pepcid was provided. Case discussed with SUPER[facility]ENDER OPERATOR who recommended transfer to facility with [facility] oncology. Case discussed with general surgery who states that no surgical emergency at this time. We attempted to call multiple hospitals in [place] as well as a hospital in [place] and every facility is on diversion and not accepting transfers. Case d/w Feroz, case d/w family, patient will be admitted here for treatment of her emergent issues and stabilization but will ultimately require outpatient follow-up with [facility] oncology upon discharge. Critical Care Time: Yes Critical care time in (mins) excluding proc time.: 65 Critical care attestation.: If time is entered above; I have spent that time in minutes in the direct care of this critically ill patient, excluding procedure time. ED Disposition Clinical Impression: UTI (urinary tract infection), Coffee ground emesis, Anemia, Guaiac + stool, Sepsis, Pelvic mass in female, Lactic acidosis Disposition: 09 ADMITTED INPATIENT Is pt being admited?: Yes Condition: Stable Time of Disposition: 01:37
[2020-10-27] MEDS ORDERED: ONDANSETRON 4 MG/2 ML INJ IV ONE (18:45)
[2020-10-27 19:29] LABS: Hematocrit 25.7 % (30.3-42.9); Hemoglobin 7.8 gm/dl (10.1-14.3); Mean Corpuscular HGB Conc 31 % (30-34); Mean Corpuscular Volume 80 fl (79-97); Platelet Count 534 K/mm3 (140-440); Red Blood Count 3.21 M/mm3 (3.65-5.03)
--- NOTE | 2020-10-27 19:36 | XRay Report ---
CHEST 1 VIEW INDICATION: vomiting...Patient brought from home for low blood pressure...AMS. COMPARISON: 06/12/2019 FINDINGS: SUPPORT DEVICES: None. HEART: Within normal limits. LUNGS/PLEURA: Small left-sided pleural effusion and minimal streaky airspace disease likely at least in part representing atelectasis. Clear right lung. ADDITIONAL FINDINGS: None. IMPRESSION: 1. Pulmonary findings as above. Signer Name: Jose Davila MD Signed: 10/27/2020 7:31 PM Workstation Name: [id number]
[2020-10-27 19:44] LABS: Alanine Aminotransferase 10 units/L (7-56); Albumin 2.8 g/dL (3.9-5); BUN/Creatinine Ratio 17; Blood Urea Nitrogen 19 mg/dL (7-17); Calcium 8.8 mg/dL (8.4-10.2); Hemolysis Index 17
[2020-10-27 19:49] LABS: Red Cell Distribution Width 22.5 % (13.2-15.2)
[2020-10-27] MEDS ORDERED: SODIUM CHLORIDE 0.9% 1000 ML IV SOLN IV ONE (20:05)
[2020-10-27] MEDS ORDERED: cefTRIAXone/NS 1 GM/50 ML 1 GM/50 ML BAG IV ONE (20:22)
[2020-10-27 20:46] LABS: Total Cells Counted 100
[2020-10-27 20:47] LABS: Anisocytosis 1+; Hypochromasia 1+
[2020-10-27] MEDS ORDERED: PANTOPRAZOLE 40 MG INJ IV ONE (20:49)
[2020-10-27 21:55] LABS: Color,Urine Yellow (Yellow)
[2020-10-27 21:56] LABS: Bacteria,Urine 2+ /HPF (Negative); Bilirubin,Urine NEG (Negative); Blood,Urine SM (Negative); Hyaline Casts,Urine 1 /LPF; Mucus,Urine FEW /HPF; Protein,Urine <15 mg/dL mg/dL (Negative); Urobilinogen,Urine < 2.0 mg/dL (<2.0)
[2020-10-27] MEDS ORDERED: METOCLOPRAMIDE 10 MG/2 ML INJ IV ONE (22:02)
[2020-10-27] MEDS ORDERED: diphenhydrAMINE 50 MG/ML VIAL IV ONE (22:02)
[2020-10-27 22:44] LABS: INR 1.03 (0.87-1.13)
[2020-10-27 22:45] LABS: Partial Thromboplastin Time 33.8 Sec. (24.2-36.6)
--- NOTE | 2020-10-27 23:32 | Cat Scan Report ---
CT CHEST, ABDOMEN, AND PELVIS WITH IV CONTRAST INDICATION / CLINICAL INFORMATION: nausea and vomiting. Chest and abdominal pain, pleural effusion TECHNIQUE: Axial CT images were obtained through the chest, abdomen, and pelvis after IV contrast. All CT scans at this location are performed using CT dose reduction for ALARA by means of automated exposure contr ol. COMPARISON: None FINDINGS: HEART: No significant abnormality. THORACIC AORTA: No significant abnormality. MEDIASTINUM and KENDRA: No significant abnormality. LUNGS: Mild compressive atelectasis left lower lobe. No acute air space or interstitial disease. PLEURA: Moderate left pleural effusion. No pneumothorax. ADDITIONAL CHEST FINDINGS: None. LIVER: No significant abnormality. GALLBLADDER: Calcified gallstone. BILE DUCTS: No significant abnormality. PANCREAS: No significant abnormality. SPLEEN: No significant abnormality. ADRENALS: No significant abnormality. RIGHT KIDNEY and URETER: No significant abnormality. LEFT KIDNEY and URETER: Several nonobstructing left intrarenal stones, largest of which measures 8 mm . STOMACH and SMALL BOWEL: Small bowel feces distal ileum. No bowel obstruction COLON: Large amount of solid stool within the rectal vault characteristic for fecal impaction. Small amount of pneumatosis within the cecum APPENDIX: No significant abnormality. PERITONEUM: No free fluid. No free air. No fluid collection. LYMPH NODES: No significant adenopathy. AORTA and ARTERIES: Moderate vascular calcifications nonaneurysmal aorta and both iliac arteries. IVC and VEINS: Moderate calcification right femoral and iliac veins characteristic for chronic thromb ophlebitis. No acute DVT visualized URINARY BLADDER: No significant abnormality. REPRODUCTIVE ORGANS: Complex cystic mass left ovary measuring 8.5 cm worrisome for ovarian carcinoma. ADDITIONAL FINDINGS: None. SKELETAL SYSTEM: No significant abnormality. IMPRESSION: 1. Complex multi septated left lower quadrant pelvic mass likely represents ovarian neoplasm. Pelvic abscess considered less likely but another differential possibility. Pelvic ultrasound recommended. 2. Cholelithiasis 3. Moderate left pleural effusion. 4. Right femoral and iliac calcifications characteristic for chronic thrombophlebitis. 5. Left nephrolithiasis. 6. Constipation and fecal impaction 7. Mild pneumatosis involving cecum. No free air to suggest perforation Signer Name: Julio Black MD Signed: 10/27/2020 11:27 PM Workstation Name: [id number]
[2020-10-28] MEDS ORDERED: CLINDAMYCIN 600 MG/50 mL 600 MG/50 ML BAG IV ONE (00:25)
[2020-10-28] MEDS ORDERED: MORPHINE 2 MG/1 ML INJ IV PRN (01:48)
[2020-10-28] MEDS ORDERED: ONDANSETRON 4 MG/2 ML INJ IV PRN (01:48)
[2020-10-28] MEDS ORDERED: MORPHINE 4 MG/1 ML INJ IV PRN (01:48)
[2020-10-28] MEDS ORDERED: DEXTROSE 50% IN WATER (25GM) 50 ML SYRINGE IV PRN (01:48)
[2020-10-28] MEDS ORDERED: ACETAMINOPHEN 650 MG RECT SUPP PR PRN (01:48)
[2020-10-28] MEDS ORDERED: ALBUTEROL 2.5 MG/3 ML NEBU IH PRN (01:48)
[2020-10-28] MEDS ORDERED: NALOXONE 0.4 MG/1 ML INJ IV PRN (01:48)
[2020-10-28] MEDS ORDERED: SODIUM CHLORIDE 0.9% 1000 ML 1,000 ML IV ONE (01:50)
[2020-10-28] MEDS ORDERED: cloNIDine TTS 0.1 MG/24 HR PATCH TD SCH (02:00)
[2020-10-28] MEDS ORDERED: D5W/0.45% NACL 1,000 ML IV SCH (02:00)
--- NOTE | 2020-10-28 02:58 | History and Physical Report ---
History of Present Illness Date of examination: 10/28/20 Date of admission: 10/28/20 01:48 Chief complaint: nausea, vomiting, and hypotension History of present illness: 65-year-old -[place] female with history of diabetes, hypertension, HLD, seizure, CVA with right-sided residual weakness, and dementia who presents [facility] via EMS with complaints of hypotension and coffee-ground emesis. Of note patient has dementia and is a poor historian. She is oriented to self at times, and does not answer questions appropriately. History is provided by review of medical records, medical and reports. Per family reports patient was vomiting throughout the day and there was some concern for altered mental status. EMS was called and upon their arrival patient had a blood pressure of 84/52, 500 cc bolus of normal saline was given with improvement in mental status. While in the ED patient has remained normo/hypertensive. She lives with her son Giovani Pierson ([phone]), and her power of admitted attorneys is Donnell Pierson ( son,[phone]). Past History Past Medical History: diabetes, hypertension, hyperlipidemia, seizures, stroke Past Surgical History: Other (Foot surgery, cataract surgery, tubal ligation) Social history: lives with family (son Giovani Pierson [phone]). denies: smoking, alcohol abuse, prescription drug abuse, IV drug use Family history: no significant family history Medications and Allergies Allergies Allergy/AdvReac Type Severity Reaction Status Date / Time No Known Allergies Allergy Unverified 05/09/13 12:39 Home Medications Medication Instructions Recorded Confirmed Last Taken Type AtorvaSTATin [Lipitor] 40 mg PO QHS 10/28/20 10/28/20 Unknown History Cholecalciferol Vit D3 [Vitamin D3 1,000 unit PO QDAY 10/28/20 10/28/20 Unknown History 1,000 UNIT TAB] Ferrous Sulfate [Iron 325 MG] 325 mg PO DAILY 10/28/20 10/28/20 Unknown History Losartan [Cozaar] 100 mg PO QDAY 10/28/20 10/28/20 Unknown History Memantine [Namenda] 5 mg PO QDAY 10/28/20 10/28/20 Unknown History Sertraline [Zoloft] 100 mg PO QDAY 10/28/20 10/28/20 Unknown History amLODIPine [Norvasc] 5 mg PO DAILY 10/28/20 10/28/20 Unknown History donepeziL [Aricept] 5 mg PO QDAY 10/28/20 10/28/20 Unknown History levETIRAcetam [Keppra TAB] 1,000 mg PO DAILY 10/28/20 10/28/20 Unknown History metFORMIN [Glucophage] 500 mg PO QDAY 10/28/20 10/28/20 Unknown History Active Meds: Active Medications Acetaminophen (Acetaminophen 650 Mg Rect Supp) 650 mg SD Q4H PRN PRN Reason: Pain MILD(1-3)/Fever >100.5/LAL Albuterol (Albuterol 2.5 Mg/3 Ml Nebu) 2.5 mg IH Q3HRT PRN PRN Reason: Shortness Of Breath Clonidine HCl (Clonidine Tts 0.1 Mg/24 Hr Patch) 0.1 mg TD We OZIEL Dextrose (Dextrose 50% In Water (25gm) 50 Ml Syringe) 50 ml IV Q30MIN PRN; Protocol PRN Reason: Hypoglycemia Sodium Chloride (Nacl 0.9% 1000 Ml) 1,000 mls @ 250 mls/hr IV ONCE ONE Stop: 10/28/20 05:49 Levetiracetam 1,000 mg/ (Dextrose) 110 mls @ 400 mls/hr IV Q12HR OZIEL Ceftriaxone Sodium (Rocephin/Ns 1 Gm/50 Ml) 1 gm in 50 mls @ 100 mls/hr IV Q24H OZIEL; Protocol Dextrose/Sodium Chloride (D5/0.45ns) 1,000 mls @ 100 mls/hr IV DIRECT OZIEL Insulin Human Lispro (Insulin Lispro 100 Unit/Ml) 0 unit SUB-Q Q6HR OZIEL; Protocol Morphine Sulfate (Morphine 2 Mg/1 Ml Inj) 2 mg IV Q4H PRN PRN Reason: Pain, Moderate (4-6) Morphine Sulfate (Morphine 4 Mg/1 Ml Inj) 4 mg IV Q4H PRN PRN Reason: Pain , Severe (7-10) Naloxone HCl (Naloxone 0.4 Mg/1 Ml Inj) 0.1 mg IV Q2MIN PRN PRN Reason: Res Rate </= 8 or 02 SAT < 92% Ondansetron HCl (Ondansetron 4 Mg/2 Ml Inj) 4 mg IV Q6H PRN PRN Reason: Nausea And Vomiting Pantoprazole Sodium (Pantoprazole 40 Mg Inj) 40 mg IV BID OZIEL Sodium Chloride (Sodium Chloride 0.9% 10 Ml Flush Syringe) 10 ml IV BID OZIEL Sodium Chloride (Sodium Chloride 0.9% 10 Ml Flush Syringe) 10 ml IV PRN PRN PRN Reason: LINE FLUSH Review of Systems ROS unobtainable: due to mental status Exam - Physical Exam Narrative exam: Physical exam General appearance: Present: No acute distress, awake, oriented to self, older adult female - EENT Eyes: Present: PERRL, EOM intact ENT: hearing intact, missing teeth - Neck Neck: Present: supple, normal ROM - Respiratory Respiratory effort: Non-labored Respiratory: Clear throughout - Cardiovascular Heart rate: 101 (bpm) Rhythm: Sinus tachycardia Heart Sounds: Present: S1 & S2. Absent: rub, click - Extremities Extremities: no ischemia, pulses intact, - Peripheral Assessment Peripheral Pulses: within normal limits - Abdominal General gastrointestinal: soft, non-tender, normal bowel sounds - Integumentary Integumentary: Present: warm, dry - Musculoskeletal Musculoskeletal: Able to move all extremities, generalized weakness -Neurological Neurological: CN II-XII intact - Psychiatric Psychiatric: Calm - Constitutional Vitals: Temp Pulse Resp BP Pulse Ox 97.9 F 94 H 17 175/80 98 10/27/20 18:40 10/27/20 22:31 10/27/20 22:31 10/28/20 00:01 10/28/20 00:01 HEART Score - HEART Score Troponin: Troponin T < 0.010 ng/mL (0.00-0.029) 10/28/20 00:21 Results - Labs CBC & Chem 7: 10/27/20 18:26 10/27/20 18:26 Labs: Laboratory Last Values WBC 20.2 K/mm3 (4.5-11.0) H 10/27/20 18:26 RBC 3.21 M/mm3 (3.65-5.03) L 10/27/20 18:26 Hgb 7.8 gm/dl (10.1-14.3) L 10/27/20 18:26 Hct 25.7 % (30.3-42.9) L 10/27/20 18:26 MCV 80 fl (79-97) 10/27/20 18:26 MCH 24 pg (28-32) L 10/27/20 18:26 MCHC 31 % (30-34) 10/27/20 18:26 RDW 22.5 % (13.2-15.2) H 10/27/20 18:26 Plt Count 534 K/mm3 (140-440) H 10/27/20 18:26 Lymph # (Auto) Iv Therapy Nurse 10/27/20 18:26 Add Manual Diff Complete 10/27/20 18:26 Total Counted 100 10/27/20 18:26 Seg Neuts % (Manual) 68.0 % (40.0-70.0) 10/27/20 18:26 Lymphocytes % (Manual) 23.0 % (13.4-35.0) 10/27/20 18:26 Monocytes % (Manual) 7.0 % (0.0-7.3) 10/27/20 18:26 Eosinophils % (Manual) 1.0 % (0.0-4.3) 10/27/20 18:26 Basophils % (Manual) 1.0 % (0.0-1.8) 10/27/20 18:26 Nucleated RBC % Not Reportable 10/27/20 18:26 Seg Neutrophils # Man 13.7 K/mm3 (1.8-7.7) H 10/27/20 18:26 Band Neutrophils # 0.0 K/mm3 10/27/20 18:26 Lymphocytes # (Manual) 4.6 K/mm3 (1.2-5.4) 10/27/20 18:26 Abs React Lymphs (Man) 0.0 K/mm3 10/27/20 18:26 Monocytes # (Manual) 1.4 K/mm3 (0.0-0.8) H 10/27/20 18:26 Eosinophils # (Manual) 0.2 K/mm3 (0.0-0.4) 10/27/20 18:26 Basophils # (Manual) 0.2 K/mm3 (0.0-0.1) H 10/27/20 18:26 Metamyelocytes # 0.0 K/mm3 10/27/20 18:26 Myelocytes # 0.0 K/mm3 10/27/20 18:26 Promyelocytes # 0.0 K/mm3 10/27/20 18:26 Blast Cells # 0.0 K/mm3 10/27/20 18:26 WBC Morphology Not Reportable 10/27/20 18:26 Hypersegmented Neuts Not Reportable 10/27/20 18:26 Hyposegmented Neuts Not Reportable 10/27/20 18:26 Hypogranular Neuts Not Reportable 10/27/20 18:26 Smudge Cells Not Reportable 10/27/20 18:26 Toxic Granulation Not Reportable 10/27/20 18:26 Toxic Vacuolation Not Reportable 10/27/20 18:26 Dohle Bodies Not Reportable 10/27/20 18:26 Pelger-Huet Anomaly Not Reportable 10/27/20 18:26 [place] Rods Not Reportable 10/27/20 18:26 Platelet Estimate Not Reportable 10/27/20 18:26 Clumped Platelets Not Reportable 10/27/20 18:26 Plt Clumps, EDTA Not Reportable 10/27/20 18:26 Large Platelets Not Reportable 10/27/20 18:26 Giant Platelets Not Reportable 10/27/20 18:26 Platelet Satelliting Not Reportable 10/27/20 18:26 Plt Morphology Comment Not Reportable 10/27/20 18:26 RBC Morphology Not Reportable 10/27/20 18:26 Dimorphic RBCs Not Reportable 10/27/20 18:26 Polychromasia Not Reportable 10/27/20 18:26 Hypochromasia 1+ 10/27/20 18:26 Poikilocytosis Not Reportable 10/27/20 18:26 Anisocytosis 1+ 10/27/20 18:26 Microcytosis Few 10/27/20 18:26 Macrocytosis Not Reportable 10/27/20 18:26 Spherocytes Not Reportable 10/27/20 18:26 Pappenheimer Bodies Not Reportable 10/27/20 18:26 Sickle Cells Not Reportable 10/27/20 18:26 Target Cells Not Reportable 10/27/20 18:26 Tear Drop Cells Not Reportable 10/27/20 18:26 Ovalocytes Not Reportable 10/27/20 18:26 Helmet Cells Not Reportable 10/27/20 18:26 [place] Bodies Not Reportable 10/27/20 18:26 [place] Rings Not Reportable 10/27/20 18:26 [place] Cells Not Reportable 10/27/20 18:26 Bite Cells Not Reportable 10/27/20 18:26 Crenated Cell Not Reportable 10/27/20 18:26 Elliptocytes Not Reportable 10/27/20 18:26 Acanthocytes (Spur) Not Reportable 10/27/20 18:26 Rouleaux Not Reportable 10/27/20 18:26 Hemoglobin C Crystals Not Reportable 10/27/20 18:26 Schistocytes Not Reportable 10/27/20 18:26 Malaria parasites Not Reportable 10/27/20 18:26 [place] Bodies Not Reportable 10/27/20 18:26 Hem Pathologist Commnt No 10/27/20 18:26 PT 14.1 Sec. (12.2-14.9) 10/27/20 21:48 INR 1.03 (0.87-1.13) 10/27/20 21:48 APTT 33.8 Sec. (24.2-36.6) 10/27/20 21:48 VBG pH 7.243 (7.320-7.420) L 10/27/20 19:08 Sodium 139 mmol/L (137-145) 10/27/20 18:26 Potassium 4.1 mmol/L (3.6-5.0) 10/27/20 18:26 Chloride 103.1 mmol/L (98-107) 10/27/20 18:26 Carbon Dioxide 22 mmol/L (22-30) 10/27/20 18:26 Anion Gap 18 mmol/L 10/27/20 18:26 BUN 19 mg/dL (7-17) H 10/27/20 18:26 Creatinine 1.1 mg/dL (0.6-1.2) 10/27/20 18:26 Estimated GFR > 60 ml/min 10/27/20 18:26 BUN/Creatinine Ratio 17 % 10/27/20 18:26 Glucose 238 mg/dL (65-100) H 10/27/20 18:26 Lactic Acid 3.50 mmol/L (0.7-2.0) H* 10/28/20 00:21 Calcium 8.8 mg/dL (8.4-10.2) 10/27/20 18:26 Total Bilirubin < 0.20 mg/dL (0.1-1.2) 10/27/20 18:26 AST 14 units/L (5-40) 10/27/20 18:26 ALT 10 units/L (7-56) 10/27/20 18:26 Alkaline Phosphatase 98 units/L (35-129) 10/27/20 18:26 Ammonia 18.0 umol/L (25-60) L 10/27/20 19:08 Troponin T < 0.010 ng/mL (0.00-0.029) 10/28/20 00:21 Total Protein 7.3 g/dL (6.3-8.2) 10/27/20 18:26 Albumin 2.8 g/dL (3.9-5) L 10/27/20 18: Albumin/Globulin Ratio 0.6 % 10/27/20 18:26 Lipase 17 units/L (13-60) 10/27/20 18:26 Urine Color Yellow (Yellow) 10/27/20 21: Urine Turbidity Slightly-cloudy (Clear) 10/27/20 21: Urine pH 5.0 (5.0-7.0) 10/27/20 21: Ur Specific [place] 1.010 (1.003-1.030) 10/27/20 21: Urine Protein <15 mg/dl mg/dL (Negative) 10/27/20 21: Urine Glucose (UA) Neg mg/dL (Negative) 10/27/20 21: Urine Ketones Neg mg/dL (Negative) 10/27/20 21: Urine Blood Sm (Negative) 10/27/20 21: Urine Nitrite Neg (Negative) 10/27/20 21: Urine Bilirubin Neg (Negative) 10/27/20 21: Urine Urobilinogen < 2.0 mg/dL (<2.0) 10/27/20 21:29 Ur Leukocyte Esterase Mod (Negative) 10/27/20 21: Urine WBC (Auto) 64.0 /HPF (0.0-6.0) H 10/27/20 21: Urine RBC (Auto) 5.0 /HPF (0.0-6.0) 10/27/20 21: U Epithel Cells (Auto) 2.0 /HPF (0-13.0) 10/27/20 21: Urine Bacteria (Auto) 2+ /HPF (Negative) 10/27/20 21:29 Hyaline Casts 1 /LPF 10/27/20 21:29 Urine Mucus Few /HPF 10/27/20 21:29 Blood Type O POSITIVE 10/27/20 21:48 Antibody Screen Negative 10/27/20 21:48 Microbiology: Microbiology 10/27/20 21:29 Stool Stool Occult Blood (SRAVANI) - Final - Imaging and Cardiology Imaging and Cardiology: Abd/Pelvis: STOMACH and SMALL BOWEL: Small bowel feces distal ileum. No bowel obstruction COLON: Large amount of solid stool within the rectal vault characteristic for fecal impaction. Small amount of pneumatosis within the cecum APPENDIX: No significant abnormality. PERITONEUM: No free fluid. No free air. No fluid collection. LYMPH NODES: No significant adenopathy. AORTA and ARTERIES: Moderate vascular calcifications nonaneurysmal aorta and both iliac arteries. IVC and VEINS: Moderate calcification right femoral and iliac veins characteristic for chronic thrombophlebitis. No acute DVT visualized URINARY BLADDER: No significant abnormality. REPRODUCTIVE ORGANS: Complex cystic mass left ovary measuring 8.5 cm worrisome for ovarian carcinoma. ADDITIONAL FINDINGS: None. SKELETAL SYSTEM: No significant abnormality. IMPRESSION: 1. Complex multi septated left lower quadrant pelvic mass likely represents ovarian neoplasm. Pelvic abscess considered less likely but another differential possibility. Pelvic ultrasound recommended. 2. Cholelithiasis 3. Moderate left pleural effusion. 4. Right femoral and iliac calcifications characteristic for chronic thrombophlebitis. 5. Left nephrolithiasis. 6. Constipation and fecal impaction 7. Mild pneumatosis involving cecum. No free air to suggest perforation CT Chest: COMPARISON: None FINDINGS: HEART: No significant abnormality. THORACIC AORTA: No significant abnormality. MEDIASTINUM and KENDRA: No significant abnormality. LUNGS: Mild compressive atelectasis left lower lobe. No acute air space or interstitial disease. PLEURA: Moderate left pleural effusion. No pneumothorax. ADDITIONAL CHEST FINDINGS: None. LIVER: No significant abnormality. GALLBLADDER: Calcified gallstone. BILE DUCTS: No significant abnormality. PANCREAS: No significant abnormality. SPLEEN: No significant abnormality. ADRENALS: No significant abnormality. RIGHT KIDNEY and URETER: No significant abnormality. LEFT KIDNEY and URETER: Several nonobstructing left intrarenal stones, largest of which measures 8 mm. STOMACH and SMALL BOWEL: Small bowel feces distal ileum. No bowel obstruction COLON: Large amount of solid stool within the rectal vault characteristic for fecal impaction. Small amount of pneumatosis within the cecum APPENDIX: No significant abnormality. PERITONEUM: No free fluid. No free air. No fluid collection. LYMPH NODES: No significant adenopathy. AORTA and ARTERIES: Moderate vascular calcifications nonaneurysmal aorta and both iliac arteries. IVC and VEINS: Moderate calcification right femoral and iliac veins characteristic for chronic thrombophlebitis. No acute DVT visualized URINARY BLADDER: No significant abnormality. REPRODUCTIVE ORGANS: Complex cystic mass left ovary measuring 8.5 cm worrisome for ovarian carcinoma. ADDITIONAL FINDINGS: None. SKELETAL SYSTEM: No significant abnormality. IMPRESSION: 1. Complex multi septated left lower quadrant pelvic mass likely represents ovarian neoplasm. Pelvic abscess considered less likely but another differential possibility. Pelvic ultrasound recommended. 2. Cholelithiasis 3. Moderate left pleural effusion. 4. Right femoral and iliac calcifications characteristic for chronic thrombophlebitis. 5. Left nephrolithiasis. 6. Constipation and fecal impaction 7. Mild pneumatosis involving cecum. No free air to suggest perforation Assessment and Plan Assessment and plan: Sepsis -Source urinary tract infection -Leukocytosis 20.2 -Tachycardia 101 -Start IVF and IV abx Urinary tract infection -UA positive for UTI -urine wbc 64, leukocyte positive -Urine culture pending -on IV Abx Lactic acidosis -Lactic acid now 3.5 (trending down from 5.20) -on IV Abx -on IVF -Continue to monitor GI bleed -Patient had coffee-ground emesis, with guaiac positive stool -N.p.o. -IVF -IV Protonix twice daily -GI consulted Pelvic mass -Complex multi septated left lower quadrant pelvic mass likely represents ovarian neoplasm. -Incidental finding seen on CT abdomen and pelvis -Pelvic ultrasound pending -Will most likely need outpatient follow-up with DIRECTOR OF CATEGORY MANAGEMENT-Onc -DIRECTOR OF CATEGORY MANAGEMENT consulted in ED ( Dr. Piper), recs appreciated Anemia -Acute on chronic -Hemoglobin on admission 7.8 -?? d/t GI bleed -Continue to monitor hemoglobin -Transfuse as needed for large volume blood loss via emesis or stool, or hgb <7 Constipation and fecal impaction -Seen on CT abdomen pelvis -We will try bisacodyl suppository, if no relief may need manual disimpaction Mild pneumatosis -Seen on CT abdomen pelvis -likely secondary to low flow states -General surgery consulted (Dr. Juarez) in ED; recs appreciated History seizure -Continue Keppra -Initiate seizure precautions History of dementia -Re-orient as needed -Noted History of CVA -With right-sided residual weakness -PT OT eval pending HTN -Monitor BP -Start clonidine patch DM2 -POC BG monitoring -SSI coverage prn -HgbA1C pending DVT and GI PPX -Hold all anticoagulation due to GI bleed and anemia -Currently on Protonix Advance Directives: No VTE prophylaxis?: Mechanical Plan of care discussed with patient/family: Yes
--- NOTE | 2020-10-28 03:17 | Ultrasound Report ---
ULTRASOUND PELVIS INDICATION: Pelvic mass. TECHNIQUE: Transabdominal. Duplex Color Doppler used: Yes. COMPARISON: CT abdomen 10/27/2020 FINDINGS: Uterus: Present. Size: 7.9 x 3.6 x 3.9 cm. Endometrial complex: Normal measuring 4 mm. Mass lesions: None. Additional findings: None. Right Ovary -- Normal. Blood flow: Normal. Cyst or mass: None. Left Ovary-- complex cystic and solid mass with increased color Doppler flow Blood flow: Normal. Cyst or mass: Multicystic complex cystic and solid left ovarian mass measures 9.9 x 7.6 x 9.2 cm joe acteristic for ovarian carcinoma Urinary Bladder: Normal. Free Fluid: None. Additional Findings: None. IMPRESSION: 1. Left ovarian complex 9.9 cm mass characteristic for carcinoma Signer Name: Julio Black MD Signed: 10/28/2020 3:13 AM Workstation Name: [id number]
[2020-10-28] MEDS: INSULIN LISPRO 100 UNIT/ML SUB-Q SCH ×3 (06:47→18:22)
--- NOTE | 2020-10-28 08:51 | Consultation ---
History of Present Illness Consult date: 10/28/20 Chief complaint: n/v - History of present illness History of present illness: 65 yo F with hx of dementia, CVA who presented to ER with AMS, nausea/vomiting. Patient is an extremely poor historian and does not answer questions. All history obtained from chart. Patient found to be hypotensive in ER with coffee ground emesis and diarrhea. W/U revealed elevated lactic acid, WBC. Patient was resuscitated with IVF with resolution of lactic acidosis and hypotension. CT scan A/P revealed small amount of cecal pneumatosis without perforation and left adenexal mass concerning for CALENDER INSPECTOR malignancy. Pelvic u/s confirmed suspicion of CALENDER INSPECTOR carcinoma. Patient is currently denying abd pain, n/v. Past History Past Medical History: diabetes, hypertension, hyperlipidemia, seizures, stroke Past Surgical History: Other (Foot surgery, cataract surgery, tubal ligation) Social history: lives with family (son Giovani Pierson [phone]). denies: smoking, alcohol abuse, prescription drug abuse, IV drug use Family history: no significant family history Medications and Allergies Allergies Allergy/AdvReac Type Severity Reaction Status Date / Time No Known Allergies Allergy Unverified 05/09/13 12:39 Home Medications Medication Instructions Recorded Confirmed Last Taken Type AtorvaSTATin [Lipitor] 40 mg PO QHS 10/28/20 10/28/20 Unknown History Cholecalciferol Vit D3 [Vitamin D3 1,000 unit PO QDAY 10/28/20 10/28/20 Unknown History 1,000 UNIT TAB] Ferrous Sulfate [Iron 325 MG] 325 mg PO DAILY 10/28/20 10/28/20 Unknown History Losartan [Cozaar] 100 mg PO QDAY 10/28/20 10/28/20 Unknown History Memantine [Namenda] 5 mg PO QDAY 10/28/20 10/28/20 Unknown History Sertraline [Zoloft] 100 mg PO QDAY 10/28/20 10/28/20 Unknown History amLODIPine [Norvasc] 5 mg PO DAILY 10/28/20 10/28/20 Unknown History donepeziL [Aricept] 5 mg PO QDAY 10/28/20 10/28/20 Unknown History levETIRAcetam [Keppra TAB] 1,000 mg PO DAILY 10/28/20 10/28/20 Unknown History metFORMIN [Glucophage] 500 mg PO QDAY 10/28/20 10/28/20 Unknown History Active Meds: Active Medications Acetaminophen (Acetaminophen 650 Mg Rect Supp) 650 mg LA Q4H PRN PRN Reason: Pain MILD(1-3)/Fever >100.5/LAL Albuterol (Albuterol 2.5 Mg/3 Ml Nebu) 2.5 mg IH Q3HRT PRN PRN Reason: Shortness Of Breath Bisacodyl (Bisacodyl 10 Mg Rect Supp) 10 mg LA QDAY PRN PRN Reason: Constipation Clonidine HCl (Clonidine Tts 0.1 Mg/24 Hr Patch) 0.1 mg TD We [facility] Last Admin: 10/28/20 05:00 Dose: Not Given Documented by: Dextrose (Dextrose 50% In Water (25gm) 50 Ml Syringe) 50 ml IV Q30MIN PRN; Protocol PRN Reason: Hypoglycemia Levetiracetam 1,000 mg/ (Dextrose) 110 mls @ 400 mls/hr IV Q12HR [facility] Ceftriaxone Sodium (Rocephin/Ns 1 Gm/50 Ml) 1 gm in 50 mls @ 100 mls/hr IV Q24H [facility]; Protocol Dextrose/Sodium Chloride (D5/0.45ns) 1,000 mls @ 100 mls/hr IV DIRECT [facility] Insulin Human Lispro (Insulin Lispro 100 Unit/Ml) 0 unit SUB-Q Q6HR [facility]; Protocol Last Admin: 10/28/20 06:47 Dose: Not Given Documented by: Morphine Sulfate (Morphine 2 Mg/1 Ml Inj) 2 mg IV Q4H PRN PRN Reason: Pain, Moderate (4-6) Morphine Sulfate (Morphine 4 Mg/1 Ml Inj) 4 mg IV Q4H PRN PRN Reason: Pain , Severe (7-10) Naloxone HCl (Naloxone 0.4 Mg/1 Ml Inj) 0.1 mg IV Q2MIN PRN PRN Reason: Res Rate </= 8 or 02 SAT < 92% Ondansetron HCl (Ondansetron 4 Mg/2 Ml Inj) 4 mg IV Q6H PRN PRN Reason: Nausea And Vomiting Pantoprazole Sodium (Pantoprazole 40 Mg Inj) 40 mg IV BID [facility] Sodium Chloride (Sodium Chloride 0.9% 10 Ml Flush Syringe) 10 ml IV BID [facility] Sodium Chloride (Sodium Chloride 0.9% 10 Ml Flush Syringe) 10 ml IV PRN PRN PRN Reason: LINE FLUSH Review of Systems ROS unobtainable: due to mental status Exam Vital Signs Temp Pulse Resp BP Pulse Ox 97.9 F 70 18 120/52 97 10/27/20 18:40 10/27/20 18:40 10/27/20 18:40 10/27/20 18:40 10/27/20 18:40 Narrative exam: Gen: Awake, nonverbal. NAD ENT: no scleral icterus or conjunctival pallor CV: s1, S2+ Resp: even and unlabored Abd: soft, ND, NT. NO r/r/g Ext: no c/c/e. Results - Labs 10/27/20 18:26 10/27/20 18:26 Abnormal lab results 10/27/20 10/27/20 10/27/20 Range/Units 18:26 18:26 19:08 WBC 20.2 H (4.5-11.0) K/mm3 RBC 3.21 L (3.65-5.03) M/mm3 Hgb 7.8 L (10.1-14.3) gm/dl Hct 25.7 L (30.3-42.9) % MCH 24 L (28-32) pg RDW 22.5 H (13.2-15.2) % Plt Count 534 H (140-440) K/mm3 Seg Neutrophils # Man 13.7 H (1.8-7.7) K/mm3 Monocytes # (Manual) 1.4 H (0.0-0.8) K/mm3 Basophils # (Manual) 0.2 H (0.0-0.1) K/mm3 VBG pH 7.243 L (7.320-7.420) BUN 19 H (7-17) mg/dL Glucose 238 H (65-100) mg/dL POC Glucose (70-105) mg/dL Hemoglobin A1c (4-6) % Lactic Acid (0.7-2.0) mmol/L Ammonia (25-60) umol/L Albumin 2.8 L (3.9-5) g/dL Urine WBC (Auto) (0.0-6.0) /HPF 10/27/20 10/27/20 10/27/20 Range/Units 19:08 21:29 21:48 WBC (4.5-11.0) K/mm3 RBC (3.65-5.03) M/mm3 Hgb (10.1-14.3) gm/dl Hct (30.3-42.9) % MCH (28-32) pg RDW (13.2-15.2) % Plt Count (140-440) K/mm3 Seg Neutrophils # Man (1.8-7.7) K/mm3 Monocytes # (Manual) (0.0-0.8) K/mm3 Basophils # (Manual) (0.0-0.1) K/mm3 VBG pH (7.320-7.420) BUN (7-17) mg/dL Glucose (65-100) mg/dL POC Glucose (70-105) mg/dL Hemoglobin A1c (4-6) % Lactic Acid 5.20 H* (0.7-2.0) mmol/L Ammonia 18.0 L (25-60) umol/L Albumin (3.9-5) g/dL Urine WBC (Auto) 64.0 H (0.0-6.0) /HPF 10/28/20 10/28/20 10/28/20 Range/Units 00:21 05:43 06:46 WBC (4.5-11.0) K/mm3 RBC (3.65-5.03) M/mm3 Hgb (10.1-14.3) gm/dl Hct (30.3-42.9) % MCH (28-32) pg RDW (13.2-15.2) % Plt Count (140-440) K/mm3 Seg Neutrophils # Man (1.8-7.7) K/mm3 Monocytes # (Manual) (0.0-0.8) K/mm3 Basophils # (Manual) (0.0-0.1) K/mm3 VBG pH (7.320-7.420) BUN (7-17) mg/dL Glucose (65-100) mg/dL POC Glucose 201 H (70-105) mg/dL Hemoglobin A1c 6.9 H (4-6) % Lactic Acid 3.50 H* (0.7-2.0) mmol/L Ammonia (25-60) umol/L Albumin (3.9-5) g/dL Urine WBC (Auto) (0.0-6.0) /HPF Diabetes panel 10/27/20 10/28/20 Range/Units 18:26 05:43 Sodium 139 (137-145) mmol/L Potassium 4.1 (3.6-5.0) mmol/L Chloride 103.1 (98-107) mmol/L Carbon Dioxide 22 (22-30) mmol/L BUN 19 H (7-17) mg/dL Creatinine 1.1 (0.6-1.2) mg/dL Glucose 238 H (65-100) mg/dL Hemoglobin A1c 6.9 H (4-6) % Calcium 8.8 (8.4-10.2) mg/dL AST 14 (5-40) units/L ALT 10 (7-56) units/L Alkaline Phosphatase 98 (35-129) units/L Total Protein 7.3 (6.3-8.2) g/dL Albumin 2.8 L (3.9-5) g/dL Calcium panel 10/27/20 Range/Units 18:26 Calcium 8.8 (8.4-10.2) mg/dL Albumin 2.8 L (3.9-5) g/dL Pituitary panel 10/27/20 Range/Units 18:26 Sodium 139 (137-145) mmol/L Potassium 4.1 (3.6-5.0) mmol/L Chloride 103.1 (98-107) mmol/L Carbon Dioxide 22 (22-30) mmol/L BUN 19 H (7-17) mg/dL Creatinine 1.1 (0.6-1.2) mg/dL Glucose 238 H (65-100) mg/dL Calcium 8.8 (8.4-10.2) mg/dL Adrenal panel 10/27/20 Range/Units 18:26 Sodium 139 (137-145) mmol/L Potassium 4.1 (3.6-5.0) mmol/L Chloride 103.1 (98-107) mmol/L Carbon Dioxide 22 (22-30) mmol/L BUN 19 H (7-17) mg/dL Creatinine 1.1 (0.6-1.2) mg/dL Glucose 238 H (65-100) mg/dL Calcium 8.8 (8.4-10.2) mg/dL Total Bilirubin < 0.20 (0.1-1.2) mg/dL AST 14 (5-40) units/L ALT 10 (7-56) units/L Alkaline Phosphatase 98 (35-129) units/L Total Protein 7.3 (6.3-8.2) g/dL Albumin 2.8 L (3.9-5) g/dL - Imaging CT scan - abdomen: report reviewed, image reviewed CT scan - pelvis: report reviewed, image reviewed Assessment and Plan 65 yo F with 1. Sepsis 2. Cecal pneumatosis 3. Hypotension 5. adnexal mass - likely cancer 6. L pleural effusion 7. UTI Plan: 1. NPO 2. aggressive IVF resuscitation 3. empiric abx 4. CALENDER INSPECTOR consulted 5. repeat CBC, BMP today 6. DVT ppx 7. GI ppx 8. Dulcolax LA Pt appears to be improving clinically with resuscitation. VSS. Afebrile. Lactate now normal. N/v and hypotension resolved. Ct A/P reviewed - fluid filled right colon with cecal pneumatosis, without colonic thickening, free fluid, or free air. L sided adnexal mass concerning for CALENDER INSPECTOR malignancy. Pneumatosis likely secondary to low flow state, hypotension and likely not pathologic given patients improvement with medical management and no abd pain. Will monitor. If needed, will repeat CT A/P Thank you, please call with questions.
--- NOTE | 2020-10-28 09:11 | Progress Note ---
Assessment and Plan Assessment and plan: 65-year-old -[place] female with history of diabetes, hypertension, HLD, seizure, CVA with right-sided residual weakness, and dementia who presents [facility] via EMS with complaints of hypotension and coffee-ground emesis. 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 -Pelvic ultrasound -Will most likely need outpatient follow-up with [facility]-Onc -[facility] consulted in ED ( Dr. Piper), recs appreciated Anemia -Acute on chronic -Hemoglobin on admission 7.8 -Transfuse for hemoglobin less than 7 Constipation and fecal impaction -Seen on CT abdomen pelvis -We will try bisacodyl suppository, if no relief may need manual disimpaction Cecal pneumatosis -General surgery following (Dr. Juarez) History seizure -Continue Keppra -Continue seizure precautions History of dementia -Re-orient as needed -Noted History of CVA -Residual right-sided weakness -PT/OT eval pending HTN -Monitor BP -Start clonidine patch DM2 -POC BG monitoring -SSI coverage prn -HgbA1C pending DVT and GI PPX -Hold all anticoagulation due to GI bleed and anemia -Currently on Protonix 10/28/2020. Patient will remain n.p.o. with aggressive IV fluid resuscitation. Continue empiric IV antibiotics. Await [facility] consultation. Consider repeat CT scan per surgery recommendations History Interval history: 65-year-old -[place] female with history of diabetes, hypertension, HLD, seizure, CVA with right-sided residual weakness, and dementia who presents [facility] via EMS with complaints of hypotension and coffee-ground emesis. Hospitalist Physical - Constitutional Vitals: Temp Pulse Resp BP Pulse Ox 97.9 F 96 H 21 131/58 99 10/27/20 18:40 10/28/20 07:15 10/28/20 07:15 10/28/20 07:15 10/28/20 07:15 General appearance: Present: no acute distress, well-nourished - EENT Eyes: Present: PERRL, EOM intact ENT: hearing intact, clear oral mucosa, dentition normal - Neck Neck: Present: supple, normal ROM - Respiratory Respiratory effort: normal Respiratory: bilateral: CTA - Cardiovascular Rhythm: regular Heart Sounds: Present: S1 & S2. Absent: gallop, rub - Extremities Extremities: no ischemia, No edema, Full ROM - Abdominal General gastrointestinal: soft, non-tender, non-distended, normal bowel sounds - Integumentary Integumentary: Present: clear, warm, dry - Neurologic Neurologic: CNII-XII intact, moves all extremities HEART Score - HEART Score Troponin: Troponin T < 0.010 ng/mL (0.00-0.029) 10/28/20 00:21 Results - Labs CBC & Chem 7: 10/27/20 18:26 10/27/20 18:26 Labs: Laboratory Last Values WBC 20.2 K/mm3 (4.5-11.0) H 10/27/20 18:26 RBC 3.21 M/mm3 (3.65-5.03) L 10/27/20 18:26 Hgb 7.8 gm/dl (10.1-14.3) L 10/27/20 18:26 Hct 25.7 % (30.3-42.9) L 10/27/20 18:26 MCV 80 fl (79-97) 10/27/20 18:26 MCH 24 pg (28-32) L 10/27/20 18:26 MCHC 31 % (30-34) 10/27/20 18:26 RDW 22.5 % (13.2-15.2) H 10/27/20 18:26 Plt Count 534 K/mm3 (140-440) H 10/27/20 18:26 Lymph # (Auto) Surface Hydrologist 10/27/20 18:26 Add Manual Diff Complete 10/27/20 18:26 Total Counted 100 10/27/20 18:26 Seg Neuts % (Manual) 68.0 % (40.0-70.0) 10/27/20 18: Lymphocytes % (Manual) 23.0 % (13.4-35.0) 10/27/20 18: Monocytes % (Manual) 7.0 % (0.0-7.3) 10/27/20 18:26 Eosinophils % (Manual) 1.0 % (0.0-4.3) 10/27/20 18:26 Basophils % (Manual) 1.0 % (0.0-1.8) 10/27/20 18:26 Nucleated RBC % Not Reportable 10/27/20 18:26 Seg Neutrophils # Man 13.7 K/mm3 (1.8-7.7) H 10/27/20 18:26 Band Neutrophils # 0.0 K/mm3 10/27/20 18:26 Lymphocytes # (Manual) 4.6 K/mm3 (1.2-5.4) 10/27/20 18:26 Abs React Lymphs (Man) 0.0 K/mm3 10/27/20 18:26 Monocytes # (Manual) 1.4 K/mm3 (0.0-0.8) H 10/27/20 18:26 Eosinophils # (Manual) 0.2 K/mm3 (0.0-0.4) 10/27/20 18:26 Basophils # (Manual) 0.2 K/mm3 (0.0-0.1) H 10/27/20 18:26 Metamyelocytes # 0.0 K/mm3 10/27/20 18:26 Myelocytes # 0.0 K/mm3 10/27/20 18:26 Promyelocytes # 0.0 K/mm3 10/27/20 18:26 Blast Cells # 0.0 K/mm3 10/27/20 18:26 WBC Morphology Not Reportable 10/27/20 18:26 Hypersegmented Neuts Not Reportable 10/27/20 18:26 Hyposegmented Neuts Not Reportable 10/27/20 18:26 Hypogranular Neuts Not Reportable 10/27/20 18:26 Smudge Cells Not Reportable 10/27/20 18:26 Toxic Granulation Not Reportable 10/27/20 18:26 Toxic Vacuolation Not Reportable 10/27/20 18:26 Dohle Bodies Not Reportable 10/27/20 18:26 Pelger-Huet Anomaly Not Reportable 10/27/20 18:26 Cheyenne Rods Not Reportable 10/27/20 18:26 Platelet Estimate Not Reportable 10/27/20 18:26 Clumped Platelets Not Reportable 10/27/20 18:26 Plt Clumps, EDTA Not Reportable 10/27/20 18:26 Large Platelets Not Reportable 10/27/20 18:26 Giant Platelets Not Reportable 10/27/20 18:26 Platelet Satelliting Not Reportable 10/27/20 18:26 Plt Morphology Comment Not Reportable 10/27/20 18:26 RBC Morphology Not Reportable 10/27/20 18:26 Dimorphic RBCs Not Reportable 10/27/20 18:26 Polychromasia Not Reportable 10/27/20 18:26 Hypochromasia 1+ 10/27/20 18:26 Poikilocytosis Not Reportable 10/27/20 18:26 Anisocytosis 1+ 10/27/20 18:26 Microcytosis Few 10/27/20 18:26 Macrocytosis Not Reportable 10/27/20 18:26 Spherocytes Not Reportable 10/27/20 18:26 Pappenheimer Bodies Not Reportable 10/27/20 18:26 Sickle Cells Not Reportable 10/27/20 18:26 Target Cells Not Reportable 10/27/20 18:26 Tear Drop Cells Not Reportable 10/27/20 18:26 Ovalocytes Not Reportable 10/27/20 18:26 Helmet Cells Not Reportable 10/27/20 18:[address] Bodies Not Reportable 10/27/20 18:26 [place] Rings Not Reportable 10/27/20 18:26 [place] Cells Not Reportable 10/27/20 18:26 Bite Cells Not Reportable 10/27/20 18:26 Crenated Cell Not Reportable 10/27/20 18:26 Elliptocytes Not Reportable 10/27/20 18:26 Acanthocytes (Spur) Not Reportable 10/27/20 18:26 Rouleaux Not Reportable 10/27/20 18:26 Hemoglobin C Crystals Not Reportable 10/27/20 18:26 Schistocytes Not Reportable 10/27/20 18:26 Malaria parasites Not Reportable 10/27/20 18:26 Zurdo Bodies Not Reportable 10/27/20 18:26 Hem Pathologist Commnt No 10/27/20 18:26 PT 14.1 Sec. (12.2-14.9) 10/27/20 21:48 INR 1.03 (0.87-1.13) 10/27/20 21:48 APTT 33.8 Sec. (24.2-36.6) 10/27/20 21:48 VBG pH 7.243 (7.320-7.420) L 10/27/20 19:08 Sodium 139 mmol/L (137-145) 10/27/20 18:26 Potassium 4.1 mmol/L (3.6-5.0) 10/27/20 18:26 Chloride 103.1 mmol/L (98-107) 10/27/20 18:26 Carbon Dioxide 22 mmol/L (22-30) 10/27/20 18:26 Anion Gap 18 mmol/L 10/27/20 18:26 BUN 19 mg/dL (7-17) H 10/27/20 18:26 Creatinine 1.1 mg/dL (0.6-1.2) 10/27/20 18:26 Estimated GFR > 60 ml/min 10/27/20 18:26 BUN/Creatinine Ratio 17 % 10/27/20 18:26 Glucose 238 mg/dL (65-100) H 10/27/20 18:26 POC Glucose 201 mg/dL (70-105) H 10/28/20 06:46 Hemoglobin A1c 6.9 % (4-6) H 10/28/20 05:43 Lactic Acid 1.70 mmol/L (0.7-2.0) 10/28/20 05:43 Calcium 8.8 mg/dL (8.4-10.2) 10/27/20 18:26 Total Bilirubin < 0.20 mg/dL (0.1-1.2) 10/27/20 18:26 AST 14 units/L (5-40) 10/27/20 18:26 ALT 10 units/L (7-56) 10/27/20 18:26 Alkaline Phosphatase 98 units/L (35-129) 10/27/20 18:26 Ammonia 18.0 umol/L (25-60) L 10/27/20 19:08 Troponin T < 0.010 ng/mL (0.00-0.029) 10/28/20 00:21 Total Protein 7.3 g/dL (6.3-8.2) 10/27/20 18:26 Albumin 2.8 g/dL (3.9-5) L 10/27/20 18:26 Albumin/Globulin Ratio 0.6 % 10/27/20 18:26 Lipase 17 units/L (13-60) 10/27/20 18:26 Urine Color Yellow (Yellow) 10/27/20 21:29 Urine Turbidity Slightly-cloudy (Clear) 10/27/20 21:29 Urine pH 5.0 (5.0-7.0) 10/27/20 21:29 Ur Specific [place] 1.010 (1.003-1.030) 10/27/20 21:29 Urine Protein <15 mg/dl mg/dL (Negative) 10/27/20 21:29 Urine Glucose (UA) Neg mg/dL (Negative) 10/27/20 21: Urine Ketones Neg mg/dL (Negative) 10/27/20 21:29 Urine Blood Sm (Negative) 10/27/20 21:29 Urine Nitrite Neg (Negative) 10/27/20 21:29 Urine Bilirubin Neg (Negative) 10/27/20 21:29 Urine Urobilinogen < 2.0 mg/dL (<2.0) 10/27/20 21:29 Ur Leukocyte Esterase Mod (Negative) 10/27/20 21:29 Urine WBC (Auto) 64.0 /HPF (0.0-6.0) H 10/27/20 21:29 Urine RBC (Auto) 5.0 /HPF (0.0-6.0) 10/27/20 21:29 U Epithel Cells (Auto) 2.0 /HPF (0-13.0) 10/27/20 21:29 Urine Bacteria (Auto) 2+ /HPF (Negative) 10/27/20 21:29 Hyaline Casts 1 /LPF 10/27/20 21:29 Urine Mucus Few /HPF 10/27/20 21:29 Blood Type O POSITIVE 10/27/20 21:48 Antibody Screen Negative 10/27/20 21:48 Microbiology: Microbiology 10/27/20 21:48 Peripheral/Venous Blood Culture - Preliminary Culture in Progress 10/27/20 21:48 Peripheral/Venous Blood Culture - Preliminary Culture in Progress 10/27/20 21:29 Stool Stool Occult Blood (SRAVANI) - Final Active Medications - Current Medications Current Medications: Generic Name Dose Route Start Last Admin Trade Name Freq PRN Reason Stop Dose Admin Acetaminophen 650 mg 10/28/20 01:48 Acetaminophen 650 Mg Rect Supp ME Q4H PRN Pain MILD(1-3)/Fever >100.5/LAL Albuterol 2.5 mg 10/28/20 01:48 Albuterol 2.5 Mg/3 Ml Nebu IH Q3HRT PRN Shortness Of Breath Bisacodyl 10 mg 10/28/20 03:14 Bisacodyl 10 Mg Rect Supp ME QDAY PRN Constipation Clonidine HCl 0.1 mg 10/28/20 02:00 10/28/20 05:00 Clonidine Tts 0.1 Mg/24 Hr Patch TD Not Given We [facility] Dextrose 50 ml 10/28/20 01:48 Dextrose 50% In Water (25gm) 50 Ml Syringe IV Q30MIN PRN Hypoglycemia Protocol Levetiracetam 1,000 mg/ 110 mls @ 400 mls/hr 10/28/20 10:00 Dextrose IV Q12HR [facility] Ceftriaxone Sodium 1 gm in 50 mls @ 100 mls/hr 10/28/20 22:00 Rocephin/Ns 1 Gm/50 Ml IV Q24H [facility] Protocol Dextrose/Sodium Chloride 1,000 mls @ 100 mls/hr 10/28/20 02:00 D5/0.45ns IV DIRECT [facility] Insulin Human Lispro 0 unit 10/28/20 06:00 10/28/20 06:47 Insulin Lispro 100 Unit/Ml SUB-Q Not Given Q6HR [facility] Protocol Morphine Sulfate 2 mg 10/28/20 01:48 Morphine 2 Mg/1 Ml Inj IV Q4H PRN Pain, Moderate (4-6) Morphine Sulfate 4 mg 10/28/20 01:48 Morphine 4 Mg/1 Ml Inj IV Q4H PRN Pain , Severe (7-10) Naloxone HCl 0.1 mg 10/28/20 01:48 Naloxone 0.4 Mg/1 Ml Inj IV Q2MIN PRN Res Rate </= 8 or 02 SAT < 92% Ondansetron HCl 4 mg 10/28/20 01:48 Ondansetron 4 Mg/2 Ml Inj IV Q6H PRN Nausea And Vomiting Pantoprazole Sodium 40 mg 10/28/20 10:00 Pantoprazole 40 Mg Inj IV BID [facility] Sodium Chloride 10 ml 10/28/20 10:00 Sodium Chloride 0.9% 10 Ml Flush Syringe IV BID [facility] Sodium Chloride 10 ml 10/28/20 01:48 Sodium Chloride 0.9% 10 Ml Flush Syringe IV PRN PRN LINE FLUSH
[2020-10-28] MEDS: PANTOPRAZOLE 40 MG INJ IV SCH (10:31)
[2020-10-28] MEDS: levETIRAcetam 1,000 MG in DEXTROSE 5% IN WATER 100 ML IV SCH (11:17)
--- NOTE | 2020-10-28 12:08 | Gastroenterology Consultation ---
History of Present Illness - Reason for Consult Consult date: 10/28/20 coffee ground emesis Requesting physician: VERO SOSA - History of Present Illness The patient is a 65 yo aaf with h/o dementia, cva presenting from home with worsening mental status, n/v and hypotension. Pt reportedly with coffee gound emesis episodes prior to arrival. Noted to be hypotensive, anemic, with elevated lactate on admission. hypotension and lactic acidosis improved with IVF's. she is unable to provide history at time of exam (non-verbal). attempted to call next of kin (pt's son) but did not answer the phone. no reported bleeding episodes since admission and has had brown stool since arrival. of note, ct scan shows complex appearing left pelvic mass concerning for ovarian neoplasm. 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 Past History Past Medical History: diabetes, hypertension, hyperlipidemia, seizures, stroke Past Surgical History: Other (Foot surgery, cataract surgery, tubal ligation) Social history: lives with family (son Giovani Pierson [phone]). denies: smoking, alcohol abuse, prescription drug abuse, IV drug use Family history: no significant family history Medications and Allergies Allergies Allergy/AdvReac Type Severity Reaction Status Date / Time No Known Allergies Allergy Unverified 05/09/13 12:39 Home Medications Medication Instructions Recorded Confirmed Last Taken Type AtorvaSTATin [Lipitor] 40 mg PO QHS 10/28/20 10/28/20 Unknown History Cholecalciferol Vit D3 [Vitamin D3 1,000 unit PO QDAY 10/28/20 10/28/20 Unknown History 1,000 UNIT TAB] Ferrous Sulfate [Iron 325 MG] 325 mg PO DAILY 10/28/20 10/28/20 Unknown History Losartan [Cozaar] 100 mg PO QDAY 10/28/20 10/28/20 Unknown History Memantine [Namenda] 5 mg PO QDAY 10/28/20 10/28/20 Unknown History Sertraline [Zoloft] 100 mg PO QDAY 10/28/20 10/28/20 Unknown History amLODIPine [Norvasc] 5 mg PO DAILY 10/28/20 10/28/20 Unknown History donepeziL [Aricept] 5 mg PO QDAY 10/28/20 10/28/20 Unknown History levETIRAcetam [Keppra TAB] 1,000 mg PO DAILY 10/28/20 10/28/20 Unknown History metFORMIN [Glucophage] 500 mg PO QDAY 10/28/20 10/28/20 Unknown History Active Meds: Active Medications Acetaminophen (Acetaminophen 650 Mg Rect Supp) 650 mg LA Q4H PRN PRN Reason: Pain MILD(1-3)/Fever >100.5/LAL Albuterol (Albuterol 2.5 Mg/3 Ml Nebu) 2.5 mg IH Q3HRT PRN PRN Reason: Shortness Of Breath Bisacodyl (Bisacodyl 10 Mg Rect Supp) 10 mg LA QDAY PRN PRN Reason: Constipation Clonidine HCl (Clonidine Tts 0.1 Mg/24 Hr Patch) 0.1 mg TD We [facility] Last Admin: 10/28/20 05:00 Dose: Not Given Documented by: Dextrose (Dextrose 50% In Water (25gm) 50 Ml Syringe) 50 ml IV Q30MIN PRN; Protocol PRN Reason: Hypoglycemia Levetiracetam 1,000 mg/ (Dextrose) 110 mls @ 400 mls/hr IV Q12HR [facility] Last Admin: 10/28/20 11:17 Dose: 400 mls/hr Documented by: Ceftriaxone Sodium (Rocephin/Ns 1 Gm/50 Ml) 1 gm in 50 mls @ 100 mls/hr IV Q24H [facility]; Protocol Dextrose/Sodium Chloride (D5/0.45ns) 1,000 mls @ 100 mls/hr IV DIRECT [facility] Insulin Human Lispro (Insulin Lispro 100 Unit/Ml) 0 unit SUB-Q Q6HR [facility]; Protocol Last Admin: 10/28/20 11:49 Dose: Not Given Documented by: Morphine Sulfate (Morphine 2 Mg/1 Ml Inj) 2 mg IV Q4H PRN PRN Reason: Pain, Moderate (4-6) Morphine Sulfate (Morphine 4 Mg/1 Ml Inj) 4 mg IV Q4H PRN PRN Reason: Pain , Severe (7-10) Naloxone HCl (Naloxone 0.4 Mg/1 Ml Inj) 0.1 mg IV Q2MIN PRN PRN Reason: Res Rate </= 8 or 02 SAT < 92% Ondansetron HCl (Ondansetron 4 Mg/2 Ml Inj) 4 mg IV Q6H PRN PRN Reason: Nausea And Vomiting Pantoprazole Sodium (Pantoprazole 40 Mg Inj) 40 mg IV BID [facility] Last Admin: 10/28/20 10:31 Dose: 40 mg Documented by: Sodium Chloride (Sodium Chloride 0.9% 10 Ml Flush Syringe) 10 ml IV BID [facility] Last Admin: 10/28/20 10:24 Dose: 10 ml Documented by: Sodium Chloride (Sodium Chloride 0.9% 10 Ml Flush Syringe) 10 ml IV PRN PRN PRN Reason: LINE FLUSH Reviewed/updated patient's home and current medications Review of Systems - Review of Systems ROS unobtainable: due to mental status Exam - Constitutional Vital Signs: Temp Pulse Resp BP Pulse Ox 97.9 F 96 H 21 131/58 99 10/27/20 18:40 10/28/20 07:15 10/28/20 07:15 10/28/20 07:15 10/28/20 07:15 General appearance: other (nad, non verbal) - EENT Eyes: PERRL - Respiratory Respiratory effort: normal Respiratory: bilateral: CTA - Cardiovascular Rhythm: regular Heart Sounds: Present: S1 & S2 - Gastrointestinal General gastrointestinal: Present: soft, non-tender, non-distended - Neurologic Neurological: disoriented - Labs CBC & Chem 7: 10/27/20 18:26 10/27/20 18:26 Lab Results: Laboratory Results - last 24 hr 10/27/20 10/27/20 10/27/20 18:26 18:26 19:08 WBC 20.2 H RBC 3.21 L Hgb 7.8 L Hct 25.7 L MCV 80 MCH 24 L MCHC 31 RDW 22.5 H Plt Count 534 H Lymph # (Auto) Granite Polisher Apprentice Add Manual Diff Complete Total Counted 100 Seg Neuts % (Manual) 68.0 Lymphocytes % (Manual) 23.0 Monocytes % (Manual) 7.0 Eosinophils % (Manual) 1.0 Basophils % (Manual) 1.0 Nucleated RBC % Not Reportable Seg Neutrophils # Man 13.7 H Band Neutrophils # 0.0 Lymphocytes # (Manual) 4.6 Abs React Lymphs (Man) 0.0 Monocytes # (Manual) 1.4 H Eosinophils # (Manual) 0.2 Basophils # (Manual) 0.2 H Metamyelocytes # 0.0 Myelocytes # 0.0 Promyelocytes # 0.0 Blast Cells # 0.0 WBC Morphology Not Reportable Hypersegmented Neuts Not Reportable Hyposegmented Neuts Not Reportable Hypogranular Neuts Not Reportable Smudge Cells Not Reportable Toxic Granulation Not Reportable Toxic Vacuolation Not Reportable Dohle Bodies Not Reportable Pelger-Huet Anomaly Not Reportable [place]yenne Rods Not Reportable Platelet Estimate Not Reportable Clumped Platelets Not Reportable Plt Clumps, EDTA Not Reportable Large Platelets Not Reportable Giant Platelets Not Reportable Platelet Satelliting Not Reportable Plt Morphology Comment Not Reportable RBC Morphology Not Reportable Dimorphic RBCs Not Reportable Polychromasia Not Reportable Hypochromasia 1+ Poikilocytosis Not Reportable Anisocytosis 1+ Microcytosis Few Macrocytosis Not Reportable Spherocytes Not Reportable Pappenheimer Bodies Not Reportable Sickle Cells Not Reportable Target Cells Not Reportable Tear Drop Cells Not Reportable Ovalocytes Not Reportable Helmet Cells Not Reportable Holman-[place] Bodies Not Reportable Penn Rings Not Reportable [place] Cells Not Reportable Bite Cells Not Reportable Crenated Cell Not Reportable Elliptocytes Not Reportable Acanthocytes (Spur) Not Reportable Rouleaux Not Reportable Hemoglobin C Crystals Not Reportable Schistocytes Not Reportable Malaria parasites Not Reportable Zurdo Bodies Not Reportable Hem Pathologist Commnt No PT INR APTT VBG pH 7.243 L Sodium 139 Potassium 4.1 Chloride 103.1 Carbon Dioxide 22 Anion Gap 18 BUN 19 H Creatinine 1.1 Estimated GFR > 60 BUN/Creatinine Ratio 17 Glucose 238 H POC Glucose Hemoglobin A1c Lactic Acid Calcium 8.8 Total Bilirubin < 0.20 AST 14 ALT 10 Alkaline Phosphatase 98 Ammonia Troponin T 0.011 Total Protein 7.3 Albumin 2.8 L Albumin/Globulin Ratio 0.6 Lipase 17 Urine Color Urine Turbidity Urine pH Ur Specific [place] Urine Protein Urine Glucose (UA) Urine Ketones Urine Blood Urine Nitrite Urine Bilirubin Urine Urobilinogen Ur Leukocyte Esterase Urine WBC (Auto) Urine RBC (Auto) U Epithel Cells (Auto) Urine Bacteria (Auto) Hyaline Casts Urine Mucus Blood Type Antibody Screen 10/27/20 10/27/20 10/27/20 19:08 21:29 21:48 WBC RBC Hgb Hct MCV MCH MCHC RDW Plt Count Lymph # (Auto) Add Manual Diff Total Counted Seg Neuts % (Manual) Lymphocytes % (Manual) Monocytes % (Manual) Eosinophils % (Manual) Basophils % (Manual) Nucleated RBC % Seg Neutrophils # Man Band Neutrophils # Lymphocytes # (Manual) Abs React Lymphs (Man) Monocytes # (Manual) Eosinophils # (Manual) Basophils # (Manual) Metamyelocytes # Myelocytes # Promyelocytes # Blast Cells # WBC Morphology Hypersegmented Neuts Hyposegmented Neuts Hypogranular Neuts Smudge Cells Toxic Granulation Toxic Vacuolation Dohle Bodies Pelger-Huet Anomaly [place] Rods Platelet Estimate Clumped Platelets Plt Clumps, EDTA Large Platelets Giant Platelets Platelet Satelliting Plt Morphology Comment RBC Morphology Dimorphic RBCs Polychromasia Hypochromasia Poikilocytosis Anisocytosis Microcytosis Macrocytosis Spherocytes Pappenheimer Bodies Sickle Cells Target Cells Tear Drop Cells Ovalocytes Helmet Cells Holman-[place] Bodies Penn Rings [place] Cells Bite Cells Crenated Cell Elliptocytes Acanthocytes (Spur) Rouleaux Hemoglobin C Crystals Schistocytes Malaria parasites Zurdo Bodies Hem Pathologist Commnt PT INR APTT VBG pH Sodium Potassium Chloride Carbon Dioxide Anion Gap BUN Creatinine Estimated GFR BUN/Creatinine Ratio Glucose POC Glucose Hemoglobin A1c Lactic Acid Calcium Total Bilirubin AST ALT Alkaline Phosphatase Ammonia 18.0 L Troponin T 0.014 Total Protein Albumin Albumin/Globulin Ratio Lipase Urine Color Yellow Urine Turbidity Slightly-cloudy Urine pH 5.0 Ur Specific [place] 1.010 Urine Protein <15 mg/dl Urine Glucose (UA) Neg Urine Ketones Neg Urine Blood Sm Urine Nitrite Neg Urine Bilirubin Neg Urine Urobilinogen < 2.0 Ur Leukocyte Esterase Mod Urine WBC (Auto) 64.0 H Urine RBC (Auto) 5.0 U Epithel Cells (Auto) 2.0 Urine Bacteria (Auto) 2+ Hyaline Casts 1 Urine Mucus Few Blood Type Antibody Screen 10/27/20 10/27/20 10/27/20 21:48 21:48 21:48 WBC RBC Hgb Hct MCV MCH MCHC RDW Plt Count Lymph # (Auto) Add Manual Diff Total Counted Seg Neuts % (Manual) Lymphocytes % (Manual) Monocytes % (Manual) Eosinophils % (Manual) Basophils % (Manual) Nucleated RBC % Seg Neutrophils # Man Band Neutrophils # Lymphocytes # (Manual) Abs React Lymphs (Man) Monocytes # (Manual) Eosinophils # (Manual) Basophils # (Manual) Metamyelocytes # Myelocytes # Promyelocytes # Blast Cells # WBC Morphology Hypersegmented Neuts Hyposegmented Neuts Hypogranular Neuts Smudge Cells Toxic Granulation Toxic Vacuolation Dohle Bodies Pelger-Huet Anomaly [place] Rods Platelet Estimate Clumped Platelets Plt Clumps, EDTA Large Platelets Giant Platelets Platelet Satelliting Plt Morphology Comment RBC Morphology Dimorphic RBCs Polychromasia Hypochromasia Poikilocytosis Anisocytosis Microcytosis Macrocytosis Spherocytes Pappenheimer Bodies Sickle Cells Target Cells Tear Drop Cells Ovalocytes Helmet Cells Holman-[place] Bodies Penn Rings Vaishnavi Cells Bite Cells Crenated Cell Elliptocytes Acanthocytes (Spur) Rouleaux Hemoglobin C Crystals Schistocytes Malaria parasites Zurdo Bodies Hem Pathologist Commnt PT 14.1 INR 1.03 APTT 33.8 VBG pH Sodium Potassium Chloride Carbon Dioxide Anion Gap BUN Creatinine Estimated GFR BUN/Creatinine Ratio Glucose POC Glucose Hemoglobin A1c Lactic Acid 5.20 H* Calcium Total Bilirubin AST ALT Alkaline Phosphatase Ammonia Troponin T Total Protein Albumin Albumin/Globulin Ratio Lipase Urine Color Urine Turbidity Urine pH Ur Specific [place] Urine Protein Urine Glucose (UA) Urine Ketones Urine Blood Urine Nitrite Urine Bilirubin Urine Urobilinogen Ur Leukocyte Esterase Urine WBC (Auto) Urine RBC (Auto) U Epithel Cells (Auto) Urine Bacteria (Auto) Hyaline Casts Urine Mucus Blood Type O POSITIVE Antibody Screen Negative 10/28/20 10/28/20 10/28/20 00:21 00:21 05:43 WBC RBC Hgb Hct MCV MCH MCHC RDW Plt Count Lymph # (Auto) Add Manual Diff Total Counted Seg Neuts % (Manual) Lymphocytes % (Manual) Monocytes % (Manual) Eosinophils % (Manual) Basophils % (Manual) Nucleated RBC % Seg Neutrophils # Man Band Neutrophils # Lymphocytes # (Manual) Abs React Lymphs (Man) Monocytes # (Manual) Eosinophils # (Manual) Basophils # (Manual) Metamyelocytes # Myelocytes # Promyelocytes # Blast Cells # WBC Morphology Hypersegmented Neuts Hyposegmented Neuts Hypogranular Neuts Smudge Cells Toxic Granulation Toxic Vacuolation Dohle Bodies Pelger-Huet Anomaly [place] Rods Platelet Estimate Clumped Platelets Plt Clumps, EDTA Large Platelets Giant Platelets Platelet Satelliting Plt Morphology Comment RBC Morphology Dimorphic RBCs Polychromasia Hypochromasia Poikilocytosis Anisocytosis Microcytosis Macrocytosis Spherocytes Pappenheimer Bodies Sickle Cells Target Cells Tear Drop Cells Ovalocytes Helmet Cells Holman-[place] Bodies Penn Rings Vaishnavi Cells Bite Cells Crenated Cell Elliptocytes Acanthocytes (Spur) Rouleaux Hemoglobin C Crystals Schistocytes Malaria parasites Zurdo Bodies Hem Pathologist Commnt PT INR APTT VBG pH Sodium Potassium Chloride Carbon Dioxide Anion Gap BUN Creatinine Estimated GFR BUN/Creatinine Ratio Glucose POC Glucose Hemoglobin A1c Lactic Acid 3.50 H* 1.70 Calcium Total Bilirubin AST ALT Alkaline Phosphatase Ammonia Troponin T < 0.010 Total Protein Albumin Albumin/Globulin Ratio Lipase Urine Color Urine Turbidity Urine pH Ur Specific [place] Urine Protein Urine Glucose (UA) Urine Ketones Urine Blood Urine Nitrite Urine Bilirubin Urine Urobilinogen Ur Leukocyte Esterase Urine WBC (Auto) Urine RBC (Auto) U Epithel Cells (Auto) Urine Bacteria (Auto) Hyaline Casts Urine Mucus Blood Type Antibody Screen 10/28/20 10/28/20 10/28/20 05:43 06:46 11:47 WBC RBC Hgb Hct MCV MCH MCHC RDW Plt Count Lymph # (Auto) Add Manual Diff Total Counted Seg Neuts % (Manual) Lymphocytes % (Manual) Monocytes % (Manual) Eosinophils % (Manual) Basophils % (Manual) Nucleated RBC % Seg Neutrophils # Man Band Neutrophils # Lymphocytes # (Manual) Abs React Lymphs (Man) Monocytes # (Manual) Eosinophils # (Manual) Basophils # (Manual) Metamyelocytes # Myelocytes # Promyelocytes # Blast Cells # WBC Morphology Hypersegmented Neuts Hyposegmented Neuts Hypogranular Neuts Smudge Cells Toxic Granulation Toxic Vacuolation Dohle Bodies Pelger-Huet Anomaly [place] Rods Platelet Estimate Clumped Platelets Plt Clumps, EDTA Large Platelets Giant Platelets Platelet Satelliting Plt Morphology Comment RBC Morphology Dimorphic RBCs Polychromasia Hypochromasia Poikilocytosis Anisocytosis Microcytosis Macrocytosis Spherocytes Pappenheimer Bodies Sickle Cells Target Cells Tear Drop Cells Ovalocytes Helmet Cells Holman-[place] Bodies Penn Rings [place] Cells Bite Cells Crenated Cell Elliptocytes Acanthocytes (Spur) Rouleaux Hemoglobin C Crystals Schistocytes Malaria parasites Zurdo Bodies Hem Pathologist Commnt PT INR APTT VBG pH Sodium Potassium Chloride Carbon Dioxide Anion Gap BUN Creatinine Estimated GFR BUN/Creatinine Ratio Glucose POC Glucose 201 H 162 H Hemoglobin A1c 6.9 H Lactic Acid Calcium Total Bilirubin AST ALT Alkaline Phosphatase Ammonia Troponin T Total Protein Albumin Albumin/Globulin Ratio Lipase Urine Color Urine Turbidity Urine pH Ur Specific [place] Urine Protein Urine Glucose (UA) Urine Ketones Urine Blood Urine Nitrite Urine Bilirubin Urine Urobilinogen Ur Leukocyte Esterase Urine WBC (Auto) Urine RBC (Auto) U Epithel Cells (Auto) Urine Bacteria (Auto) Hyaline Casts Urine Mucus Blood Type Antibody Screen Assessment and Plan 1. UGI bleed/coffee ground emesis - no episodes here, and brown stool since arrival. noted to be anemic. unable to get history from pt. has other acute findings on ct scan however. cont IV PPI, monitor h/h, and transfuse as needed to keep hgb > 7. will manage conservatively from gi stand point unless overt bleeding develops or other indication arises. 2. Pelvic/ovarian mass - gift shop clerk consulted 3. cecal pneumatosis - pretty benign exam within limits of pt's mentat status but non-distended/nt. surgery following
--- NOTE | 2020-10-28 13:21 | Electrocardiograph Report ---
[facility] Test Date: 2020-10-27 Test Time: 21:07:06 Pat Name: MARCOS KERR Department: Room: [place] [address] Gender: F Developer Evangelist: : [id number] Requested By: VERO SOSA Order Number: [id number] Reading MD: Ivelisse Gaston Measurements Intervals [place] Rate: 99 P: 65 MT: 142 QRS: 57 QRSD: 90 T: 45 QT: 392 QTc: 504 Interpretive Statements Sinus rhythm Prolonged QT interval No previous ECG available for comparison Electronically Signed On 10-28-2020 13:21:17 EDT by Ivelisse Gaston
[2020-10-28 16:38] LABS: BUN/Creatinine Ratio 18; Blood Urea Nitrogen 18 mg/dL (7-17); Hematocrit 22.7 % (30.3-42.9); Hemoglobin 6.8 gm/dl (10.1-14.3); Hemolysis Index 222; Mean Corpuscular HGB Conc 30 % (30-34); Mean Corpuscular Volume 80 fl (79-97); Platelet Count 375 K/mm3 (140-440); Red Blood Count 2.85 M/mm3 (3.65-5.03)
[2020-10-28 16:39] LABS: Red Cell Distribution Width 22.4 % (13.2-15.2)
--- NOTE | 2020-10-28 19:53 | Consultation ---
History of Present Illness Consult date: 10/27/20 Reason for consult: ovarian cyst Past History Past Medical History: other (65-year-old -[place] female with history of diabetes, hypertension, HLD, seizure, CVA with right-sided residual weakness, and dementia who presents [facility] via EMS with complaints of hypotension and coffee-ground emesis. Of note patient has dementia and is a poor historian. She is oriente) Medications and Allergies Allergies Allergy/AdvReac Type Severity Reaction Status Date / Time No Known Allergies Allergy Unverified 05/09/13 12:39 Home Medications Medication Instructions Recorded Confirmed Last Taken Type AtorvaSTATin [Lipitor] 40 mg PO QHS 10/28/20 10/28/20 Unknown History Cholecalciferol Vit D3 [Vitamin D3 1,000 unit PO QDAY 10/28/20 10/28/20 Unknown History 1,000 UNIT TAB] Ferrous Sulfate [Iron 325 MG] 325 mg PO DAILY 10/28/20 10/28/20 Unknown History Losartan [Cozaar] 100 mg PO QDAY 10/28/20 10/28/20 Unknown History Memantine [Namenda] 5 mg PO QDAY 10/28/20 10/28/20 Unknown History Sertraline [Zoloft] 100 mg PO QDAY 10/28/20 10/28/20 Unknown History amLODIPine [Norvasc] 5 mg PO DAILY 10/28/20 10/28/20 Unknown History donepeziL [Aricept] 5 mg PO QDAY 10/28/20 10/28/20 Unknown History levETIRAcetam [Keppra TAB] 1,000 mg PO DAILY 10/28/20 10/28/20 Unknown History metFORMIN [Glucophage] 500 mg PO QDAY 10/28/20 10/28/20 Unknown History Active Meds: Active Medications Acetaminophen (Acetaminophen 650 Mg Rect Supp) 650 mg [place] Q4H PRN PRN Reason: Pain MILD(1-3)/Fever >100.5/LAL Albuterol (Albuterol 2.5 Mg/3 Ml Nebu) 2.5 mg IH Q3HRT PRN PRN Reason: Shortness Of Breath Bisacodyl (Bisacodyl 10 Mg Rect Supp) 10 mg OK QDAY PRN PRN Reason: Constipation Clonidine HCl (Clonidine Tts 0.1 Mg/24 Hr Patch) 0.1 mg TD We [facility] Last Admin: 10/28/20 05:00 Dose: Not Given Documented by: Dextrose (Dextrose 50% In Water (25gm) 50 Ml Syringe) 50 ml IV Q30MIN PRN; Protocol PRN Reason: Hypoglycemia Levetiracetam 1,000 mg/ (Dextrose) 110 mls @ 400 mls/hr IV Q12HR [facility] Last Admin: 10/28/20 11:17 Dose: 400 mls/hr Documented by: Ceftriaxone Sodium (Rocephin/Ns 1 Gm/50 Ml) 1 gm in 50 mls @ 100 mls/hr IV Q24H [facility]; Protocol Dextrose/Sodium Chloride (D5/0.45ns) 1,000 mls @ 100 mls/hr IV DIRECT [facility] Insulin Human Lispro (Insulin Lispro 100 Unit/Ml) 0 unit SUB-Q Q6HR [facility]; Protocol Last Admin: 10/28/20 18:22 Dose: Not Given Documented by: Morphine Sulfate (Morphine 2 Mg/1 Ml Inj) 2 mg IV Q4H PRN PRN Reason: Pain, Moderate (4-6) Morphine Sulfate (Morphine 4 Mg/1 Ml Inj) 4 mg IV Q4H PRN PRN Reason: Pain , Severe (7-10) Naloxone HCl (Naloxone 0.4 Mg/1 Ml Inj) 0.1 mg IV Q2MIN PRN PRN Reason: Res Rate </= 8 or 02 SAT < 92% Ondansetron HCl (Ondansetron 4 Mg/2 Ml Inj) 4 mg IV Q6H PRN PRN Reason: Nausea And Vomiting Pantoprazole Sodium (Pantoprazole 40 Mg Inj) 40 mg IV BID [facility] Last Admin: 10/28/20 10:31 Dose: 40 mg Documented by: Sodium Chloride (Sodium Chloride 0.9% 10 Ml Flush Syringe) 10 ml IV BID [facility] Last Admin: 10/28/20 10:24 Dose: 10 ml Documented by: Sodium Chloride (Sodium Chloride 0.9% 10 Ml Flush Syringe) 10 ml IV PRN PRN PRN Reason: LINE FLUSH Review of Systems ROS unobtainable: due to mental status - Vital Signs Vital signs: Vital Signs Temp Pulse Resp BP Pulse Ox 97.9 F 70 18 120/52 97 10/27/20 18:40 10/27/20 18:40 10/27/20 18:40 10/27/20 18:40 10/27/20 18:40 Temp Pulse Resp BP Pulse Ox 97.9 F 83 16 147/51 100 10/27/20 18:40 10/28/20 17:01 10/28/20 17:01 10/28/20 17:01 10/28/20 17:01 - Physical Exam Lungs: Positive: Normal air movement Abdomen: Positive: normal appearance Genitourinary (Female): Positive: other (deferred) Results Result Diagrams: 10/28/20 16:04 10/28/20 16:04 Abnormal lab results 10/27/20 10/27/20 10/27/20 Range/Units 18:26 21:29 21:48 WBC 20.2 H (4.5-11.0) K/mm3 RBC 3.21 L (3.65-5.03) M/mm3 Hgb 7.8 L (10.1-14.3) gm/dl Hct 25.7 L (30.3-42.9) % MCH 24 L (28-32) pg RDW 22.5 H (13.2-15.2) % Plt Count 534 H (140-440) K/mm3 Seg Neutrophils # Man 13.7 H (1.8-7.7) K/mm3 Monocytes # (Manual) 1.4 H (0.0-0.8) K/mm3 Basophils # (Manual) 0.2 H (0.0-0.1) K/mm3 Potassium (3.6-5.0) mmol/L Chloride (98-107) mmol/L Carbon Dioxide (22-30) mmol/L BUN (7-17) mg/dL Glucose (65-100) mg/dL POC Glucose (70-105) mg/dL Hemoglobin A1c (4-6) % Lactic Acid 5.20 H* (0.7-2.0) mmol/L Calcium (8.4-10.2) mg/dL Urine WBC (Auto) 64.0 H (0.0-6.0) /HPF 10/28/20 10/28/20 10/28/20 Range/Units 00:21 05:43 06:46 WBC (4.5-11.0) K/mm3 RBC (3.65-5.03) M/mm3 Hgb (10.1-14.3) gm/dl Hct (30.3-42.9) % MCH (28-32) pg RDW (13.2-15.2) % Plt Count (140-440) K/mm3 Seg Neutrophils # Man (1.8-7.7) K/mm3 Monocytes # (Manual) (0.0-0.8) K/mm3 Basophils # (Manual) (0.0-0.1) K/mm3 Potassium (3.6-5.0) mmol/L Chloride (98-107) mmol/L Carbon Dioxide (22-30) mmol/L BUN (7-17) mg/dL Glucose (65-100) mg/dL POC Glucose 201 H (70-105) mg/dL Hemoglobin A1c 6.9 H (4-6) % Lactic Acid 3.50 H* (0.7-2.0) mmol/L Calcium (8.4-10.2) mg/dL Urine WBC (Auto) (0.0-6.0) /HPF 10/28/20 10/28/20 10/28/20 Range/Units 11:47 16:04 16:04 WBC 20.1 H (4.5-11.0) K/mm3 RBC 2.85 L (3.65-5.03) M/mm3 Hgb 6.8 L (10.1-14.3) gm/dl Hct 22.7 L (30.3-42.9) % MCH 24 L (28-32) pg RDW 22.4 H (13.2-15.2) % Plt Count (140-440) K/mm3 Seg Neutrophils # Man (1.8-7.7) K/mm3 Monocytes # (Manual) (0.0-0.8) K/mm3 Basophils # (Manual) (0.0-0.1) K/mm3 Potassium 5.9 H D (3.6-5.0) mmol/L Chloride 111.9 H (98-107) mmol/L Carbon Dioxide 19 L (22-30) mmol/L BUN 18 H (7-17) mg/dL Glucose 142 H (65-100) mg/dL POC Glucose 162 H (70-105) mg/dL Hemoglobin A1c (4-6) % Lactic Acid (0.7-2.0) mmol/L Calcium 7.0 L D (8.4-10.2) mg/dL Urine WBC (Auto) (0.0-6.0) /HPF All other labs normal. CT scan - pelvis: report reviewed (left complex ovarian mass) Assessment and Plan - Patient Problems (1) Pelvic mass in female Current Visit: Yes Status: Acute Plan to address problem: Due to concerns for ovarian malignant neoplasia and the patient's overall condition, varitype operator care will be best determined and managed by varitype operator oncology team, in a [facility]. I will yield, therefore, to this team.
[2020-10-28] MEDS ORDERED: cefTRIAXone/NS 1 GM/50 ML 1 GM/50 ML BAG IV SCH (22:00)
[2020-10-29] MEDS: PANTOPRAZOLE 40 MG INJ IV SCH ×2 (01:29→09:50)
[2020-10-29] MEDS: levETIRAcetam 1,000 MG in DEXTROSE 5% IN WATER 100 ML IV SCH ×2 (01:33→10:03)
[2020-10-29 06:36] LABS: Basophils % (Auto) 0.3 % (0.0-1.8); Eosinophils % (Auto) 0.2 % (0.0-4.3); Hematocrit 24.5 % (30.3-42.9); Hemoglobin 7.6 gm/dl (10.1-14.3); Lymphocytes # (Auto) 1.6 K/mm3 (1.2-5.4); Lymphocytes % (Auto) 10.2 % (13.4-35.0); Mean Corpuscular HGB Conc 31 % (30-34); Mean Corpuscular Volume 78 fl (79-97); Monocytes # (Auto) 0.7 K/mm3 (0.0-0.8); Monocytes % (Auto) 4.9 % (0.0-7.3); Platelet Count 452 K/mm3 (140-440); Red Blood Count 3.14 M/mm3 (3.65-5.03)
[2020-10-29 06:37] LABS: Red Cell Distribution Width 21.7 % (13.2-15.2)
[2020-10-29 06:55] LABS: Alanine Aminotransferase 15 units/L (7-56); Albumin 2.6 g/dL (3.9-5); BUN/Creatinine Ratio 18; Blood Urea Nitrogen 18 mg/dL (7-17); Calcium 8.4 mg/dL (8.4-10.2); Hemolysis Index 0
[2020-10-29] MEDS: INSULIN LISPRO 100 UNIT/ML SUB-Q SCH ×3 (07:45→17:13)
--- NOTE | 2020-10-29 08:50 | Discharge Summary ---
Providers - Providers Date of Admission: 10/28/20 16:28 Date of discharge: 10/29/20 Attending physician: CAMERON DORANTES 10/28/20 01:12 Consult to Physician [CONS] Urgent Comment: Dr. Chatman spoke with Dr. Rivera @ [phone] Consulting Provider: WILEY RIVERA Physician Instructions: Reason For Exam: Vomiting, pneumatosis, pelvic mass 10/28/20 01:31 Consult to Physician [CONS] Urgent Comment: Dr. Chatman spoke with Dr. Aguilar @ [phone] Consulting Provider: JAVAN AGUILAR Physician Instructions: Reason For Exam: coffee ground emesis, anemia 10/28/20 01:45 PICC Line Insertion [Consult to PICC Line RN] [CONS] Routine Reason For Exam: hard stick, needs iv abx, suspected GIB Type Line:: PICC 10/28/20 01:48 Consult to Physician [CONS] Routine Comment: Dr. Chatman spoke with Dr. Jimenez @ [phone] Consulting Provider: WALKER JIMENEZ Physician Instructions: Reason For Exam: pelvic mass seen on CT 10/28/20 02:52 Occupational Therapy Evaluate and Treat [CONS] Routine Comment: Reason For Exam: eval/treat Physical Therapy Evaluation and Treat [CONS] Routine Comment: Reason For Exam: eval/ treat Primary care physician: JOINT SUPERVISOR Hospitalization Reason for admission: anemia Condition: Stable Hospital course: 65 yo F with hx of dementia, hypertension, hyperlipidemia, seizures, CVA who presented to ER with AMS, nausea/vomiting. Patient is an extremely poor historian and does not answer questions. All history obtained from chart. Patient found to be hypotensive in ER with coffee ground emesis and diarrhea. W/U revealed elevated lactic acid, WBC. Patient was resuscitated with IVF with resolution of lactic acidosis and hypotension. CT scan A/P revealed small amount of cecal pneumatosis without perforation and left adenexal mass concerning for [facility] malignancy. Pelvic u/s confirmed suspicion of [facility] carcinoma. The patient was seen by general surgery who recommended aggressive IV fluid hydration, empiric antibiotics and to keep n.p.o. Patient improved clinically with resuscitation and lactate normalized. Nausea, vomiting and hypotension resolved. CT scan of the abdomen pelvis was further reviewed by the surgeon who reported fluid filled right colon with cecal pneumatosis, without colonic thickening, free fluid, or free air. L sided adnexal mass concerning for [facility] malignancy. Surgery felt that the pneumatosis was likely secondary to low flow state, hypotension and likely not pathologic given patients improvement with medical management and no abd pain. Diet was advanced which the patient tolerated. The patient was also seen by GI in consultation who recommended IV PPI and to monitor H&H. Hemoglobin remained stable greater than 7.0 so no need for PRBCs. GI opted to manage the patient conservatively and no bleeding was noted. [facility] reported that due to concerns for ovarian malignant neoplasia and the patient's overall condition, onboarding specialist care will be best determined and managed by onboarding specialist oncology team, in a [facility] hospital. I updated the son Giovani Pierson prior to discharge with the hospital course and discharge plans. I instructed the son that Jacqui Pierson would need to follow-up with outpatient [facility] oncology. He voiced understanding and would arrange for appointment. Patient will be given prescription of Ceftin for UTI. Blood cultures were found to be n egative. Patient also received Protonix prescription. Dedicated discharge time 35 minutes Disposition: HOME HEALTH CARE SERVICE Final Discharge Diagnosis (Prints w/discharge instructions): cecal pneumatosis without perforation and left adenexal mass concerning for [facility] malignancy, symptomatic anemia, DUB Core Measure Documentation - Palliative Care Palliative Care/ Comfort Measures: Not Applicable - Core Measures Any of the following diagnoses?: none Exam - Constitutional Vitals: Temp Pulse Resp BP Pulse Ox 98.2 F 74 0 L 142/52 97 10/29/20 04:31 10/29/20 04:31 10/29/20 04:31 10/29/20 04:31 10/29/20 04:31 General appearance: Present: no acute distress, well-nourished - EENT Eyes: Present: PERRL ENT: hearing intact, clear oral mucosa - Neck Neck: Present: supple, normal ROM - Respiratory Respiratory effort: normal Respiratory: bilateral: CTA - Cardiovascular Heart Sounds: Present: S1 & S2. Absent: rub, click - Extremities Extremities: pulses symmetrical, No edema Peripheral Pulses: within normal limits - Abdominal General gastrointestinal: Present: soft, non-tender, non-distended, normal bowel sounds Female genitourinary: Present: normal - Integumentary Integumentary: Present: clear, warm, dry - Musculoskeletal Musculoskeletal: gait normal, strength equal bilaterally - Psychiatric Psychiatric: appropriate mood/affect, intact judgment & insight - Neurologic Neurologic: CNII-XII intact, moves all extremities Plan Activity: advance as tolerated Weight Bearing Status: Weight Bear as Tolerated Diet: regular Additional Instructions: Follow-up with [facility] oncology for mass found on CT concerning for ovarian malignant neoplasm. Follow up with: PRIMARY CARE, [Primary Care Provider] - 7 Days Prescriptions: cefUROXime [Ceftin] 250 mg PO Q12H #20 tablet Pantoprazole [Protonix] 40 mg PO BID #60 tablet
--- NOTE | 2020-10-29 12:56 | Progress Note ---
Assessment and Plan 65 yo F with 1. Sepsis 2/2 #7 2. Cecal pneumatosis 3. Hypotension 5. adnexal mass - likely cancer 6. L pleural effusion 7. UTI Pt stable. WBC trending down. No abd pain, carmelo CLD. Ucx - Gram neg rods Plan: 1. CLD -> adv as carmelo 2. IVF 3. UTI likely cause of sepsis - abx per 1 team 4. DVT ppx 5. GI ppx 6. SHANK STAPLER on board - rec physical science professor onc referral 7. GI on board No acute surgical intervention at this time. Ok to dc from surgery standpoint if continues to tolerate diet. Thank you, please call with questions. Subjective Date of service: 10/29/20 Narrative: Pt seen and examined. More conversational today but baseline confusion. NO f/c. Tolerating CLD. Denies abd pain. Having loose BMs. Objective Vital Signs - 12hr 10/29/20 10/29/20 10/29/20 01:38 04:31 11:19 Temperature 98.2 F Pulse Rate 74 Pulse Rate [ 88 From Monitor] Respiratory 0 L 18 Rate Blood Pressure 142/52 [Left] O2 Sat by Pulse 95 97 96 Oximetry - General physical appearance Narrative Exam: Gen.: Awake, alert. No apparent distress. More verbal today but still baseline confusion ENT: Trachea midline. No lymphadenopathy. No scleral icterus or conjunctival pallor CV: S1, S2 present Respiratory: No audible wheezes Abdomen: Soft, nondistended, nontender. No rebound, rigidity, guarding Extremities: No clubbing, cyanosis, edema - Labs 10/29/20 04:40 10/29/20 04:40 Diabetes panel 10/28/20 10/29/20 Range/Units 16:04 04:40 Sodium 141 145 (137-145) mmol/L Potassium 5.9 H D 3.8 D (3.6-5.0) mmol/L Chloride 111.9 H 110.1 H (98-107) mmol/L Carbon Dioxide 19 L 24 (22-30) mmol/L BUN 18 H 18 H (7-17) mg/dL Creatinine 1.0 1.0 (0.6-1.2) mg/dL Glucose 142 H 105 H (65-100) mg/dL Calcium 7.0 L D 8.4 D (8.4-10.2) mg/dL AST 15 (5-40) units/L ALT 15 (7-56) units/L Alkaline Phosphatase 142 H (35-129) units/L Total Protein 7.1 (6.3-8.2) g/dL Albumin 2.6 L (3.9-5) g/dL Calcium panel 10/28/20 10/29/20 Range/Units 16:04 04:40 Calcium 7.0 L D 8.4 D (8.4-10.2) mg/dL Albumin 2.6 L (3.9-5) g/dL Pituitary panel 10/28/20 10/29/20 Range/Units 16:04 04:40 Sodium 141 145 (137-145) mmol/L Potassium 5.9 H D 3.8 D (3.6-5.0) mmol/L Chloride 111.9 H 110.1 H (98-107) mmol/L Carbon Dioxide 19 L 24 (22-30) mmol/L BUN 18 H 18 H (7-17) mg/dL Creatinine 1.0 1.0 (0.6-1.2) mg/dL Glucose 142 H 105 H (65-100) mg/dL Calcium 7.0 L D 8.4 D (8.4-10.2) mg/dL Adrenal panel 10/28/20 10/29/20 Range/Units 16:04 04:40 Sodium 141 145 (137-145) mmol/L Potassium 5.9 H D 3.8 D (3.6-5.0) mmol/L Chloride 111.9 H 110.1 H (98-107) mmol/L Carbon Dioxide 19 L 24 (22-30) mmol/L BUN 18 H 18 H (7-17) mg/dL Creatinine 1.0 1.0 (0.6-1.2) mg/dL Glucose 142 H 105 H (65-100) mg/dL Calcium 7.0 L D 8.4 D (8.4-10.2) mg/dL Total Bilirubin 0.20 (0.1-1.2) mg/dL AST 15 (5-40) units/L ALT 15 (7-56) units/L Alkaline Phosphatase 142 H (35-129) units/L Total Protein 7.1 (6.3-8.2) g/dL Albumin 2.6 L (3.9-5) g/dL
[2020-10-29] MEDS ORDERED: LOPERAMIDE 2 MG CAP PO PRN (14:00)
[2020-10-29 14:41] VITALS: BP 139/54
--- NOTE | 2020-10-30 10:04 | Electrocardiograph Report ---
[facility] Test Date: 2020-10-29 Test Time: 08:30:24 Pat Name: MARCOS KERR Department: Room: A465 1 Gender: F Political Anthropologist: HYACINTH : 1955 Requested By: VERO SOSA Order Number: [id number] Reading MD: Harshil Van Measurements Intervals [place]man Rate: 85 P: 62 NE: 157 QRS: 62 QRSD: 103 T: 63 QT: 403 QTc: 480 Interpretive Statements Sinus rhythm WNL Compared to ECG 10/27/2020 21:07:06 Prolonged QT interval no longer present Electronically Signed On 10-30-2020 10:04:33 EDT by Harshil Van
== END 2020-10-29 17:57 | disposition home health service (06) | DRG 872 ==
LOC: ED 18:18 → 4A 10-28 01:48 → OBSVTOIN 10-28 16:28 → 4A 10-28 21:09
PROVIDERS: ADMIT Internal Medicine Geriatric Medicine; ATTEND Hospitalist
DX: A41.9 Sepsis, unspecified organism (principal); K92.2 Gastrointestinal hemorrhage, unspecified; I69.351 Hemiplegia and hemiparesis following cerebral infarction affecting right dominant side; J90 Pleural effusion, not elsewhere classified; N39.0 Urinary tract infection, site not specified; E11.9 Type 2 diabetes mellitus without complications; D64.9 Anemia, unspecified; Z98.51 Tubal ligation status; K59.00 Constipation, unspecified; K66.8 Other specified disorders of peritoneum; R19.00 Intra-abdominal and pelvic swelling, mass and lump, unspecified site; I10 Essential (primary) hypertension; Z79.899 Other long term (current) drug therapy
CPT/HCPCS: 36415; 71045; 71260; 74177; 76856; 80048; 80053; 81001; 82140; 82271; 82805; 82962; 83036; 83690; 84484; 85007; 85014; 85018; 85025; 85027; 85610; 85730; 86850; 86900; 86901; 87040; 87076; 87086; 87186; 93005; G0378; C9113; J0696; J1200; J1953; J2405; J2765; J7030; J7040; Q9967

== ENCOUNTER 2021-11-13 01:44 | Inpatient (IN) | payer MEDICARE ==
[2021-11-13] MEDS ORDERED: SODIUM CHLORIDE 0.9% 1000 ML 1,000 ML IV ONE (02:27)
[2021-11-13 03:09] LABS: Basophils # (Auto) 0.1 K/mm3 (0.0-0.1); Basophils % (Auto) 0.5 % (0.0-1.8); Eosinophils # (Auto) 0.1 K/mm3 (0.0-0.4); Eosinophils % (Auto) 0.5 % (0.0-4.3); Hematocrit 37.6 % (30.3-42.9); Hemoglobin 11.7 gm/dl (10.1-14.3); Lymphocytes # (Auto) 1.8 K/mm3 (1.2-5.4); Lymphocytes % (Auto) 12.7 % (13.4-35.0); Mean Corpuscular HGB Conc 31 % (30-34); Mean Corpuscular Volume 83 fl (79-97); Monocytes # (Auto) 0.8 K/mm3 (0.0-0.8); Monocytes % (Auto) 5.7 % (0.0-7.3); Platelet Count 269 K/mm3 (140-440); Red Blood Count 4.56 M/mm3 (3.65-5.03); Red Cell Distribution Width 15.3 % (13.2-15.2)
[2021-11-13 03:46] LABS: Alanine Aminotransferase 42 units/L (7-56); Albumin 3.7 g/dL (3.9-5); BUN/Creatinine Ratio 25; Blood Urea Nitrogen 30 mg/dL (7-17); Calcium 9.6 mg/dL (8.4-10.2); Hemolysis Index 6
[2021-11-13 03:49] LABS: Bilirubin,Direct < 0.2 mg/dL (0-0.2)
[2021-11-13 04:36] LABS: Bacteria,Urine 4+ /HPF (Negative); Color,Urine Yellow (Yellow); HCG Qualitative,Urine Negative (Negative); Mucus,Urine FEW /HPF
[2021-11-13] MEDS ORDERED: SODIUM CHLORIDE 0.9% 500 ML 500 ML IV ONE (06:33)
[2021-11-13] MEDS ORDERED: cefTRIAXone/NS 1 GM/50 ML 1 GM/50 ML BAG IV ONE (06:34)
--- NOTE | 2021-11-13 07:47 | XRay Report ---
CHEST 1 VIEW 11/13/2021 6:42 AM INDICATION / CLINICAL INFORMATION: Dyspnea. COMPARISON: One view of the chest from 04/02/2021. FINDINGS: SUPPORT DEVICES: None. HEART / MEDIASTINUM: No significant abnormality. LUNGS / PLEURA: There is probable mild bibasilar atelectasis without other significant pulmonary abno rmalities. No significant pleural effusion. No pneumothorax. ADDITIONAL FINDINGS: No significant additional findings. IMPRESSION: Probable mild bibasilar atelectasis without other acute findings. Signer Name: Corwin Nguyen MD Signed: 11/13/2021 7:43 AM Workstation Name: [id number]
[2021-11-13] MEDS ORDERED: LORazepam 2 MG/ML VIAL IV ONE (08:59)
--- NOTE | 2021-11-13 09:38 | Cat Scan Report ---
CT ABDOMEN AND PELVIS WITH CONTRAST INDICATION / CLINICAL INFORMATION: pain. TECHNIQUE: Axial CT images were obtained through the abdomen and pelvis after IV contrast. All CT sc ans at this location are performed using CT dose reduction for ALARA by means of automated exposure c ontrol. COMPARISON: CT dated 10/27/2020 FINDINGS: Exam is limited secondary to patient's inability to raise arms. LOWER CHEST: Groundglass opacities with somewhat nodular consolidation in the right lung base. Small pericardial effusion. LIVER: No significant abnormality. GALLBLADDER: Peripherally calcified gallbladder wall. BILE DUCTS: Stable intrahepatic and extrahepatic biliary ductal dilation with the common bile duct me asuring up to 1 cm on image 49 series 2. PANCREAS: No significant abnormality. SPLEEN: No significant abnormality. ADRENALS: No significant abnormality. RIGHT KIDNEY / URETER: No significant abnormality. LEFT KIDNEY / URETER: Subcentimeter foci of hypoattenuation are too small for accurate characterizati on. Similar left lower pole nonobstructing calculi. STOMACH / SMALL BOWEL: No significant abnormality. COLON: Moderate-sized fecalith in the rectum measuring up to 9 cm on image 29 series 2. No perirectal inflammation. APPENDIX: No significant abnormality. PERITONEUM: No free fluid. No free air. No fluid collection. LYMPH NODES: No significant adenopathy. AORTA / ARTERIES: Severe atherosclerotic calcification without acute abnormality. IVC / VEINS: No significant abnormality. URINARY BLADDER: Air within the urinary bladder may be related to instrumentation. Bladder wall is mi ldly thickened with mucosal enhancement. REPRODUCTIVE ORGANS: Similar multiloculated cystic mass in the left adnexa. ADDITIONAL FINDINGS: None. SKELETAL SYSTEM: No significant abnormality. IMPRESSION: 1. Thickened urinary bladder wall with mucosal enhancement is suggestive of cystitis. 2. Similar multilobulated cystic mass in the left adnexa, which is highly concerning for ovarian jesse gnancy in this postmenopausal female. 3. Groundglass opacities with nodular consolidation in the right lung base, concerning for infection. 4. Peripherally calcified gallbladder wall versus peripherally calcified gallstone. 5. Moderate-sized fecalith in the rectum. Recommend correlation for impaction. Signer Name: Diomedes Major MD Signed: 11/13/2021 9:34 AM Workstation Name: [id number]
--- NOTE | 2021-11-13 09:50 | Emergency Department Report ---
ED Altered Mental Status HPI - General Chief Complaint: Altered Mental Status Stated Complaint: AMS PUI?: No Time Seen by Provider: 11/13/21 06:33 Source: patient Mode of arrival: Stretcher Limitations: No Limitations - History of Present Illness Initial Comments: Family reported that pt is not her usual self tonight. Vomited upon arrival to ED. Complaint: decreased responsiveness -: hour(s) Severity: mild Consistency of Symptoms: waxing and waning Associated Symptoms: nausea/vomiting. denies: denies other symptoms, chest pain, cough - Related Data Home Medications Medication Instructions Recorded Confirmed Last Taken AtorvaSTATin [Lipitor] 40 mg PO QHS 10/28/20 04/05/21 03/31/21 Cholecalciferol Vit D3 [Vitamin D3 1,000 unit PO QDAY 10/28/20 04/05/21 04/01/21 1,000 UNIT TAB] Ferrous Sulfate [Iron 325 MG] 325 mg PO DAILY 10/28/20 04/05/21 04/01/21 Losartan [Cozaar] 100 mg PO QDAY 10/28/20 04/05/21 04/01/21 Memantine 5 mg PO QDAY 10/28/20 04/05/21 04/01/21 Sertraline [Zoloft] 100 mg PO QDAY 10/28/20 04/05/21 04/01/21 donepeziL [Aricept] 5 mg PO QDAY 10/28/20 04/05/21 04/01/21 metFORMIN [Glucophage] 500 mg PO QDAY 10/28/20 04/05/21 04/01/21 Ascorbic Acid [Vitamin C chew] 500 mg PO QDAY 04/05/21 04/05/21 04/01/21 Insulin Detemir [Levemir Flextouch] 5 unit SQ QDAY 04/05/21 04/05/21 04/01/21 Previous Rx's Medication Instructions Recorded Last Taken Type amLODIPine 5 mg PO DAILY #30 tablet 04/08/21 Unknown Rx levETIRAcetam [Keppra TAB] 500 mg PO BID #60 tablet 04/08/21 Unknown Rx Allergies Allergy/AdvReac Type Severity Reaction Status Date / Time No Known Allergies Allergy Verified 04/05/21 14:15 ED Review of Systems ROS: Stated complaint: AMS Other details as noted in HPI Comment: Unobtainable due to pts medical conditions ED Past Medical Hx - Past Medical History Previous Medical History?: Yes Hx Hypertension: Yes Hx CVA: Yes Hx Congestive Heart Failure: No Hx Diabetes: Yes Hx Seizures: Yes Hx Asthma: No Hx COPD: No Hx Dementia: Yes (RIGHT SIDED WEAKNESS) Hx HIV: No - Surgical History Past Surgical History?: Yes Additional Surgical History: cataract surgery, tubes removed, foot surgery - Social History Smoking Status: Never Smoker Substance Use Type: None - Medications Home Medications: Home Medications Medication Instructions Recorded Confirmed Last Taken Type AtorvaSTATin [Lipitor] 40 mg PO QHS 10/28/20 04/05/21 03/31/21 History Cholecalciferol Vit D3 [Vitamin D3 1,000 unit PO QDAY 10/28/20 04/05/21 04/01/21 History 1,000 UNIT TAB] Ferrous Sulfate [Iron 325 MG] 325 mg PO DAILY 10/28/20 04/05/21 04/01/21 History Losartan [Cozaar] 100 mg PO QDAY 10/28/20 04/05/21 04/01/21 History Memantine 5 mg PO QDAY 10/28/20 04/05/21 04/01/21 History Sertraline [Zoloft] 100 mg PO QDAY 10/28/20 04/05/21 04/01/21 History donepeziL [Aricept] 5 mg PO QDAY 10/28/20 04/05/21 04/01/21 History metFORMIN [Glucophage] 500 mg PO QDAY 10/28/20 04/05/21 04/01/21 History Ascorbic Acid [Vitamin C chew] 500 mg PO QDAY 04/05/21 04/05/21 04/01/21 History Insulin Detemir [Levemir Flextouch] 5 unit SQ QDAY 04/05/21 04/05/21 04/01/21 History amLODIPine 5 mg PO DAILY #30 tablet 04/08/21 Unknown Rx levETIRAcetam [Keppra TAB] 500 mg PO BID #60 tablet 04/08/21 Unknown Rx ED Physical Exam - General Limitations: No Limitations General appearance: alert - Head Head exam: Present: atraumatic, normocephalic - Eye Eye exam: Present: normal appearance - ENT ENT exam: Present: mucous membranes moist - Neck Neck exam: Present: normal inspection - Respiratory Respiratory exam: Present: normal lung sounds bilaterally. Absent: respiratory distress - Cardiovascular Cardiovascular Exam: Present: regular rate, normal rhythm. Absent: systolic murmur, diastolic murmur, rubs, gallop - GI/Abdominal GI/Abdominal exam: Present: soft, normal bowel sounds - Extremities Exam Extremities exam: Present: normal inspection - Back Exam Back exam: Present: normal inspection - Expanded Neurological Exam Expanded Best Eye Response ([place]): (4) open spontaneously Best Motor Response ([place]): (5) localizes to pain Best Verbal Response ([place]): (4) confused conversation [place] Total: 13 - Skin Skin exam: Present: warm, dry, intact, normal color. Absent: rash ED Course Vital Signs 11/13/21 11/13/21 11/13/21 01:44 02:51 03:01 Temperature 98.7 F Pulse Rate 92 H 119 H Respiratory 18 15 Rate Blood Pressure 190/90 238/76 O2 Sat by Pulse 98 98 99 Oximetry 11/13/21 11/13/21 11/13/21 03:15 03:30 03:45 Temperature Pulse Rate 100 H 107 H 93 H Respiratory 15 17 13 Rate Blood Pressure 258/112 238/76 178/90 O2 Sat by Pulse 99 100 100 Oximetry 11/13/21 11/13/21 11/13/21 04:01 04:15 04:31 Temperature Pulse Rate 94 H 91 H 90 Respiratory 14 14 16 Rate Blood Pressure 258/112 198/85 198/85 O2 Sat by Pulse 99 99 100 Oximetry 11/13/21 11/13/21 11/13/21 04:45 05:01 05:15 Temperature Pulse Rate 88 86 87 Respiratory 15 15 10 L Rate Blood Pressure 195/81 178/90 174/87 O2 Sat by Pulse 99 99 99 Oximetry 11/13/21 11/13/21 11/13/21 05:31 05:45 06:01 Temperature Pulse Rate 85 88 90 Respiratory 16 16 14 Rate Blood Pressure 174/87 188/84 174/87 O2 Sat by Pulse 99 99 100 Oximetry 11/13/21 11/13/21 11/13/21 06:15 06:31 06:45 Temperature Pulse Rate 82 91 H 92 H Respiratory 14 18 17 Rate Blood Pressure 188/81 188/81 183/80 O2 Sat by Pulse 99 100 100 Oximetry 11/13/21 11/13/21 11/13/21 07:01 07:15 07:31 Temperature Pulse Rate 94 H 87 90 Respiratory 11 L 15 11 L Rate Blood Pressure 188/81 183/73 183/80 O2 Sat by Pulse 100 100 100 Oximetry 11/13/21 11/13/21 11/13/21 07:45 08:01 08:15 Temperature Pulse Rate 88 80 79 Respiratory 12 17 13 Rate Blood Pressure 180/87 183/73 177/78 O2 Sat by Pulse 100 100 99 Oximetry 11/13/21 08:31 Temperature Pulse Rate 76 Respiratory 14 Rate Blood Pressure 180/87 O2 Sat by Pulse 100 Oximetry - Lab Data Result diagrams: 11/13/21 02:43 11/13/21 02:43 Lab Results 11/13/21 11/13/21 11/13/21 Range/Units 02:43 02:43 02:43 WBC 14.1 H (4.5-11.0) K/mm3 RBC 4.56 (3.65-5.03) M/mm3 Hgb 11.7 (10.1-14.3) gm/dl Hct 37.6 (30.3-42.9) % MCV 83 (79-97) fl MCH 26 L (28-32) pg MCHC 31 (30-34) % RDW 15.3 H (13.2-15.2) % Plt Count 269 (140-440) K/mm3 Lymph % (Auto) 12.7 L (13.4-35.0) % [place]arrard % (Auto) 5.7 (0.0-7.3) % Eos % (Auto) 0.5 (0.0-4.3) % Baso % (Auto) 0.5 (0.0-1.8) % Lymph # (Auto) 1.8 (1.2-5.4) K/mm3 [place]ard # (Auto) 0.8 (0.0-0.8) K/mm3 Eos # (Auto) 0.1 (0.0-0.4) K/mm3 Baso # (Auto) 0.1 (0.0-0.1) K/mm3 Seg Neutrophils % 80.6 H (40.0-70.0) % Seg Neutrophils # 11.4 H (1.8-7.7) K/mm3 Sodium 140 (137-145) mmol/L Potassium 4.4 (3.6-5.0) mmol/L Chloride 106.4 (98-107) mmol/L Carbon Dioxide 22 (22-30) mmol/L Anion Gap 16 mmol/L BUN 30 H (7-17) mg/dL Creatinine 1.2 (0.6-1.2) mg/dL Estimated GFR 54 ml/min BUN/Creatinine Ratio 25 % Glucose 230 H (65-100) mg/dL Ketones Quantitative Negative (Negative) Calcium 9.6 (8.4-10.2) mg/dL Total Bilirubin < 0.20 (0.1-1.2) mg/dL Direct Bilirubin < 0.2 (0-0.2) mg/dL Indirect Bilirubin 0.0 mg/dL AST 35 (5-40) units/L ALT 42 (7-56) units/L Alkaline Phosphatase 96 (35-129) units/L Total Creatine Kinase (30-135) units/L Troponin T (0.00-0.029) ng/mL Total Protein 7.4 (6.3-8.2) g/dL Albumin 3.7 L (3.9-5) g/dL Albumin/Globulin Ratio 1.0 % Lipase 18 (13-60) units/L Urine Color (Yellow) Urine Turbidity (Clear) Specific [place] (Man) (1.003-1.030) Ur Protein (Man) (Negative) mg/dL Ur Ketones (Man) (Negative) Ur Nitrite (Man) (Negative) Ur Reducing Substances Urine Bilirubin (Man) (Negative) Urine Ictotest Leukocyte Esterase (Man) (Negative) Urine WBC (Auto) (0.0-6.0) /HPF Urine RBC (Auto) (0.0-6.0) /HPF U Epithel Cells (Auto) (0-13.0) /HPF Urine Bacteria (Auto) (Negative) /HPF Urine RBC (Manual) (Negative) Urine WBC Clumps /HPF Urine Mucus /HPF Urine HCG, Qual (Negative) 11/13/21 11/13/21 Range/Units 02:43 Unknown WBC (4.5-11.0) K/mm3 RBC (3.65-5.03) M/mm3 Hgb (10.1-14.3) gm/dl Hct (30.3-42.9) % MCV (79-97) fl MCH (28-32) pg MCHC (30-34) % RDW (13.2-15.2) % Plt Count (140-440) K/mm3 Lymph % (Auto) (13.4-35.0) % [place]ard % (Auto) (0.0-7.3) % Eos % (Auto) (0.0-4.3) % Baso % (Auto) (0.0-1.8) % Lymph # (Auto) (1.2-5.4) K/mm3 [place] # (Auto) (0.0-0.8) K/mm3 Eos # (Auto) (0.0-0.4) K/mm3 Baso # (Auto) (0.0-0.1) K/mm3 Seg Neutrophils % (40.0-70.0) % Seg Neutrophils # (1.8-7.7) K/mm3 Sodium (137-145) mmol/L Potassium (3.6-5.0) mmol/L Chloride (98-107) mmol/L Carbon Dioxide (22-30) mmol/L Anion Gap mmol/L BUN (7-17) mg/dL Creatinine (0.6-1.2) mg/dL Estimated GFR ml/min BUN/Creatinine Ratio % Glucose (65-100) mg/dL Ketones Quantitative (Negative) Calcium (8.4-10.2) mg/dL Total Bilirubin (0.1-1.2) mg/dL Direct Bilirubin (0-0.2) mg/dL Indirect Bilirubin mg/dL AST (5-40) units/L ALT (7-56) units/L Alkaline Phosphatase (35-129) units/L Total Creatine Kinase 132 (30-135) units/L Troponin T 0.017 (0.00-0.029) ng/mL Total Protein (6.3-8.2) g/dL Albumin (3.9-5) g/dL Albumin/Globulin Ratio % Lipase (13-60) units/L Urine Color Yellow (Yellow) Urine Turbidity Hazy (Clear) Specific [place] (Man) 1.020 (1.003-1.030) Ur Protein (Man) 2+ (Negative) mg/dL Ur Ketones (Man) Negative (Negative) Ur Nitrite (Man) Negative (Negative) Ur Reducing Substances Not Reportable Urine Bilirubin (Man) Negative (Negative) Urine Ictotest Not Reportable Leukocyte Esterase (Man) Small (Negative) Urine WBC (Auto) 149.0 H (0.0-6.0) /HPF Urine RBC (Auto) 19.0 (0.0-6.0) /HPF U Epithel Cells (Auto) < 1.0 (0-13.0) /HPF Urine Bacteria (Auto) 4+ (Negative) /HPF Urine RBC (Manual) 2+ (Negative) Urine WBC Clumps 3+ /HPF Urine Mucus Few /HPF Urine HCG, Qual Negative (Negative) - Radiology Data Radiology results: report reviewed, image reviewed - Medical Decision Making work up showed : - UTI : abx given - gall stones, no acute cholecystitis - constipation , will start stool softner possible pneumonial abx will be given o2 sat normal and nof ever Critical care attestation.: If time is entered above; I have spent that time in minutes in the direct care of this critically ill patient, excluding procedure time. ED Disposition Clinical Impression: AMS (altered mental status), UTI (urinary tract infection), Constipation, Gall stones Disposition: 01 HOME / SELF CARE / HOMELESS Is pt being admited?: No Does the pt Need Aspirin: No Condition: Stable Instructions: Cholelithiasis, Urinary Tract Infection, Adult Referrals: SUKH BETHEA MD [Primary Care Provider] - 3-5 Days
--- NOTE | 2021-11-14 00:04 | Emergency Department Report ---
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 Patient is apparently prepped for discharge and awaiting transport home however, her son is not answering the phone and patient was in the department awaiting case management evaluation. Chart reviewed. Patient was diagnosed with a UTI and appears also to have dehydration and persistent ovarian mass suspicious for neoplasm as per ED work. As per previous micro/urine culture reviews patient urine has been positive for E. coli has been resistant to cephalosporins and fluoroquinolones in the past. Patient was treated with IV Rocephin x 1 in ED and normal saline. Urine culture was not reflexively ordered. I have attempted to order urine culture several times however, I am unable to bypass the medical necessity requirement in [facility]. I discussed case with admitting hospitalist Dr. Mcgrath who is agreed to admit patient for UTI, dehydration, alteration in mental status. I have ordered Zosyn based on recent sensitivities from March earlier this year. Lab no longer has the urine sample. I have requested nurse to straight cath patient and resend urine sample. IV Ativan ordered due to patient agitation. Dr. Mcgrath will attempt to order urine culture and place admission orders.
[2021-11-14] MEDS ORDERED: LORazepam 2 MG/ML VIAL IV ONE (00:10)
[2021-11-14] MEDS ORDERED: PIPERACIL/TAZOBACTA 4.5/NS 100 4.5 GM/100 ML VIAL IV ONE (00:13)
[2021-11-14] MEDS ORDERED: ACETAMINOPHEN 325 MG TAB PO PRN (00:26)
[2021-11-14] MEDS ORDERED: MORPHINE 4 MG/1 ML INJ IV PRN (00:26)
[2021-11-14] MEDS ORDERED: DEXTROSE 50% IN WATER (25GM) 50 ML SYRINGE IV PRN (00:26)
[2021-11-14] MEDS ORDERED: MORPHINE 2 MG/1 ML INJ IV PRN (00:26)
[2021-11-14] MEDS ORDERED: ONDANSETRON 4 MG/2 ML INJ IV PRN (00:26)
[2021-11-14] MEDS ORDERED: MAGNESIUM HYDROXIDE (MOM) ORAL LIQD UDC PO PRN (00:26)
[2021-11-14] MEDS ORDERED: SODIUM CHLORIDE 0.9% 1000 ML 1,000 ML IV SCH (00:30)
--- NOTE | 2021-11-14 00:56 | History and Physical Report ---
History of Present Illness Date of examination: 11/14/21 Date of admission: 11/14/2021 Chief complaint: Altered Mental Status History of present illness: 66-year-old female with known history of dementia, CVA with right-sided deficit and aphasia, hypertension, hyperlipidemia and seizure disorder seen in the emergency room today for changes in mental status. Patient family indicates that she has not been behaving like her usual self today. She has had some nausea and vomiting but there has been no diarrhea. No headache or dizziness and no diaphoresis. Work-up in the emergency room today, lab reveals leukocytosis of 14.1, glucose of 230, urinalysis significant for UTI. Chest x-ray shows probable mild bibasilar atelectasis. CT of the abdomen and pelvis reveals findings suggestive of cystitis. 60 mass in the left adnexal area which is highly concerning for ovarian malignancy. Groundglass opacities with nodular consolidation in the right lung base con cerning for infection. Moderate sized fecalith in the rectum. Review of patient's record shows that she was admitted for UTI in March 2021 showing E. coli sensitive to Zosyn, Macrobid resistant to Levaquin and ciprofloxacin. Patient has been started on empiric IV antibiotics for UTI. Past History Past Medical History: diabetes, hypertension, seizures, stroke, other (Dementia) Past Surgical History: Other (: cataract surgery, tubes removed, foot surgery) Social history: no significant social history Family history: no significant family history Medications and Allergies Allergies Allergy/AdvReac Type Severity Reaction Status Date / Time No Known Allergies Allergy Verified 04/05/21 14:15 Home Medications Medication Instructions Recorded Confirmed Last Taken Type AtorvaSTATin [Lipitor] 40 mg PO QHS 10/28/20 04/05/21 03/31/21 History Cholecalciferol Vit D3 [Vitamin D3 1,000 unit PO QDAY 10/28/20 04/05/21 04/01/21 History 1,000 UNIT TAB] Ferrous Sulfate [Iron 325 MG] 325 mg PO DAILY 10/28/20 04/05/21 04/01/21 History Losartan [Cozaar] 100 mg PO QDAY 10/28/20 04/05/21 04/01/21 History Memantine 5 mg PO QDAY 10/28/20 04/05/21 04/01/21 History Sertraline [Zoloft] 100 mg PO QDAY 10/28/20 04/05/21 04/01/21 History donepeziL [Aricept] 5 mg PO QDAY 10/28/20 04/05/21 04/01/21 History metFORMIN [Glucophage] 500 mg PO QDAY 10/28/20 04/05/21 04/01/21 History Ascorbic Acid [Vitamin C chew] 500 mg PO QDAY 04/05/21 04/05/21 04/01/21 History Insulin Detemir [Levemir Flextouch] 5 unit SQ QDAY 04/05/21 04/05/21 04/01/21 History amLODIPine 5 mg PO DAILY #30 tablet 04/08/21 Unknown Rx levETIRAcetam [Keppra TAB] 500 mg PO BID #60 tablet 04/08/21 Unknown Rx Ciprofloxacin [Ciprofloxacin ORAL 500 mg PO Q12H #14 ml 11/13/21 Unknown Rx LIQ] Docusate Sodium [Colace] 100 mg PO BID PRN #14 capsule 11/13/21 Unknown Rx Active Meds: Active Medications Acetaminophen (Acetaminophen 325 Mg Tab) 650 mg PO Q4H PRN PRN Reason: Pain MILD(1-3)/Fever >100.5/LAL Dextrose (Dextrose 50% In Water (25gm) 50 Ml Syringe) 0 ml IV Q30MIN PRN; Protocol PRN Reason: Hypoglycemia Sodium Chloride (Nacl 0.9% 1000 Ml) 1,000 mls @ 125 mls/hr IV DIRECT OZIEL Piperacillin Sod/Tazobactam Sod (Zosyn/Ns 3.375gm/50ml) 3.375 gm in 50 mls @ 100 mls/hr IV Q8H OZIEL; Protocol Insulin Human Lispro (Insulin Lispro 100 Unit/Ml) 0 unit SUB-Q ACHS OZIEL; Protocol Magnesium Hydroxide (Magnesium Hydroxide (Mom) Oral Liqd Udc) 30 ml PO Q4H PRN PRN Reason: Constipation Morphine Sulfate (Morphine 2 Mg/1 Ml Inj) 2 mg IV Q4H PRN PRN Reason: Pain, Moderate (4-6) Morphine Sulfate (Morphine 4 Mg/1 Ml Inj) 4 mg IV Q4H PRN PRN Reason: Pain , Severe (7-10) Ondansetron HCl (Ondansetron 4 Mg/2 Ml Inj) 4 mg IV Q8H PRN PRN Reason: Nausea And Vomiting Sodium Chloride (Sodium Chloride 0.9% 10 Ml Flush Syringe) 10 ml IV BID OZIEL Sodium Chloride (Sodium Chloride 0.9% 10 Ml Flush Syringe) 10 ml IV PRN PRN PRN Reason: LINE FLUSH Review of Systems ROS unobtainable: due to mental status Exam - Constitutional Vitals: Temp Pulse Resp BP Pulse Ox 98.7 F 83 12 169/101 99 11/13/21 01:44 11/14/21 00:33 11/14/21 00:33 11/14/21 00:33 11/14/21 00:33 General appearance: Present: no acute distress, well-nourished - EENT Eyes: Present: PERRL, EOM intact. Absent: scleral icterus ENT: hearing intact, clear oral mucosa, dentition normal - Neck Neck: Present: supple, normal ROM - Respiratory Respiratory effort: normal Respiratory: bilateral: CTA - Cardiovascular Rhythm: regular Heart Sounds: Present: S1 & S2. Absent: gallop, systolic murmur, diastolic murmur, rub, click - Extremities Extremities: no ischemia, pulses intact, pulses symmetrical, No edema, normal temperature, normal color, Full ROM Peripheral Pulses: within normal limits - Abdominal General gastrointestinal: Present: soft, non-tender, non-distended, normal bowel sounds. Absent: mass - Integumentary Integumentary: Present: clear, warm, dry, normal turgor. Absent: rash - Musculoskeletal Musculoskeletal: strength equal bilaterally - Psychiatric Psychiatric: cooperative - Neurologic Neurologic: CNII-XII intact, no focal deficits, moves all extremities HEART Score - HEART Score Troponin: Troponin T 0.017 ng/mL (0.00-0.029) 11/13/21 02:43 Results - Labs CBC & Chem 7: 11/13/21 02:43 11/13/21 02:43 Labs: Abnormal lab results 11/13/21 11/13/21 11/13/21 Range/Units 02:43 02:43 Unknown WBC 14.1 H (4.5-11.0) K/mm3 MCH 26 L (28-32) pg RDW 15.3 H (13.2-15.2) % Lymph % (Auto) 12.7 L (13.4-35.0) % Seg Neutrophils % 80.6 H (40.0-70.0) % Seg Neutrophils # 11.4 H (1.8-7.7) K/mm3 BUN 30 H (7-17) mg/dL Glucose 230 H (65-100) mg/dL Albumin 3.7 L (3.9-5) g/dL Urine WBC (Auto) 149.0 H (0.0-6.0) /HPF Assessment and Plan Assessment: 1.Altered mental Status 2.UTI 3.?Pneumonia 4.Dehydration 5.Dementia 6.Adnexal Mass - Concerning for Ovarian malignancy Plan: 1. Patient admitted and placed on empiric IV antibiotics. 80 2. We will await culture results. 3. Patient placed on IV fluid. Will monitor chemistry. 4. We will resume routine home medications once reconciled. 5. Consider [employer] Edge Stitcher Hand consult for adnexal mass. DVT Prophylaxis: SQ Heparin Code status: Full Code
[2021-11-14] MEDS: hydrALAZINE 20 MG/1 ML INJ IV PRN (03:40)
[2021-11-14] MEDS: PIPERACILLIN/TAZOBACTAM 3.375 3.375 GM/50 ML BAG IV SCH ×3 (07:28→21:44)
[2021-11-14] MEDS: INSULIN LISPRO 100 UNIT/ML SUB-Q SCH ×4 (09:28→22:35)
[2021-11-14] MEDS ORDERED: NON-FORMULARY EACH (Losartan [Cozaar] 100 MG Tablet) PO SCH (11:30)
--- NOTE | 2021-11-14 11:30 | Event Note ---
Date: 11/14/21 Patient seen and examined 66-year-old female with known history of dementia, CVA with right-sided deficit and aphasia, hypertension, hyperlipidemia and seizure disorder seen in the emergency room today for changes in mental status. CT of the abdomen and pelvis reveals findings suggestive of cystitis. Mass in the left adnexal area which is highly concerning for ovarian malignancy. Groundglass opacities with nodular consolidation in the right lung base concerning for infection. Patient has been started on empiric IV antibiotics for UTI. Will consult SALES AND MARKETING ASSISTANT for possible adnexal mass. Continue to provide supportive care Resume home meds and adjust BP medications --It took me about 28 minutes to reevaluate and reasses this patient, discussed with RN/CM, review medical documents, lab results, imaging, medication list and placing order.
[2021-11-14] MEDS: LOSARTAN 50 MG TAB PO SCH (18:00)
[2021-11-14] MEDS: amLODIPine 5 MG TAB PO SCH (18:00)
[2021-11-14] MEDS: levETIRAcetam 500 MG TAB PO SCH (21:45)
[2021-11-15] MEDS: hydrALAZINE 20 MG/1 ML INJ IV PRN (00:14)
[2021-11-15] MEDS: PIPERACILLIN/TAZOBACTAM 3.375 3.375 GM/50 ML BAG IV SCH ×3 (05:33→21:51)
[2021-11-15 06:17] LABS: Basophils # (Auto) 0.1 K/mm3 (0.0-0.1); Basophils % (Auto) 0.7 % (0.0-1.8); Eosinophils % (Auto) 0.2 % (0.0-4.3); Hematocrit 32.9 % (30.3-42.9); Hemoglobin 10.6 gm/dl (10.1-14.3); Lymphocytes # (Auto) 2.8 K/mm3 (1.2-5.4); Lymphocytes % (Auto) 20.7 % (13.4-35.0); Mean Corpuscular HGB Conc 32 % (30-34); Mean Corpuscular Volume 82 fl (79-97); Monocytes % (Auto) 7.2 % (0.0-7.3); Platelet Count 275 K/mm3 (140-440); Red Cell Distribution Width 15.3 % (13.2-15.2)
[2021-11-15 06:33] LABS: Calcium 9.3 mg/dL (8.4-10.2)
[2021-11-15] MEDS: INSULIN LISPRO 100 UNIT/ML SUB-Q SCH ×4 (08:19→21:53)
--- NOTE | 2021-11-15 09:23 | Progress Note ---
Assessment and Plan Assessment and plan: 66-year-old female with known history of dementia, CVA with right-sided deficit and aphasia, hypertension, hyperlipidemia and seizure disorder seen in the emergency room today for changes in mental status. Work-up in the emergency room revealed leukocytosis of 14.1, glucose of 230, urinalysis significant for UTI. Chest x-ray shows probable mild bibasilar atelectasis. Sepsis. POA. Patient meets criteria given the altered mentation, leukocytosis and diagnosis of UTI. Toxic metabolic encephalopathy Cystitis/UTI Pneumonia Acute kidney injury Dementia Adnexal Mass - Concerning for Ovarian malignancy 11/15/2021 CT of the abdomen and pelvis reveals findings suggestive of cystitis. Adnexal masses which are highly concerning for ovarian malignancy. Groundglass opacities with nodular consolidation in the right lung base concerning for infection. Continue IV antibiotics for pneumonia and UTI. Follow-up blood and urine cultures. Consult NEGATIVE DEVELOPER for adnexal mass. Continue IV fluid hydration for acute kidney injury. Etiology likely secondary to vasomotor nephropathy +/- ATN from sepsis. Check renal ultrasound History Interval history: no new issues Hospitalist Physical - Constitutional Vitals: Temp Pulse Resp BP Pulse Ox 98.1 F 121 H 20 126/91 99 11/15/21 02:09 11/15/21 02:09 11/15/21 02:09 11/15/21 02:09 11/15/21 02:09 General appearance: Present: no acute distress, well-nourished - EENT Eyes: Present: PERRL, EOM intact ENT: hearing intact, clear oral mucosa, dentition normal - Neck Neck: Present: supple, normal ROM - Respiratory Respiratory effort: normal Respiratory: bilateral: CTA - Cardiovascular Rhythm: regular Heart Sounds: Present: S1 & S2. Absent: gallop, rub - Extremities Extremities: no ischemia, No edema, Full ROM - Abdominal General gastrointestinal: soft, non-tender, non-distended, normal bowel sounds - Integumentary Integumentary: Present: clear, warm, dry - Neurologic Neurologic: CNII-XII intact, moves all extremities HEART Score - HEART Score Troponin: Troponin T 0.017 ng/mL (0.00-0.029) 11/13/21 02:43 Results - Labs CBC & Chem 7: 11/15/21 05:48 11/15/21 05:48 Labs: Laboratory Last Values WBC 13.3 K/mm3 (4.5-11.0) H 11/15/21 05:48 RBC 4.00 M/mm3 (3.65-5.03) 11/15/21 05:48 Hgb 10.6 gm/dl (10.1-14.3) 11/15/21 05:48 Hct 32.9 % (30.3-42.9) 11/15/21 05:48 MCV 82 fl (79-97) 11/15/21 05:48 MCH 27 pg (28-32) L 11/15/21 05:48 MCHC 32 % (30-34) 11/15/21 05:48 RDW 15.3 % (13.2-15.2) H 11/15/21 05:48 Plt Count 275 K/mm3 (140-440) 11/15/21 05:48 Lymph % (Auto) 20.7 % (13.4-35.0) 11/15/21 05:48 [place] % (Auto) 7.2 % (0.0-7.3) 11/15/21 05:48 Eos % (Auto) 0.2 % (0.0-4.3) 11/15/21 05:48 Baso % (Auto) 0.7 % (0.0-1.8) 11/15/21 05:48 Lymph # (Auto) 2.8 K/mm3 (1.2-5.4) 11/15/21 05:48 [place] # (Auto) 1.0 K/mm3 (0.0-0.8) H 11/15/21 05:48 Eos # (Auto) 0.0 K/mm3 (0.0-0.4) 11/15/21 05:48 Baso # (Auto) 0.1 K/mm3 (0.0-0.1) 11/15/21 05:48 Seg Neutrophils % 71.2 % (40.0-70.0) H 11/15/21 05:48 Seg Neutrophils # 9.5 K/mm3 (1.8-7.7) H 11/15/21 05:48 Sodium 148 mmol/L (137-145) H D 11/15/21 05:48 Potassium 3.9 mmol/L (3.6-5.0) 11/15/21 05:48 Chloride 112.4 mmol/L (98-107) H 11/15/21 05:48 Carbon Dioxide 22 mmol/L (22-30) 11/15/21 05:48 Anion Gap 18 mmol/L 11/15/21 05:48 BUN 20 mg/dL (7-17) H 11/15/21 05:48 Creatinine 1.4 mg/dL (0.6-1.2) H 11/15/21 05:48 Estimated GFR 45 ml/min 11/15/21 05:48 BUN/Creatinine Ratio 14 % 11/15/21 05:48 Glucose 174 mg/dL (65-100) H 11/15/21 05:48 POC Glucose 187 mg/dL (70-105) H 11/14/21 20:47 Ketones Quantitative Negative (Negative) 11/13/21 02:43 Calcium 9.3 mg/dL (8.4-10.2) 11/15/21 05:48 Total Bilirubin < 0.20 mg/dL (0.1-1.2) 11/13/21 02:43 Direct Bilirubin < 0.2 mg/dL (0-0.2) 11/13/21 02:43 Indirect Bilirubin 0.0 mg/dL 11/13/21 02:43 AST 35 units/L (5-40) 11/13/21 02:43 ALT 42 units/L (7-56) 11/13/21 02:43 Alkaline Phosphatase 96 units/L (35-129) 11/13/21 02:43 Total Creatine Kinase 132 units/L (30-135) 11/13/21 02:43 Troponin T 0.017 ng/mL (0.00-0.029) 11/13/21 02:43 Total Protein 7.4 g/dL (6.3-8.2) 11/13/21 02:43 Albumin 3.7 g/dL (3.9-5) L 11/13/21 02:43 Albumin/Globulin Ratio 1.0 % 11/13/21 02:43 Lipase 18 units/L (13-60) 11/13/21 02:43 Urine Color Yellow (Yellow) 11/13/21 Unknown Urine Turbidity Hazy (Clear) 11/13/21 Unknown Specific [place] (Man) 1.020 (1.003-1.030) 11/13/21 Unknown Ur Protein (Man) 2+ mg/dL (Negative) 11/13/21 Unknown Ur Ketones (Man) Negative (Negative) 11/13/21 Unknown Ur Nitrite (Man) Negative (Negative) 11/13/21 Unknown Ur Reducing Substances Not Reportable 11/13/21 Unknown Urine Bilirubin (Man) Negative (Negative) 11/13/21 Unknown Urine Ictotest Not Reportable 11/13/21 Unknown Leukocyte Esterase (Man) Small (Negative) 11/13/21 Unknown Urine WBC (Auto) 149.0 /HPF (0.0-6.0) H 11/13/21 Unknown Urine RBC (Auto) 19.0 /HPF (0.0-6.0) 11/13/21 Unknown U Epithel Cells (Auto) < 1.0 /HPF (0-13.0) 11/13/21 Unknown Urine Bacteria (Auto) 4+ /HPF (Negative) 11/13/21 Unknown Urine RBC (Manual) 2+ (Negative) 11/13/21 Unknown Urine WBC Clumps 3+ /HPF 11/13/21 Unknown Urine Mucus Few /HPF 11/13/21 Unknown Urine HCG, Qual Negative (Negative) 11/13/21 Unknown [place]/IV: Voiding Method Incontinent Active Medications - Current Medications Current Medications: Generic Name Dose Route Start Last Admin Trade Name Freq PRN Reason Stop Dose Admin Acetaminophen 650 mg 11/14/21 00:26 Acetaminophen 325 Mg Tab PO Q4H PRN Pain MILD(1-3)/Fever >100.5/LAL Amlodipine Besylate 5 mg 11/14/21 12:00 11/14/21 18:00 Amlodipine 5 Mg Tab PO 5 mg DAILY OZIEL Administration Cholecalciferol 1,000 unit 11/15/21 10:00 Cholecalciferol (Vit D3) 1000 Unit (25 Mcg) Tab PO QDAY OZIEL Dextrose 0 ml 11/14/21 00:26 Dextrose 50% In Water (25gm) 50 Ml Syringe IV Q30MIN PRN Hypoglycemia Protocol Donepezil HCl 5 mg 11/15/21 10:00 Donepezil 5 Mg Tab PO QDAY OZIEL Hydralazine HCl 10 mg 11/14/21 03:27 11/15/21 00:14 Hydralazine 20 Mg/1 Ml Inj IV 10 mg Q4H PRN Administration SBP>160 Sodium Chloride 1,000 mls @ 125 mls/hr 11/14/21 00:30 Nacl 0.9% 1000 Ml IV DIRECT OZIEL Piperacillin Sod/Tazobactam Sod 3.375 gm in 50 mls @ 100 mls/hr 11/14/21 06:00 11/15/21 07:55 Zosyn/Ns 3.375gm/50ml IV Infused Q8H [facility] Infusion Protocol Insulin Human Lispro 0 unit 11/14/21 07:30 11/15/21 08:19 Insulin Lispro 100 Unit/Ml SUB-Q 2 unit ACHS OZIEL Administration Protocol Levetiracetam 500 mg 11/14/21 22:00 11/14/21 21:45 Levetiracetam 500 Mg Tab PO 500 mg BID OZIEL Administration Losartan Potassium 100 mg 11/14/21 12:00 11/14/21 18:00 Losartan 50 Mg Tab PO 100 mg QDAY OZIEL Administration Magnesium Hydroxide 30 ml 11/14/21 00:26 Magnesium Hydroxide (Mom) Oral Liqd Udc PO Q4H PRN Constipation Memantine 5 mg 11/15/21 10:00 Memantine 5 Mg Tab PO QDAY OZIEL Morphine Sulfate 2 mg 11/14/21 00:26 Morphine 2 Mg/1 Ml Inj IV Q4H PRN Pain, Moderate (4-6) Morphine Sulfate 4 mg 11/14/21 00:26 11/15/21 02:22 Morphine 4 Mg/1 Ml Inj IV 4 mg Q4H PRN Administration Pain , Severe (7-10) Ondansetron HCl 4 mg 11/14/21 00:26 Ondansetron 4 Mg/2 Ml Inj IV Q8H PRN Nausea And Vomiting Sodium Chloride 10 ml 11/14/21 10:00 11/14/21 21:45 Sodium Chloride 0.9% 10 Ml Flush Syringe IV 10 ml BID OZIEL Administration Sodium Chloride 10 ml 11/14/21 00:26 Sodium Chloride 0.9% 10 Ml Flush Syringe IV PRN PRN LINE FLUSH Nutrition/Malnutrition Assess - Dietary Evaluation Nutrition/Malnutrition Findings: Nutrition Notes Start: 11/14/21 13:26 Freq: Status: Active Protocol: Document 11/14/21 13:26 JOHN (Rec: 11/14/21 13:55 JOHN [email or web address]) Nutrition Notes Need for Assessment generated from: MD Order,shafting cleaner,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 Current Diet Cardiac/Consistent Carbohydrates Diet+D Suppl ( since B 11/14). Labs/Tests 11/14: BUN 30, Glu 230. Pertinent Medications 11/14: Vit D3, others nutritionally unremarkable. Height 5 ft 8 in Weight 66.5 kg Chloe Body Weight (kg) 63.63 BMI 22.3 Intake Prior to Admission Good Weight change and time frame Pt states being unsure if loss body weight SLUICE TENDER. Weight Status Appropriate Subjective/Other Information RD consult for nutrition education, skin risk and risk of malnutrition assessments. Pt's PO intake of meals has been Poor (<50%), according to ADL notes. I will prescribe dietary supplements to compensate for poor or insufficient PO intake of meals during LOS. Pt is on Room Air, O2 saturation @ 99%, according to Physical Assessment History notes. Pt shows no signs of concern for skin risk at the time, according to Physical Assessment History notes. Pt complains of Nausea and Vomiting SLUICE TENDER, according to History & Physical notes. Pt shows no signs for risk of malnutrition at the time, according to Physical Assessment History notes. Pt needs total assistance with ADL activities, not a candidate for Nutrition Education. Percent of energy/protein needs met: Prescribed Cardiac/Consistent Carbohydrates Diet provides for energy/protein needs (1, 977 Kcal/86 g) during LOS; additionally, Dietary Supplements will compensate for possible poor or insufficient PO intake of meals with 440 Kcal and 20 g of protein. Burn Absent Trauma Absent GI Symptoms Nausea,Vomiting Food Allergy No Skin Integrity/Comment Assessment WNL. Current % PO Poor (25-49%) Minimum of two criteria No Fluid Accumulation N/A Reduced Infection Control Manager Strength N/A (non-severe) Protein-Calorie Malnutrition N\A #1 Nutrition Diagnosis Predicted suboptimal energy intake Etiology AMS, N/V SLUICE TENDER. As Evidenced by Signs and Symptoms Pt's PO intake of meals has been Poor (<50%), according to ADL notes. Is patient on ventilator? No Is Patient Ambulatory and/or Out of Bed No REE-([facility]-. [facility]-confined to bed) 1503.840 Kcal/Kg value to use for calculation 28 Approximate Energy Requirements Using 1862 kcal/Kg Calculation Used for Recommendations Kcal/kg Additional Notes Protein: 1-1.2 g/Kg ABW; 67-80 g/day. Fluids: 1 ml/Kcal, or as per MD. Nutrition Intervention Change Diet Order: Continue Cardiac/Consistent Carbohydrates Diet as tolerated. Add Supplement/Snack (indicate name/kcal Start 8 fl oz Glucerna; BID. /protein ) Provides kCal: 440 Provides Protein (gm) 20 Goal #1 Compensate, through dietary supplementation, for possible poor or insufficient PO intake of meals during LOS. Goal #2 Adjust the dietary intervention to better serve Pt's needs and clinical conditions during LOS. Follow-Up By: 11/19/21 Additional Comments Continue monitoring food tolerance, %PO intake of meals , dietary supplements, and BM.
[2021-11-15] MEDS: DONEPEZIL 5 MG TAB PO SCH (10:05)
[2021-11-15] MEDS: MEMANTINE 5 MG TAB PO SCH (10:05)
[2021-11-15] MEDS: LOSARTAN 50 MG TAB PO SCH (10:06)
[2021-11-15] MEDS: levETIRAcetam 500 MG TAB PO SCH ×2 (10:06→21:51)
[2021-11-15] MEDS: amLODIPine 5 MG TAB PO SCH (10:06)
[2021-11-15] MEDS: CHOLECALCIFEROL (VIT D3) 1000 UNIT (25 mcg) TAB PO SCH (10:06)
--- NOTE | 2021-11-15 19:08 | Consultation ---
History of Present Illness Consult date: 11/15/21 Reason for consult: pelvic mass History of present illness: 66y/o female who presents with mental status changes. She has a history of dementia and CVA. CT of the abdomen and pelvis identified findings of a multi loculated adnexal mass with a high probability of malignancy. Past History Past Medical History: other (CVA; dementia) Medications and Allergies Allergies Allergy/AdvReac Type Severity Reaction Status Date / Time No Known Allergies Allergy Verified 04/05/21 14:15 Home Medications Medication Instructions Recorded Confirmed Last Taken Type AtorvaSTATin [Lipitor] 40 mg PO QHS 10/28/20 04/05/21 03/31/21 History Cholecalciferol Vit D3 [Vitamin D3 1,000 unit PO QDAY 10/28/20 04/05/21 04/01/21 History 1,000 UNIT TAB] Ferrous Sulfate [Iron 325 MG] 325 mg PO DAILY 10/28/20 04/05/21 04/01/21 History Losartan [Cozaar] 100 mg PO QDAY 10/28/20 04/05/21 04/01/21 History Memantine 5 mg PO QDAY 10/28/20 11/15/21 04/01/21 History Sertraline [Zoloft] 100 mg PO QDAY 10/28/20 11/15/21 04/01/21 History donepeziL [Aricept] 5 mg PO QDAY 10/28/20 11/15/21 04/01/21 History metFORMIN [Glucophage] 500 mg PO QDAY 10/28/20 04/05/21 04/01/21 History Ascorbic Acid [Vitamin C chew] 500 mg PO QDAY 04/05/21 04/05/21 04/01/21 History Insulin Detemir [Levemir Flextouch] 5 unit SQ QDAY 04/05/21 04/05/21 04/01/21 History amLODIPine 5 mg PO DAILY #30 tablet 04/08/21 11/15/21 Unknown Rx levETIRAcetam [Keppra TAB] 500 mg PO BID #60 tablet 04/08/21 Unknown Rx Ciprofloxacin [Ciprofloxacin ORAL 500 mg PO Q12H #14 ml 11/13/21 Unknown Rx LIQ] Docusate Sodium [Colace] 100 mg PO BID PRN #14 capsule 11/13/21 Unknown Rx Active Meds: Active Medications Acetaminophen (Acetaminophen 325 Mg Tab) 650 mg PO Q4H PRN PRN Reason: Pain MILD(1-3)/Fever >100.5/LAL Amlodipine Besylate (Amlodipine 5 Mg Tab) 5 mg PO DAILY [facility] Last Admin: 11/15/21 10:06 Dose: 5 mg Cholecalciferol (Cholecalciferol (Vit D3) 1000 Unit (25 Mcg) Tab) 1,000 unit PO QDAY [facility] Last Admin: 11/15/21 10:06 Dose: 1,000 unit Dextrose (Dextrose 50% In Water (25gm) 50 Ml Syringe) 0 ml IV Q30MIN PRN; Protocol PRN Reason: Hypoglycemia Donepezil HCl (Donepezil 5 Mg Tab) 5 mg PO QDAY [facility] Last Admin: 11/15/21 10:05 Dose: 5 mg Hydralazine HCl (Hydralazine 20 Mg/1 Ml Inj) 10 mg IV Q4H PRN PRN Reason: SBP>160 Last Admin: 11/15/21 00:14 Dose: 10 mg Sodium Chloride (Nacl 0.9% 1000 Ml) 1,000 mls @ 125 mls/hr IV DIRECT OZIEL Piperacillin Sod/Tazobactam Sod (Zosyn/Ns 3.375gm/50ml) 3.375 gm in 50 mls @ 100 mls/hr IV Q8H [facility]; Protocol Last Admin: 11/15/21 13:10 Dose: 100 mls/hr Insulin Human Lispro (Insulin Lispro 100 Unit/Ml) 0 unit SUB-Q ACHS [facility]; Protocol Last Admin: 11/15/21 17:08 Dose: 2 unit Levetiracetam (Levetiracetam 500 Mg Tab) 500 mg PO BID [facility] Last Admin: 11/15/21 10:06 Dose: 500 mg Losartan Potassium (Losartan 50 Mg Tab) 100 mg PO QDAY [facility] Last Admin: 11/15/21 10:06 Dose: 100 mg Magnesium Hydroxide (Magnesium Hydroxide (Mom) Oral Liqd Udc) 30 ml PO Q4H PRN PRN Reason: Constipation Memantine (Memantine 5 Mg Tab) 5 mg PO QDAY [facility] Last Admin: 11/15/21 10:05 Dose: 5 mg Morphine Sulfate (Morphine 2 Mg/1 Ml Inj) 2 mg IV Q4H PRN PRN Reason: Pain, Moderate (4-6) Morphine Sulfate (Morphine 4 Mg/1 Ml Inj) 4 mg IV Q4H PRN PRN Reason: Pain , Severe (7-10) Last Admin: 11/15/21 02:22 Dose: 4 mg Ondansetron HCl (Ondansetron 4 Mg/2 Ml Inj) 4 mg IV Q8H PRN PRN Reason: Nausea And Vomiting Sodium Chloride (Sodium Chloride 0.9% 10 Ml Flush Syringe) 10 ml IV BID OZIEL Last Admin: 11/15/21 10:07 Dose: 10 ml Sodium Chloride (Sodium Chloride 0.9% 10 Ml Flush Syringe) 10 ml IV PRN PRN PRN Reason: LINE FLUSH - Vital Signs Vital signs: Vital Signs Temp Pulse Resp BP Pulse Ox 98.7 F 92 H 18 190/90 98 11/13/21 01:44 11/13/21 01:44 11/13/21 01:44 11/13/21 01:44 11/13/21 01:44 Temp Pulse Resp BP Pulse Ox 98.1 F 76 18 134/56 100 11/15/21 15:36 11/15/21 15:36 11/15/21 15:36 11/15/21 15:36 11/15/21 15:36 Results Result Diagrams: 11/15/21 05:48 11/15/21 05:48 Abnormal lab results 11/14/21 11/14/21 11/14/21 Range/Units 11:36 16:34 20:47 WBC (4.5-11.0) K/mm3 MCH (28-32) pg RDW (13.2-15.2) % [place] # (Auto) (0.0-0.8) K/mm3 Seg Neutrophils % (40.0-70.0) % Seg Neutrophils # (1.8-7.7) K/mm3 Sodium (137-145) mmol/L Chloride (98-107) mmol/L BUN (7-17) mg/dL Creatinine (0.6-1.2) mg/dL Glucose (65-100) mg/dL POC Glucose 236 H 187 H 187 H (70-105) mg/dL 11/15/21 11/15/21 11/15/21 Range/Units 05:48 05:48 07:19 WBC 13.3 H (4.5-11.0) K/mm3 MCH 27 L (28-32) pg RDW 15.3 H (13.2-15.2) % [place] # (Auto) 1.0 H (0.0-0.8) K/mm3 Seg Neutrophils % 71.2 H (40.0-70.0) % Seg Neutrophils # 9.5 H (1.8-7.7) K/mm3 Sodium 148 H D (137-145) mmol/L Chloride 112.4 H (98-107) mmol/L BUN 20 H (7-17) mg/dL Creatinine 1.4 H (0.6-1.2) mg/dL Glucose 174 H (65-100) mg/dL POC Glucose 165 H (70-105) mg/dL 11/15/21 11/15/21 Range/Units 08:18 11:59 WBC (4.5-11.0) K/mm3 MCH (28-32) pg RDW (13.2-15.2) % [place] # (Auto) (0.0-0.8) K/mm3 Seg Neutrophils % (40.0-70.0) % Seg Neutrophils # (1.8-7.7) K/mm3 Sodium (137-145) mmol/L Chloride (98-107) mmol/L BUN (7-17) mg/dL Creatinine (0.6-1.2) mg/dL Glucose (65-100) mg/dL POC Glucose 172 H 183 H (70-105) mg/dL All other labs normal. Assessment and Plan - Patient Problems (1) Adnexal mass Current Visit: Yes Status: Acute Plan to address problem: recommend evaluation by gynecology oncology draw OVA1 or CA125 if ova1 not available imaging suspicious for malignancy
[2021-11-16] MEDS: PIPERACILLIN/TAZOBACTAM 3.375 3.375 GM/50 ML BAG IV SCH ×2 (06:05→14:23)
[2021-11-16] MEDS: INSULIN LISPRO 100 UNIT/ML SUB-Q SCH ×4 (08:20→22:33)
[2021-11-16] MEDS: CHOLECALCIFEROL (VIT D3) 1000 UNIT (25 mcg) TAB PO SCH (09:01)
[2021-11-16] MEDS: levETIRAcetam 500 MG TAB PO SCH ×2 (09:01→22:33)
[2021-11-16] MEDS: MEMANTINE 5 MG TAB PO SCH (09:01)
[2021-11-16] MEDS: amLODIPine 5 MG TAB PO SCH (09:01)
[2021-11-16] MEDS: DONEPEZIL 5 MG TAB PO SCH (09:01)
[2021-11-16] MEDS: LOSARTAN 50 MG TAB PO SCH (09:01)
[2021-11-16 11:51] LABS: Basophils # (Auto) 0.1 K/mm3 (0.0-0.1); Basophils % (Auto) 1.5 % (0.0-1.8); Eosinophils # (Auto) 0.2 K/mm3 (0.0-0.4); Eosinophils % (Auto) 2.3 % (0.0-4.3); Hematocrit 33.2 % (30.3-42.9); Hemoglobin 10.5 gm/dl (10.1-14.3); Lymphocytes # (Auto) 2.3 K/mm3 (1.2-5.4); Lymphocytes % (Auto) 26.8 % (13.4-35.0); Mean Corpuscular HGB Conc 32 % (30-34); Mean Corpuscular Volume 83 fl (79-97); Monocytes # (Auto) 0.7 K/mm3 (0.0-0.8); Monocytes % (Auto) 7.6 % (0.0-7.3); Platelet Count 259 K/mm3 (140-440); Red Blood Count 3.99 M/mm3 (3.65-5.03); Red Cell Distribution Width 15.8 % (13.2-15.2)
[2021-11-16 12:13] LABS: Calcium 8.5 mg/dL (8.4-10.2)
[2021-11-16] MEDS: DEXTROSE 5% IN WATER 1,000 ML IV SCH (16:32)
--- NOTE | 2021-11-16 16:34 | Progress Note ---
Assessment and Plan Assessment and plan: 66-year-old female with known history of dementia, CVA with right-sided deficit and aphasia, hypertension, hyperlipidemia and seizure disorder seen in the emergency room today for changes in mental status. Work-up in the emergency room revealed leukocytosis of 14.1, glucose of 230, urinalysis significant for UTI.Chest x-ray shows probable mild bibasilar atelectasis. Hospital course: 11/15/2021: CT of the abdomen and pelvis reveals findings suggestive of cystitis. Adnexal masses which are highly concerning for ovarian malignancy. Groundglass opacities with nodular consolidation in the right lung base concerning for infection. Continue IV antibiotics for pneumonia and UTI. Follow-up blood and urine cultures. Consult AUTO BODY ESTIMATOR for adnexal mass. Continue IV fluid hydration for acute kidney injury. Etiology likely secondary to vasomotor nephropathy +/- ATN from sepsis. Check renal ultrasound 11/16/2021: Discontinuing Zosyn and initiating Rocephin 1 g every 12 hours for sepsis management secondary to possible bacteremia. Blood cultures NGTD x24 hours. Pending urine culture. Patient will need to follow up with gynecology oncology for further work-up for high risk of malignancy. Pending CA125. Starting D5W at 100 cc/h for management of hyponatremia and LEANN on CKD stage III. #Sepsis secondary to acute cystitis (present on arrival) #Acute cystitis without hematuria #Acute metabolic encephalopathy #Hypernatremia (not present on arrival) Urinalysis revealing small leukocyte esterase, WBC 149, 4+ bacteria, 3+ WBC clumps Sodium 150 Starting D5W at 100 cc/hour. Monitor with repeat BMP. #Acute kidney injury on CKD stage III secondary to vasomotor nephropathy Not present on admission. Creatinine on admission 1.2; currently 1.7. Secondary to decreased p.o. intake in the setting of acute metabolic encephalopathy. Renally dosing meds and avoiding nephrotoxic drugs. Starting D5W at 100 cc/hour. Continue to monitor with daily BMP. #Pneumoniaruled out Chest x-ray unremarkable. Coronavirus PCR unremarkable. #Dementia Continue supportive management #Adnexal Mass #Possible ovarian malignancy Visualized on CT abdomen and pelvis Gynecology consulted; appreciate recs. Patient would require evaluation by gynecology oncology (which is not available at this facility). Pending CA125. Critical Care Billing: The high probability of a clinically significant, sudden or life threatening deterioration of the [renal] system(s) required my full and direct attention, intervention and personal management. The aggregate critical care time was [60] minutes. This time is in addition to time spent performing reported procedures but includes the following: [x] Data Review and interpretation [x] Patient assessment and monitoring of vital signs [x] Documentation [x] Medication orders and management Disposition Plan: Continue medical management Total Time Spent with Patient (Minutes): 45 minutes History Interval history: No acute events overnight. Hospitalist Physical - Constitutional Vitals: Temp Pulse Resp BP Pulse Ox 97.9 F 96 H 16 149/75 100 11/16/21 11:03 11/16/21 11:03 11/16/21 11:03 11/16/21 11:03 11/16/21 11:03 General appearance: Present: no acute distress, well-nourished - EENT Eyes: Present: PERRL, EOM intact ENT: hearing intact, clear oral mucosa, dentition normal - Neck Neck: Present: supple, normal ROM - Respiratory Respiratory effort: normal Respiratory: bilateral: CTA - Cardiovascular Rhythm: regular Heart Sounds: Present: S1 & S2 - Extremities Extremities: no ischemia, pulses intact, pulses symmetrical, No edema, normal temperature, normal color, abnormal (Mild contracture of right hand) Peripheral Pulses: within normal limits - Abdominal General gastrointestinal: soft, non-tender, non-distended, normal bowel sounds - Integumentary Integumentary: Present: clear, warm, dry - Psychiatric Psychiatric: other (Patient is alert and oriented x1 (first name only)) - Neurologic Neurologic: CNII-XII intact, moves all extremities - Allied Health Allied health notes reviewed: nursing HEART Score - HEART Score Troponin: Troponin T 0.017 ng/mL (0.00-0.029) 11/13/21 02:43 Results - Labs CBC & Chem 7: 11/16/21 11:15 11/16/21 11:15 Labs: Laboratory Last Values WBC 8.6 K/mm3 (4.5-11.0) 11/16/21 11:15 RBC 3.99 M/mm3 (3.65-5.03) 11/16/21 11:15 Hgb 10.5 gm/dl (10.1-14.3) 11/16/21 11:15 Hct 33.2 % (30.3-42.9) 11/16/21 11:15 MCV 83 fl (79-97) 11/16/21 11:15 MCH 26 pg (28-32) L 11/16/21 11:15 MCHC 32 % (30-34) 11/16/21 11:15 RDW 15.8 % (13.2-15.2) H 11/16/21 11:15 Plt Count 259 K/mm3 (140-440) 11/16/21 11:15 Lymph % (Auto) 26.8 % (13.4-35.0) 11/16/21 11:15 [place] % (Auto) 7.6 % (0.0-7.3) H 11/16/21 11:15 Eos % (Auto) 2.3 % (0.0-4.3) 11/16/21 11:15 Baso % (Auto) 1.5 % (0.0-1.8) 11/16/21 11:15 Lymph # (Auto) 2.3 K/mm3 (1.2-5.4) 11/16/21 11:15 [place] # (Auto) 0.7 K/mm3 (0.0-0.8) 11/16/21 11:15 Eos # (Auto) 0.2 K/mm3 (0.0-0.4) 11/16/21 11:15 Baso # (Auto) 0.1 K/mm3 (0.0-0.1) 11/16/21 11:15 Seg Neutrophils % 61.8 % (40.0-70.0) 11/16/21 11:15 Seg Neutrophils # 5.3 K/mm3 (1.8-7.7) 11/16/21 11:15 Sodium 150 mmol/L (137-145) H 11/16/21 11:15 Potassium 3.8 mmol/L (3.6-5.0) 11/16/21 11:15 Chloride 117.2 mmol/L (98-107) H 11/16/21 11:15 Carbon Dioxide 20 mmol/L (22-30) L 11/16/21 11:15 Anion Gap 17 mmol/L 11/16/21 11:15 BUN 22 mg/dL (7-17) H 11/16/21 11:15 Creatinine 1.7 mg/dL (0.6-1.2) H 11/16/21 11:15 Estimated GFR 36 ml/min 11/16/21 11:15 BUN/Creatinine Ratio 13 % 11/16/21 11:15 Glucose 279 mg/dL (65-100) H 11/16/21 11:15 POC Glucose 118 mg/dL (70-105) H 11/16/21 07:40 Ketones Quantitative Negative (Negative) 11/13/21 02:43 Calcium 8.5 mg/dL (8.4-10.2) 11/16/21 11:15 Total Bilirubin < 0.20 mg/dL (0.1-1.2) 11/13/21 02:43 Direct Bilirubin < 0.2 mg/dL (0-0.2) 11/13/21 02:43 Indirect Bilirubin 0.0 mg/dL 11/13/21 02:43 AST 35 units/L (5-40) 11/13/21 02:43 ALT 42 units/L (7-56) 11/13/21 02:43 Alkaline Phosphatase 96 units/L (35-129) 11/13/21 02:43 Total Creatine Kinase 132 units/L (30-135) 11/13/21 02:43 Troponin T 0.017 ng/mL (0.00-0.029) 11/13/21 02:43 Total Protein 7.4 g/dL (6.3-8.2) 11/13/21 02:43 Albumin 3.7 g/dL (3.9-5) L 11/13/21 02:43 Albumin/Globulin Ratio 1.0 % 11/13/21 02:43 Lipase 18 units/L (13-60) 11/13/21 02:43 Urine Color Yellow (Yellow) 11/13/21 Unknown Urine Turbidity Hazy (Clear) 11/13/21 Unknown Specific [place] (Man) 1.020 (1.003-1.030) 11/13/21 Unknown Ur Protein (Man) 2+ mg/dL (Negative) 11/13/21 Unknown Ur Ketones (Man) Negative (Negative) 11/13/21 Unknown Ur Nitrite (Man) Negative (Negative) 11/13/21 Unknown Ur Reducing Substances Not Reportable 11/13/21 Unknown Urine Bilirubin (Man) Negative (Negative) 11/13/21 Unknown Urine Ictotest Not Reportable 11/13/21 Unknown Leukocyte Esterase (Man) Small (Negative) 11/13/21 Unknown Urine WBC (Auto) 149.0 /HPF (0.0-6.0) H 11/13/21 Unknown Urine RBC (Auto) 19.0 /HPF (0.0-6.0) 11/13/21 Unknown U Epithel Cells (Auto) < 1.0 /HPF (0-13.0) 11/13/21 Unknown Urine Bacteria (Auto) 4+ /HPF (Negative) 11/13/21 Unknown Urine RBC (Manual) 2+ (Negative) 11/13/21 Unknown Urine WBC Clumps 3+ /HPF 11/13/21 Unknown Urine Mucus Few /HPF 11/13/21 Unknown Urine HCG, Qual Negative (Negative) 11/13/21 Unknown SARS-CoV-2 (PCR) Negative (Negative) 11/16/21 09:45 Microbiology: Microbiology 11/15/21 13:30 Peripheral/Venous Blood Culture - Preliminary NO GROWTH AFTER 24 HOURS 11/15/21 13:00 Peripheral/Venous Blood Culture - Preliminary NO GROWTH AFTER 24 HOURS Rodrig[place]/IV: Voiding Method Incontinent Active Medications - Current Medications Current Medications: Generic Name Dose Route Start Last Admin Trade Name Freq PRN Reason Stop Dose Admin Acetaminophen 650 mg 11/14/21 00:26 Acetaminophen 325 Mg Tab PO Q4H PRN Pain MILD(1-3)/Fever >100.5/LAL Amlodipine Besylate 5 mg 11/14/21 12:00 11/16/21 09:01 Amlodipine 5 Mg Tab PO 5 mg DAILY OZIEL Administration Cholecalciferol 1,000 unit 11/15/21 10:00 11/16/21 09:01 Cholecalciferol (Vit D3) 1000 Unit (25 Mcg) Tab PO 1,000 unit QDAY OZIEL Administration Dextrose 0 ml 11/14/21 00:26 Dextrose 50% In Water (25gm) 50 Ml Syringe IV Q30MIN PRN Hypoglycemia Protocol Donepezil HCl 5 mg 11/15/21 10:00 11/16/21 09:01 Donepezil 5 Mg Tab PO 5 mg QDAY OZIEL Administration Hydralazine HCl 10 mg 11/14/21 03:27 11/15/21 00:14 Hydralazine 20 Mg/1 Ml Inj IV 10 mg Q4H PRN Administration SBP>160 Dextrose 1,000 mls @ 100 mls/hr 11/16/21 17:00 D5w IV DIRECT OZIEL Insulin Human Lispro 0 unit 11/14/21 07:30 11/16/21 12:04 Insulin Lispro 100 Unit/Ml SUB-Q 4 unit ACHS OZIEL Administration Protocol Levetiracetam 500 mg 11/14/21 22:00 11/16/21 09:01 Levetiracetam 500 Mg Tab PO 500 mg BID OZIEL Administration Losartan Potassium 100 mg 11/14/21 12:00 11/16/21 09:01 Losartan 50 Mg Tab PO 100 mg QDAY OZIEL Administration Magnesium Hydroxide 30 ml 11/14/21 00:26 Magnesium Hydroxide (Mom) Oral Liqd Udc PO Q4H PRN Constipation Memantine 5 mg 11/15/21 10:00 11/16/21 09:01 Memantine 5 Mg Tab PO 5 mg QDAY OZIEL Administration Morphine Sulfate 2 mg 11/14/21 00:26 Morphine 2 Mg/1 Ml Inj IV Q4H PRN Pain, Moderate (4-6) Morphine Sulfate 4 mg 11/14/21 00:26 11/15/21 02:22 Morphine 4 Mg/1 Ml Inj IV 4 mg Q4H PRN Administration Pain , Severe (7-10) Ondansetron HCl 4 mg 11/14/21 00:26 Ondansetron 4 Mg/2 Ml Inj IV Q8H PRN Nausea And Vomiting Sodium Chloride 10 ml 11/14/21 10:00 11/16/21 09:01 Sodium Chloride 0.9% 10 Ml Flush Syringe IV 10 ml BID OZIEL Administration Sodium Chloride 10 ml 11/14/21 00:26 Sodium Chloride 0.9% 10 Ml Flush Syringe IV PRN PRN LINE FLUSH Nutrition/Malnutrition Assess - Dietary Evaluation Nutrition/Malnutrition Findings: Nutrition Notes Start: 11/14/21 13:26 Freq: Status: Active Protocol: Document 11/14/21 13:26 JOHN (Rec: 11/14/21 13:55 JOHN [id number]) Nutrition Notes Need for Assessment generated from: MD Order,clinical professor,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 Current Diet Cardiac/Consistent Carbohydrates Diet+D Suppl ( since B 11/14). Labs/Tests 11/14: BUN 30, Glu 230. Pertinent Medications 11/14: Vit D3, others nutritionally unremarkable. 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 Weight Status Appropriate Subjective/Other Information RD consult for nutrition education, skin risk and risk of malnutrition assessments. Pt's PO intake of meals has been Poor (<50%), according to ADL notes. I will prescribe dietary supplements to compensate for poor or insufficient PO intake of meals during LOS. Pt is on Room Air, O2 saturation @ 99%, according to Physical Assessment History notes. Pt shows no signs of concern for skin risk at the time, according to Physical Assessment History notes. Pt complains of Nausea and Vomiting SOFTWARE TECHNICAL LEAD, according to History & Physical notes. Pt shows no signs for risk of malnutrition at the time, according to Physical Assessment History notes. Pt needs total assistance with ADL activities, not a candidate for Nutrition Education. Percent of energy/protein needs met: Prescribed Cardiac/Consistent Carbohydrates Diet provides for energy/protein needs (1, 977 Kcal/86 g) during LOS; additionally, Dietary Supplements will compensate for possible poor or insufficient PO intake of meals with 440 Kcal and 20 g of protein. Burn Absent Trauma Absent GI Symptoms Nausea,Vomiting Food Allergy No Skin Integrity/Comment Assessment WNL. Current % PO Poor (25-49%) Minimum of two criteria No Fluid Accumulation N/A Reduced Sprinkler Fitter Helper Strength N/A (non-severe) Protein-Calorie Malnutrition N\A #1 Nutrition Diagnosis Predicted suboptimal energy intake Etiology AMS, N/V SOFTWARE TECHNICAL LEAD. As Evidenced by Signs and Symptoms Pt's PO intake of meals has been Poor (<50%), according to ADL notes. Is patient on ventilator? No Is Patient Ambulatory and/or Out of Bed No REE-([facility]-confined to bed) 1503.840 Kcal/Kg value to use for calculation 28 Approximate Energy Requirements Using 1862 kcal/Kg Calculation Used for Recommendations Kcal/kg Additional Notes Protein: 1-1.2 g/Kg ABW; 67-80 g/day. Fluids: 1 ml/Kcal, or as per MD. Nutrition Intervention Change Diet Order: Continue Cardiac/Consistent Carbohydrates Diet as tolerated. Add Supplement/Snack (indicate name/kcal Start 8 fl oz Glucerna; BID. /protein ) Provides kCal: 440 Provides Protein (gm) 20 Goal #1 Compensate, through dietary supplementation, for possible poor or insufficient PO intake of meals during LOS. Goal #2 Adjust the dietary intervention to better serve Pt's needs and clinical conditions during LOS. Follow-Up By: 11/19/21 Additional Comments Continue monitoring food tolerance, %PO intake of meals , dietary supplements, and BM.
[2021-11-16] MEDS: cefTRIAXone/NS 1 GM/50 ML 1 GM/50 ML BAG IV SCH (17:30)
[2021-11-17] MEDS: cefTRIAXone/NS 1 GM/50 ML 1 GM/50 ML BAG IV SCH ×2 (05:35→17:48)
[2021-11-17] MEDS: DEXTROSE 5% IN WATER 1,000 ML IV SCH ×2 (05:35→17:49)
[2021-11-17] MEDS: INSULIN NPH/REGULAR 70/30 INJ SUB-Q SCH (08:00)
[2021-11-17] MEDS: MEMANTINE 5 MG TAB PO SCH (10:39)
[2021-11-17] MEDS: DONEPEZIL 5 MG TAB PO SCH (10:40)
[2021-11-17] MEDS: CHOLECALCIFEROL (VIT D3) 1000 UNIT (25 mcg) TAB PO SCH (10:40)
[2021-11-17] MEDS: amLODIPine 5 MG TAB PO SCH (10:40)
[2021-11-17] MEDS: levETIRAcetam 500 MG TAB PO SCH ×2 (10:40→22:55)
[2021-11-17] MEDS: LOSARTAN 50 MG TAB PO SCH (10:40)
[2021-11-17] MEDS: INSULIN REGULAR, HUMAN 100 UNITS/1 ML SUB-Q SCH ×3 (11:30→22:53)
--- NOTE | 2021-11-17 11:38 | Ultrasound Report ---
ULTRASOUND RENAL INDICATION / CLINICAL INFORMATION: LEANN, UTI. COMPARISON: CT abdomen pelvis 11/13/2021. FINDINGS: RIGHT KIDNEY: Length = 11.7 cm. - Echogenicity: Normal. - Parenchymal Thickness: Normal. - Hydronephrosis: None. - Cyst / Mass: None. - Stones: None seen. LEFT KIDNEY: Length = 10.1 cm. - Echogenicity: Normal. - Parenchymal Thickness: Normal. - Hydronephrosis: None. - Cyst / Mass: Probable cyst in the mid pole cyst measuring 1.1 cm. - Stones: None seen. URINARY BLADDER: Layering debris within the posterior bladder measuring 2.8 x 2.1 x 2.1 cm. FREE FLUID: None. ADDITIONAL FINDINGS: None. IMPRESSION: 1. No acute sonographic abnormality of the kidneys. 2. Layering debris in the posterior bladder. Scribed by: Nadine Son RDMS, SHARYN, JAIRO Scribed: 11/17/2021 10:01 AM I have reviewed the images, agree with this report, and edited this report as needed. Signer Name: Ward Dahl MD Signed: 11/17/2021 11:33 AM Workstation Name: [id number]
[2021-11-17 11:39] LABS: Basophils # (Auto) 0.1 K/mm3 (0.0-0.1); Basophils % (Auto) 0.9 % (0.0-1.8); Eosinophils # (Auto) 0.3 K/mm3 (0.0-0.4); Eosinophils % (Auto) 2.9 % (0.0-4.3); Hematocrit 30.4 % (30.3-42.9); Hemoglobin 9.8 gm/dl (10.1-14.3); Lymphocytes % (Auto) 33.7 % (13.4-35.0); Mean Corpuscular HGB Conc 32 % (30-34); Mean Corpuscular Volume 83 fl (79-97); Monocytes # (Auto) 0.7 K/mm3 (0.0-0.8); Monocytes % (Auto) 8.2 % (0.0-7.3); Platelet Count 257 K/mm3 (140-440); Red Blood Count 3.66 M/mm3 (3.65-5.03); Red Cell Distribution Width 15.7 % (13.2-15.2)
--- NOTE | 2021-11-17 15:04 | Progress Note ---
Assessment and Plan Assessment and plan: 66-year-old female with known history of dementia, CVA with right-sided deficit and aphasia, hypertension, hyperlipidemia and seizure disorder seen in the emergency room today for changes in mental status. Work-up in the emergency room revealed leukocytosis of 14.1, glucose of 230, urinalysis significant for UTI.Chest x-ray shows probable mild bibasilar atelectasis. Hospital course: 11/15/2021: CT of the abdomen and pelvis reveals findings suggestive of cystitis. Adnexal masses which are highly concerning for ovarian malignancy. Groundglass opacities with nodular consolidation in the right lung base concerning for infection. Continue IV antibiotics for pneumonia and UTI. Follow-up blood and urine cultures. Consult [employer] for adnexal mass. Continue IV fluid hydration for acute kidney injury. Etiology likely secondary to vasomotor nephropathy +/- ATN from sepsis. Check renal ultrasound 11/16/2021: Discontinuing Zosyn and initiating Rocephin 1 g every 12 hours for sepsis management secondary to possible bacteremia. Blood cultures NGTD x24 hours. Pending urine culture. Patient will need to follow up with gynecology oncology for further work-up for high risk of malignancy. Pending CA125. Starting D5W at 100 cc/h for management of hypernatremia and LEANN on CKD stage III. 11/17/2021. Continue Rocephin 1 g every 12 hours for sepsis management secondary to possible bacteremia/UTI. Blood cultures NGTD x48 hours. Continue D5W at 100 cc/h for hypernatremia and LEANN on CKD stage III. Called patient's son (Giovani) with updates. #Sepsis secondary to acute cystitis (present on arrival) #Acute cystitis without hematuria #Acute metabolic encephalopathy #Hypernatremia (not present on arrival) Urinalysis revealing small leukocyte esterase, WBC 149, 4+ bacteria, 3+ WBC clumps. Continue rocephin 1g q12hrs (completes on 11/19/2021). Sodium 150 Continue D5W at 100 cc/hour. Monitor with repeat BMP. #Acute kidney injury on CKD stage III secondary to vasomotor nephropathy Not present on admission. Creatinine on admission 1.2; currently 1.7. Secondary to decreased p.o. intake in the setting of acute metabolic encephalopathy. Renally dosing meds and avoiding nephrotoxic drugs. Continue D5W at 100 cc/hour. Continue to monitor with daily BMP. #Pneumoniaruled out Chest x-ray unremarkable. Coronavirus PCR unremarkable. #Dementia Continue supportive management #Adnexal Mass #Possible ovarian malignancy Visualized on CT abdomen and pelvis Gynecology consulted; appreciate recs. Patient would require evaluation by gynecology oncology (which is not available at this facility). Pending CA125. #Advanced care planning -Disease education conducted, care plan discussed, diagnoses discussed, prognosis discussed, and patient acknowledges understanding with care plan -Time: +30 min Disposition Plan: Continue medical management Total Time Spent with Patient (Minutes): 30 min History Interval history: No acute events overnight. Hospitalist Physical - Constitutional Vitals: Temp Pulse Resp BP Pulse Ox 97.7 F 78 18 159/65 99 11/17/21 11:18 11/17/21 11:18 11/17/21 11:18 11/17/21 11:18 11/17/21 11:18 General appearance: Present: no acute distress, well-nourished, other (dementia at baseline) - EENT Eyes: Present: PERRL, EOM intact ENT: hearing intact, clear oral mucosa - Neck Neck: Present: supple, normal ROM - Respiratory Respiratory effort: normal Respiratory: bilateral: CTA - Cardiovascular Rhythm: regular Heart Sounds: Present: S1 & S2 - Extremities Extremities: no ischemia, pulses intact, pulses symmetrical, No edema, normal temperature, normal color, abnormal (mild contracture of R hand) Peripheral Pulses: within normal limits - Abdominal General gastrointestinal: soft, non-tender, non-distended, normal bowel sounds - Integumentary Integumentary: Present: clear, warm, dry - Psychiatric Psychiatric: other (tearful at baseline; severe dementia) - Neurologic Neurologic: CNII-XII intact, other (Alert and oriented x1 (first name only)) - Allied Health Allied health notes reviewed: nursing HEART Score - HEART Score Troponin: Troponin T 0.017 ng/mL (0.00-0.029) 11/13/21 02:43 Results - Labs CBC & Chem 7: 11/17/21 10:52 11/16/21 11:15 Labs: Laboratory Last Values WBC 9.0 K/mm3 (4.5-11.0) 11/17/21 10:52 RBC 3.66 M/mm3 (3.65-5.03) 11/17/21 10:52 Hgb 9.8 gm/dl (10.1-14.3) L 11/17/21 10:52 Hct 30.4 % (30.3-42.9) 11/17/21 10:52 MCV 83 fl (79-97) 11/17/21 10:52 MCH 27 pg (28-32) L 11/17/21 10:52 MCHC 32 % (30-34) 11/17/21 10:52 RDW 15.7 % (13.2-15.2) H 11/17/21 10:52 Plt Count 257 K/mm3 (140-440) 11/17/21 10:52 Lymph % (Auto) 33.7 % (13.4-35.0) 11/17/21 10:52 Emery % (Auto) 8.2 % (0.0-7.3) H 11/17/21 10:52 Eos % (Auto) 2.9 % (0.0-4.3) 11/17/21 10:52 Baso % (Auto) 0.9 % (0.0-1.8) 11/17/21 10:52 Lymph # (Auto) 3.0 K/mm3 (1.2-5.4) 11/17/21 10:52 Emery # (Auto) 0.7 K/mm3 (0.0-0.8) 11/17/21 10:52 Eos # (Auto) 0.3 K/mm3 (0.0-0.4) 11/17/21 10:52 Baso # (Auto) 0.1 K/mm3 (0.0-0.1) 11/17/21 10:52 Seg Neutrophils % 54.3 % (40.0-70.0) 11/17/21 10:52 Seg Neutrophils # 4.9 K/mm3 (1.8-7.7) 11/17/21 10:52 Sodium 150 mmol/L (137-145) H 11/16/21 11:15 Potassium 3.8 mmol/L (3.6-5.0) 11/16/21 11:15 Chloride 117.2 mmol/L (98-107) H 11/16/21 11:15 Carbon Dioxide 20 mmol/L (22-30) L 11/16/21 11:15 Anion Gap 17 mmol/L 11/16/21 11:15 BUN 22 mg/dL (7-17) H 11/16/21 11:15 Creatinine 1.7 mg/dL (0.6-1.2) H 11/16/21 11:15 Estimated GFR 36 ml/min 11/16/21 11:15 BUN/Creatinine Ratio 13 % 11/16/21 11:15 Glucose 279 mg/dL (65-100) H 11/16/21 11:15 POC Glucose 136 mg/dL (70-105) H 11/17/21 07:22 Ketones Quantitative Negative (Negative) 11/13/21 02:43 Calcium 8.5 mg/dL (8.4-10.2) 11/16/21 11:15 Total Bilirubin < 0.20 mg/dL (0.1-1.2) 11/13/21 02:43 Direct Bilirubin < 0.2 mg/dL (0-0.2) 11/13/21 02:43 Indirect Bilirubin 0.0 mg/dL 11/13/21 02:43 AST 35 units/L (5-40) 11/13/21 02:43 ALT 42 units/L (7-56) 11/13/21 02:43 Alkaline Phosphatase 96 units/L (35-129) 11/13/21 02:43 Total Creatine Kinase 132 units/L (30-135) 11/13/21 02:43 Troponin T 0.017 ng/mL (0.00-0.029) 11/13/21 02:43 Total Protein 7.4 g/dL (6.3-8.2) 11/13/21 02:43 Albumin 3.7 g/dL (3.9-5) L 11/13/21 02:43 Albumin/Globulin Ratio 1.0 % 11/13/21 02:43 Lipase 18 units/L (13-60) 11/13/21 02:43 Urine Color Yellow (Yellow) 11/13/21 Unknown Urine Turbidity Hazy (Clear) 11/13/21 Unknown Specific [place] (Man) 1.020 (1.003-1.030) 11/13/21 Unknown Ur Protein (Man) 2+ mg/dL (Negative) 11/13/21 Unknown Ur Ketones (Man) Negative (Negative) 11/13/21 Unknown Ur Nitrite (Man) Negative (Negative) 11/13/21 Unknown Ur Reducing Substances Not Reportable 11/13/21 Unknown Urine Bilirubin (Man) Negative (Negative) 11/13/21 Unknown Urine Ictotest Not Reportable 11/13/21 Unknown Leukocyte Esterase (Man) Small (Negative) 11/13/21 Unknown Urine WBC (Auto) 149.0 /HPF (0.0-6.0) H 11/13/21 Unknown Urine RBC (Auto) 19.0 /HPF (0.0-6.0) 11/13/21 Unknown U Epithel Cells (Auto) < 1.0 /HPF (0-13.0) 11/13/21 Unknown Urine Bacteria (Auto) 4+ /HPF (Negative) 11/13/21 Unknown Urine RBC (Manual) 2+ (Negative) 11/13/21 Unknown Urine WBC Clumps 3+ /HPF 11/13/21 Unknown Urine Mucus Few /HPF 11/13/21 Unknown Urine HCG, Qual Negative (Negative) 11/13/21 Unknown SARS-CoV-2 (PCR) Negative (Negative) 11/16/21 09:45 Microbiology: Microbiology 11/15/21 13:30 Peripheral/Venous Blood Culture - Preliminary NO GROWTH AFTER 48 HOURS 11/15/21 13:00 Peripheral/Venous Blood Culture - Preliminary NO GROWTH AFTER 48 HOURS 11/14/21 Unknown Urine,Clean Catch Urine Culture - Final Rodrigues/IV: Voiding Method Incontinent Active Medications - Current Medications Current Medications: Generic Name Dose Route Start Last Admin Trade Name Freq PRN Reason Stop Dose Admin Acetaminophen 650 mg 11/14/21 00:26 Acetaminophen 325 Mg Tab PO Q4H PRN Pain MILD(1-3)/Fever >100.5/LAL Amlodipine Besylate 5 mg 11/14/21 12:00 11/17/21 10:40 Amlodipine 5 Mg Tab PO 5 mg DAILY OZIEL Administration Cholecalciferol 1,000 unit 11/15/21 10:00 11/17/21 10:40 Cholecalciferol (Vit D3) 1000 Unit (25 Mcg) Tab PO 1,000 unit QDAY OZIEL Administration Dextrose 0 ml 11/14/21 00:26 Dextrose 50% In Water (25gm) 50 Ml Syringe IV Q30MIN PRN Hypoglycemia Protocol Donepezil HCl 5 mg 11/15/21 10:00 11/17/21 10:40 Donepezil 5 Mg Tab PO 5 mg QDAY OZIEL Administration Hydralazine HCl 10 mg 11/14/21 03:27 11/15/21 00:14 Hydralazine 20 Mg/1 Ml Inj IV 10 mg Q4H PRN Administration SBP>160 Dextrose 1,000 mls @ 100 mls/hr 11/16/21 17:00 11/17/21 05:35 D5w IV 100 mls/hr DIRECT OZIEL Administration Ceftriaxone Sodium 1 gm in 50 mls @ 100 mls/hr 11/16/21 17:00 11/17/21 05:35 Rocephin/Ns 1 Gm/50 Ml IV 100 mls/hr Q12H OZIEL Administration Protocol Insulin Human Isoph/Insulin Regular 8 unit 11/17/21 09:00 11/17/21 08:00 Insulin Nph/Regular 70/30 Inj SUB-Q 8 unit QDDIAB OZIEL Administration Insulin Human Regular 0 units 11/17/21 11:30 11/17/21 11:30 Insulin Regular, Human 100 Units/1 Ml SUB-Q 2 units ACHS OZIEL Administration Protocol Levetiracetam 500 mg 11/14/21 22:00 11/17/21 10:40 Levetiracetam 500 Mg Tab PO 500 mg BID OZIEL Administration Losartan Potassium 100 mg 11/14/21 12:00 11/17/21 10:40 Losartan 50 Mg Tab PO 100 mg QDAY OZIEL Administration Magnesium Hydroxide 30 ml 11/14/21 00:26 Magnesium Hydroxide (Mom) Oral Liqd Udc PO Q4H PRN Constipation Memantine 5 mg 11/15/21 10:00 11/17/21 10:39 Memantine 5 Mg Tab PO 5 mg QDAY OZIEL Administration Morphine Sulfate 2 mg 11/14/21 00:26 Morphine 2 Mg/1 Ml Inj IV Q4H PRN Pain, Moderate (4-6) Morphine Sulfate 4 mg 11/14/21 00:26 11/15/21 02:22 Morphine 4 Mg/1 Ml Inj IV 4 mg Q4H PRN Administration Pain , Severe (7-10) Ondansetron HCl 4 mg 11/14/21 00:26 Ondansetron 4 Mg/2 Ml Inj IV Q8H PRN Nausea And Vomiting Sodium Chloride 10 ml 11/14/21 10:00 11/17/21 10:41 Sodium Chloride 0.9% 10 Ml Flush Syringe IV 10 ml BID OZIEL Administration Sodium Chloride 10 ml 11/14/21 00:26 Sodium Chloride 0.9% 10 Ml Flush Syringe IV PRN PRN LINE FLUSH Nutrition/Malnutrition Assess - Dietary Evaluation Nutrition/Malnutrition Findings: Nutrition Notes Start: 11/14/21 13:26 Freq: Status: Active Protocol: Document 11/14/21 13:26 JOHN (Rec: 11/14/21 13:55 OJHN [id number]) Nutrition Notes Need for Assessment generated 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 Current Diet Cardiac/Consistent Carbohydrates Diet+D Suppl ( since B 11/14). Labs/Tests 11/14: BUN 30, Glu 230. Pertinent Medications 11/14: Vit D3, others nutritionally unremarkable. 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 Weight Status Appropriate Subjective/Other Information RD consult for nutrition education, skin risk and risk of malnutrition assessments. Pt's PO intake of meals has been Poor (<50%), according to ADL notes. I will prescribe dietary supplements to compensate for poor or insufficient PO intake of meals during LOS. Pt is on Room Air, O2 saturation @ 99%, according to Physical Assessment History notes. Pt shows no signs of concern for skin risk at the time, according to Physical Assessment History notes. 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 Pt shows no signs for risk of malnutrition at the time, according to Physical Assessment History notes. Pt needs total assistance with ADL activities, not a candidate for Nutrition Education. Percent of energy/protein needs met: Prescribed Cardiac/Consistent Carbohydrates Diet provides for energy/protein needs (1, 977 Kcal/86 g) during LOS; additionally, Dietary Supplements will compensate for possible poor or insufficient PO intake of meals with 440 Kcal and 20 g of protein. Burn Absent Trauma Absent GI Symptoms Nausea,Vomiting Food Allergy No Skin Integrity/Comment Assessment WNL. 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 As Evidenced by Signs and Symptoms Pt's PO intake of meals has been Poor (<50%), according to ADL notes. Is patient on ventilator? No Is Patient Ambulatory and/or Out of Bed No REE-([place]. Jeor-confined to bed) 1503.840 Kcal/Kg value to use for calculation 28 Approximate Energy Requirements Using 1862 kcal/Kg Calculation Used for Recommendations Kcal/kg Additional Notes Protein: 1-1.2 g/Kg ABW; 67-80 g/day. Fluids: 1 ml/Kcal, or as per MD. Nutrition Intervention Change Diet Order: Continue Cardiac/Consistent Carbohydrates Diet as tolerated. Add Supplement/Snack (indicate name/kcal Start 8 fl oz Glucerna; BID. /protein ) Provides kCal: 440 Provides Protein (gm) 20 Goal #1 Compensate, through dietary supplementation, for possible poor or insufficient PO intake of meals during LOS. Goal #2 Adjust the dietary intervention to better serve Pt's needs and clinical conditions during LOS. Follow-Up By: 11/19/21 Additional Comments Continue monitoring food tolerance, %PO intake of meals , dietary supplements, and BM.
[2021-11-17 23:05] LABS: Calcium 8.7 mg/dL (8.4-10.2)
[2021-11-18] MEDS: DEXTROSE 5% IN WATER 1,000 ML IV SCH (04:20)
[2021-11-18] MEDS: cefTRIAXone/NS 1 GM/50 ML 1 GM/50 ML BAG IV SCH (05:32)
[2021-11-18] MEDS: hydrALAZINE 20 MG/1 ML INJ IV PRN (07:00)
[2021-11-18] MEDS ORDERED: levoFLOXacin 500 MG TAB PO SCH (10:00)
[2021-11-18] MEDS: levETIRAcetam 500 MG TAB PO SCH (10:27)
[2021-11-18] MEDS: amLODIPine 5 MG TAB PO SCH (10:27)
[2021-11-18] MEDS: LOSARTAN 50 MG TAB PO SCH (10:28)
[2021-11-18] MEDS: CHOLECALCIFEROL (VIT D3) 1000 UNIT (25 mcg) TAB PO SCH (10:28)
[2021-11-18] MEDS: INSULIN NPH/REGULAR 70/30 INJ SUB-Q SCH (10:28)
[2021-11-18 10:29] VITALS: BP 130/66
[2021-11-18] MEDS: INSULIN REGULAR, HUMAN 100 UNITS/1 ML SUB-Q SCH ×2 (10:29→14:00)
[2021-11-18] MEDS: DONEPEZIL 5 MG TAB PO SCH (11:09)
[2021-11-18] MEDS: MEMANTINE 5 MG TAB PO SCH (11:09)
--- NOTE | 2021-11-18 11:58 | Discharge Summary ---
Providers - Providers Date of Admission: 11/14/21 00:27 Date of discharge: 11/18/21 Attending physician: LISA TRACY MD 11/13/21 21:50 Consult to Case Management [CONS] Urgent Services Needed at Discharge: Home Health Services Notified:: KARSON KERR Phone number called:: [phone] Was contact made?: No 11/14/21 00:27 Consult to Dietitian/Nutrition [CONS] Routine Physician Instructions: Reason For Exam: Reason for Consult: Diet education 11/15/21 09:23 Consult to Physician [CONS] Routine Comment: Consulting Provider: PILAR ROSARIO Physician Instructions: Reason For Exam: Adnexal mass Primary care physician: SUKH BETHEA Hospitalization Reason for admission: Sepsis secondary to acute cystitis without hematuria Condition: Stable Pertinent studies: Reviewed. Procedures: None. Hospital course: The patient is a 66-year-old female past medical history of dementia, CVA with residual right-sided defects and aphasia, seizure disorder, hypertension, who presented to the ED via family due to worsening dementia and acute metabolic encephalopathy. In the ED the patient was found to be hemodynamically stable with an elevated blood pressure of 190/90. The patient then became tachycardic to 119. Patient's labs were remarkable for leukocytosis of 14.1. Urinalysis was remarkable for small leukocyte esterase, WBC 149, 4+ bacteria, 3+ WBC clumps. Due to prior sensitivities from March 2021, the patient was initiated on Zosyn. Patient was admitted for management of sepsis secondary to acute cystitis and acute metabolic encephalopathy. Blood cultures have been unremarkable x72 hours. Patient developed hyponatremia due to decreased p.o. intake that is since resolved. Patient developed LEANN on CKD stage III secondary to vasomotor nephropathy in the setting of decreased p.o. intake that has also since resolved. Patient underwent CT abdomen and pelvis that revealed a right adnexal mass. Gynecology was consulted; however, gynecology oncology is not available at this facility. Patient is pending Ca1 25. Patient's family has been notified that she will likely require outpatient follow-up with gynecology, they expressed understanding. The patient will complete her antibiotic course with Bactrim double strength 1 tab twice daily x5 days. The patient is medically cleared for discharge. Disposition: HOME / SELF CARE / HOMELESS Final Discharge Diagnosis (Prints w/discharge instructions): Sepsis secondary to acute cystitispresent on arrival, acute cystitis without hematuria, acute metabolic encephalopathy, hypernatremianot present on arrival, acute kidney injury on CKD stage III secondary to vasomotor nephropathynot present on arrival, ammoniaruled out, baseline dementia, adnexal mass, possible ovarian malignancy Time spent for discharge: 45 min Core Measure Documentation - Palliative Care Palliative Care/ Comfort Measures: Not Applicable - Core Measures Any of the following diagnoses?: history only Exam - Constitutional Vitals: Temp Pulse Resp BP Pulse Ox 98.0 F 103 H 18 130/66 99 11/17/21 16:26 11/18/21 10:27 11/18/21 06:30 11/18/21 10:27 11/18/21 06:30 General appearance: Present: no acute distress, well-nourished, other (Baseline dementiaextremely tearful) - EENT Eyes: Present: PERRL, EOM intact ENT: hearing intact, clear oral mucosa - Neck Neck: Present: supple, normal ROM - Respiratory Respiratory effort: normal Respiratory: bilateral: CTA - Cardiovascular Rhythm: regular Heart Sounds: Present: S1 & S2 - Extremities Extremities: no ischemia, pulses intact, pulses symmetrical, No edema, normal temperature, normal color, abnormal (Right-sided weakness with contracture of right hand secondary to distant CVA) Peripheral Pulses: within normal limits - Abdominal General gastrointestinal: Present: soft, non-tender, non-distended, normal bowel sounds Female genitourinary: Present: deferred - Rectal Rectal Exam: deferred - Integumentary Integumentary: Present: clear, warm, dry - Musculoskeletal Musculoskeletal: right sided weakness - Psychiatric Psychiatric: agitated, other (Extremely fearful secondary to baseline dementia) - Neurologic Neurologic: CNII-XII intact - Allied Health Allied health notes reviewed: nursing Plan Activity: advance as tolerated Diet: low salt Additional Instructions: The patient is a 66-year-old female past medical history of dementia, CVA with residual right-sided defects and aphasia, seizure disorder, hypertension, who presented to the ED via family due to worsening dementia and acute metabolic encephalopathy. In the ED the patient was found to be hemodynamically stable with an elevated blood pressure of 190/90. The patie nt then became tachycardic to 119. Patient's labs were remarkable for leukocytosis of 14.1. Urinalysis was remarkable for small leukocyte esterase, WBC 149, 4+ bacteria, 3+ WBC clumps. Due to prior sensitivities from March 2021, the patient was initiated on Zosyn. Patient was admitted for management of sepsis secondary to acute cystitis and acute metabolic encephalopathy. Blood cultures have been unremarkable x72 hours. Patient developed hyponatremia due to decreased p.o. intake that is since resolved. Patient developed LEANN on CKD stage III secondary to vasomotor nephropathy in the setting of decreased p.o. intake that has also since resolved. Patient underwent CT abdomen and pelvis that revealed a right adnexal mass. Gynecology was consulted; however, gynecology oncology is not available at this facility. Patient is pending Ca1 25. Patient's family has been notified that she will likely require outpatient follow-up with gynecology, they expressed understanding. The patient will complete her antibiotic course with Bactrim double strength 1 tab twice daily x5 days. The patient is medically cleared for discharge. Care Plan Goals: Patient is medically clear for discharge. Assessment: The patient is a 66-year-old female past medical history of dementia, CVA with residual right-sided defects and aphasia, seizure disorder, hypertension, who presented to the ED via family due to worsening dementia and acute metabolic encephalopathy. In the ED the patient was found to be hemodynamically stable with an elevated blood pressure of 190/90. The patient then became tachycardic to 119. Patient's labs were remarkable for leukocytosis of 14.1. Urinalysis was remarkable for small leukocyte esterase, WBC 149, 4+ bacteria, 3+ WBC clumps. Due to prior sensitivities from March 2021, the patient was initiated on Zosyn. Patient was admitted for management of sepsis secondary to acute cystitis and acute metabolic encephalopathy. Blood cultures have been unremarkable x72 hours. Patient developed hyponatremia due to decreased p.o. intake that is since resolved. Patient developed LEANN on CKD stage III secondary to vasomotor nephropathy in the setting of decreased p.o. intake that has also since resolved. Patient underwent CT abdomen and pelvis that revealed a right adnexal mass. Gynecology was consulted; however, gynecology oncology is not available at this facility. Patient is pending Ca1 25. Patient's family has been notified that she will likely require outpatient follow-up with gynecology, they expressed understanding. The patient will complete her antibiotic course with Bactrim double strength 1 tab twice daily x5 days. The patient is medically cleared for discharge. Follow up with: SUKH BETHEA MD [Primary Care Provider] - 7 Days Prescriptions: Sulfamethoxazole/Trimethoprim [Bactrim DS TAB] 1 each PO Q12HR #9 tablet Docusate Sodium [Colace] 100 mg PO BID PRN #14 capsule PRN Reason: constipation
[2021-11-18] MEDS ORDERED: SULFAMETHOXAZOLE/TRIMETHOPRIM 800/160MG DS TAB PO SCH (13:00)
[2021-11-19] MEDS ORDERED: cefTRIAXone/NS 1 GM/50 ML 1 GM/50 ML BAG IV SCH (08:00)
== END 2021-11-18 16:00 | disposition home or self-care (01) | DRG 871 ==
LOC: ED 01:44 → 3A 11-14 00:27
PROVIDERS: ADMIT Internal Medicine Geriatric Medicine; ATTEND Student in an Organized Health Care Education/Training Program
DX: A41.9 Sepsis, unspecified organism (principal); G92.8 Other toxic encephalopathy; N17.0 Acute kidney failure with tubular necrosis; E87.0 Hyperosmolality and hypernatremia; N30.00 Acute cystitis without hematuria; C56.9 Malignant neoplasm of unspecified ovary; E86.0 Dehydration; Z20.822 Contact with and (suspected) exposure to COVID-19; F03.90 Unspecified dementia, unspecified severity, without behavioral disturbance, psychotic disturbance, mood disturbance, and anxiety; K59.00 Constipation, unspecified; K80.80 Other cholelithiasis without obstruction; G40.909 Epilepsy, unspecified, not intractable, without status epilepticus; E78.5 Hyperlipidemia, unspecified; I12.9 Hypertensive chronic kidney disease with stage 1 through stage 4 chronic kidney disease, or unspecified chronic kidney disease; E11.22 Type 2 diabetes mellitus with diabetic chronic kidney disease; N18.30 Chronic kidney disease, stage 3 unspecified; Z79.899 Other long term (current) drug therapy; Z86.73 Personal history of transient ischemic attack (TIA), and cerebral infarction without residual deficits; Z79.4 Long term (current) use of insulin
CPT/HCPCS: 36415; 71045; 74177; 76770; 80048; 80076; 81001; 81025; 82010; 82378; 82550; 82962; 83036; 83690; 84484; 85025; 86304; 87040; 87086; G0378; J3490; Q0177; Q9967; J0360; J0696; J1815; J2060; J2270; J2543; J7030; J7040; J7070; U0003